=== PATIENT | male | born 1965 | race Caucasian/White ===

== ENCOUNTER 2016-06-04 05:45 | Inpatient (IN) | payer OTHER ==
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
--- NOTE | ~2016-06-04 | CR151 ---
[facility] A Service of [facility] RADIOLOGY TEXT RESULTS PATIENT: MIRA BRAXTON LOCATION: [facility] 204- : [birth year] UNIT #: [id number] AGE: [address]: Neena Crisostomo MD SEX: M ORDER DR: [id number] [facility] [address] [place], [place] [address] [id number] I MR#: [id number] Acc #: [id number] NAME: MIRA BRAXTON : 1965 SEX: M STUDY DATE/TIME: 06/04/2016 6:39 UNIT: CEDOF ROOM: 08219 STUDY DESCRIPTION: CR Hip Min 2 Views Rt Attending Physician: Neena Crisostomo M.D. Ordering Physician: Colt Hazel Aprn Primary Care Physician: Colton Mcdowell M.D. MEDICAL IMAGING REPORT This report is preliminary unless electronic signature is present EXAM AP pelvis and frog view right hip DATE: 06/04/16 HISTORY Bilateral hip pain for three days. No known injury FINDINGS There is perhaps some mild degenerative change with slight joint space narrowing but no fracture or dislocation. Dictated by... Poncho Hendrix M.D. THIS IS AN ELECTRONICALLY VERIFIED REPORT Poncho Hendrix M.D. at 06/07/2016 7:06 PM FERDINAND/quan TD: 06/04/2016 10:30 JOB #: [id number] MEDICAL IMAGING REPORT COPY
--- NOTE | ~2016-06-04 | CR72 ---
[facility] A Service of [facility] RADIOLOGY TEXT RESULTS PATIENT: MIRA BRAXTON LOCATION: [place] [address] : [birth year] UNIT #: [id number] AGE: [address]: Neena Crisostomo MD SEX: M ORDER DR: [id number] [facility] [address] [facility]. [place], [place] [address] [id number] I MR#: [id number] Acc #: [id number] NAME: MIRA BRAXTON : 1965 SEX: M STUDY DATE/TIME: 06/04/2016 6:36 [facility] [address] STUDY DESCRIPTION: CR Chest Single View Portable Attending Physician: Neena Crisostomo M.D. Ordering Physician: Colt Hazel Aprn Primary Care Physician: Colton Mcdowell M.D. MEDICAL IMAGING REPORT This report is preliminary unless electronic signature is present EXAM Portable chest one view 06/04/2016 COMPARISON 04/10/2016 HISTORY Short of air. Symptoms for three days. FINDINGS Low lung volumes. Mild interstitial prominence and/or vascular congestion may be primarily result of submaximal inspiration as made slight exaggeration of the cardiac silhouette. There is no consolidation or effusion or pneumothorax. Dictated by... Poncho Hendrix M.D. THIS IS AN ELECTRONICALLY VERIFIED REPORT Poncho Hendrix M.D. at 06/05/2016 3:55 PM FERDINAND/barbara TD: 06/04/2016 10:42 JOB #: [id number] MEDICAL IMAGING REPORT COPY
--- NOTE | ~2016-06-04 | CO ---
Unit #: [id number] #: [id number] Patient: MIRA DANIELSON [id number] [address] [place], [place] [address] [id number] I MR#: [id number] NAME: MIRA DANIELSON ROOM: 201 Age: 51 Sex: M Admission Date: 06/04/2016 : 1965 Attending Physician: Neena Crisostomo M.D. Primary Care Physician: Colton Mcdowell M.D. Consultation Date: 06/04/2016 CONSULTATION REPORT REASON FOR CONSULT Renal failure. Thank you very much for asking us to see this patient in consultation. HISTORY OF PRESENT ILLNESS Mr. Mira Danielson is a 51-year-old male, who has a history of acute renal failure in the past, requiring dialysis. Subsequently, he was weaned off dialysis. He apparently was felt to have hepatorenal at that time versus ATN and improved, although he does have a functioning fistula in his left arm, although it has yet been used. The patient was noted in April of this year to have a creatinine of 1.4. He underwent a 7.9 L large-volume paracentesis on 05/25/2016. He has an underlying history of EtOH cirrhosis, portal hypertension, who presented back to the hospital with increased swelling and noted to have black tarry stools with a creatinine of 4.9 now and a hemoglobin of 6.9. The patient is alert, although seems a little inappropriate. He states he is back drinking as well as smoking. He denies any shortness of breath. No chest pain. No significant nausea or vomiting. PAST MEDICAL HISTORY History of EtOH cirrhosis, portal hypertension, awaiting TIPS procedure, history of multiple paracenteses, history of COPD, history of SVT, history of acute renal failure in the past. He is status post AV fistula in the left arm, history of suicide in the past, history of anemia with GI bleed in the past. ALLERGIES No known drug allergies. SOCIAL HISTORY Positive alcohol again. Positive smoking cigarettes. He denies any other drugs. FAMILY HISTORY Noncontributory. MEDICATIONS His medications at home include sodium bicarbonate 650 daily, lactulose daily, Ambien 5 mg at night, multivitamin a day, tramadol p.r.n., folic acid 1 mg a day, B12 daily. REVIEW OF SYSTEMS As mentioned in the HPI. Denies any fevers, chills, visual problems, or Unit #: [id number] #: [id number] Patient: MIRA DANIELSON sinus problems. No cough or hemoptysis. No neck pain or neck stiffness. No chest pain, chest tightness, or palpitations. He has had the increased abdominal swelling. He also states he has had decreased urine output, although no burning. He states he has had some intermittent occasional swelling. He denies any recent seizures or strokes or skin rashes. PHYSICAL EXAMINATION VITAL SIGNS: Temperature is 97.8, pulse 122, blood pressure 118/80. HEENT: Normocephalic and atraumatic. Pupils are equal, round, and reactive to light. Extraocular muscles are intact. Hearing appears to be normal. Mouth clear. No erythema. No exudate. NECK: Supple. No adenopathy. CARDIAC: He is tachycardic without a rub. No S3 or S4. LUNGS: Sound fairly clear bilaterally. No wheezes, rhonchi, or rales. ABDOMEN: Very distended. Bowel sounds positive. Nontender. Positive for some body edema. EXTREMITIES: He has no significant lower extremity edema. His pulses are intact in upper and lower extremities. JOINTS: No joint pain or joint swelling. SKIN: No acute rashes. NEUROLOGIC: Grossly intact. : Deferred. DIAGNOSTIC STUDIES LABORATORY RESULTS: Shows a sodium of 134, potassium 5.2, chloride 100, bicarb is 14, BUN of 47, creatinine of 4.9, glucose of 111, calcium is 8.0, albumin is 2.1, AST is 100, ALT is 37. Lactic acid is 3. INR is 1.3. Hemoglobin 6.9 with a white count of 9100, platelets 110,000. IMAGING STUDIES: Chest x-ray showed questionable mild vascular congestion, otherwise negative. ASSESSMENT AND PLAN 1. Acute kidney injury again on top of some chronic kidney disease, stage 3/4. BUN and creatinine worsened again. Questionable, it is from volume depletion from gastrointestinal bleed versus hepatorenal again versus other. We will hold off on dialysis. We will check a bladder scan for postvoid residual. We will agree with blood as well as put him on low dose IV fluids with bicarb, half-normal saline with 1.5 amps of bicarb at 75 mL/h. He is supposed to get blood as well. Certainly, if renal function worsens or becomes more hyperkalemic, then we will need to consider putting him on dialysis, but again we will try to hold off, he does have a fistula, if needed. 2. Hyperkalemia secondary to acidosis and renal insufficiency. Recheck later today. Treat as clinically indicated. 3. Cirrhosis with ascites. Positive alcohol abuse again. 4. History of gastrointestinal bleed. Dictated by.Bi Chaney/dorota TD: 06/05/2016 03:29 JOB #: [id number] Unit #: [id number] #: [id number] Patient: MIRA DANIELSON CONSULTATION REPORT X Damian Vicente MD X CONSULTATION REPORT
--- NOTE | ~2016-06-04 | XA170 ---
[facility] A Service of [facility] RADIOLOGY TEXT RESULTS PATIENT: MIRA BRAXTON LOCATION: [facility] : [birth year] UNIT #: [id number] AGE: [address]: Neena Crisostomo MD SEX: M ORDER DR: [id number] [facility] [address] [facility]. [place], [place] [address] [id number] I MR#: [id number] Acc #: [id number] NAME: MIRA BRAXTON : 1965 SEX: M STUDY DATE/TIME: 06/05/2016 9:11 UNIT: [facility] ROOM: [facility] STUDY DESCRIPTION: XA Paracentesis W Image Attending Physician: Neena Crisostomo M.D. Ordering Physician: Akshat Umana M.D. Primary Care Physician: Colton Mcdowell M.D. MEDICAL IMAGING REPORT This report is preliminary unless electronic signature is present EXAM Ultrasound guided paracentesis HISTORY Recurrent ascites. Abdominal distension. TECHNIQUE The procedure was explained to the patient including risks, benefits and complications. Informed consent was obtained and a formal "time-out" procedure was utilized. FINDINGS Using sterile technique and following local anesthesia with 1% Xylocaine, a sheathed needle was placed into the acidic fluid collection under ultrasound guidance with permanent ultrasound images recorded. A total of 9.6 L of fluid was withdrawn. Some of the fluid was sent for laboratory analysis. The patient tolerated the procedure well. He will be kept on bedrest for one hour following the procedure with close monitoring of vital signs. IMPRESSION Technically successful ultrasound guided paracentesis with 9.6 L of fluid obtained. Dictated by... Osvaldo Pickett M.D. THIS IS AN ELECTRONICALLY VERIFIED REPORT Osvaldo Pickett M.D. at 06/05/2016 4:31 PM Digna TD: 06/05/2016 15:44 [facility] A Service [facility] RADIOLOGY TEXT RESULTS PATIENT: MIRA BRAXTON LOCATION: [place] [id number] : [birth year] UNIT #: [id number] AGE: [address]: Neena Crisostomo MD SEX: M ORDER DR: JOB #: [id number] MEDICAL IMAGING REPORT COPY
--- NOTE | ~2016-06-04 | CT71 ---
[facility] A Service of [facility] RADIOLOGY TEXT RESULTS PATIENT: MIRA BRAXTON LOCATION: [facility] : [birth year] UNIT #: [id number] AGE: [address]: Neena Crisostomo MD SEX: M ORDER DR: [id number] [facility] [address]. [place], [place] [address] [id number] I MR#: [id number] Acc #: [id number] NAME: MIRA BRAXTON. : 1965 SEX: M STUDY DATE/TIME: 06/04/2016 7:30 UNIT: [facility] ROOM: [facility] STUDY DESCRIPTION: CT Head Wo Contrast Attending Physician: Neena Crisostomo M.D. Ordering Physician: Colt Hazel Aprn Primary Care Physician: Colton Mcdowell M.D. MEDICAL IMAGING REPORT This report is preliminary unless electronic signature is present EXAM CT head without contrast dated 06/04/2016. COMPARISON CT head without contrast dated 01/13/2016. HISTORY Weakness, confusion for [address] exam was performed with one or more of the following radiation dose reduction techniques: automatic exposure control, adjustment of mA and/or kV according to patient size, and iterative reconstruction. FINDINGS CT of the head was obtained without contrast in the axial plane as per the protocol. Motion artifact limits evaluation. No acute intracranial hemorrhage, space-occupying mass, mass effect, midline shift or hydrocephalus is seen, after giving allowances to motion artifact. Age-appropriate parenchymal volume is seen. No acute fracture. Mild paranasal sinus mucosal thickening is seen with septal deviation to the right. Imaged orbits with the ocular structures and mastoids are unremarkable. IMPRESSION 1. Motion artifact limits evaluation. 2. No obvious acute intracranial abnormality. MRI is more sensitive and specific in evaluation of small acute stroke. Dictated by... Judson Amezcua M.D. [facility] A Service of [facility] RADIOLOGY TEXT RESULTS PATIENT: MIRA BRAXTON LOCATION: [facility] : [birth year] UNIT #: [id number] AGE: [address]: Neena Crisostomo MD SEX: M ORDER DR: THIS IS AN ELECTRONICALLY VERIFIED REPORT Judson Amezcua M.D. at 06/06/2016 10:47 AM CPR/cmm TD: 06/04/2016 10:50 JOB #: [id number] MEDICAL IMAGING REPORT COPY
--- NOTE | ~2016-06-04 | XA170 ---
[facility] A Service of [facility] RADIOLOGY TEXT RESULTS PATIENT: MIRA DANIELSON LOCATION: [place] [address] : [birth year] UNIT #: [id number] AGE: [address]: Neena Crisostomo MD SEX: M ORDER DR: [id number] [facility] [address]. [place], [place] [address] [id number] I MR#: [id number] Acc #: [id number] NAME: MIRA DANIELSON. : 1965 SEX: M STUDY DATE/TIME: 06/08/2016 15:28 UNIT: [facility] ROOM: [facility] STUDY DESCRIPTION: XA Paracentesis W Image Attending Physician: Neena Crisostomo M.D. Ordering Physician: Akshat Umana M.D. Primary Care Physician: Colton Mcdowell M.D. MEDICAL IMAGING REPORT This report is preliminary unless electronic signature is present EXAM Ultrasound of the abdomen Mr. Danielson is a 51-year-old gentleman with ascites. He has refractory ascites requiring large volume paracenteses frequently. He is referred for paracentesis today. Preliminary ultrasound of the abdomen was performed which demonstrated only small pockets of fluid, with mobile, bowel identified within it. The procedure was subsequently terminated. IMPRESSION Insufficient volume of fluid for safe paracentesis at this time. Dictated by... Brandie Maya M.D. THIS IS AN ELECTRONICALLY VERIFIED REPORT Brandie Maya M.D. at 06/12/2016 4:43 PM JAEL/quan TD: 06/12/2016 11:49 JOB #: [id number] MEDICAL IMAGING REPORT COPY
--- NOTE | ~2016-06-04 | CR150 ---
[facility] A Service of [facility] RADIOLOGY TEXT RESULTS PATIENT: MIRA BRAXTON LOCATION: [place] [address]- : [birth year] UNIT #: [id number] AGE: [address]: Neena Crisostomo MD SEX: M ORDER DR: [id number] [facility] [address] [facility]. [place], [place] [address] [id number] I MR#: [id number] Acc #: [id number] NAME: MIRA BRAXTON : 1965 SEX: M STUDY DATE/TIME: 06/04/2016 6:40 UNIT: [facility] ROOM: [address] STUDY DESCRIPTION: CR Hip Min 2 Views Lt Attending Physician: Neena Crisostomo M.D. Ordering Physician: Colt Hazel Aprn Primary Care Physician: Colton Mcdowell M.D. MEDICAL IMAGING REPORT This report is preliminary unless electronic signature is present EXAM AP pelvis and frog view left hip. HISTORY Bilateral hip pain for 3 days. No known injury. FINDINGS Question some very slight degenerative change with tiny marginal osteophytes, but no fracture or dislocation or acute-appearing abnormality. Dictated by... Poncho Hendrix M.D. THIS IS AN ELECTRONICALLY VERIFIED REPORT Poncho Hendrix M.D. at 06/07/2016 7:06 PM FERDINAND/mayco TD: 06/04/2016 10:19 JOB #: [id number] MEDICAL IMAGING REPORT COPY
--- NOTE | ~2016-06-04 | EKG ---
PATIENT: MIRA BRAXTON UNIT #: [id number] Ventricular Rate: 119 BPM Atrial Rate: 119 BPM P-R Interval: 156 ms QRS Duration: 84 ms Q-T Interval: 312 ms QTC Calculation(Bezet): 438 ms P Welch: 52 degrees Calculated R Welch: 9 degrees Calculated T Welch: 32 degrees Diagnosis Line: Sinus tachycardia Diagnosis Line: Low voltage QRS Diagnosis Line: Poor R wave progression questionable lead position Diagnosis Line: or body habitus Diagnosis Line: Abnormal ECG Diagnosis Line: When compared with ECG of 25-AUG-2015 06:18, Diagnosis Line: Vent. rate has increased BY 49 BPM Diagnosis Line: Confirmed by FRANCY TARIQ MD ([id number]) on Diagnosis Line: 06/05/2016 11:45:21 AM INTERPRETING : KENZIE
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
--- NOTE | ~2016-06-04 | OR ---
Unit #: [id number] #: [id number] Patient: MIRA BRAXTON [id number] [facility]. [place], [place] [address] [id number] I MR#: [id number] NAME: MIRA BRAXTON ROOM: 201 Date of Procedure: 06/04/2016 Admission Date: 06/04/2016 Surgeon: Akshat Umana M.D. : 1965 Attending Physician: Neena Crisostomo M.D. Primary Care Physician: Colton Mcdowell M.D. OPERATIVE REPORT PRIMARY CARE PHYSICIAN Colton Mcdowell M.D. PREOPERATIVE DIAGNOSES Significant drop in hemoglobin and the patient with alcoholic cirrhosis with portal hypertension, large ascites, and hepatic encephalopathy. There is no history of overt GI bleed. PROCEDURES PERFORMED Upper gastrointestinal endoscopy. POSTOPERATIVE DIAGNOSES The patient had severe diffuse portal hypertensive gastropathy changes throughout the entire stomach with multiple areas of oozing of blood in the fundus as well as body of the stomach. No esophageal or gastric varices were present. Rest of the examination up to third part of duodenum was normal. RECOMMENDATIONS No specific endotherapy is possible because of diffuse nature of the condition other than supportive management. The patient needs packed cell transfusions along with continuation of lactulose, also albumin infusions, large volume paracentesis, Xifaxan 550 mg p.o. b.i.d., also 2 g sodium, 70 g protein, 1800 calorie diet. Lastly, a Renal consult, which has already been done by Dr. Vicente to look into the issue of possible hemodialysis and HRS. SEDATION USED MAC. DESCRIPTION OF PROCEDURE Following detailed explanation of potential risks and complications of an upper endoscopy, namely perforation, bleeding, and complications related to sedation, the patient was brought to GI lab and laid in the left lateral decubitus position. Lubricated tip of the Olympus video upper endoscope was passed through bite block into the proximal esophagus under direct vision. The entire esophageal mucosa was examined and appeared normal. There being no esophageal varices. The scope was then advanced into the gastric cavity and classic changes of portal hypertensive gastropathy were observed with diffuse mucosal changes of reticulated appearance of the mucosa along with multiple areas of fresh oozing of the blood. These were too numerous to be treated endoscopically by Unit #: [id number] #: [id number] Patient: MIRA BRAXTON coagulation therapy. The pylorus was intubated with visualization of the normal duodenal bulb and second and third part of the duodenum. Upon withdrawal and retroflexion, incisura, cardia, and greater curve examined and no additional findings noted. The scope was then withdrawn in the distal esophagus. The entire esophageal mucosa was examined all the way up to pharynx. No additional findings noted. The patient tolerated the procedure without any postprocedure complications. Dictated by... Bi Barry/dorota TD: 06/05/2016 02:01 JOB #: [id number] Viral Vicente M.D. OPERATIVE REPORT X Akshat Umana MD X PROCEDURE OPERATIVE NOTE
--- NOTE | ~2016-06-04 | CO ---
Unit #: [id number] #: [id number] Patient: MIRA DANIELSON [id number] [address] [id number] I MR#: [id number] NAME: MIRA DANIELSON. ROOM: 55 Age: 51 Sex: M Admission Date: 06/04/2016 : 1965 Attending Physician: Neena Crisostomo M.D. Primary Care Physician: Colton Mcdowell M.D. CONSULTATION REPORT REASON FOR CONSULTATION Urinary retention. HISTORY OF PRESENT ILLNESS Mr. Danielson is a pleasant 51-year-old man with a history of acute on chronic renal insufficiency requiring hemodialysis, as well as cirrhosis. He had a catheter placed earlier in this admission, and after the catheter was removed, he was found to be in urinary retention. A bladder scan checked yesterday was in the 250 range per his nurse. Urology consultation was requested. The patient reports having weak urinary stream prior to admission. He also noted urinary hesitancy, although no straining or sensation of incomplete emptying. Denies gross hematuria. He reports that he did have a urinary tract infection several months ago but has never undergone urinary tract surgery in the past. He does not take medication for an enlarged prostate. PAST MEDICAL HISTORY 1. Endstage renal disease, on hemodialysis Saturday, , Saturday. 2. History of anemia. 3. History of hyperkalemia. 4. COPD. 5. Hepatic encephalopathy. MEDICATIONS 1. Tramadol. 2. Folic acid. 3. Vitamin B12. 4. Ambien. 5. Pepcid. 6. Sodium bicarb. 7. Lactulose. HOSPITAL MEDICATIONS 1. Darbepoetin. 2. Ativan. 3. Bentyl. 4. Phenergan. 5. Thiamine. 6. Folic acid. 7. Levaquin. 8. Tramadol. 9. Multivitamin. Unit #: [id number] #: [id number] Patient: MIRA DANIELSON ALLERGIES No known drug allergies. FAMILY HISTORY Noncontributory. PHYSICAL EXAMINATION VITAL SIGNS: Afebrile, occasionally tachycardic but otherwise vital signs stable. Saturating well on room air. GENERAL: Awake and alert. No apparent distress. HEENT: Atraumatic. Poor dentition. NECK: Supple. CHEST: Normal respiratory effort. ABDOMEN: Soft, protuberant, nondistended. No tenderness. No suprapubic distention. : Normal phallus. Scrotum nonedematous. PSYCHIATRIC: Normal mood and affect. SKIN: Warm and dry. DIAGNOSTIC STUDIES LABS: Creatinine 4.2. White count 7.6, hemoglobin 7, platelets 56,000. ASSESSMENT This is a 51-year-old male with a history of endstage renal disease, found to have elevated postvoid residual and has lower urinary tract signs and symptoms. PLAN 1. Repeat PVR via bladder scan. 2. Flomax 0.4 mg p.o. daily. 3. Followup in urology clinic for additional PVR and discussion of BPH management. Dictated by... Bi Clifton/veronique TD: 06/10/2016 14:49 JOB #: [id number] CONSULTATION REPORT X X CONSULTATION REPORT
--- NOTE | ~2016-06-04 | US77 ---
[facility] A Service of [facility] RADIOLOGY TEXT RESULTS PATIENT: MIRA BRAXTON LOCATION: [facility] : [birth year] UNIT #: [id number] AGE: [address]: Neena Crisostomo MD SEX: M ORDER DR: [id number] [place], [place] [address] [id number] I MR#: [id number] Acc #: [id number] NAME: MIRA BRAXTON : 1965 SEX: M STUDY DATE/TIME: 06/04/2016 16:55 UNIT: A ROOM: 201 STUDY DESCRIPTION: US Kidney Bilateral Complete Attending Physician: Neena Crisostomo M.D. Ordering Physician: Neena Crisostomo M.D. Primary Care Physician: Colton Mcdowell M.D. MEDICAL IMAGING REPORT This report is preliminary unless electronic signature is present EXAM Renal ultrasound INDICATIONS Renal insufficiency, BUN 47, creatinine 4.9, GFR 13.5 PROCEDURE Roy-scale and Doppler imaging kidneys and bladder. COMPARISON None. FINDINGS Right kidney measures 11.9 cm, no hydronephrosis. Left kidney measures 10.7 cm, no hydronephrosis. There is ascites seen in the abdomen. The bladder is not well seen on this study. IMPRESSION 1. No hydronephrosis. 2. Bladder decompressed by a catheter. 3. Abdominal ascites. Dictated by... Piyush Coleman M.D. THIS IS AN ELECTRONICALLY VERIFIED REPORT Piyush Coleman M.D. at 06/05/2016 7:18 AM EED/psc TD: 06/04/2016 23:19 JOB #: [id number] [facility] A Service of [facility] RADIOLOGY TEXT RESULTS PATIENT: MIRA BRAXTON LOCATION: [facility] : 69 UNIT #: [id number] AGE: [address]: Neena Crisostomo MD SEX: M ORDER DR: MEDICAL IMAGING REPORT COPY
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
[~2016-06-04 05:45] MED LIST: ACETAMINOPHEN325 MG PO; ALDACTONE25 MG PO; AMBIEN PO; ANTACID650 MG PO; ANTI-DIARRHEAL2 M1 PO; B COMPLEX1 CA1 PO; B-121000 MC1 PO; B-COMPLEX1 TAB PO; BENADRYL25 M1 PO; CALCIUM + D 6001 TA1 PO; CALCIUM ACETAT667 M2 PO; CHRONULAC10 GM/15 M PO; COMBIVENT U/D3 M1 INH; EPOGEN20000 U/ML INJ; FLAGYL250 M1 PO; FLOMAX0.4 M1 PO; FOLIC ACID1 MG PO; FUROSEMIDE40 MG PO; HYDROCODON-ACE1 EAC7 PO; KEFLEX500 M1 PO; LACTULOSE10 G/15 M1 PO; LASIX PO; LASIX20 MG PO; LEVAQUIN PO; LIBRIUM PO; LOPERAMIDE1 MG/7.5 M; MACROBID100 MG PO; MIDODRINE HCL2.5 MG PO; MULTI VITAMIN1 EACH PO; MULTI-VITAMIN1 EAC1 PO; MULTIVITAMIN TABLET PO; OMEPRAZOLE40 M1 PO; ONDANSETRON HCL4 MG PO; PEPCID AC20 MG PO; PEPCID40 MG PO; PHENERGAN25 M1 PO; PREDNISONE10 MG PO; PRILOSEC40 MG PO; PROAMATINE10 MG PO; SODIUM BICARBO650 MG PO; SPIRONOLACTONE100 MG PO; THIAMINE HCL100 M1 PO; THIAMINE HCL50 MG PO; TOPROL XL50 MG PO; TRAMADOL HCL50 M1 PO; ULTRAM PO; VITAMIN B-1100 M1 PO; VITAMIN B1 PO; VITAMIN B12 PO; VITAMIN D PO; VITAMIN D2 PO; VITAMIN D22000 UNIT PO; XIFAXAN550 MG PO; ZOLPIDEM TARTRA10 M1 PO
[2016-06-04 06:32] LABS: POC - CKMB 3.6 ng/mL (0.0-7.9); POC - TROPONIN <0.05 ng/mL (<=0.05)
[2016-06-04 06:45] LABS: BASOPHIL# 0.1 X10e3 (0-0.3); BASOPHIL% 1.4 % (0-2.5); EOSINOPHIL# 0.1 X10e3 (0-0.7); EOSINOPHIL% 1.3 % (0.0-7.0); HEMATOCRIT 21.1 % (38.0-50.0); LYMPHOCYTE# 1.2 X10e3 (1.0-3.5); MEAN CELL VOLUME 111.3 FL (83-96); MEAN CORPUSCULAR HEMOGLOBIN 36.5 PG (28-34); MEAN CORPUSCULAR HGB CONC 32.8 g/dL (30-36); MEAN PLATELET VOLUME 7.8 FL (6.5-11.5); MONOCYTE# 0.7 X10e3 (0-1.0); MONOCYTE% 7.4 % (3.0-12.0); NEUTROPHIL% 76.9 % (40-75); PLATELET COUNT 110 X10e3 (140-420); RED BLOOD COUNT 1.89 X10e (3.90-5.60); RED CELL DISTRIBUTION WIDTH 18.2 % (11.0-15.5); WHITE BLOOD COUNT 9.1 X10e3 (4.0-10.5)
[2016-06-04 06:48] LABS: DIFF IND YES; HEMOGLOBIN 6.9 gm/dL (13.0-16.0)
[2016-06-04 06:58] LABS: INR 1.3; PARTIAL THROMBOPLASTIN TIME 28.5 SECONDS (23.5-31.3); PROTHROMBIN TIME (PATIENT) 14.1 SECONDS (9.6-11.5)
[2016-06-04 07:17] LABS: ALBUMIN SERUM 2.1 g/dL (3.5-5.0); BILIRUBIN, DIRECT 1.6 mg/dL (0.0-0.2); BILIRUBIN,INDIRECT 2.6 mg/dL (0.0-0.9); BILIRUBIN,TOTAL 4.2 mg/dL (0.2-2.0); BUN/CREATININE RATIO 9.59; CREATININE SERUM 4.9 mg/dL (0.6-1.4); GLOM FILT RATE Estimated 13.5 mL/min (>60); POTASSIUM 5.2 mmol/L (3.5-5.1)
[2016-06-04 07:21] LABS: PLATELET ESTIMATE DECREASED (NORMAL)
[2016-06-04 07:22] LABS: ANISOCYTOSIS SL; HYPOCHROMIA MOD
[2016-06-04 07:23] LABS: TEAR DROP CELLS PRESENT
[2016-06-04 13:11] LABS: HEMATOCRIT 19.8 % (38.0-50.0); MEAN CELL VOLUME 111.3 FL (83-96); MEAN CORPUSCULAR HEMOGLOBIN 36.7 PG (28-34); MEAN PLATELET VOLUME 9.5 FL (6.5-11.5); RED BLOOD COUNT 1.78 X10e (3.90-5.60); WHITE BLOOD COUNT 10.4 X10e3 (4.0-10.5)
[2016-06-04 13:28] LABS: HEMOGLOBIN 6.5 gm/dL (13.0-16.0)
[2016-06-04 16:40] LABS: URINE APPEARANCE CLEAR; URINE BLOOD NEG (NEG); URINE COLOR DK YELLOW; URINE GLUCOSE NEG (NEG); URINE KETONE TRACE (NEG); URINE LEUKOCYTE ESTERASE NEG (NEG); URINE NITRATE NEG (NEG); URINE PROTEIN NEG (NEG); URINE SPECIFIC GRAVITY 1.017 (1.003-1.035); URINE UROBILINOGEN 0.2 MG/DL (NEG)
[2016-06-04 16:53] LABS: URINE BILIRUBIN NEG (NEG)
[2016-06-04 17:00] LABS: CULTURE INDICATED? NO
[2016-06-05 10:41] LABS: BF TOTAL NUCLEATED CELL COUNT 55 CMM (0-100); BODY FLUID APPEARANCE CLEAR; BODY FLUID RBC <10000 CMM; BODY FLUID SOURCE PARACENTESIS
[2016-06-05 10:43] LABS: BASOPHIL# 0.1 X10e3 (0-0.3); BASOPHIL% 0.7 % (0-2.5); EOSINOPHIL# 0.3 X10e3 (0-0.7); EOSINOPHIL% 3.4 % (0.0-7.0); HEMATOCRIT 20.8 % (38.0-50.0); LYMPHOCYTE# 0.8 X10e3 (1.0-3.5); LYMPHOCYTE% 9.7 % (17.0-45.0); MEAN CORPUSCULAR HEMOGLOBIN 34.7 PG (28-34); MEAN CORPUSCULAR HGB CONC 33.8 g/dL (30-36); MEAN PLATELET VOLUME 8.2 FL (6.5-11.5); MONOCYTE# 0.6 X10e3 (0-1.0); MONOCYTE% 6.7 % (3.0-12.0); NEUTROPHIL# 6.8 X10e3 (1.5-7.1); NEUTROPHIL% 79.5 % (40-75); RED BLOOD COUNT 2.03 X10e (3.90-5.60); RED CELL DISTRIBUTION WIDTH 22.2 % (11.0-15.5); WHITE BLOOD COUNT 8.6 X10e3 (4.0-10.5)
[2016-06-05 10:48] LABS: MEAN CELL VOLUME 102.8 FL (83-96); PLATELET COUNT 58 X10e3 (140-420)
[2016-06-05 10:49] LABS: DIFF IND NO
[2016-06-05 11:29] LABS: BILIRUBIN,TOTAL 4.3 mg/dL (0.2-2.0); BUN/CREATININE RATIO 9.05; CALCIUM SERUM 7.9 mg/dL (8.4-10.2); CREATININE SERUM 5.3 mg/dL (0.6-1.4); GLOM FILT RATE Estimated 12.3 mL/min (>60); MAGNESIUM 1.9 mg/dL (1.6-3.0); PHOSPHOROUS 4.9 mg/dL (2.5-4.6); POTASSIUM 4.8 mmol/L (3.5-5.1); PROTEIN TOTAL SERUM 5.4 g/dL (6.0-8.3)
[2016-06-06 08:46] LABS: HEMATOCRIT 23.7 % (38.0-50.0); MEAN CELL VOLUME 101.5 FL (83-96); MEAN CORPUSCULAR HEMOGLOBIN 34.3 PG (28-34); MEAN CORPUSCULAR HGB CONC 33.8 g/dL (30-36); MEAN PLATELET VOLUME 8.2 FL (6.5-11.5); RED BLOOD COUNT 2.34 X10e (3.90-5.60); WHITE BLOOD COUNT 8.8 X10e3 (4.0-10.5)
[2016-06-06 09:50] LABS: ALBUMIN SERUM 2.2 g/dL (3.5-5.0); BILIRUBIN,TOTAL 3.9 mg/dL (0.2-2.0); BUN/CREATININE RATIO 8.59; CALCIUM SERUM 7.9 mg/dL (8.4-10.2); CREATININE SERUM 5.7 mg/dL (0.6-1.4); GLOM FILT RATE Estimated 11.3 mL/min (>60); POTASSIUM 4.1 mmol/L (3.5-5.1); PROTEIN TOTAL SERUM 5.5 g/dL (6.0-8.3)
[2016-06-07 05:38] LABS: BASOPHIL# 0.1 X10e3 (0-0.3); BASOPHIL% 0.6 % (0-2.5); EOSINOPHIL# 0.5 X10e3 (0-0.7); EOSINOPHIL% 5.8 % (0.0-7.0); HEMATOCRIT 23.6 % (38.0-50.0); HEMOGLOBIN 7.9 gm/dL (13.0-16.0); LYMPHOCYTE% 11.4 % (17.0-45.0); MEAN CELL VOLUME 102.7 FL (83-96); MEAN CORPUSCULAR HEMOGLOBIN 34.5 PG (28-34); MEAN CORPUSCULAR HGB CONC 33.6 g/dL (30-36); MEAN PLATELET VOLUME 9.2 FL (6.5-11.5); MONOCYTE# 0.8 X10e3 (0-1.0); NEUTROPHIL# 6.5 X10e3 (1.5-7.1); NEUTROPHIL% 73.2 % (40-75); RED CELL DISTRIBUTION WIDTH 22.1 % (11.0-15.5); RETICULOCYTE 1.8 % (0.5-2.8); WHITE BLOOD COUNT 8.9 X10e3 (4.0-10.5)
[2016-06-07 05:45] LABS: DIFF IND YES; PLATELET COUNT 48 X10e3 (140-420)
[2016-06-07 06:14] LABS: PLATELET ESTIMATE DECREASED (NORMAL); RBC NORMAL YES
[2016-06-07 06:15] LABS: ALBUMIN SERUM 2.2 g/dL (3.5-5.0); BILIRUBIN,TOTAL 2.7 mg/dL (0.2-2.0); BUN/CREATININE RATIO 8.38; CREATININE SERUM 6.2 mg/dL (0.6-1.4); GLOM FILT RATE Estimated 10.3 mL/min (>60); POTASSIUM 4.1 mmol/L (3.5-5.1); PROTEIN TOTAL SERUM 5.6 g/dL (6.0-8.3)
[2016-06-07 06:17] LABS: ANISOCYTOSIS MOD; MICROCYTOSIS MOD; OVALOCYTES PRESENT
[2016-06-07 06:22] LABS: ACANTHOCYTES PRESENT
[2016-06-07 06:23] LABS: POIKILOCYTOSIS SL
[2016-06-08 08:25] LABS: HEMATOCRIT 22.6 % (38.0-50.0); HEMOGLOBIN 7.7 gm/dL (13.0-16.0); MEAN CELL VOLUME 103.4 FL (83-96); MEAN CORPUSCULAR HEMOGLOBIN 35.3 PG (28-34); MEAN CORPUSCULAR HGB CONC 34.1 g/dL (30-36); RED BLOOD COUNT 2.19 X10e (3.90-5.60); RED CELL DISTRIBUTION WIDTH 23.2 % (11.0-15.5); WHITE BLOOD COUNT 8.4 X10e3 (4.0-10.5)
[2016-06-08 15:15] LABS: BUN/CREATININE RATIO 5.67; CALCIUM SERUM 7.8 mg/dL (8.4-10.2); CREATININE SERUM 3.7 mg/dL (0.6-1.4); GLOM FILT RATE Estimated 18.7 mL/min (>60)
[2016-06-09 07:25] LABS: HEMATOCRIT 21.8 % (38.0-50.0); HEMOGLOBIN 7.5 gm/dL (13.0-16.0); MEAN CELL VOLUME 103.4 FL (83-96); MEAN CORPUSCULAR HEMOGLOBIN 35.7 PG (28-34); MEAN CORPUSCULAR HGB CONC 34.5 g/dL (30-36); MEAN PLATELET VOLUME 9.2 FL (6.5-11.5); RED BLOOD COUNT 2.11 X10e (3.90-5.60); RED CELL DISTRIBUTION WIDTH 22.3 % (11.0-15.5); WHITE BLOOD COUNT 8.4 X10e3 (4.0-10.5)
[2016-06-09 07:52] LABS: BUN/CREATININE RATIO 5.86; CALCIUM SERUM 7.8 mg/dL (8.4-10.2); CREATININE SERUM 4.6 mg/dL (0.6-1.4); GLOM FILT RATE Estimated 14.5 mL/min (>60); POTASSIUM 4.3 mmol/L (3.5-5.1)
[2016-06-10 05:45] LABS: HEMATOCRIT 21.5 % (38.0-50.0); MEAN CELL VOLUME 106.3 FL (83-96); MEAN CORPUSCULAR HEMOGLOBIN 34.4 PG (28-34); MEAN CORPUSCULAR HGB CONC 32.4 g/dL (30-36); MEAN PLATELET VOLUME 10.4 FL (6.5-11.5); RED BLOOD COUNT 2.03 X10e (3.90-5.60); RED CELL DISTRIBUTION WIDTH 25.2 % (11.0-15.5); WHITE BLOOD COUNT 7.6 X10e3 (4.0-10.5)
[2016-06-10 09:40] LABS: BUN/CREATININE RATIO 5.23; CALCIUM SERUM 7.6 mg/dL (8.4-10.2); CREATININE SERUM 4.2 mg/dL (0.6-1.4); GLOM FILT RATE Estimated 16.1 mL/min (>60); POTASSIUM 4.3 mmol/L (3.5-5.1)
[2016-06-11 05:54] LABS: HEMATOCRIT 26.2 % (38.0-50.0); MEAN CELL VOLUME 103.4 FL (83-96); MEAN CORPUSCULAR HEMOGLOBIN 35.4 PG (28-34); MEAN CORPUSCULAR HGB CONC 34.2 g/dL (30-36); MEAN PLATELET VOLUME 8.5 FL (6.5-11.5); RED BLOOD COUNT 2.53 X10e (3.90-5.60); RED CELL DISTRIBUTION WIDTH 23.8 % (11.0-15.5); WHITE BLOOD COUNT 8.3 X10e3 (4.0-10.5)
[2016-06-11 06:28] LABS: BUN/CREATININE RATIO 5.57; CALCIUM SERUM 8.2 mg/dL (8.4-10.2); CREATININE SERUM 5.2 mg/dL (0.6-1.4); GLOM FILT RATE Estimated 12.6 mL/min (>60); POTASSIUM 4.8 mmol/L (3.5-5.1)
[2016-06-11] MEDS ORDERED: XIFAXAN550 MG PO (18:20)
[2016-06-11] MEDS ORDERED: THIAMINE HCL100 M2 PO (18:21)
[2016-06-11] MEDS ORDERED: FLOMAX0.4 M1 DOB (18:21)
== END 2016-06-11 23:23 | disposition home or self-care (01) | DRG 432 ==
LOC: CED 05:45 → CEDOF 07:15 → C2A 10:46 → C5B 06-08 19:30
PROVIDERS: Internal Medicine Nephrology; Nurse Practitioner; Nurse Practitioner Family; Physician Assistant Medical
PROC: 30243N1 Transfusion of Nonautologous Red Blood Cells into Central Vein, Percutaneous Approach (ICD-10-PCS; 2016-06-04)
PROC: 0DJ08ZZ Inspection of Upper Intestinal Tract, Via Natural or Artificial Opening Endoscopic (ICD-10-PCS; 2016-06-04)
PROC: 05HD33Z Insertion of Infusion Device into Right Cephalic Vein, Percutaneous Approach (ICD-10-PCS; 2016-06-04)
PROC: B54MZZA Ultrasonography of Right Upper Extremity Veins, Guidance (ICD-10-PCS; 2016-06-04)
PROC: 0W9G3ZZ Drainage of Peritoneal Cavity, Percutaneous Approach (ICD-10-PCS; principal; 2016-06-05)
PROC: 5A1D60Z (ICD-10-PCS; 2016-06-07)
DX: K70.40 Alcoholic hepatic failure without coma (principal); N18.6 End stage renal disease; K70.31 Alcoholic cirrhosis of liver with ascites; N17.9 Acute kidney failure, unspecified; D61.818 Other pancytopenia; K76.6 Portal hypertension; E46 Unspecified protein-calorie malnutrition; D62 Acute posthemorrhagic anemia; K92.2 Gastrointestinal hemorrhage, unspecified; D69.59 Other secondary thrombocytopenia; Z99.2 Dependence on renal dialysis; K31.89 Other diseases of stomach and duodenum; R00.0 Tachycardia, unspecified; E87.5 Hyperkalemia; F10.10 Alcohol abuse, uncomplicated; F17.210 Nicotine dependence, cigarettes, uncomplicated; R33.9 Retention of urine, unspecified; D53.9 Nutritional anemia, unspecified; R41.82 Altered mental status, unspecified
CPT/HCPCS: 36415; 70450; 71010; 73502; 76770; 80048; 80053; 80076; 81003; 82042; 82140; 82274; 82550; 82553; 82947; 83605; 83615; 83735; 84100; 84300; 84484; 85025; 85027; 85044; 85610; 85730; 86850; 86900; 86901; 86923; 87040; 87086; 87340; 88108; 88305; 89051; 93005; 97116; 97161; 97163; 97166; 99285; J1956; J2405; P9016; P9045; Q4081

== ENCOUNTER 2016-06-19 12:59 | Inpatient (IN) | payer OTHER ==
--- NOTE | ~2016-06-19 | XA170 ---
[facility] A Service of [facility] RADIOLOGY TEXT RESULTS PATIENT: MIRA BRAXTON LOCATION: [facility] 579-01 : [birth year] UNIT #: [id number] AGE: [address]: Neena Crisostomo MD SEX: M ORDER DR: [id number] [facility] [address] [facility]. [place], [place] [address] [id number] I MR#: [id number] Acc #: [id number] NAME: MIRA BRAXTON. : 1965 SEX: M STUDY DATE/TIME: 06/25/2016 13:45 UNIT: [facility] ROOM: [facility] STUDY DESCRIPTION: XA Paracentesis W Image Attending Physician: Neena Crisostomo M.D. Ordering Physician: Akshat Umana M.D. Primary Care Physician: Colton Mcdowell M.D. MEDICAL IMAGING REPORT This report is preliminary unless electronic signature is present EXAM Ultrasound-guided paracentesis INDICATIONS Ascites. PROCEDURE The risks, benefits, and alternatives to the procedure were explained to the patient, and signed, informed consent was obtained he was placed supine on the stretcher preliminary ultrasound of the abdomen was performed which demonstrated moderate volume of ascites. This image was permanently saved overlying skin was marked. Patient was prepped and draped in the usual sterile fashion. Time-out was performed as per protocol. Skin and subcutaneous tissues were anesthetized with buffered lidocaine and a Yueh catheter was advanced into the fluid with aspiration of serous material. Catheter was hooked to suction tubing and there was evacuation of a total of 4.9 L of serous material catheter was then removed and manual pressure was applied until hemostasis was obtained. IMPRESSION Technically successful ultrasound guided paracentesis with evacuation 4.9 L of serous material. Ultrasound was used during the procedure and permanent images were saved. Dictated by... Brandie Maya M.D. THIS IS AN ELECTRONICALLY VERIFIED REPORT Brandie Maya M.D. at 06/26/2016 5:55 PM AFF/rnr TD: 06/26/2016 13:55 JOB #: [id number] [facility] A Service of [facility] & [facility] RADIOLOGY TEXT RESULTS PATIENT: MIRA BRAXTON LOCATION: [facility] 579-01 : [birth year] UNIT #: [id number] AGE: [address]: Neena Crisostomo MD SEX: M ORDER DR: MEDICAL IMAGING REPORT Page 1 of 1 COPY
--- NOTE | ~2016-06-19 | A ---
[facility] Nutrition Therapy DATE: 06/28/16 Patient: MIRA BRAXTON Physician: GARCIA [address] Room[address], Zip: [place] [address] Admit Date: 06/19/16 Date of : [birth year] Height: 6 0 Weight: 230 104.5 NUTRITIONAL ASSESSMENT: REASON: NPO IN ICU ASSESSMENT PT IS 51 Y.O. MALE ADMITTED FOR ANEMIA PMH: ESRD ON HD, ALCOHOLIC LIVER DISEASE, CIRRHOSIS W/ASCITES, HTN, COPD, ETOH ABUSE, HEPATIC ENCEPHALOPATHY Anthropometrics: 6'0", WT: 240# (BEDSIDE) (109 KG), BMI: 32.5, 135%IBW Labs: GLU: 117, BUN: 26, CREAT: 3.1, ALB: 2.3, AST: 64, GFR: 22.9 Meds: LACTULOSE, ZOFRAN, MANNITOL, PROTONIX, VITAMIN B12, THIAMINE, FOLIC ACID I/O & Bowel function: 150/2 Skin Integrity: EDEMA NOTED: RLE 2+ EDEMA; LLE 1+ EDEMA; BUE 1+ EDEMA; TRUNK 2+ EDEMA Estimated Nutrition Needs: [id number] KCAL (20-25 KCAL/KG BW) 130-160 G PRO (1.2-1.5 G PRO/KG BW) FLUIDS CONSISTENT W/KCAL NEEDS OR PER MD Assessment: CHART REVIEWED AND EVENTS NOTED. PT SEEN FOR NPO IN ICU ASSESSMENT. PT TRANSFERRED TO ICU ON 06/27 D/T COUGHING UP BLOOD. PT CURRENTLY SLEEPY/LETHARGIC. FAMILY IN ROOM ASLEEP AT TIME OF VISIT. PER RN AND CHART, PT WAS RECEIVING REGULAR DIET PRIOR TO ICU ADMIT. PT ADMITTED ON 06/19/16. PLANS IN PLACE FOR DHT PLACEMENT AND RECOMMENDATIONS FOR ENTERAL NUTRITION SUPPORT NEEDED. PT NOT APPROPRIATE FOR DIET INTERVIEW AT THIS TIME. RD TO FOLLOW. SEE RECOMMENDATIONS BELOW. Dx: INADEQUATE ORAL INTAKE R/T CURRENT CONDITION AEB NPO STATUS, NEED FOR ALTERNATIVE NUTRITION SUPPORT, ALTERED LAB VALUES. Intervention: 1. NPO Monitoring, Evaluation and Goals: 1. ENTERAL NUTRITION; PROVIDE ~80-100% ESTIMATED NUTRIENT NEEDS W/NO SIGNS OF INTOLERANCE 2. PO INTAKE; CONSUME/TOLERATE DIET W/NO C/O N/V/D (PO>50%) 3. LABS; WNL 4. GI; PROMOTE REGULAR GI FUNCTION MONITOR: [facility] Nutrition Therapy DATE: 06/28/16 Patient: MIRA Ledbetter FOX Physician: GARCIA Address: [address] Room/Bed: [address], Zip: [place] [address] Admit Date: 06/19/16 Date of : [birth year] Height: 6 0 Weight: 230 104.5 -WEIGHTS -PLANS FOR SUPPORT -LABS Recommendations: 1. ONCE MEDICALLY FEASIBLE AND PT ABLE TO TOLERATE PO INTAKE, BEGIN WITH CLEARS AND ADVANCE DIET TOLERATED TO 2 GM NA 2' PMH 2. IF PT UNABLE TO TOLERATE PO INTAKE, RECOMMEND TO BEGIN ALTERNATIVE NUTRITION SUPPORT OF NEPRO @ 20 ML/HR, ADVANCE 10 ML q 4 HOURS TO GOAL RATE OF 55 ML/HR + SUGAR-FREE PROSTAT BID -PROVIDES 2576 KCAL, 137 G PRO, 964 ML FREE H20 ADD FREE H20 FLUSHES PER MD RD WILL F/U PER PROTOCOL PT IS MOD/SEVERELY COMPROMISED Respectfully, MEETA BACK MS, RD, LD [employer] cc: client file
--- NOTE | ~2016-06-19 | OR ---
Unit #: [id number] #: [id number] Patient: MIRA BRAXTON [id number] [address] [address] [id number] MR#: [id number] NAME: MIRA BRAXTON. ROOM: [facility] Date of Procedure: 06/27/2016 Admission Date: 06/19/2016 Surgeon: Akshat Umana M.D. : 1965 Attending Physician: Neena Crisostomo M.D. Primary Care Physician: Colton Mcdowell M.D. OPERATIVE REPORT PRIMARY CARE PHYSICIAN Colton Mcdowell M.D. PREOPERATIVE DIAGNOSES Upper gastrointestinal bleed. The patient has severe hepatic encephalopathy with the ammonia of more than 250 on a background of alcoholic liver disease; cirrhosis; end-stage renal disease, on hemodialysis. PROCEDURES PERFORMED Upper gastrointestinal endoscopy and ablation. POSTOPERATIVE DIAGNOSES 1. The patient had changes of portal hypertensive gastropathy. In addition, there were active oozing of blood from angiodysplasias in the antrum. These were ablated using argon plasma coagulation therapy. 2. Early esophageal varices were also seen in the mid and distal esophagus. These were straight varices with no stigmata of recent bleed. These are a new findings were not present in the previous examination. 3. Rest of the examination up to third part of duodenum was normal. RECOMMENDATIONS 1. The patient is being transferred to the intensive care unit as he had somewhat labored breathing during fairly prolonged procedure that required MAC sedation. There was also concern about coagulopathy and oropharyngeal bleeding and risk of possible aspiration during the procedure. 2. Long discussion was held with the patient's after completion of procedure regarding his code status and the fact that he has end-stage renal disease, on hemodialysis; and the overall prognosis is poor. The patient's mentioned that she will take her time to decide about the code status in the next day or two. The above findings also communicated with Dr. Dl Vicente and Dr. Neena Crisostomo. SEDATION USED MAC. DESCRIPTION OF PROCEDURE Following detailed explanation of potential risks and complications of an upper endoscopy, namely perforation, bleeding, and complications related to sedation, the patient was brought to GI lab and laid in the left lateral decubitus position. A bite block was placed. Sedation using MAC was given. Lubricated tip of the Olympus video upper endoscope was passed Unit #: [id number] #: [id number] Patient: MIRA BRAXTON through the bite block into the proximal esophagus under direct vision. The entire esophageal mucosa was examined. The patient was noted to have early esophageal varices in the mid and distal esophagus. These were relatively new finding. No stigmata of recent bleed were seen. There being no paez red spots. The scope was then advanced into the gastric cavity and the latter was insufflated. Mucosa of the fundus, body, and antrum examined. Mucosal changes suggestive of portal hypertensive gastropathy evident in the fundus and proximal body of the stomach. In the prepyloric antral area, multiple areas of oozing of fresh blood were seen. These were most likely angiodysplasias. It could also be changes from portal hypertensive gastropathy. Pylorus was intubated with visualization of the normal duodenal and second and third part of the duodenum. Upon withdrawal and retroflexion, incisura, cardia, and greater curve examined and no additional findings noted. The attention was then focused on the angiodysplasias. These were ablated using argon plasma coagulation therapy at appropriate settings. Excellent hemostasis was achieved. The scope was then withdrawn in the distal esophagus. The entire esophageal mucosa was examined all the way up to pharynx. No additional findings noted. The patient tolerated the procedure without any postprocedure complications. Dictated by... Bi Barry/dorota TD: 06/28/2016 07:11 JOB #: [id number] OPERATIVE REPORT Page 1 of 1 X Akshat Umana MD X PROCEDURE OPERATIVE NOTE
--- NOTE | ~2016-06-19 | CR7 ---
[facility] A Service of [facility] & [facility] RADIOLOGY TEXT RESULTS PATIENT: MIRA BRAXTON LOCATION: [place] [id number] : [birth year] UNIT #: [id number] AGE: [address]: Neena Crisostomo MD SEX: M ORDER DR: [id number] [facility] [address] [facility] [place], [place] [address] [id number] MR#: [id number] Acc #: [id number] NAME: MIRA BRAXTON : 1965 SEX: M STUDY DATE/TIME: 06/27/2016 13:15 UNIT: [facility] ROOM: [facility] STUDY DESCRIPTION: CR Abdomen Single AP View Attending Physician: Neena Crisostomo M.D. Ordering Physician: Neena Crisostomo M.D. Primary Care Physician: Colton Mcdowell M.D. MEDICAL IMAGING REPORT This report is preliminary unless electronic signature is present EXAM Abdomen single view, 06/27/2016 13:15 hours HISTORY Dobbhoff tube placement today COMPARISON 04/10/2016 FINDINGS Limited view including the left abdomen only is submitted. There is a Dobbhoff tube present with tip in the left upper quadrant directed leftward in the proximal stomach. The visualized bowel gas is unremarkable. IMPRESSION Technically limited film confirms presence of a Dobbhoff tube in the left upper quadrant of the abdomen in the proximal stomach. Dictated by... Katy Zuniga M.D. THIS IS AN ELECTRONICALLY VERIFIED REPORT Katy Zuniga M.D. at 06/28/2016 9:22 AM Yuval TD: 06/27/2016 17:25 JOB #: [id number] MEDICAL IMAGING REPORT Page 1 of 1 COPY
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
--- NOTE | ~2016-06-19 | CR7 ---
[facility] A Service of [facility] & [facility] RADIOLOGY TEXT RESULTS PATIENT: MIRA BRAXTON LOCATION: [address] : [birth year] UNIT #: [id number] AGE: [address]: Neena Crisostomo MD SEX: M ORDER DR: [id number] [facility] [address] [facility]. [place], [place] [address] [id number] I MR#: [id number] Acc #: [id number] NAME: MIRA BRAXTON : 1965 SEX: M STUDY DATE/TIME: 06/27/2016 20:38 UNIT: [facility] ROOM: [facility] STUDY DESCRIPTION: CR Abdomen Single AP View Attending Physician: Neena Crisostomo M.D. Ordering Physician: Neena Crisostomo M.D. Primary Care Physician: Colton Mcdowell M.D. MEDICAL IMAGING REPORT This report is preliminary unless electronic signature is present EXAM Portable abdomen. HISTORY Dobbhoff tube placement today. FINDINGS Portable radiograph of the abdomen for Dobbhoff tube placement demonstrates the feeding tube tip is in the medial right midabdomen at the level of the proximal descending duodenum approximately 36 cm beyond the EG junction. The visualized bowel gas pattern is normal. The exam does not include the right lateral abdomen or the lower pelvis. Dictated by... Eren Bird M.D. THIS IS AN ELECTRONICALLY VERIFIED REPORT Eren Bird M.D. at 06/28/2016 7:58 PM DFL/evelyne TD: 06/28/2016 05:56 JOB #: [id number] MEDICAL IMAGING REPORT Page 1 of 1 COPY
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
--- NOTE | ~2016-06-19 | EKG ---
PATIENT: MIRA BRAXTON UNIT #: [id number] Ventricular Rate: 70 BPM Atrial Rate: 70 BPM P-R Interval: 154 ms QRS Duration: 94 ms Q-T Interval: 434 ms QTC Calculation(Bezet): 468 ms P [place]: -14 degrees Calculated R [place]: -2 degrees Calculated T [place]: 3 degrees Diagnosis Line: Normal sinus rhythm Diagnosis Line: Cannot rule out Anterior infarct (cited on or Diagnosis Line: before 19-JUN-2016) Diagnosis Line: Abnormal ECG Diagnosis Line: When compared with ECG of 04-JUN-2016 06:32, Diagnosis Line: Vent. rate has decreased BY 49 BPM Diagnosis Line: Confirmed by MIRA MUNIZ MD ([id number]) on Diagnosis Line: 06/20/2016 11:24:01 AM INTERPRETING MD: FLAVIO MCMAHON
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
--- NOTE | ~2016-06-19 | CR72 ---
[facility] A Service of [facility] RADIOLOGY TEXT RESULTS PATIENT: MIRA BRAXTON LOCATION: [facility] [address] : [birth year] UNIT #: [id number] AGE: [address]: Neena Crisostomo MD SEX: M ORDER DR: [id number] [place] [id number] [facility]. [place], [place] [address] [id number] I MR#: [id number] Acc #: [id number] NAME: MIRA BRAXTON. : 1965 SEX: M STUDY DATE/TIME: 06/19/2016 12:42 UNIT: [facility] ROOM: [facility] STUDY DESCRIPTION: CR Chest Single View Portable Attending Physician: Neena Crisostomo M.D. Ordering Physician: Tom Lagos M.D. Primary Care Physician: Colton Mcdowell M.D. MEDICAL IMAGING REPORT This report is preliminary unless electronic signature is present EXAM Portable chest, 06/19/2016, 1242 hours. CLINICAL HISTORY 51-year-old man with shortness of air, chest pain, and hypotension today. History of renal failure. Patient sent to ER for evaluation from dialysis center. COMPARISON 06/15/2016 FINDINGS Portable upright chest demonstrates stable right central venous catheter with tip in mid SVC. There is mild cardiomegaly. There is mild pulmonary venous distension without definite edema, pneumonia, or effusion. IMPRESSION 1. Stable right central venous catheter with tip in mid SVC. 2. There is pulmonary venous distension without definite edema, pneumonia, effusion, or pneumothorax. Dictated by... Katy Zuniga M.D. THIS IS AN ELECTRONICALLY VERIFIED REPORT Katy Zuniga M.D. at 06/20/2016 9:29 AM LIBRADO/mayco TD: 06/19/2016 16:30 JOB #: [id number] [facility] A Service [facility] RADIOLOGY TEXT RESULTS PATIENT: MIRA BRAXTON LOCATION: [facility] 579 : [birth year] UNIT #: [id number] AGE: [address]: Neena Crisostomo MD SEX: M ORDER DR: MEDICAL IMAGING REPORT COPY
--- NOTE | ~2016-06-19 | FU ---
[facility] Nutrition Therapy DATE: 07/02/16 Patient: MIRA BRAXTON Physician: GARCIA Address: [address] [facility] Room/Bed: [address] [place] [address], Zip: [place] [address] Admit Date: 06/19/16 Date of : [birth year] Height: 6 0 Weight: 224 102 NUTRITION MONITORING/FOLLOW-UP: Reason: PT SEEN FOR FOLLOW-UP DX: ANEMIA Anthropometrics: 6'0", WT: 230# (CURRENT) (105 KG), BMI: 31.2 -ADMIT WEIGHT: 240# Labs: BUN: 29, CREAT: 5.1, CA+:7.9, ALB: 2.1, AST: 82, GFR: 12.3, NA+:131 Meds: PROTONIX, LACTULOSE, ZOFRAN, MANNITOL, VITAMIN B12, THIAMINE, FOLIC ACID I&O's: 2820/154, 2 BMs NOTED Skin: BLE 2+ EDEMA Estimated Nutrition Needs: INCREASED NUTRIENT NEEDS 2' PT ON HD Assessment: CHART REVIEWED AND EVENTS NOTED. PT SEEN FOR FOLLOW-UP. PT REPORTS GOOD PO INTAKE AND APPETITE, NO C/O N/V/D. PT HAD BREAKFAST TRAY AT BEDSIDE-NOTED PT ATE ~80%. THIS RD ENCOURAGED ADEQUATE KCAL AND PROTEIN INTAKE FOR INCREASED HD NEEDS, PT AGREED BUT REFUSED SUPPLEMENTS. RD ALSO PROVIDED WRITTEN AND VERBAL RENAL HD DIET EDUCATION. PT VERBALIZED UNDERSTANDING OF THE TOPIC. PT REPORTED NO DIET QUESTIONS AT THIS TIME. RD TO REMAIN AVAILABLE. Dx: INADEQUATE ORAL INTAKE R/T CURRENT CONDITION AEB NPO STATUS.-RESOLVED -INCREASED NUTRIENT NEEDS R/T PMH AEB PT ON HD. Intervention: 1. REGULAR DIET 2. RD PROVIDED DIET EDUCATION Monitoring, Evaluation and Goals: GOALS MET 1. PO INTAKE; CONSUME >50% OF MEALS W/NO C/O N/V/D (PO>50%) 2. LABS; WNL MONITOR: -PO INTAKE/APPETITE -WEIGHTS -LABS Recommendations: 1. RECOMMEND TO OBTAIN CURRENT PHOS LEVEL [facility] Nutrition Therapy DATE: 07/02/16 Patient: MIRA BRAXTON Physician: GARCIA Address: [address] [facility] Room/Bed: [address] [place] [address], Zip: [place] [address] Admit Date: 06/19/16 Date of : [birth year] Height: 6 0 Weight: 224 102 2. RECOMMEND TO CHANGE CURRENT DIET ORDER TO 2 GM NA/HH 2' PMH 3. CONSULT RD IF FURTHER DIET EDUCATION REQUESTED/NEEDED RD WILL F/U PER PROTOCOL PT IS MILDLY COMPROMISED Respectfully, MEETA BACK MS, RD, LD [employer] [facility] cc: client file
--- NOTE | ~2016-06-19 | XA81 ---
[facility] A Service of [facility] & [facility] RADIOLOGY TEXT RESULTS PATIENT: MIRA BRAXTON LOCATION: [facility] 465 : [birth year] UNIT #: [id number] AGE: [address]: Neena Crisostomo MD SEX: M ORDER DR: [id number] [place] [id number] [facility]. [place], [place] [address] [id number] MR#: [id number] Acc #: [id number] NAME: MIRA BRAXTON. : 1965 SEX: M STUDY DATE/TIME: 07/02/2016 8:15 UNIT: [facility] ROOM: [facility] STUDY DESCRIPTION: XA CVC Remove Tunneled Cath WO Attending Physician: Neena Crisostomo M.D. Ordering Physician: Neena Crisostomo M.D. Primary Care Physician: Colton Mcdowell M.D. MEDICAL IMAGING REPORT This report is preliminary unless electronic signature is present EXAM Tunneled catheter removal. INDICATIONS End stage renal disease. Patient had a recently created arteriovenous fistula and no longer requires his tunneled dialysis catheter. PROCEDURE The risks, benefits, and alternatives to the procedure were explained to the patient and signed, informed consent was obtained. He was placed supine on the stretcher. Skin and subcutaneous tissues were anesthetized with buffered lidocaine and the catheter was removed in its entirety with gentle traction. A final fluoroscopic image was obtained which showed no residual catheter fragment. A total of 2 fluoroscopic images were obtained. AK was 1 mGy. Total fluoroscopy time was 0.1 minutes. IMPRESSION Successful removal of the patient's tunneled dialysis catheter in its entirety. Fluoroscopy was used during the procedure and permanent images were saved. Dictated by... Brandie Maya M.D. THIS IS AN ELECTRONICALLY VERIFIED REPORT Brandie Maya M.D. at 07/03/2016 3:40 PM AFF/pc TD: 07/03/2016 12:01 JOB #: [id number] MEDICAL IMAGING REPORT [facility] A Service of [facility] & [facility] RADIOLOGY TEXT RESULTS PATIENT: MIRA BRAXTON LOCATION: [facility] 465-01 : [birth year] UNIT #: [id number] AGE: [address]: Neena Crisostomo MD SEX: M ORDER DR: Page 1 of 1 COPY
--- NOTE | ~2016-06-19 | CR7 ---
[facility] A Service of [facility] & [facility] RADIOLOGY TEXT RESULTS PATIENT: MIRA BRAXTON LOCATION: [place] [id number] : 67 UNIT #: [id number] AGE: [address]: Neena Criosstomo MD SEX: M ORDER DR: [id number] [facility] [address] [facility]. [place], [place] [address] [id number] I MR#: [id number] Acc #: [id number] NAME: MIRA BRAXTON : 1965 SEX: M STUDY DATE/TIME: 06/27/2016 18:49 UNIT: [facility] ROOM: [facility] STUDY DESCRIPTION: CR Abdomen Single AP View Attending Physician: Neena Crisostomo M.D. Ordering Physician: Neena Crisostomo M.D. Primary Care Physician: Colton Mcdowell M.D. MEDICAL IMAGING REPORT This report is preliminary unless electronic signature is present EXAM Portable abdomen, 06/27/2016 HISTORY Dobbhoff tube placement. FINDINGS The tip of the flexible feeding tube lies within the gastric fundus. Dictated by... Apollo Sweet M.D. THIS IS AN ELECTRONICALLY VERIFIED REPORT Apollo Sweet M.D. at 06/28/2016 10:35 AM Cecelia TD: 06/28/2016 03:40 JOB #: [id number] MEDICAL IMAGING REPORT Page 1 of 1 COPY
--- NOTE | ~2016-06-19 | CR72 ---
[facility] A Service of [facility] RADIOLOGY TEXT RESULTS PATIENT: MIRA BRAXTON LOCATION: [facility] [address] : [birth year] UNIT #: [id number] AGE: [address]: Neena Crisostomo MD SEX: M ORDER DR: [id number] [place] [id number] [facility]. [place], [place] [address] [id number] I MR#: [id number] Acc #: [id number] NAME: MIRA BRAXTON. : 1965 SEX: M STUDY DATE/TIME: 06/28/2016 21:13 UNIT: [facility] ROOM: [facility] STUDY DESCRIPTION: CR Chest Single View Portable Attending Physician: Neena Crisostomo M.D. Ordering Physician: Umer Guevara M.D. Primary Care Physician: Colton Mcdowell M.D. MEDICAL IMAGING REPORT This report is preliminary unless electronic signature is present EXAM AP portable chest 06/28/2016 HISTORY 51-year-old male dialysis patient with shortness of air, chest pain and elevated white blood cell count. TECHNIQUE AP portable chest x-ray. FINDINGS The examination suggests mild infiltrate or atelectasis in the left lung base along the diaphragm, slightly more prominent today than on the previous study of 06/19/2016. Lungs otherwise clear. No visible pleural effusion. Mild cardiomegaly is stable. Pulmonary vascularity is normal. Right IJ dialysis catheter remains in good position. Feeding tube extends below the diaphragm. IMPRESSION Mild infiltrate or atelectasis in the left base. Dictated by... Rafael Guerrier M.D. THIS IS AN ELECTRONICALLY VERIFIED REPORT Rafael Guerrier M.D. at 07/03/2016 5:00 PM TREVOR/claudia TD: 06/29/2016 06:44 JOB #: [id number] MEDICAL IMAGING REPORT [facility] A Service of [facility] RADIOLOGY TEXT RESULTS PATIENT: MIRA BRAXTON LOCATION: [facility] 465-01 : [birth year] UNIT #: [id number] AGE: [address]: Neena Crisostomo MD SEX: M ORDER DR: Page 1 of 1 COPY
--- NOTE | ~2016-06-19 | DS ---
Unit #: [id number] #: [id number] Patient: MIRA DANIELSON [id number] [address] [address] [id number] I MR#: [id number] NAME: MIRA DANIELSON. ROOM: [facility] Age: 51 Sex: M Admission Date: 06/19/2016 : 1965 Discharge Date: 07/02/2016 Attending Physician: Neena Crisostomo M.D. Primary Care Physician: Colton Mcdowell M.D. DISCHARGE SUMMARY FINAL DIAGNOSES 1. Hypotension, which is improved. 2. Acute on chronic anemia, status post esophagogastroduodenoscopy, which was done by Dr. Akshat Umana and it showed changes of portal hypertensive gastropathy and there was some active oozing of blood from angiodysplasia in the antrum, early esophageal varices were also seen in the mid and distal esophagus. There were straight varices with no stigmata of recent bleeding, these findings were not present in the previous examination. Rest of the examination up to third part of duodenum was normal. 3. Hepatic encephalopathy. 4. End-stage renal disease, on hemodialysis. 5. Thrombocytopenia. 6. Chronic liver disease/cirrhosis. 7. Chronic obstructive pulmonary disease. 8. History of alcohol abuse. DISCHARGE MEDICATIONS Cyanocobalamin (B12) 1000 mcg p.o. daily, thiamine 100 mg p.o. daily, folic acid 1 mg p.o. daily, Protonix 40 mg b.i.d., hydrocodone continue home dose, multivitamin daily, discontinue Pepcid, ProAmatine 10 mg t.i.d., Xifaxan 550 mg b.i.d., lactulose 30 g q.i.d., Flomax 0.4 mg daily, Protonix 40 mg b.i.d. CONSULTATION DURING HOSPITALIZATION Dr. Umer Guevara from Pulmonary Services; Dr. Akshat Umana from Gastroenterology Services; Dr. Vicente from Renal. HOSPITAL COURSE Mr. Mira Danielson is a 51-year-old male, who is very well known to me, was readmitted because of hypotension. His blood pressure was really low and was advised to come to ER. The patient's hemoglobin was 6.7 on admission and was admitted to telemetry unit. The patient was eventually started on ProAmatine, which has helped his blood pressure. He was doing well when on 06/27/2016, again he became very confused. Again, he went into hepatic encephalopathy. Started lactulose and Xifaxan all over again. The patient has had multiple transfusion during hospitalization. EGD was done on 06/27/2016 as he was not getting better. The patient was found to have active oozing of blood from angiodysplasias in the antrum. These were ablated using argon plasma coagulation therapy. The patient does have portal hypertensive gastropathy and also early esophageal varices. The patient's hemoglobin is stable at this time. Dr. Vicente was involved in the patient's care for ongoing hemodialysis. The Unit #: [id number] #: [id number] Patient: MIRA DANIELSON patient is stable and is being discharged home. PHYSICAL EXAMINATION VITAL SIGNS: On discharge, blood pressure is 114/57, respiratory rate 18, pulse is 81, temperature 97.8. CHEST: Decreased air entry. CVS: Regular rhythm. DISCHARGE INSTRUCTIONS 1. The patient is being discharged to home in stable condition. 2. Follow up with primary care provider in 1 week. 3. Follow up hemodialysis per Renal. 4. Follow up with Dr. Umana as scheduled. 5. Prescription for ProAmatine, Protonix, Xifaxan, and lactulose is being given. Dictated by... Neena Crisostomo M.D. JAYLA/dorota TD: 07/03/2016 06:47 JOB #: [id number] DISCHARGE SUMMARY Page 1 of 1 X Neena Crisostomo MD X DISCHARGE SUMMARY
--- NOTE | ~2016-06-19 | XA170 ---
[facility] A Service of [facility] & [facility] RADIOLOGY TEXT RESULTS PATIENT: MIRA DANIELSON LOCATION: [facility] 465-01 : [birth year] UNIT #: [id number] AGE: [address]: Neena Crisostomo MD SEX: M ORDER DR: [id number] [facility] [address] [facility]. [place], [place] [address] [id number] I MR#: [id number] Acc #: [id number] NAME: MIRA DANIELSON. : 1965 SEX: M STUDY DATE/TIME: 07/02/2016 7:53 UNIT: [facility] ROOM: [facility] STUDY DESCRIPTION: XA Paracentesis W Image Attending Physician: Neena Crisostomo M.D. Ordering Physician: Akshat Umana M.D. Primary Care Physician: Colton Mcdowell M.D. MEDICAL IMAGING REPORT This report is preliminary unless electronic signature is present EXAM Paracentesis on patient, Mira Danielson. INDICATIONS Ascites. PROCEDURE The risks, benefits, and alternatives of the procedure were explained to the patient and signed informed consent was obtained. He was placed supine on the stretcher. Preliminary ultrasound was performed, which demonstrated moderate volume ascites. This image was permanently saved. Overlying skin was marked. Patient was prepped in usual sterile fashion. Time-out was performed as per protocol. Skin and subcutaneous tissues were anesthetized with buffered lidocaine. Yueh catheter was advanced into the abdomen with aspiration of serous material noted. Catheter was hooked to suction tubing and there was evacuation of 2.9 L of serous material. Catheter was then removed and manual pressure was applied until hemostasis was obtained. IMPRESSION Technically successful ultrasound-guided paracentesis with evacuation of 2.9 L of serous material. Ultrasound was used during the procedure and permanent images were waved. Dictated by... Brandie Maya M.D. THIS IS AN ELECTRONICALLY VERIFIED REPORT Brandie Maya M.D. at 07/03/2016 3:40 PM AFF/pc TD: 07/03/2016 11:17 [facility] A Service of [facility] & [facility] RADIOLOGY TEXT RESULTS PATIENT: MIRA DANIELSON LOCATION: [place] [address] : [birth year] UNIT #: [id number] AGE: [address]: Neena Crisostomo MD SEX: M ORDER DR: JOB #: [id number] MEDICAL IMAGING REPORT Page 1 of 1 COPY
[2016-06-19 12:57] LABS: POC - CKMB <1.0 ng/mL (0.0-7.9); POC - TROPONIN <0.05 ng/mL (<=0.05)
[~2016-06-19 12:59] MED LIST changes: +FLOMAX0.4 M1 DOB; +THIAMINE HCL100 M2 PO
[2016-06-19 13:03] LABS: BASOPHIL% 0.5 % (0-2.5); EOSINOPHIL# 0.6 X10e3 (0-0.7); HEMATOCRIT 20.7 % (38.0-50.0); LYMPHOCYTE# 1.2 X10e3 (1.0-3.5); LYMPHOCYTE% 17.5 % (17.0-45.0); MEAN CELL VOLUME 106.3 FL (83-96); MEAN CORPUSCULAR HEMOGLOBIN 34.7 PG (28-34); MEAN CORPUSCULAR HGB CONC 32.6 g/dL (30-36); MEAN PLATELET VOLUME 8.4 FL (6.5-11.5); MONOCYTE# 0.7 X10e3 (0-1.0); MONOCYTE% 10.1 % (3.0-12.0); NEUTROPHIL# 4.5 X10e3 (1.5-7.1); NEUTROPHIL% 63.9 % (40-75); PLATELET COUNT 73 X10e3 (140-420); RED BLOOD COUNT 1.95 X10e (3.90-5.60); RED CELL DISTRIBUTION WIDTH 22.8 % (11.0-15.5)
[2016-06-19 13:10] LABS: DIFF IND YES; HEMOGLOBIN 6.7 gm/dL (13.0-16.0)
[2016-06-19 13:27] LABS: BUN/CREATININE RATIO 5.82; CALCIUM SERUM 8.2 mg/dL (8.4-10.2); CREATININE SERUM 6.7 mg/dL (0.6-1.4); GLOM FILT RATE Estimated 9.4 mL/min (>60); POTASSIUM 4.1 mmol/L (3.5-5.1); PROTEIN TOTAL SERUM 5.3 g/dL (6.0-8.3)
[2016-06-19 13:38] LABS: ANISOCYTOSIS MOD; OVALOCYTES PRESENT; PLATELET ESTIMATE DECREASED (NORMAL); POIKILOCYTOSIS SL; RBC NORMAL YES
[2016-06-19 13:39] LABS: MICROCYTOSIS SL
[2016-06-19] MEDS ORDERED: ANTACID650 MG PO (14:07)
[2016-06-19] MEDS ORDERED: FLOMAX0.4 M1 PO (14:09)
[2016-06-19] MEDS ORDERED: LACTULOSE20 GM/30 M PO (14:11)
[2016-06-19] MEDS ORDERED: XIFAXAN550 MG PO (14:11)
[2016-06-19] MEDS ORDERED: FAMOTIDINE PO (14:16)
[2016-06-19] MEDS ORDERED: MULTI VITAMIN1 EACH PO (14:17)
[2016-06-19] MEDS ORDERED: TRAMADOL HCL50 M2 PO (14:17)
[2016-06-19] MEDS ORDERED: FOLIC ACID1 MG PO (14:17)
[2016-06-19] MEDS ORDERED: THIAMINE HCL100 M2 PO (14:18)
[2016-06-19] MEDS ORDERED: CYANOCOBALAM1000 MCG PO (14:19)
[2016-06-19] MEDS ORDERED: HYDROCODON-ACE1 EAC7 PO (14:20)
[2016-06-19 23:44] LABS: URINE SOURCE CLEAN CATCH
[2016-06-19 23:48] LABS: URINE BLOOD NEG (NEG); URINE GLUCOSE NORM (NORM); URINE KETONE NEG (NEG); URINE LEUKOCYTE ESTERASE NEG (NEG); URINE NITRATE NEG (NEG); URINE PROTEIN NEG (NEG); URINE SPECIFIC GRAVITY 1.025 (1.003-1.035); URINE UROBILINOGEN NORM (NORM)
[2016-06-19 23:53] LABS: URINE COLOR DK YELLOW
[2016-06-19 23:54] LABS: URINE APPEARANCE CLOUDY
[2016-06-19 23:55] LABS: URINE BILIRUBIN POS (NEG)
[2016-06-19 23:57] LABS: CULTURE INDICATED? NO
[2016-06-20 08:26] LABS: INR 1.2; PROTHROMBIN TIME (PATIENT) 12.7 SECONDS (9.6-11.5)
[2016-06-20 08:28] LABS: HEMATOCRIT 25.7 % (38.0-50.0); HEMOGLOBIN 8.6 gm/dL (13.0-16.0); MEAN CORPUSCULAR HEMOGLOBIN 33.6 PG (28-34); MEAN CORPUSCULAR HGB CONC 33.4 g/dL (30-36); RED BLOOD COUNT 2.55 X10e (3.90-5.60); RED CELL DISTRIBUTION WIDTH 23.8 % (11.0-15.5); WHITE BLOOD COUNT 7.9 X10e3 (4.0-10.5)
[2016-06-20 08:34] LABS: MEAN CELL VOLUME 100.7 FL (83-96)
[2016-06-20 08:39] LABS: ALBUMIN SERUM 1.9 g/dL (3.5-5.0); BILIRUBIN,TOTAL 2.8 mg/dL (0.2-2.0); BUN/CREATININE RATIO 5.69; CALCIUM SERUM 8.2 mg/dL (8.4-10.2); CREATININE SERUM 7.2 mg/dL (0.6-1.4); GLOM FILT RATE Estimated 8.6 mL/min (>60); POTASSIUM 4.3 mmol/L (3.5-5.1)
[2016-06-21 06:30] LABS: HEMOGLOBIN 7.9 gm/dL (13.0-16.0); MEAN CELL VOLUME 102.3 FL (83-96); MEAN CORPUSCULAR HEMOGLOBIN 33.8 PG (28-34); MEAN PLATELET VOLUME 7.8 FL (6.5-11.5); RED BLOOD COUNT 2.34 X10e (3.90-5.60); RED CELL DISTRIBUTION WIDTH 24.1 % (11.0-15.5); WHITE BLOOD COUNT 7.6 X10e3 (4.0-10.5)
[2016-06-21 07:06] LABS: BUN/CREATININE RATIO 5.16; CALCIUM SERUM 8.3 mg/dL (8.4-10.2); GLOM FILT RATE Estimated 10.7 mL/min (>60); POTASSIUM 4.2 mmol/L (3.5-5.1)
[2016-06-22 05:30] LABS: HEMATOCRIT 22.8 % (38.0-50.0); HEMOGLOBIN 7.5 gm/dL (13.0-16.0); MEAN CELL VOLUME 101.7 FL (83-96); MEAN CORPUSCULAR HEMOGLOBIN 33.7 PG (28-34); MEAN CORPUSCULAR HGB CONC 33.1 g/dL (30-36); MEAN PLATELET VOLUME 7.6 FL (6.5-11.5); RED BLOOD COUNT 2.24 X10e (3.90-5.60); RED CELL DISTRIBUTION WIDTH 23.4 % (11.0-15.5); WHITE BLOOD COUNT 7.9 X10e3 (4.0-10.5)
[2016-06-22 06:02] LABS: ALBUMIN SERUM 1.8 g/dL (3.5-5.0); GLOM FILT RATE Estimated 13.2 mL/min (>60); POTASSIUM 4.5 mmol/L (3.5-5.1); PROTEIN TOTAL SERUM 5.2 g/dL (6.0-8.3)
[2016-06-23 14:06] LABS: HEMATOCRIT 24.6 % (38.0-50.0); HEMOGLOBIN 8.2 gm/dL (13.0-16.0); MEAN CELL VOLUME 100.2 FL (83-96); MEAN CORPUSCULAR HEMOGLOBIN 33.5 PG (28-34); MEAN CORPUSCULAR HGB CONC 33.4 g/dL (30-36); MEAN PLATELET VOLUME 8.2 FL (6.5-11.5); RED BLOOD COUNT 2.46 X10e (3.90-5.60); RED CELL DISTRIBUTION WIDTH 22.6 % (11.0-15.5); WHITE BLOOD COUNT 8.9 X10e3 (4.0-10.5)
[2016-06-23 14:20] LABS: ALBUMIN SERUM 1.9 g/dL (3.5-5.0); BILIRUBIN,TOTAL 3.2 mg/dL (0.2-2.0); BUN/CREATININE RATIO 7.14; CALCIUM SERUM 7.8 mg/dL (8.4-10.2); CREATININE SERUM 2.8 mg/dL (0.6-1.4); GLOM FILT RATE Estimated 25.7 mL/min (>60); POTASSIUM 3.9 mmol/L (3.5-5.1); PROTEIN TOTAL SERUM 5.4 g/dL (6.0-8.3)
[2016-06-24 13:50] LABS: HEMATOCRIT 22.2 % (38.0-50.0); HEMOGLOBIN 7.3 gm/dL (13.0-16.0); MEAN CELL VOLUME 100.8 FL (83-96); MEAN CORPUSCULAR HGB CONC 32.7 g/dL (30-36); MEAN PLATELET VOLUME 7.9 FL (6.5-11.5); RED BLOOD COUNT 2.2 X10e (3.90-5.60); RED CELL DISTRIBUTION WIDTH 22.9 % (11.0-15.5); WHITE BLOOD COUNT 7.5 X10e3 (4.0-10.5)
[2016-06-24 14:12] LABS: BUN/CREATININE RATIO 7.67; CALCIUM SERUM 7.8 mg/dL (8.4-10.2); CREATININE SERUM 4.3 mg/dL (0.6-1.4); GLOM FILT RATE Estimated 15.7 mL/min (>60)
[2016-06-25 05:36] LABS: BASOPHIL# 0.1 X10e3 (0-0.3); BASOPHIL% 1.3 % (0-2.5); EOSINOPHIL# 0.4 X10e3 (0-0.7); EOSINOPHIL% 6.7 % (0.0-7.0); HEMATOCRIT 21.1 % (38.0-50.0); HEMOGLOBIN 7.1 gm/dL (13.0-16.0); LYMPHOCYTE# 1.2 X10e3 (1.0-3.5); LYMPHOCYTE% 18.5 % (17.0-45.0); MEAN CELL VOLUME 100.4 FL (83-96); MEAN CORPUSCULAR HEMOGLOBIN 33.5 PG (28-34); MEAN CORPUSCULAR HGB CONC 33.3 g/dL (30-36); MEAN PLATELET VOLUME 10.3 FL (6.5-11.5); MONOCYTE# 0.8 X10e3 (0-1.0); NEUTROPHIL% 61.5 % (40-75); RED BLOOD COUNT 2.11 X10e (3.90-5.60); RED CELL DISTRIBUTION WIDTH 23.7 % (11.0-15.5); WHITE BLOOD COUNT 6.5 X10e3 (4.0-10.5)
[2016-06-25 05:58] LABS: PLATELET COUNT 108 X10e3 (140-420)
[2016-06-25 05:59] LABS: DIFF IND YES
[2016-06-25 06:28] LABS: ANISOCYTOSIS MOD; PLATELET ESTIMATE DECREASED (NORMAL); POLYCHROMASIA SL; SCHISTOCYTES PRESENT
[2016-06-25 09:44] LABS: ALBUMIN SERUM 1.7 g/dL (3.5-5.0); BILIRUBIN,TOTAL 1.9 mg/dL (0.2-2.0); BUN/CREATININE RATIO 7.69; CALCIUM SERUM 7.7 mg/dL (8.4-10.2); CREATININE SERUM 3.9 mg/dL (0.6-1.4); GLOM FILT RATE Estimated 17.6 mL/min (>60); PROTEIN TOTAL SERUM 4.7 g/dL (6.0-8.3)
[2016-06-25 10:27] LABS: INR 1.2; PARTIAL THROMBOPLASTIN TIME 26.1 SECONDS (23.5-31.3); PROTHROMBIN TIME (PATIENT) 12.6 SECONDS (9.6-11.5)
[2016-06-26 06:25] LABS: HEMATOCRIT 23.7 % (38.0-50.0); HEMOGLOBIN 7.8 gm/dL (13.0-16.0); MEAN CELL VOLUME 99.1 FL (83-96); MEAN CORPUSCULAR HEMOGLOBIN 32.7 PG (28-34); MEAN PLATELET VOLUME 10.8 FL (6.5-11.5); RED BLOOD COUNT 2.39 X10e (3.90-5.60); RED CELL DISTRIBUTION WIDTH 21.7 % (11.0-15.5); WHITE BLOOD COUNT 6.6 X10e3 (4.0-10.5)
[2016-06-26 10:08] LABS: BUN/CREATININE RATIO 6.9; CALCIUM SERUM 8.2 mg/dL (8.4-10.2); CREATININE SERUM 4.2 mg/dL (0.6-1.4); GLOM FILT RATE Estimated 16.1 mL/min (>60); POTASSIUM 4.2 mmol/L (3.5-5.1)
[2016-06-27 05:36] LABS: HEMATOCRIT 31.7 % (38.0-50.0); MEAN CELL VOLUME 97.2 FL (83-96); MEAN CORPUSCULAR HEMOGLOBIN 31.9 PG (28-34); MEAN CORPUSCULAR HGB CONC 32.8 g/dL (30-36); MEAN PLATELET VOLUME 9.3 FL (6.5-11.5); RED BLOOD COUNT 3.26 X10e (3.90-5.60); RED CELL DISTRIBUTION WIDTH 22.1 % (11.0-15.5)
[2016-06-27 05:41] LABS: HEMOGLOBIN 10.4 gm/dL (13.0-16.0); WHITE BLOOD COUNT 10.4 X10e3 (4.0-10.5)
[2016-06-27 06:09] LABS: BUN/CREATININE RATIO 8.61; CALCIUM SERUM 8.4 mg/dL (8.4-10.2); CREATININE SERUM 3.6 mg/dL (0.6-1.4); GLOM FILT RATE Estimated 19.2 mL/min (>60); POTASSIUM 5.3 mmol/L (3.5-5.1)
[2016-06-27 17:14] LABS: BUN/CREATININE RATIO 10.76; CALCIUM SERUM 8.6 mg/dL (8.4-10.2); CREATININE SERUM 3.9 mg/dL (0.6-1.4); GLOM FILT RATE Estimated 17.6 mL/min (>60)
[2016-06-27 17:15] LABS: POTASSIUM 5.5 mmol/L (3.5-5.1)
[2016-06-28 05:38] LABS: BASOPHIL# 0.2 X10e3 (0-0.3); BASOPHIL% 1.1 % (0-2.5); EOSINOPHIL# 0.1 X10e3 (0-0.7); EOSINOPHIL% 0.5 % (0.0-7.0); HEMATOCRIT 28.1 % (38.0-50.0); HEMOGLOBIN 9.5 gm/dL (13.0-16.0); LYMPHOCYTE# 1.2 X10e3 (1.0-3.5); LYMPHOCYTE% 7.2 % (17.0-45.0); MEAN CELL VOLUME 96.2 FL (83-96); MEAN CORPUSCULAR HEMOGLOBIN 32.4 PG (28-34); MEAN CORPUSCULAR HGB CONC 33.7 g/dL (30-36); MEAN PLATELET VOLUME 8.6 FL (6.5-11.5); MONOCYTE# 1.6 X10e3 (0-1.0); MONOCYTE% 9.9 % (3.0-12.0); NEUTROPHIL# 13.5 X10e3 (1.5-7.1); NEUTROPHIL% 81.3 % (40-75); PLATELET COUNT 59 X10e3 (140-420); RED BLOOD COUNT 2.92 X10e (3.90-5.60); RED CELL DISTRIBUTION WIDTH 21.6 % (11.0-15.5)
[2016-06-28 05:40] LABS: WHITE BLOOD COUNT 16.7 X10e3 (4.0-10.5)
[2016-06-28 05:41] LABS: DIFF IND YES
[2016-06-28 06:06] LABS: PLATELET ESTIMATE DECREASED (NORMAL)
[2016-06-28 06:07] LABS: HYPOCHROMIA SL; MICROCYTOSIS SL
[2016-06-28 06:08] LABS: POLYCHROMASIA SL
[2016-06-28 06:19] LABS: ALBUMIN SERUM 2.3 g/dL (3.5-5.0); BILIRUBIN,TOTAL 4.1 mg/dL (0.2-2.0); BUN/CREATININE RATIO 8.38; CALCIUM SERUM 8.6 mg/dL (8.4-10.2); CREATININE SERUM 3.1 mg/dL (0.6-1.4); GLOM FILT RATE Estimated 22.9 mL/min (>60); POTASSIUM 4.3 mmol/L (3.5-5.1); PROTEIN TOTAL SERUM 5.5 g/dL (6.0-8.3)
[2016-06-29 05:41] LABS: BASOPHIL# 0.1 X10e3 (0-0.3); BASOPHIL% 0.5 % (0-2.5); EOSINOPHIL# 0.9 X10e3 (0-0.7); EOSINOPHIL% 6.9 % (0.0-7.0); HEMATOCRIT 25.6 % (38.0-50.0); HEMOGLOBIN 8.3 gm/dL (13.0-16.0); LYMPHOCYTE% 15.4 % (17.0-45.0); MEAN CORPUSCULAR HEMOGLOBIN 32.5 PG (28-34); MEAN CORPUSCULAR HGB CONC 32.6 g/dL (30-36); MEAN PLATELET VOLUME 9.4 FL (6.5-11.5); MONOCYTE# 1.7 X10e3 (0-1.0); MONOCYTE% 13.4 % (3.0-12.0); NEUTROPHIL# 8.3 X10e3 (1.5-7.1); NEUTROPHIL% 63.8 % (40-75); PLATELET COUNT 59 X10e3 (140-420); RED BLOOD COUNT 2.57 X10e (3.90-5.60); RED CELL DISTRIBUTION WIDTH 23.9 % (11.0-15.5)
[2016-06-29 05:58] LABS: DIFF IND NO; MEAN CELL VOLUME 99.7 FL (83-96)
[2016-06-29 06:22] LABS: BUN/CREATININE RATIO 7.23; CREATININE SERUM 4.7 mg/dL (0.6-1.4); GLOM FILT RATE Estimated 13.5 mL/min (>60); POTASSIUM 3.3 mmol/L (3.5-5.1); PROTEIN TOTAL SERUM 4.9 g/dL (6.0-8.3)
[2016-06-29 06:27] LABS: BILIRUBIN,TOTAL 1.9 mg/dL (0.2-2.0)
[2016-06-30 03:16] LABS: BASOPHIL# 0.1 X10e3 (0-0.3); BASOPHIL% 0.9 % (0-2.5); EOSINOPHIL# 1.3 X10e3 (0-0.7); EOSINOPHIL% 10.2 % (0.0-7.0); HEMATOCRIT 25.4 % (38.0-50.0); HEMOGLOBIN 8.3 gm/dL (13.0-16.0); LYMPHOCYTE% 8.1 % (17.0-45.0); MEAN CELL VOLUME 99.5 FL (83-96); MEAN CORPUSCULAR HEMOGLOBIN 32.5 PG (28-34); MEAN CORPUSCULAR HGB CONC 32.7 g/dL (30-36); MEAN PLATELET VOLUME 8.7 FL (6.5-11.5); MONOCYTE# 1.5 X10e3 (0-1.0); MONOCYTE% 12.3 % (3.0-12.0); NEUTROPHIL# 8.4 X10e3 (1.5-7.1); NEUTROPHIL% 68.5 % (40-75); PLATELET COUNT 65 X10e3 (140-420); RED BLOOD COUNT 2.55 X10e (3.90-5.60); RED CELL DISTRIBUTION WIDTH 24.2 % (11.0-15.5); WHITE BLOOD COUNT 12.3 X10e3 (4.0-10.5)
[2016-06-30 03:18] LABS: DIFF IND YES
[2016-06-30 03:45] LABS: BURR CELLS PRESENT; PLATELET ESTIMATE DECREASED (NORMAL); TEAR DROP CELLS PRESENT
[2016-06-30 03:46] LABS: ANISOCYTOSIS MOD
[2016-06-30 03:57] LABS: ALBUMIN SERUM 2.2 g/dL (3.5-5.0); BILIRUBIN,TOTAL 1.7 mg/dL (0.2-2.0); BUN/CREATININE RATIO 7.63; CALCIUM SERUM 8.3 mg/dL (8.4-10.2); CREATININE SERUM 5.5 mg/dL (0.6-1.4); GLOM FILT RATE Estimated 11.2 mL/min (>60); POTASSIUM 3.9 mmol/L (3.5-5.1); PROTEIN TOTAL SERUM 5.3 g/dL (6.0-8.3)
[2016-07-01 02:35] LABS: HEMATOCRIT 25.3 % (38.0-50.0); HEMOGLOBIN 8.4 gm/dL (13.0-16.0); MEAN CELL VOLUME 99.3 FL (83-96); MEAN CORPUSCULAR HGB CONC 33.3 g/dL (30-36); MEAN PLATELET VOLUME 8.5 FL (6.5-11.5); RED BLOOD COUNT 2.55 X10e (3.90-5.60); WHITE BLOOD COUNT 10.5 X10e3 (4.0-10.5)
[2016-07-01 02:55] LABS: ALBUMIN SERUM 2.2 g/dL (3.5-5.0); BUN/CREATININE RATIO 6.19; CALCIUM SERUM 7.8 mg/dL (8.4-10.2); CREATININE SERUM 4.2 mg/dL (0.6-1.4); GLOM FILT RATE Estimated 15.5 mL/min (>60); POTASSIUM 3.5 mmol/L (3.5-5.1); PROTEIN TOTAL SERUM 5.3 g/dL (6.0-8.3)
[2016-07-01 09:15] LABS: HEP B SURFACE AG Nonreactive (Nonreactive); HEPATITIS B SURFACE ANTIBODY <5 mIU/mL (>=10)
[2016-07-02 03:47] LABS: BASOPHIL# 0.1 X10e3 (0-0.3); BASOPHIL% 0.9 % (0-2.5); EOSINOPHIL# 1.3 X10e3 (0-0.7); HEMATOCRIT 28.4 % (38.0-50.0); HEMOGLOBIN 9.2 gm/dL (13.0-16.0); LYMPHOCYTE# 1.9 X10e3 (1.0-3.5); LYMPHOCYTE% 17.2 % (17.0-45.0); MEAN CELL VOLUME 100.8 FL (83-96); MEAN CORPUSCULAR HEMOGLOBIN 32.6 PG (28-34); MEAN CORPUSCULAR HGB CONC 32.3 g/dL (30-36); MEAN PLATELET VOLUME 9.2 FL (6.5-11.5); MONOCYTE# 1.7 X10e3 (0-1.0); MONOCYTE% 15.2 % (3.0-12.0); NEUTROPHIL# 6.1 X10e3 (1.5-7.1); NEUTROPHIL% 54.7 % (40-75); RED BLOOD COUNT 2.81 X10e (3.90-5.60); RED CELL DISTRIBUTION WIDTH 25.5 % (11.0-15.5); WHITE BLOOD COUNT 11.2 X10e3 (4.0-10.5)
[2016-07-02 03:48] LABS: DIFF IND NO; PLATELET COUNT 79 X10e3 (140-420)
[2016-07-02 06:23] LABS: ALBUMIN SERUM 2.1 g/dL (3.5-5.0); BILIRUBIN,TOTAL 1.6 mg/dL (0.2-2.0); BUN/CREATININE RATIO 5.68; CALCIUM SERUM 7.9 mg/dL (8.4-10.2); CREATININE SERUM 5.1 mg/dL (0.6-1.4); GLOM FILT RATE Estimated 12.3 mL/min (>60); MAGNESIUM 2.2 mg/dL (1.6-3.0); POTASSIUM 4.4 mmol/L (3.5-5.1); PROTEIN TOTAL SERUM 5.5 g/dL (6.0-8.3)
[2016-07-02] MEDS ORDERED: PROTONIX PO (16:08)
[2016-07-02] MEDS ORDERED: PRO-AMATINE5 M1 PO (16:08)
== END 2016-07-02 19:28 | disposition home or self-care (01) | DRG 441 ==
LOC: CED 12:59 → CEDOF 13:52 → C5C 16:13 → CICCU2 06-27 16:30 → C4C 06-29 23:48
PROVIDERS: Emergency Medicine; Hospitalist; Internal Medicine; Internal Medicine Gastroenterology; Internal Medicine Nephrology; Physician Assistant Medical
PROC: 30243N1 Transfusion of Nonautologous Red Blood Cells into Central Vein, Percutaneous Approach (ICD-10-PCS; 2016-06-19)
PROC: 5A1D60Z (ICD-10-PCS; 2016-06-20)
PROC: 05HD33Z Insertion of Infusion Device into Right Cephalic Vein, Percutaneous Approach (ICD-10-PCS; 2016-06-22)
PROC: B54MZZA Ultrasonography of Right Upper Extremity Veins, Guidance (ICD-10-PCS; 2016-06-22)
PROC: 30243J1 Transfusion of Nonautologous Serum Albumin into Central Vein, Percutaneous Approach (ICD-10-PCS; 2016-06-25)
PROC: 0W9G3ZZ Drainage of Peritoneal Cavity, Percutaneous Approach (ICD-10-PCS; 2016-06-25)
PROC: 0W3P8ZZ Control Bleeding in Gastrointestinal Tract, Via Natural or Artificial Opening Endoscopic (ICD-10-PCS; principal; 2016-06-27 16:10)
PROC: 0DH67UZ Insertion of Feeding Device into Stomach, Via Natural or Artificial Opening (ICD-10-PCS; 2016-06-27 16:10)
PROC: 0W9G3ZZ Drainage of Peritoneal Cavity, Percutaneous Approach (ICD-10-PCS; 2016-07-02)
DX: K72.90 Hepatic failure, unspecified without coma (principal); N18.6 End stage renal disease; R57.9 Shock, unspecified; I12.0 Hypertensive chronic kidney disease with stage 5 chronic kidney disease or end stage renal disease; K31.811 Angiodysplasia of stomach and duodenum with bleeding; K76.6 Portal hypertension; I85.10 Secondary esophageal varices without bleeding; D69.59 Other secondary thrombocytopenia; E87.1 Hypo-osmolality and hyponatremia; F17.210 Nicotine dependence, cigarettes, uncomplicated; Z99.2 Dependence on renal dialysis; D50.0 Iron deficiency anemia secondary to blood loss (chronic); D64.89 Other specified anemias; K31.89 Other diseases of stomach and duodenum; K70.31 Alcoholic cirrhosis of liver with ascites; F10.21 Alcohol dependence, in remission; J44.9 Chronic obstructive pulmonary disease, unspecified; D72.829 Elevated white blood cell count, unspecified
CPT/HCPCS: 36415; 71010; 74000; 77001; 80048; 80053; 81003; 82140; 82150; 82553; 82947; 83605; 83690; 83735; 84484; 85025; 85027; 85610; 85730; 86705; 86706; 86850; 86900; 86901; 86923; 87040; 87340; 93005; 94640; 94760; 99285; C9113; J0696; J0885; J1642; J1644; J1940; J2150; J2405; P9016; P9045; Q4081

== ENCOUNTER 2016-07-10 14:51 | Inpatient (IN) | payer OTHER ==
--- NOTE | ~2016-07-10 | EKG ---
PATIENT: MIRA BRAXTON UNIT #: [id number] Ventricular Rate: 107 BPM Atrial Rate: 107 BPM P-R Interval: 140 ms QRS Duration: 86 ms Q-T Interval: 354 ms QTC Calculation(Bezet): 472 ms P Mccloud: -14 degrees Calculated R Mccloud: 6 degrees Calculated T Mccloud: 7 degrees Diagnosis Line: Sinus tachycardia Diagnosis Line: Otherwise normal ECG Diagnosis Line: No previous ECGs available Diagnosis Line: Confirmed by YUVAL CIFUENTES MD ([id number]) on 07/10/2016 Diagnosis Line: 11:40:24 PM INTERPRETING MD: VANE MCMAHON
--- NOTE | ~2016-07-10 | DS ---
Unit #: [id number] #: [id number] Patient: MIRA DANIELSON [id number] [address] [address] [id number] MR#: [id number] NAME: MIRA DANIELSON. ROOM: 574 Age: 51 Sex: M Admission Date: 07/10/2016 : 1965 Discharge Date: 07/13/2016 Attending Physician: Neena Crisostomo M.D. Primary Care Physician: Colton Mcdowell M.D. DISCHARGE SUMMARY FINAL DIAGNOSES 1. Severe anemia, status post multiple unit transfusion. 2. Status post esophagogastroduodenoscopy by Dr. Akshat Umana which shows diffuse oozing of fresh blood from the entire stomach, mostly in the antrum because of severe portal hypertensive gastropathy. 3. Severe portal hypertensive gastropathy. 4. Gastrointestinal bleed secondary to above. 5. End stage renal disease, on hemodialysis. 6. Chronic thrombocytopenia. 7. History of alcohol abuse. 8. Chronic obstructive pulmonary disease. DISCHARGE MEDICATIONS 1. Vitamin B12 1000 mcg daily. 2. Thiamine 100 mg daily. 3. Folic acid 1 mg q. 4. Protonix 40 mg daily. 5. Hydrocodone - continue home dose. 6. Multivitamin daily. 7. ProAmatine 10 mg three times a day. 8. Xifaxan 550 mg twice a day. 9. Lactulose 10 grams q.6 hourly. 10. Flomax 0.4 mg daily. 11. Sodium bicarb 650 mg daily. CONSULTATION DURING HOSPITALIZATION 1. Dr. Vicente - Renal Services. 2. Dr. Akshat Umana - GI Services. ADMITTING PHYSICIAN Dr. Umer Guevara for Internal Medicine services. DISCHARGING PHYSICIAN Dr. Neena Crisostomo LAB WORKUP ON DISCHARGE Sodium 135, potassium 4.0, chloride 102, BUN 39, creatinine 4.2, calcium 7.9, WBC 10.4, hemoglobin 9.4, hematocrit 28.1 and platelet count of 44. PROCEDURE PERFORMED DURING HOSPITALIZATION 1. Ultrasound-guided paracentesis and removal of 8600 mL of clear yellow fluid. 2. Status post esophagogastroduodenoscopy and findings are as above which shows diffuse oozing of fresh blood from the entire stomach, Unit #: [id number] #: [id number] Patient: MIRA DANIELSON mostly in the antrum because of severe portal hypertensive gastropathy. HOSPITAL COURSE Mr. Mira Danielson is very well known to us from multiple admissions, was admitted to the hospital with shortness of breath, low blood pressure and low hemoglobin of 5.9. The patient was admitted to telemetry unit. Dr. Akshat Umana was consulted. Multiple transfusions of packed RBC was done and EGD was performed. EGD findings are as above. As per Dr. Akshat Umana, any kind of ablation is not very effective in this setting and, in fact, there is no good treatment for this condition. The patient may continue to bleed in the future and may require multiple blood transfusions. I have discussed with patient and patient's and he is Full Code at this time. He and his are aware of patient's poor prognosis. Dr. Vicente was consulted for ongoing hemodialysis. The patient's hemoglobin is stable at this time, is being discharged home to continue to follow up with Dr. Vicente and Dr. Akshat Umana. The patient will need, on weekly basis, CBC done. On discharge, examination - blood pressure 105/64, respiratory rate 16, pulse is 68, temperature 89.5. CHEST is fair, decreased at the bases. CVS - S1, S2 positive. Regular rhythm. ABDOMEN is soft. DISCHARGE INSTRUCTIONS 1. Continue hemodialysis as per Dr. Vicente. 2. Follow up with Dr. Umana in two weeks. 3. CBC to be done q. weekly. 4. Patient may need packed RBC transfusion as outpatient. Discussed with patient and patient's at length. Dictated by... Bi Marie TD: 07/13/2016 11:26 JOB #: [id number] DISCHARGE SUMMARY Page 1 of 1 X Neena Crisostomo MD X DISCHARGE SUMMARY
--- NOTE | ~2016-07-10 | CO ---
Unit #: [id number] #: [id number] Patient: MIRA DANIELSON [id number] [address] [address] [id number] I MR#: [id number] NAME: MIRA DANIELSON. ROOM: 574 Age: 51 Sex: M Admission Date: 07/10/2016 : 1965 Attending Physician: Neena Crisostomo M.D. Primary Care Physician: Colton Mcdowell M.D. Consultation Date: 07/10/2016 CONSULTATION REPORT REASON FOR CONSULT Renal failure. HISTORY Thank you very much for asking us to see this patient in consultation. Mr. Mira Danielson is a 51-year-old male with a history of ETOH abuse and cirrhosis who has had complications including portal hypertension, angiodysplasia, mild esophageal varices with recurrent bleeding who was recently here in the hospital where he underwent several procedures but continued to become anemic. He is now in renal failure and requiring outpatient dialysis every Saturday, and Saturday. However, the patient, apparently about an hour into his dialysis today, became very hypotensive and was unable to complete his dialysis. He presented to the emergency room, noted to have a hemoglobin of 5.9. He was ordered transfusions. I was consulted this afternoon. He states he has been tired and weak. He is not having any chest pain, has some mild shortness of breath, no nausea or vomiting. He has some intermittent swelling still. PAST MEDICAL HISTORY 1. History of cirrhosis with complications as mentioned in the HPI. 2. History of ESRD. 3. History of COPD. 4. History of thrombocytopenia. SOCIAL HISTORY Positive alcohol use in the past. He says he has not used any alcohol in the last couple months. No smoking. He is . ALLERGIES No known drug allergies. REVIEW OF SYSTEMS As mentioned in the HPI. Otherwise, negative. MEDICATIONS His medicines include folic acid. He is on midodrine 10 mg t.i.d. FAMILY HISTORY Noncontributory. PHYSICAL EXAMINATION GENERAL: He is alert. Unit #: [id number] #: [id number] Patient: MIRA DANIELSON VITAL SIGNS: Temperature is 98, pulse 107, blood pressure 103/62. HEENT: Normocephalic, atraumatic. Pupils are equal, round and reactive to light. Extraocular muscles are intact. Hearing appears to be normal. Mouth is clear. No erythema, no exudate. NECK: Supple. No adenopathy. CARDIAC: He has a regular rate and rhythm without a rub. No S3 or S4. LUNGS: Lungs are clear bilaterally with no wheezes, rhonchi or rales. ABDOMEN: Distended. Bowel sounds positive. Nontender. Positive for some body edema. Appears to have ascites again. EXTREMITIES: He has positive lower extremity edema. His pulses are intact in lower extremities. MUSCULOSKELETAL: No joint pain, joint swelling. SKIN: No rashes. NEUROLOGIC: He is alert and oriented. : Deferred. DIAGNOSTIC STUDIES LABORATORY DATA: Sodium 132, potassium 3.8, chloride 101, bicarb 25, BUN 47, creatinine 5.4, glucose 133, calcium 7.8, albumin 2, ammonia 35. Hemoglobin 5.9, platelets 59,000, white count 6,700. ASSESSMENT AND PLAN 1. Endstage renal disease. Again, the patient is still requiring dialysis. Did not receive his full dialysis today. He does have increased volume. Will hold off and dialyze him again tomorrow and probably , get him back on his regular schedule. Will continue to follow electrolytes, volume status. Certainly will start his medicine to keep his blood pressure up, midodrine, and hopefully we will be able to get some fluid off. He may also need to have a paracentesis while he is here. 2. Severe anemia. Hemoglobin is low again, as expected. Will give Epogen 20,000 units with dialysis and transfuse as needed. As an outpatient, we may need to check hemoglobin each Saturday, and if his hemoglobin drops low, maybe transfuse him as an outpatient on Fridays. Thank you very much. Dictated by... Viral Vicente M.D. GALINDO/veronique TD: 07/11/2016 10:05 JOB #: [id number] CONSULTATION REPORT Page 1 of 1 X Damian Vicente MD CONSULTATION REPORT
--- NOTE | ~2016-07-10 | OR ---
Unit #: [id number] #: [id number] Patient: MIRA BRAXTON [id number] [address] [place], [place] [address] [id number] MR#: [id number] NAME: MIRA BRAXTON. ROOM: 574 Date of Procedure: 07/12/2016 Admission Date: 07/10/2016 Surgeon: Akshat Umana M.D. : 1965 Attending Physician: Neena Crisostomo M.D. Primary Care Physician: Colton Mcdowell M.D. OPERATIVE REPORT PREOPERATIVE DIAGNOSIS Upper gastrointestinal bleed. PROCEDURES PERFORMED Upper gastrointestinal endoscopy and argon plasma coagulation ablation. POSTOPERATIVE DIAGNOSES The patient had diffuse ooze of fresh blood from the entire stomach, mostly in the antrum because of severe portal hypertensive gastropathy. Unfortunately, any kind of ablation is not very effective in this setting and in fact, there is no good treatment for this condition. The patient will continue to bleed over the future and will require either frequent blood transfusions and alternative approach is to consider end of life care. SEDATION USED MAC. DESCRIPTION OF PROCEDURE Following detailed explanation of the potential risks and complications of an upper endoscopy, namely perforation, bleeding, and complications related to sedation, the patient was brought to GI lab and laid in the left lateral decubitus position. Lubricated tip of the Olympus video upper endoscope was passed through the bite block into the proximal esophagus under direct vision. The entire esophageal mucosa was examined and appeared normal. Z-line was nicely demarcated, there being no esophagitis or hiatus hernia. The patient did not have any esophageal varices. The scope was then advanced into the gastric cavity and the latter was insufflated. Mucosa of the fundus, body, and antrum was examined. The patient was found to have fresh blood and clot in the stomach as well as fresh oozing of blood from the entire antrum and distal body of the stomach. Pylorus was intubated with visualization of the normal duodenal bulb and second and third part of the duodenum. Upon withdrawal and retroflexion, incisura, cardia, and greater curve examined and no additional findings noted. Attention was focused on the bleeding areas in the antrum and extensive coagulation was done using argon plasma coagulation therapy. The residual argon gas was then suctioned. The scope was then withdrawn. The patient returned to recovery area. Only partial hemostasis was possible in this setting. The patient tolerated the procedure without any postprocedure complications. Unit #: [id number] #: [id number] Patient: MIRA BRAXTON Dictated by.Bi Ames/dorota TD: 07/12/2016 08:10 JOB #: [id number] Damian. Dl Vicente M.D. OPERATIVE REPORT Page 1 of 1 X Akshat Umana MD X PROCEDURE OPERATIVE NOTE
--- NOTE | ~2016-07-10 | HP ---
Unit #: [id number] #: [id number] Patient: MIRA BRAXTON [id number] [address] [address] [id number] I MR#: [id number] NAME: MIRA BRAXTON. ROOM: 574 Age: 51 Sex: M Admission Date: 07/10/2016 : 1965 Attending Physician: Neena Crisostomo M.D. Primary Care Physician: Colton Mcdowell M.D. HISTORY AND PHYSICAL CHIEF COMPLAINT Shortness of breath and low blood pressure. HISTORY OF PRESENT ILLNESS Patient presented to the emergency room with the complaint of hypotension during dialysis and was found to have a hemoglobin of 5.9 and platelets of 54,000. He has a known history of alcoholic liver cirrhosis and was found to be hypotensive during hemodialysis. He has a history of end-stage renal disease. He presented to the emergency room and is currently admitted for hypotension. I am seeing the patient at the bedside. He denies any headache or blurry vision and no chest pain. REVIEW OF SYSTEMS Positive for pallor. Positive for ascites. No cyanosis, no jaundice. The rest is per History of Present Illness. PAST MEDICAL HISTORY 1. Cirrhosis. 2. End-stage renal disease, on hemodialysis. 3. Chronic obstructive pulmonary disease. 4. Thrombocytopenia. 5. History of alcohol abuse. SOCIAL HISTORY Positive for alcohol use in the past. Ex-smoker. No drug abuse. ALLERGIES No known drug allergies. PHYSICAL EXAMINATION VITAL SIGNS: Currently, patient's temperature is 98, pulse 96, respirations 16, and blood pressure 105/58. NEUROLOGICAL: Awake, alert, and oriented, with no neurological deficits. HEENT: Pupils equal, round, and reactive to light and accommodation. Extraocular movements are intact. NECK: Supple. No JVD. CHEST: Bilateral air entry, bilateral mild rhonchi. GASTROINTESTINAL: Nontender and soft. Bowel sounds positive. Positive ascites. EXTREMITIES: Positive edema. DIAGNOSTIC STUDIES LABORATORY: Creatinine is 5.8 and potassium is 4.4. INR is 1.1. Hemoglobin is 7.1 now post transfusion and platelets are 63,000. Unit #: [id number] #: [id number] Patient: MIRA BRAXTON ASSESSMENT 1. Gastrointestinal bleed. 2. Hypotension. 3. Ascites. 4. Chronic obstructive pulmonary disease. 5. End-stage renal disease. 6. Alcoholic cirrhosis. 7. Thrombocytopenia. PLAN Admit the patient. Continue blood transfusion as per GI. Continue PPI. GI and DVT prophylaxis with SCDs. Resume home medication. Hold any anticoagulants. Patient will be closely monitored. Please see orders for detailed plans. Dictated by Bi Martinez TD: 07/11/2016 18:12 JOB #: [id number] HISTORY AND PHYSICAL Page 1 of 1 X Umer Guevara MD X HISTORY AND PHYSICAL
--- NOTE | ~2016-07-10 | CO ---
Unit #: [id number] #: [id number] Patient: MIRA DANIELSON [id number] [address] [address] [id number] I MR#: [id number] NAME: MIRA DANIELSON. ROOM: 574 Age: 51 Sex: M Admission Date: 07/10/2016 : 1965 Attending Physician: Neena Crisostomo M.D. Primary Care Physician: Colton Mcdowell M.D. Consultation Date: 07/10/2016 CONSULTATION REPORT REASON FOR CONSULTATION GI bleed. HISTORY Mr. Danielson had a drastic gross drop in hemoglobin. He has advanced alcoholic liver disease and cirrhosis, portal hypertension, and portal hypertensive gastropathy. Patient has had multiple large volume paracenteses and has hepatic encephalopathy. He presented with worsening of his renal function and has end stage renal disease on hemodialysis. Patient has noticed increasing abdominal distention and anasarca over the past few days. He is, at best, partially compliant with lactulose therapy. MEDICATIONS His home medications were reviewed and include: 1. Antacid tablets. 2. Flomax. 3. Lactulose. 4. Effexor. 5. Multivitamins daily. 6. Folic acid. 7. Cyanocobalamin. 8. Hydrocodone/acetaminophen. 9. ProAmatine. 10. Protonix. ALLERGIES Patient has no known drug allergies. SOCIAL HISTORY He is a heavy drinker and has drunk most of his adult life with varying periods of sobriety. Patient has not had any alcohol for the past three weeks. PAST MEDICAL HISTORY End stage renal disease on hemodialysis, alcoholic cirrhosis, portal hypertension, dysphagia without esophageal varices, but with severe portal hypertensive gastropathy, pancytopenia, hepatic encephalopathy, ascites, thrombocytopenia, and COPD. REVIEW OF SYSTEMS Detailed review of organ systems does not reveal any recent weight loss. No history of fever, chills, or rigors. No history of headache, seizures, chest pain, or syncope. No history of cough, expectoration, or Unit #: [id number] #: [id number] Patient: MIRA DANIELSON hemoptysis. There is no history of dysuria, hematuria, or pyuria. No history of focal seizures or extremity weakness. PHYSICAL EXAMINATION GENERAL APPEARANCE: He is awake and alert and does have generalized anasarca with ascites. VITAL SIGNS: His vital signs indicate hypotension. The admission blood pressure is 87/58. Pulse is 103 per minute and regular, respiratory rate is 18, and temperature is 98.3. He weighs 251 pounds. Baseline weight has been about 240 pounds. Baseline ideal weight is about 240 pounds. HEENT: He has moderately severe pallor with there being no icterus, lymphadenopathy. EXTREMITIES: Grade 2-3 pitting, peripheral edema. CARDIOVASCULAR: Normal heart sounds. No murmurs on auscultation. LUNGS: Reveal normal breath sounds with good air entry. ABDOMEN: Obese and distended due to ascites. Liver and spleen are not palpable. Bowel sounds normal. DIAGNOSTIC STUDIES LABORATORY: Evaluation shows an INR of 1.1. Serum chemistry showed BUN and creatinine of 55 and 5.8. Serum sodium is 132, potassium is 4.4, albumin is 2, transaminase did show an AST of 58, ALT 23, and normal alkaline phosphatase. Admission hemoglobin is 5.8, baseline hemoglobin is 9.5-10 with white count of 6.7 and platelet count is 50,000. Patient's ammonia level is 35. CLINICAL IMPRESSION 1. Patient with advanced chronic liver disease, cirrhosis, portal hypertension, and portal hypertensive gastropathy with upper GI bleed and upper endoscopy is needed; however, as in the recent past, we have seen patient has diffuse oozing from portal hypertensive gastropathy and there is no effective treatment for the latter. He does not have any esophageal varices. 2. There is thrombocytopenia. 3. Recurrent ascites. 4. End stage renal disease on hemodialysis. 5. COPD. MANAGEMENT PLAN Patient is about to undergo hemodialysis later today. Following hemodialysis, he will be given packed cell transfusion and, also, undergo upper endoscopy either later today or tomorrow. Pros and cons of the procedure and potential risks and complications were discussed with patient and he was reassured. Thank you for asking me to see this pleasant gentleman. I appreciate the consult. Dictated by... Bi Barry TD: 07/12/2016 08:25 JOB #: [id number] CC: Viral Vicente M.D. Unit #: [id number] #: [id number] Patient: MIRA DANIELSON CONSULTATION REPORT Page 1 of 1 X Akshat Umana MD CONSULTATION REPORT
--- NOTE | ~2016-07-10 | XA170 ---
[facility] A Service of [facility] RADIOLOGY TEXT RESULTS PATIENT: MIRA BRAXTON LOCATION: [facility] [address] : [birth year] UNIT #: [id number] AGE: [address]: Neena Crisostomo MD SEX: M ORDER DR: [id number] [place] [id number] [facility]. [place], [place] [address] [id number] I MR#: [id number] Acc #: [id number] NAME: MIRA BRAXTON. : 1965 SEX: M STUDY DATE/TIME: 07/11/2016 11:47 UNIT: [facility] ROOM: [facility] STUDY DESCRIPTION: XA Paracentesis W Image Attending Physician: Neena Crisostomo M.D. Ordering Physician: Neena Crisostomo M.D. Primary Care Physician: Colton Mcdowell M.D. MEDICAL IMAGING REPORT This report is preliminary unless electronic signature is present EXAM Ultrasound-guided paracentesis. HISTORY 51-year-old male with ascites. TECHNIQUE Risks, benefits and alternatives to the procedure were discussed with the patient, and informed consent was obtained. In the procedure room, a time-out was performed confirming correct patient and procedure. All elements of maximum sterile barrier technique utilized according to guidelines appropriate for the procedure. Ultrasound of the right lower quadrant was performed. There is a large amount of ascites. The overlying skin was prepped and draped in the usual sterile fashion. 1% lidocaine utilized to anesthetize the skin and underlying subcutaneous tissues. Next, under ultrasound guidance, a 5 Chinese Yueh catheter was inserted into the peritoneal space, and 8,600 mL of clear yellow fluid were removed. The needle was removed, and a sterile dressing was applied. No immediate complications. IMPRESSION Technically successful ultrasound-guided paracentesis. Dictated by... Nixon Madera M.D. [facility] A Service [facility] RADIOLOGY TEXT RESULTS PATIENT: MIRA BRAXTON LOCATION: [facility] 574 : [birth year] UNIT #: [id number] AGE: [address]: Neena Crisostomo MD SEX: M ORDER DR: THIS IS AN ELECTRONICALLY VERIFIED REPORT Nixon Madera M.D. at 07/12/2016 8:58 AM Roxane TD: 07/11/2016 17:28 JOB #: [id number] MEDICAL IMAGING REPORT Page 1 of 1 COPY
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
[~2016-07-10 14:51] MED LIST changes: +CYANOCOBALAM1000 MCG PO; +FAMOTIDINE PO; +LACTULOSE20 GM/30 M PO; +PRO-AMATINE5 M1 PO; +PROTONIX PO; +TRAMADOL HCL50 M2 PO
[2016-07-10 15:21] LABS: BASOPHIL# 0.1 X10e3 (0-0.3); EOSINOPHIL# 0.4 X10e3 (0-0.7); EOSINOPHIL% 5.8 % (0.0-7.0); HEMATOCRIT 17.8 % (38.0-50.0); LYMPHOCYTE% 14.9 % (17.0-45.0); MEAN CELL VOLUME 102.3 FL (83-96); MEAN CORPUSCULAR HGB CONC 33.2 g/dL (30-36); MEAN PLATELET VOLUME 7.8 FL (6.5-11.5); MONOCYTE# 0.8 X10e3 (0-1.0); MONOCYTE% 12.2 % (3.0-12.0); NEUTROPHIL# 4.4 X10e3 (1.5-7.1); NEUTROPHIL% 66.1 % (40-75); PLATELET COUNT 54 X10e3 (140-420); RED BLOOD COUNT 1.74 X10e (3.90-5.60); RED CELL DISTRIBUTION WIDTH 24.6 % (11.0-15.5); WHITE BLOOD COUNT 6.7 X10e3 (4.0-10.5)
[2016-07-10 15:23] LABS: DIFF IND YES; HEMOGLOBIN 5.9 gm/dL (13.0-16.0)
[2016-07-10 15:33] LABS: INR 1.1; PARTIAL THROMBOPLASTIN TIME 25.7 SECONDS (23.5-31.3); PROTHROMBIN TIME (PATIENT) 12.1 SECONDS (9.6-11.5)
[2016-07-10 15:41] LABS: BILIRUBIN, DIRECT 0.5 mg/dL (0.0-0.2); BILIRUBIN,INDIRECT 0.8 mg/dL (0.0-0.9); BILIRUBIN,TOTAL 1.3 mg/dL (0.2-2.0); BUN/CREATININE RATIO 8.7; CALCIUM SERUM 7.8 mg/dL (8.4-10.2); CREATININE SERUM 5.4 mg/dL (0.6-1.4); GLOM FILT RATE Estimated 11.5 mL/min (>60); POTASSIUM 3.8 mmol/L (3.5-5.1); PROTEIN TOTAL SERUM 4.9 g/dL (6.0-8.3)
[2016-07-10 15:47] LABS: PLATELET ESTIMATE DECREASED (NORMAL)
[2016-07-10 15:48] LABS: HYPOCHROMIA MOD; POIKILOCYTOSIS SL; POLYCHROMASIA SL
[2016-07-11 07:02] LABS: HEMATOCRIT 21.2 % (38.0-50.0); HEMOGLOBIN 7.1 gm/dL (13.0-16.0); MEAN CORPUSCULAR HEMOGLOBIN 32.4 PG (28-34); MEAN CORPUSCULAR HGB CONC 33.6 g/dL (30-36); MEAN PLATELET VOLUME 8.2 FL (6.5-11.5); RED BLOOD COUNT 2.2 X10e (3.90-5.60); RED CELL DISTRIBUTION WIDTH 24.4 % (11.0-15.5); WHITE BLOOD COUNT 7.8 X10e3 (4.0-10.5)
[2016-07-11 07:07] LABS: BUN/CREATININE RATIO 9.48; CALCIUM SERUM 7.9 mg/dL (8.4-10.2); CREATININE SERUM 5.8 mg/dL (0.6-1.4); GLOM FILT RATE Estimated 10.5 mL/min (>60); POTASSIUM 4.4 mmol/L (3.5-5.1)
[2016-07-11 07:23] LABS: MEAN CELL VOLUME 96.4 FL (83-96)
[2016-07-12 06:41] LABS: ALBUMIN SERUM 1.6 g/dL (3.5-5.0); BILIRUBIN,TOTAL 2.7 mg/dL (0.2-2.0); BUN/CREATININE RATIO 9.54; CALCIUM SERUM 7.6 mg/dL (8.4-10.2); CREATININE SERUM 4.4 mg/dL (0.6-1.4); GLOM FILT RATE Estimated 14.7 mL/min (>60); POTASSIUM 4.2 mmol/L (3.5-5.1); PROTEIN TOTAL SERUM 3.9 g/dL (6.0-8.3)
[2016-07-12 06:54] LABS: HEMATOCRIT 21.7 % (38.0-50.0); HEMOGLOBIN 7.2 gm/dL (13.0-16.0); MEAN CELL VOLUME 93.9 FL (83-96); MEAN CORPUSCULAR HEMOGLOBIN 31.2 PG (28-34); MEAN CORPUSCULAR HGB CONC 33.2 g/dL (30-36); MEAN PLATELET VOLUME 7.9 FL (6.5-11.5); RED BLOOD COUNT 2.31 X10e (3.90-5.60); WHITE BLOOD COUNT 7.8 X10e3 (4.0-10.5)
[2016-07-13 08:04] LABS: HEMATOCRIT 28.1 % (38.0-50.0); MEAN CELL VOLUME 93.8 FL (83-96); MEAN CORPUSCULAR HEMOGLOBIN 31.4 PG (28-34); MEAN CORPUSCULAR HGB CONC 33.4 g/dL (30-36); MEAN PLATELET VOLUME 8.1 FL (6.5-11.5); RED BLOOD COUNT 2.99 X10e (3.90-5.60); RED CELL DISTRIBUTION WIDTH 22.9 % (11.0-15.5); WHITE BLOOD COUNT 10.4 X10e3 (4.0-10.5)
[2016-07-13 08:07] LABS: HEMOGLOBIN 9.4 gm/dL (13.0-16.0)
[2016-07-13 08:30] LABS: BUN/CREATININE RATIO 9.28; CALCIUM SERUM 7.9 mg/dL (8.4-10.2); CREATININE SERUM 4.2 mg/dL (0.6-1.4); GLOM FILT RATE Estimated 15.5 mL/min (>60)
== END 2016-07-13 14:49 | disposition home health service (06) | DRG 314 ==
LOC: CED 14:51 → CEDOF 16:00 → C5C 22:57
PROVIDERS: Emergency Medicine; Internal Medicine; Internal Medicine Gastroenterology; Internal Medicine Nephrology; Physician Assistant Medical
PROC: 30233N1 Transfusion of Nonautologous Red Blood Cells into Peripheral Vein, Percutaneous Approach (ICD-10-PCS; 2016-07-10)
PROC: 5A1D60Z (ICD-10-PCS; 2016-07-11)
PROC: 0W9G30Z Drainage of Peritoneal Cavity with Drainage Device, Percutaneous Approach (ICD-10-PCS; 2016-07-11)
PROC: 0D568ZZ Destruction of Stomach, Via Natural or Artificial Opening Endoscopic (ICD-10-PCS; principal; 2016-07-12 07:30)
DX: I95.9 Hypotension, unspecified (principal); N18.6 End stage renal disease; K76.6 Portal hypertension; D69.6 Thrombocytopenia, unspecified; K92.2 Gastrointestinal hemorrhage, unspecified; K70.31 Alcoholic cirrhosis of liver with ascites; Z99.2 Dependence on renal dialysis; J44.9 Chronic obstructive pulmonary disease, unspecified; Z87.891 Personal history of nicotine dependence; K31.89 Other diseases of stomach and duodenum; D64.9 Anemia, unspecified; F10.10 Alcohol abuse, uncomplicated
CPT/HCPCS: 36415; 71010; 80048; 80053; 80076; 82140; 85025; 85027; 85610; 85730; 86850; 86900; 86901; 86923; 93005; 99285; J2250; J2405; P9016; Q4081

== ENCOUNTER → 2016-07-17 | Outpatient (CLI) | payer OTHER ==
[~2016-07-17] MED LIST changes: +ACETAMINOPHEN PO; +ACETAMINOPHEN650 M3 PO; +ALBUTEROL17 GM INH; +AMBIEN10 MG PO; +AUGM PO; +AUGMENTIN PO; +CALCIUM ACETAT667 M1 PO; +CALCIUM CARBON500 M2 PO; +CALCIUM500 M1; +CARAFATE1 GM PO; +CORTEF10 MG PO; +DAZIDOX10 MG PO; +HYDROCORTISONE10 M1 PO; +KEPPRA750 M1 PO; +KRISTALOSE10 GM PO; +LACTULOSE10 GM/15 M PO; +LACTULOSE10 GM/151 PO; +LACTULOSE20 GM/30 M; +LORTAB 5-325 M1 EACH PO; +MAXIMUM DAILY1 EACH PO; +MULTIVITAMINS1 EAC3 PO; +PANTOPRAZOLE SO40 MG PO; +PATIENT'S PHARMACY; +PRO-AMATINE5 M2 PO; +PRO-AMATINE5 MG PO; +PROBIOTIC250 MG PO; +SEROQUEL50 M1 PO; +TAMSULOSIN HCL0.4 MG PO; +TIZANIDINE HCL4 M1 PO; +TUMS500 MG PO; +TYL325 PO; +VITAMIN D250000 UNIT PO; +ZANAFLEX PO
--- NOTE | ~2016-07-17 | XA170 ---
[facility] A Service of [facility] RADIOLOGY TEXT RESULTS PATIENT: MIRA DANIELSON LOCATION: [facility] : [birth year] UNIT #: [id number] AGE: [address]: Akshat Umana MD SEX: M ORDER DR: [id number] [facility] [address] [facility] [place], [place] [address] [id number] O MR#: [id number] Acc #: [id number] NAME: MIRA DANIELSON. : 1965 SEX: M STUDY DATE/TIME: 07/17/2016 10:07 UNIT: [facility] ROOM: STUDY DESCRIPTION: XA Paracentesis W Image Attending Physician: Akshat Umana M.D. Ordering Physician: Akshat Umana M.D. Primary Care Physician: Colton Mcdowell M.D. MEDICAL IMAGING REPORT This report is preliminary unless electronic signature is present EXAM Ultrasound-guided paracentesis 07/17/2016 COMPARISON comparison study dated 07/11/2016 HISTORY Refractory ascites. Chronic liver disease. PROCEDURE Attendant risks and options were discussed with Mr. Danielson; he understands and wishes to proceed. Ultrasound examination was performed of the right flank. An appropriate site was chosen. Skin was marked prepped and draped. Maximal sterile barrier technique was utilized including sterile gloves and sterile drape. A 5-Bulgarian catheter was inserted but did not drain well and an 0.35 wire was inserted and a 6-Bulgarian pigtail placed. A total of 6.7 liters was subsequently removed without difficulty. The catheter was removed, hemostasis achieved and the patient subsequently discharged. Permanent ultrasound image was recorded. IMPRESSION Successful ultrasound guided paracentesis with removal of 6.7 liters of fluid. Dictated by... Apollo Sweet M.D. THIS IS AN ELECTRONICALLY VERIFIED REPORT Apollo Sweet M.D. at 07/19/2016 4:01 PM AMELIA/claudia TD: 07/19/2016 15:22 JOB #: [id number] [facility] A Service of [facility] RADIOLOGY TEXT RESULTS PATIENT: MIRA DANIELSON LOCATION: [facility] #: [id number] : [birth year] UNIT #: [id number] AGE: [address]: Akshat Umana MD SEX: M ORDER DR: MEDICAL IMAGING REPORT Page 1 of 1 COPY
== END | disposition home or self-care (01) ==
LOC: CIVR 09:55
PROC: 0W9G3ZX Drainage of Peritoneal Cavity, Percutaneous Approach, Diagnostic (ICD-10-PCS; principal; 2016-07-17)
DX: K76.9 Liver disease, unspecified (principal); R18.8 Other ascites
CPT/HCPCS: C1729

== ENCOUNTER 2016-07-24 05:40 | Inpatient (IN) | payer OTHER ==
--- NOTE | ~2016-07-24 | DS ---
Unit #: [id number] #: [id number] Patient: MIRA BRAXTON [id number] [address] [address] [id number] I MR#: [id number] NAME: MIRA BRAXTON. ROOM: 318 Age: 51 Sex: M Admission Date: 07/24/2016 : 1965 Discharge Date: 07/28/2016 Attending Physician: Neena Crisostomo M.D. Primary Care Physician: Colton Mcdowell M.D. DISCHARGE SUMMARY FINAL DIAGNOSES 1. Upper gastrointestinal bleed status post esophagogastroduodenoscopy done by Dr. Akshat Umana. It showed no esophageal varies. There is severe portal hypertensive gastropathy involving the fundic mucosa, multiple angiodysplasia with arteriovenous malformation in the antrum, status post ablation done using Argon plasma coagulation therapy. 2. Severe anemia secondary to above status post multiple packed RBC transfusions. 3. Hepatic encephalopathy which is improved. 4. Pneumonia has been ruled out. There was a question of right apex density in the lung. 5. Hyperkalemia secondary to renal failure, improved. 6. End-stage renal disease on hemodialysis. 7. Thrombocytopenia. 8. Alcohol abuse history. 9. Chronic liver disease/cirrhosis. 10. Portal hypertension. 11. Chronic obstructive pulmonary disease. DISCHARGE MEDICATIONS 1. Protonix 40 mg daily. 2. Folic acid 2 mg daily. 3. Thiamine 100 mg daily. 4. Cyanocobalamin 1,000 mcg p.o. daily. 5. Antacid 650 mg daily. 6. Flomax 0.4 mg daily. 7. Lactulose 20 g every six hourly. 8. Xifaxan 550 mg twice a day. 9. ProAmatine 10 mg three times a day. 10. Multivitamin daily. 11. Hydrocodone. Continue home dose. CONSULTATION DURING HOSPITALIZATION 1. Dr. Umer Guevara from Pulmonary Services. 2. Dr. Akshat Umana from [facility]. 3. Dr. Vicente from [facility]. LAB WORKUP ON DISCHARGE Serum culture is no growth. Sodium 134, potassium 3.9, chloride 102, BUN 32, creatinine 6.1. The patient is getting hemodialysis today. Ammonia 34 on discharge. WBC 8.0, hemoglobin 9.7, hematocrit 29.6, platelet count 68. HOSPITAL COURSE Unit #: [id number] #: [id number] Patient: MIRA BRAXTON is a 51-year-old male who was very well known to us from multiple admissions, last discharge from hospital was July 13, 2016. The patient was admitted again with confusion and was diagnosed with hepatic encephalopathy. The patient was started on increased dose of lactulose and Xifaxan. There was a question of pneumonia. That has been ruled out. Dr. Umana was consulted. The patient had an EGD done and ablation has been done. His hemoglobin seems to be stable at this time. Dr. Pace and Dr. Vicente were also consulted for ongoing hemodialysis. The patient is stable, is being discharged home after hemodialysis completed. EXAMINATION ON DISCHARGE VITAL SIGNS: Blood pressure 104/62. Respiratory rate 18. Pulse 95. Temperature 97.7. CHEST: Fair air entry, decreased at the bases. CARDIOVASCULAR: S1, S2 positive. Regular rhythm. ABDOMEN: Obese. Ascites is present. Bowel sounds are positive. EXTREMITIES: Edema is present. DISCHARGE INSTRUCTION 1. The patient is being discharged home in stable condition. 2. The patient and patient's is aware of patient's chronic condition and poor prognosis. 3. Follow up with primary care provider in one week. 4. Follow up with Dr. Akshat Umana in 7 to 10 days. 5. Continue hemodialysis as per Renal. Dictated by... Neena Crisostomo M.D. JAYLA/[place] TD: 07/29/2016 18:49 JOB #: [id number] DISCHARGE SUMMARY Page 1 of 1 X Neena Crisostomo MD X DISCHARGE SUMMARY
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
--- NOTE | ~2016-07-24 | CR72 ---
[facility] A Service of [facility] RADIOLOGY TEXT RESULTS PATIENT: MIRA BRAXTON LOCATION: [place] [id number] : [birth year] UNIT #: [id number] AGE: [address]: Neena Crisostomo MD SEX: M ORDER DR: [id number] [facility] [address] [facility]. [place], [place] [address] [id number] E MR#: [id number] Acc #: [id number] NAME: MIRA BRAXTON : 1965 SEX: M STUDY DATE/TIME: 07/24/2016 5:23 UNIT: [facility] ROOM: STUDY DESCRIPTION: CR Chest Single View Portable Attending Physician: Tom Lagos M.D. Ordering Physician: Tom Lagos M.D. Primary Care Physician: Colton Mcdowell M.D. MEDICAL IMAGING REPORT This report is preliminary unless electronic signature is present EXAM Portable chest. HISTORY Shortness of air, confusion, agitation starting tonight. COMPARISON 07/10/2016. FINDINGS A portable view of the chest is obtained. The heart size and vascularity are normal. There is some minimal right upper lobe density that is new from 07/10/2016 and probably represents small infiltrate. IMPRESSION There is a faint roughly 2-3 cm density suggested in the right apex, this is superimposed upon on the right first rib. I do not clearly see it on the prior studies from earlier this month and from last month and therefore it is likely an infiltrate. I would recommend follow up chest x-ray to insure clearance and to insure this is not a mass. Densities in this region can frequently be obscured by the overlying bony structures. Dictated by... Seymour Silverman M.D. THIS IS AN ELECTRONICALLY VERIFIED REPORT Seymour Silverman M.D. at 07/24/2016 1:13 PM JUANITA/barbara TD: 07/24/2016 07:19 JOB #: [id number] [facility] A Service of [facility] RADIOLOGY TEXT RESULTS PATIENT: MIRA BRAXTON LOCATION: [facility] [id number] : [birth year] UNIT #: [id number] AGE: [address]: Neean Crisostomo MD SEX: M ORDER DR: MEDICAL IMAGING REPORT Page 1 of 1 COPY
--- NOTE | ~2016-07-24 | CR63 ---
[facility] A Service of [facility] & [facility] RADIOLOGY TEXT RESULTS PATIENT: MIRA BRAXTON LOCATION: [facility] 318-01 : [birth year] UNIT #: [id number] AGE: [address]: Neena Crisostomo MD SEX: M ORDER DR: [id number] [facility] [address]. [place], [place] [address] [id number] MR#: [id number] Acc #: [id number] NAME: MIRA BRAXTON : 1965 SEX: M STUDY DATE/TIME: 07/24/2016 8:22 UNIT: [facility] ROOM: STUDY DESCRIPTION: CR Chest 2 View Attending Physician: Tom Lagos M.D. Ordering Physician: Tom Lagos M.D. Primary Care Physician: Colton Mcdowell M.D. MEDICAL IMAGING REPORT This report is preliminary unless electronic signature is present EXAM PA and lateral chest in 3 views, 07/24/2016 at 0822. COMPARISON STUDIES 07/24/2016 at 0523 CLINICAL HISTORY Short of air and confusion. FINDINGS Submaximal inspiration, interstitial prominence which may simply be related to inspiratory effort. No dense consolidation, effusion, or pneumothorax. Dictated by... Poncho Hendrix M.D. THIS IS AN ELECTRONICALLY VERIFIED REPORT Poncho Hendrix M.D. at 07/24/2016 3:51 PM TEV/mayco TD: 07/24/2016 09:57 JOB #: [id number] MEDICAL IMAGING REPORT Page 1 of 1 COPY
--- NOTE | ~2016-07-24 | CT57 ---
[facility] A Service of [facility] RADIOLOGY TEXT RESULTS PATIENT: MIRA BRAXTON LOCATION: [facility] 318 : [birth year] UNIT #: [id number] AGE: [address]: Neena Crisostomo MD SEX: M ORDER DR: [id number] [facility] [address]. [place], [place] [address] [id number] I MR#: [id number] Acc #: [id number] NAME: MIRA BRAXTON : 1965 SEX: M STUDY DATE/TIME: 07/25/2016 9:38 UNIT: A PCU ROOM: [facility] STUDY DESCRIPTION: CT Chest Wo Cont Attending Physician: Neena Crisostomo M.D. Ordering Physician: Umer Guevara M.D. Primary Care Physician: Colton Mcdowell M.D. MEDICAL IMAGING REPORT This report is preliminary unless electronic signature is present EXAM CT chest INDICATIONS Shortness of air for [address] of the thorax without contrast. Coronal and sagittal reconstructions were obtained. This CT exam was performed with one or more of the following radiation dose reduction techniques: automatic exposure control, adjustment of mA and/or kV according to patient size, and iterative reconstruction. COMPARISON Chest radiograph dated 01/13/[address] chest dated 08/08/2015. FINDINGS There is no focal consolidation. There is mild prominence of the peripheral interstitium which could indicate a component of mild interstitial edema. Correlation with laboratory assessment and clinical presentation is recommended. Central airways are patent. No pathologically enlarged mediastinal or hilar lymph nodes. Thoracic aorta is normal in caliber. No pericardial or pleural effusion. Decreased attenuation of the cardiac blood pool in relation the myocardium suggests background anemia. There is mild bilateral gynecomastia. The liver is morphologically cirrhotic. There is a moderate volume of ascites. No acute osseous abnormalities. [facility] A Service of [facility] RADIOLOGY TEXT RESULTS PATIENT: MIRA BRAXTON LOCATION: [facility] 318 : [birth year] UNIT #: [id number] AGE: [address]: Neena Crisostomo MD SEX: M ORDER DR: IMPRESSION 1. Slight prominence of the pulmonary interstitium. Please correlate for any evidence of mild interstitial edema. 2. No focal consolidation. 3. Cirrhotic liver with moderate volume of ascites. Dictated by... Abhijeet Whitaker M.D. THIS IS AN ELECTRONICALLY VERIFIED REPORT Abhijeet Whitaker M.D. at 07/25/2016 12:37 PM ASUNCION/barbara TD: 07/25/2016 12:32 JOB #: [id number] MEDICAL IMAGING REPORT Page 1 of 1 COPY
--- NOTE | ~2016-07-24 | OR ---
Unit #: [id number] #: [id number] Patient: MIRA BRAXTON [id number] [address] [place], [place] [address] [id number] MR#: [id number] NAME: MIRA BRAXTON. ROOM: 318 Date of Procedure: 07/27/2016 Admission Date: 07/24/2016 Surgeon: Akshat Umana M.D. : 1965 Attending Physician: Neena Crisostomo M.D. Primary Care Physician: Colton Mcdowell M.D. OPERATIVE REPORT PRIMARY CARE PHYSICIAN Colton Mcdowell M.D. PREOPERATIVE DIAGNOSES Upper gastrointestinal bleed in the patient with cirrhosis of liver from alcohol along with ascites, hepatic encephalopathy, renal failure, end-stage renal disease, on hemodialysis. The patient has had a precipitous drop in hemoglobin multiple times. PROCEDURES PERFORMED Upper gastrointestinal endoscopy and ablation of the antral vascular malformations. POSTOPERATIVE DIAGNOSES 1. The patient had no esophageal varices. 2. There were changes of severe portal hypertensive gastropathy involving the fundic mucosa. 3. Multiple angiodysplasias with arteriovenous malformations in the antrum. These could also be a reflection of the portal hypertensive gastropathy. These were ablated using argon plasma coagulation therapy. 4. Rest of the examination up to third part of the duodenum was normal. 5. No active bleeding was noted at the time of examination. RECOMMENDATIONS We will monitor hemoglobin and hematocrit. The patient can be started on a regular diet, can be discharged home. His hemoglobin is stable for 24 hours. SEDATION USED MAC. DESCRIPTION OF PROCEDURE Following detailed explanation of potential risks and complications of an upper endoscopy namely perforation, bleeding, and complication related to sedation, the patient was brought to GI lab and laid in the left lateral decubitus position. Lubricated tip of the Olympus video upper endoscope was passed through the bite block into the proximal esophagus under direct vision. The entire esophageal mucosa was examined and appeared normal. The patient did not have any evidence of esophageal varices. The scope was then advanced into the gastric cavity and the latter was insufflated. Mucosa of the fundus, body, and antrum examined and changes of severe portal hypertensive gastropathy were noted. In the prepyloric antral area, diffuse multiple angiodysplasias were seen. These were not actively Unit #: [id number] #: [id number] Patient: MIRA BRAXTON bleeding. Pylorus was intubated with visualization of the normal duodenal bulb and second and third part of the duodenum. Upon withdrawal and retroflexion, incisura, cardia and greater curve were examined and no additional findings noted. We then ablated the angiodysplasia in the antral area using argon plasma coagulation therapy. Extensive coagulum was formed and excellent hemostasis was achieved. Photodocumentation was obtained. The scope and the accessories were then withdrawn. The patient returned to recovery area. The scope was then withdrawn in the distal esophagus. Entire esophageal mucosa was examined all the way up to pharynx. No additional findings noted. The patient tolerated the procedure without any postprocedure complications. Dictated by... Bi Barry/dorota TD: 07/28/2016 05:34 JOB #: [id number] OPERATIVE REPORT Page 1 of 1 X Akshat Umana MD X PROCEDURE OPERATIVE NOTE
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
--- NOTE | ~2016-07-24 | CO ---
Unit #: [id number] #: [id number] Patient: MIRA DANIELSON [id number] [address] [place], [place] [address] [id number] I MR#: [id number] NAME: MIRA DANIELSON. ROOM: 328 Age: 51 Sex: M Admission Date: 07/24/2016 : 1965 Attending Physician: Neena Crisostomo M.D. Primary Care Physician: Colton Mcdowell M.D. Consultation Date: 07/24/2016 CONSULTATION REPORT REASON FOR CONSULT Endstage renal disease. HISTORY OF PRESENT ILLNESS Mr. Mira Danielson is a 51-year-old male with history of endstage renal disease on hemodialysis every Saturday, and Saturday, history of alcohol abuse/cirrhosis in the past with recurrent GI bleeding. He has a history of esophageal varices, angiodysplasias, etc., in the past. He presented to the hospital apparently with increased confusion again. He was noted, according to the ER note, to have a right upper lobe infiltrate on chest x-ray and was admitted for probable hospital-acquired pneumonia, although I have not seen the official report on this yet. The patient was noted to have a hemoglobin that is decreasing, as well. He also has had some mild increased potassium here today, and we were asked for continuing his dialysis. Again, he is on dialysis every Saturday, and Saturday using an AV fistula at this point in time. PAST MEDICAL HISTORY 1. History of severe anemia, again, multiple transfusions with multiple procedures by Dr. Umana. 2. History of severe portal hypertension. 3. History of endstage renal disease. Again, dialysis every Saturday, and Saturday. 4. History of chronic thrombocytopenia. 5. History of cirrhosis. 6. History of ETOH abuse in the past. 7. History of COPD. MEDICATIONS His medicines at home include vitamin B12 daily, thiamine 100 mg a day, folic acid 1 mg a day, Protonix 40 mg a day, hydrocodone p.r.n. pain, multivitamin daily, ProAmatine 10 mg t.i.d., Xifaxan 550 mg b.i.d., lactulose 10 grams q.6, Flomax 0.4 mg a day, sodium bicarb 650 two b.i.d. ALLERGIES No known drug allergies. SOCIAL HISTORY Previous alcohol in the past. Unsure currently if he is drinking or not. No smoking. He is . REVIEW OF SYSTEMS Very difficult to assess. He will not really talk to me much. He denies any chest pain or shortness of breath the best I can tell, but again, he Unit #: [id number] #: [id number] Patient: MIRA DANIELSON is very difficult to answer any questions. FAMILY HISTORY Noncontributory. PHYSICAL EXAMINATION GENERAL: He is alert but, again, confused and will not answer a lot of questions. VITAL SIGNS: Temperature is 97.9, pulse 97, blood pressure initially 98/72; last was 118/63. HEENT: Normocephalic, atraumatic. Pupils are equal, round and reactive to light. His extraocular muscles are intact. Hearing appears to be normal. Mouth is clear, no erythema, no exudate. NECK: Supple. No adenopathy. CARDIAC: He has a regular rhythm without a rub. No S3 or S4. LUNGS: His lungs are fairly clear bilaterally. ABDOMEN: Bowel sounds are positive. Distended. Nontender. Positive body edema. EXTREMITIES: He has positive lower extremity swelling. He has a fistula in his left arm with a good thrill. No erythema. NEUROLOGIC: He is alert but really will not answer any questions. DIAGNOSTIC STUDIES LABORATORY DATA: Glucose 94, BUN 69, creatinine 8.6, potassium 5.3, bicarb 24, calcium 8.1, albumin 1.8, AST 55, ALT 26. His ammonia level is 139. INR is 1.1. Hemoglobin is down to 6.3, white count of 8,100, platelets 89,000. ASSESSMENT AND PLAN 1. Endstage renal disease. Today is his regular dialysis day, and he does have some increased third space fluid. Will try to dialyze him today. Will also give him blood with dialysis, as well, today due to his drop in hemoglobin. Will not use any heparin. Put him on a 2 potassium bath today. Will follow electrolytes, volume status while he is here. Use his fistular. 2. Anemia. Again, the patient is ordered blood. Will also give a couple units with dialysis today. Also, high-dose epo with dialysis today. 3. Possible right upper lobe pneumonia. 4. Cirrhosis with hepatic encephalopathy. 5. GI bleed. Thank you very much. Dictated by.Dariela Vicente M.D. GALINDO/veronique TD: 07/24/2016 13:07 JOB #: [id number] Unit #: [id number] #: [id number] Patient: ALIYAH DANIELSONJORDI Ledbetter CONSULTATION REPORT Page 1 of 1 X Damian Vicente MD X CONSULTATION REPORT
--- NOTE | ~2016-07-24 | XA75 ---
[facility] A Service of [facility] RADIOLOGY TEXT RESULTS PATIENT: MIRA DANIELSON LOCATION: [facility] 318- : [birth year] UNIT #: [id number] AGE: [address]: Neena Crisostomo MD SEX: M ORDER DR: [id number] [facility] [address]. [place], [place] [address] [id number] I MR#: [id number] #: [id number] NAME: MIRA DANIELSON. : 1965 SEX: M STUDY DATE/TIME: 07/24/2016 15:18 UNIT: [facility] PCU ROOM: 318 STUDY DESCRIPTION: XA CVC Non-Tunnel Attending Physician: Neena Crisostomo M.D. Ordering Physician: Neena Crisostomo M.D. Primary Care Physician: Colton Mcdowell M.D. MEDICAL IMAGING REPORT This report is preliminary unless electronic signature is present EXAM Shiley catheter placement under ultrasound and fluoroscopy HISTORY History supplied is malfunction dialysis shunt. PROCEDURE Mr. Danielson was explained the procedure and has had the procedure in the past. He has a nonfunctioning shunt in his left upper extremity. Right neck was prepped and draped. Chlorhexidine solution was utilized. Sterile towels were placed. Maximal sterile barrier technique including caps, gloves, gowns, masks, shoe covers were utilized. A micropuncture was performed of the right internal jugular vein under direct ultrasound visualization and guidance. After confirming patency, an 0.018 wire was inserted followed by placement of a 0.035 wire with subsequent dilatation and placement of a 12-Moroccan dialysis catheter. This was placed with the tip in the right atrium. The catheter was sutured to the skin utilizing 2-0 Nylon. Catheter was flushed with heparinized saline. Procedure very well tolerated. A permanent spot radiograph was obtained documenting placement. Total fluoroscopy time for the procedure was 0.3 minutes. CONCLUSION Successful placement of a right-sided Shiley catheter, tip in the right atrium. Dictated by... Apollo Sweet M.D. THIS IS AN ELECTRONICALLY VERIFIED REPORT [facility] A Service of [facility] & [facility] RADIOLOGY TEXT RESULTS PATIENT: MIRA DANIELSON LOCATION: [facility] 318-01 : [birth year] UNIT #: [id number] AGE: [address]: Neena Criosstomo MD SEX: M ORDER DR: Apollo Sweet M.D. at 07/25/2016 9:31 AM AMELIA/sheri TD: 07/24/2016 21:19 JOB #: [id number] MEDICAL IMAGING REPORT Page 1 of 1 COPY
--- NOTE | ~2016-07-24 | EKG ---
PATIENT: MIRA BRAXTON UNIT #: [id number] Ventricular Rate: 95 BPM Atrial Rate: 95 BPM P-R Interval: 144 ms QRS Duration: 82 ms Q-T Interval: 356 ms QTC Calculation(Bezet): 447 ms P [place]: -24 degrees Calculated R [place]: 6 degrees Calculated T [place]: 15 degrees Diagnosis Line: Normal sinus rhythm Diagnosis Line: Low voltage QRS Diagnosis Line: Borderline ECG Diagnosis Line: No previous ECGs available Diagnosis Line: Confirmed by YUVAL CIFUENTES MD ([id number]) on 07/25/2016 Diagnosis Line: 7:04:26 PM INTERPRETING MD: VANE MCMAHON
--- NOTE | ~2016-07-24 | CO ---
Unit #: [id number] #: [id number] Patient: MIRA BRAXTON [id number] [address] [address] [id number] I MR#: [id number] NAME: MIRA BRAXTON. ROOM: 318 Age: 51 Sex: M Admission Date: 07/24/2016 : 1965 Attending Physician: Neena Crisostomo M.D. Primary Care Physician: Colton Mcdowell M.D. CONSULTATION REPORT REASON FOR CONSULTATION Possible pneumonia. CHIEF COMPLAINT Generalized weakness and shortness of breath. HISTORY OF PRESENT ILLNESS The patient presented complaining of confusion. He has a history of end-stage cirrhosis. Hepatic encephalopathy and hyperkalemia was the admitting impression. Chest x-ray done on admission today has shown possibility of the pneumonia. I am seeing the patient at bedside. He appears to be awake, alert, not confused at baseline. PHYSICAL EXAMINATION VITAL SIGNS: Temperature 98. Pulse 87. Respiration 12. Blood pressure 130/70. NEUROLOGICAL: Awake, alert and oriented. No neuro deficit. HEENT: PERRLA. EOMI. NECK: Supple. No JVD. CHEST: Bilateral air entry. Bilateral mild rhonchi. GASTROINTESTINAL: Nontender, soft. Bowel sounds positive. Positive ascites. EXTREMITIES: Positive edema. SKIN: No rashes. No ulcer. PAST MEDICAL HISTORY 1. Cirrhosis. 2. Hypertensive gastropathy. 3. End-stage renal disease. 4. GI bleed. 5. Anemia. SOCIAL HISTORY Ex-smoker, no history of alcohol abuse. ASSESSMENT 1. Altered mental status. 2. Hepatic encephalopathy. 3. Anemia. 4. Chest x-ray has been reviewed, questionable pneumonia. 5. End-stage renal disease. Unit #: [id number] #: [id number] Patient: MIRA BRAXTON 6. Portal hypertension. 7. Chronic obstructive pulmonary disease. PLAN Plan is to hold antibiotics for now, order procalcitonin, monitor hemoglobin and hematocrit and transfuse as needed, GI and DVT prophylaxis and will order only antibiotics for SBP prophylaxis to reduce his risk of having C. diff infection and will order noncontrast CT of the chest. I doubt patient has pneumonia. Please see orders for detailed plan. Thank you very much for this consultation. Dictated by... Bi Martinez TD: 07/24/2016 19:25 JOB #: [id number] CONSULTATION REPORT Page 1 of 1 X Umer Guevara MD CONSULTATION REPORT
[2016-07-24 04:44] LABS: BASOPHIL# 0.1 X10e3 (0-0.3); BASOPHIL% 1.7 % (0-2.5); EOSINOPHIL# 0.4 X10e3 (0-0.7); EOSINOPHIL% 5.7 % (0.0-7.0); HEMATOCRIT 21.6 % (38.0-50.0); HEMOGLOBIN 7.1 gm/dL (13.0-16.0); LYMPHOCYTE# 1.7 X10e3 (1.0-3.5); LYMPHOCYTE% 22.7 % (17.0-45.0); MEAN CELL VOLUME 98.9 FL (83-96); MEAN CORPUSCULAR HEMOGLOBIN 32.3 PG (28-34); MEAN CORPUSCULAR HGB CONC 32.7 g/dL (30-36); MEAN PLATELET VOLUME 8.2 FL (6.5-11.5); MONOCYTE# 0.9 X10e3 (0-1.0); MONOCYTE% 12.6 % (3.0-12.0); NEUTROPHIL# 4.3 X10e3 (1.5-7.1); NEUTROPHIL% 57.3 % (40-75); RED BLOOD COUNT 2.19 X10e (3.90-5.60); RED CELL DISTRIBUTION WIDTH 24.4 % (11.0-15.5); WHITE BLOOD COUNT 7.5 X10e3 (4.0-10.5)
[2016-07-24 04:52] LABS: INR 1.1; PARTIAL THROMBOPLASTIN TIME 27.3 SECONDS (23.5-31.3)
[2016-07-24 04:56] LABS: DIFF IND YES; PLATELET COUNT 92 X10e3 (140-420)
[2016-07-24 04:58] LABS: PLATELET ESTIMATE DECREASED (NORMAL)
[2016-07-24 04:59] LABS: HYPOCHROMIA MOD; POLYCHROMASIA SL; ROULEAUX SLIGHT
[2016-07-24 05:02] LABS: ALBUMIN SERUM 1.9 g/dL (3.5-5.0); BILIRUBIN, DIRECT 0.7 mg/dL (0.0-0.2); BILIRUBIN,INDIRECT 1.8 mg/dL (0.0-0.9); BILIRUBIN,TOTAL 2.5 mg/dL (0.2-2.0); BUN/CREATININE RATIO 7.88; CALCIUM SERUM 8.4 mg/dL (8.4-10.2); CREATININE SERUM 8.5 mg/dL (0.6-1.4); GLOM FILT RATE Estimated 6.6 mL/min (>60); POTASSIUM 5.4 mmol/L (3.5-5.1); PROTEIN TOTAL SERUM 5.1 g/dL (6.0-8.3)
[~2016-07-24 05:40] MED LIST changes: -ACETAMINOPHEN PO; -ACETAMINOPHEN650 M3 PO; -ALBUTEROL17 GM INH; -AMBIEN10 MG PO; -AUGM PO; -AUGMENTIN PO; -CALCIUM ACETAT667 M1 PO; -CALCIUM CARBON500 M2 PO; -CALCIUM500 M1; -CARAFATE1 GM PO; -CORTEF10 MG PO; -DAZIDOX10 MG PO; -HYDROCORTISONE10 M1 PO; -KEPPRA750 M1 PO; -KRISTALOSE10 GM PO; -LACTULOSE10 GM/15 M PO; -LACTULOSE10 GM/151 PO; -LACTULOSE20 GM/30 M; -LORTAB 5-325 M1 EACH PO; -MAXIMUM DAILY1 EACH PO; -MULTIVITAMINS1 EAC3 PO; -PANTOPRAZOLE SO40 MG PO; -PATIENT'S PHARMACY; -PRO-AMATINE5 M2 PO; -PRO-AMATINE5 MG PO; -PROBIOTIC250 MG PO; -SEROQUEL50 M1 PO; -TAMSULOSIN HCL0.4 MG PO; -TIZANIDINE HCL4 M1 PO; -TUMS500 MG PO; -TYL325 PO; -VITAMIN D250000 UNIT PO; -ZANAFLEX PO
[2016-07-24 07:59] LABS: BASOPHIL# 0.1 X10e3 (0-0.3); EOSINOPHIL# 0.3 X10e3 (0-0.7); EOSINOPHIL% 3.6 % (0.0-7.0); HEMATOCRIT 19.4 % (38.0-50.0); LYMPHOCYTE# 1.5 X10e3 (1.0-3.5); MEAN CELL VOLUME 98.9 FL (83-96); MEAN CORPUSCULAR HEMOGLOBIN 31.9 PG (28-34); MEAN CORPUSCULAR HGB CONC 32.2 g/dL (30-36); MEAN PLATELET VOLUME 8.6 FL (6.5-11.5); MONOCYTE# 1.1 X10e3 (0-1.0); MONOCYTE% 13.1 % (3.0-12.0); NEUTROPHIL# 5.2 X10e3 (1.5-7.1); NEUTROPHIL% 64.3 % (40-75); PLATELET COUNT 89 X10e3 (140-420); RED BLOOD COUNT 1.96 X10e (3.90-5.60); RED CELL DISTRIBUTION WIDTH 24.2 % (11.0-15.5); WHITE BLOOD COUNT 8.1 X10e3 (4.0-10.5)
[2016-07-24 08:03] LABS: HEMOGLOBIN 6.3 gm/dL (13.0-16.0)
[2016-07-24 08:04] LABS: DIFF IND NO
[2016-07-24 08:19] LABS: ALBUMIN SERUM 1.8 g/dL (3.5-5.0); BILIRUBIN,TOTAL 2.4 mg/dL (0.2-2.0); BUN/CREATININE RATIO 8.02; CALCIUM SERUM 8.1 mg/dL (8.4-10.2); CREATININE SERUM 8.6 mg/dL (0.6-1.4); GLOM FILT RATE Estimated 6.5 mL/min (>60); POTASSIUM 5.3 mmol/L (3.5-5.1); PROTEIN TOTAL SERUM 4.7 g/dL (6.0-8.3)
[2016-07-25 08:48] LABS: HEMATOCRIT 26.3 % (38.0-50.0); MEAN CORPUSCULAR HEMOGLOBIN 31.8 PG (28-34); MEAN CORPUSCULAR HGB CONC 33.4 g/dL (30-36); MEAN PLATELET VOLUME 9.1 FL (6.5-11.5); RED BLOOD COUNT 2.76 X10e (3.90-5.60); WHITE BLOOD COUNT 9.4 X10e3 (4.0-10.5)
[2016-07-25 08:50] LABS: HEMOGLOBIN 8.8 gm/dL (13.0-16.0)
[2016-07-25 08:51] LABS: MEAN CELL VOLUME 95.3 FL (83-96)
[2016-07-25 09:36] LABS: ALBUMIN SERUM 1.9 g/dL (3.5-5.0); BILIRUBIN,TOTAL 5.1 mg/dL (0.2-2.0); BUN/CREATININE RATIO 7.16; GLOM FILT RATE Estimated 10.1 mL/min (>60); POTASSIUM 4.8 mmol/L (3.5-5.1); PROTEIN TOTAL SERUM 4.7 g/dL (6.0-8.3)
[2016-07-26 05:56] LABS: BASOPHIL# 0.1 X10e3 (0-0.3); BASOPHIL% 0.9 % (0-2.5); EOSINOPHIL# 0.4 X10e3 (0-0.7); EOSINOPHIL% 5.7 % (0.0-7.0); HEMATOCRIT 20.8 % (38.0-50.0); LYMPHOCYTE# 1.3 X10e3 (1.0-3.5); LYMPHOCYTE% 17.1 % (17.0-45.0); MEAN CELL VOLUME 95.5 FL (83-96); MEAN CORPUSCULAR HEMOGLOBIN 31.6 PG (28-34); MEAN CORPUSCULAR HGB CONC 33.1 g/dL (30-36); MEAN PLATELET VOLUME 8.3 FL (6.5-11.5); MONOCYTE# 1.3 X10e3 (0-1.0); MONOCYTE% 16.9 % (3.0-12.0); NEUTROPHIL# 4.6 X10e3 (1.5-7.1); NEUTROPHIL% 59.4 % (40-75); PLATELET COUNT 60 X10e3 (140-420); RED BLOOD COUNT 2.18 X10e (3.90-5.60); RED CELL DISTRIBUTION WIDTH 21.4 % (11.0-15.5); WHITE BLOOD COUNT 7.7 X10e3 (4.0-10.5)
[2016-07-26 06:01] LABS: INR 1.3; PARTIAL THROMBOPLASTIN TIME 29.5 SECONDS (23.5-31.3); PROTHROMBIN TIME (PATIENT) 13.4 SECONDS (9.6-11.5)
[2016-07-26 06:04] LABS: HEMOGLOBIN 6.9 gm/dL (13.0-16.0)
[2016-07-26 06:06] LABS: DIFF IND NO
[2016-07-26 06:30] LABS: BUN/CREATININE RATIO 6.8; CALCIUM SERUM 7.8 mg/dL (8.4-10.2); CREATININE SERUM 7.2 mg/dL (0.6-1.4); GLOM FILT RATE Estimated 8.1 mL/min (>60); PHOSPHOROUS 5.5 mg/dL (2.5-4.6); POTASSIUM 4.1 mmol/L (3.5-5.1)
[2016-07-26 11:10] LABS: BODY FLUID SOURCE ASCITES
[2016-07-26 11:11] LABS: BF TOTAL NUCLEATED CELL COUNT 76 CMM (0-100); BODY FLUID APPEARANCE HAZY
[2016-07-26 12:01] LABS: PROTEIN, BODY FLUID 0.3 gm/dL
[2016-07-26 12:52] LABS: ALBUMIN SERUM 1.7 g/dL (3.5-5.0); BILIRUBIN,TOTAL 2.1 mg/dL (0.2-2.0); BUN/CREATININE RATIO 6.53; CALCIUM SERUM 7.9 mg/dL (8.4-10.2); CREATININE SERUM 4.9 mg/dL (0.6-1.4); GLOM FILT RATE Estimated 12.9 mL/min (>60); POTASSIUM 3.8 mmol/L (3.5-5.1); PROTEIN TOTAL SERUM 4.7 g/dL (6.0-8.3)
[2016-07-27 06:54] LABS: BUN/CREATININE RATIO 5.28; CALCIUM SERUM 7.9 mg/dL (8.4-10.2); CREATININE SERUM 5.3 mg/dL (0.6-1.4); GLOM FILT RATE Estimated 11.7 mL/min (>60); POTASSIUM 3.9 mmol/L (3.5-5.1)
[2016-07-27 07:38] LABS: HEMATOCRIT 28.6 % (38.0-50.0); MEAN CELL VOLUME 96.3 FL (83-96); MEAN CORPUSCULAR HEMOGLOBIN 31.6 PG (28-34); MEAN CORPUSCULAR HGB CONC 32.8 g/dL (30-36); MEAN PLATELET VOLUME 9.3 FL (6.5-11.5); RED BLOOD COUNT 2.97 X10e (3.90-5.60); RED CELL DISTRIBUTION WIDTH 20.2 % (11.0-15.5); RETICULOCYTE 3.7 % (0.5-2.8); WHITE BLOOD COUNT 8.7 X10e3 (4.0-10.5)
[2016-07-27 07:40] LABS: HEMOGLOBIN 9.4 gm/dL (13.0-16.0)
[2016-07-28 06:03] LABS: HEMATOCRIT 29.6 % (38.0-50.0); HEMOGLOBIN 9.7 gm/dL (13.0-16.0); MEAN CELL VOLUME 97.3 FL (83-96); MEAN CORPUSCULAR HGB CONC 32.9 g/dL (30-36); MEAN PLATELET VOLUME 8.5 FL (6.5-11.5); RED BLOOD COUNT 3.05 X10e (3.90-5.60); RED CELL DISTRIBUTION WIDTH 20.9 % (11.0-15.5)
[2016-07-28 07:08] LABS: BUN/CREATININE RATIO 5.24; CALCIUM SERUM 8.2 mg/dL (8.4-10.2); CREATININE SERUM 6.1 mg/dL (0.6-1.4); GLOM FILT RATE Estimated 9.9 mL/min (>60); POTASSIUM 3.9 mmol/L (3.5-5.1)
[2016-07-28 08:41] LABS: LEGIONELLA AG URINE NEG (NEG)
[2016-07-29 02:59] LABS: HEP B SURFACE AG Nonreactive (Nonreactive)
== END 2016-07-28 20:36 | disposition home health service (06) | DRG 432 ==
LOC: CED 05:40 → CEDOF 06:30 → C3A PCU 12:40
PROVIDERS: Emergency Medicine; Hospitalist; Internal Medicine Nephrology; Physician Assistant Medical; Radiology Diagnostic Radiology
PROC: 0D568ZZ Destruction of Stomach, Via Natural or Artificial Opening Endoscopic (ICD-10-PCS; principal; 2016-07-24)
PROC: 30233N1 Transfusion of Nonautologous Red Blood Cells into Peripheral Vein, Percutaneous Approach (ICD-10-PCS; 2016-07-24)
DX: K70.31 Alcoholic cirrhosis of liver with ascites (principal); K31.811 Angiodysplasia of stomach and duodenum with bleeding; K70.10 Alcoholic hepatitis without ascites; K72.90 Hepatic failure, unspecified without coma; N18.6 End stage renal disease; K76.6 Portal hypertension; E87.5 Hyperkalemia; D64.9 Anemia, unspecified; J44.9 Chronic obstructive pulmonary disease, unspecified; K31.89 Other diseases of stomach and duodenum; N40.0 Benign prostatic hyperplasia without lower urinary tract symptoms; F10.21 Alcohol dependence, in remission
CPT/HCPCS: 36415; 71010; 71020; 71250; 76937; 77001; 80048; 80053; 80076; 80202; 82042; 82140; 82945; 82947; 83615; 84075; 84100; 84157; 85025; 85027; 85044; 85610; 85730; 86850; 86900; 86901; 86923; 87040; 87070; 87205; 87340; 87449; 87899; 88108; 88305; 89051; 93005; 94760; 99291; C1729; C1894; J0456; J1644; J1650; J2250; J2543; J3010; J3260; J3370; P9016; Q4081; Q9967

== ENCOUNTER → 2016-07-31 | Outpatient (CLI) | payer OTHER ==
[~2016-07-31] MED LIST changes: +ACETAMINOPHEN PO; +ACETAMINOPHEN650 M3 PO; +ALBUTEROL17 GM INH; +AMBIEN10 MG PO; +AUGM PO; +AUGMENTIN PO; +CALCIUM ACETAT667 M1 PO; +CALCIUM CARBON500 M2 PO; +CALCIUM500 M1; +CARAFATE1 GM PO; +CORTEF10 MG PO; +DAZIDOX10 MG PO; +HYDROCORTISONE10 M1 PO; +KEPPRA750 M1 PO; +KRISTALOSE10 GM PO; +LACTULOSE10 GM/15 M PO; +LACTULOSE10 GM/151 PO; +LACTULOSE20 GM/30 M; +LORTAB 5-325 M1 EACH PO; +MAXIMUM DAILY1 EACH PO; +MULTIVITAMINS1 EAC3 PO; +PANTOPRAZOLE SO40 MG PO; +PATIENT'S PHARMACY; +PRO-AMATINE5 M2 PO; +PRO-AMATINE5 MG PO; +PROBIOTIC250 MG PO; +SEROQUEL50 M1 PO; +TAMSULOSIN HCL0.4 MG PO; +TIZANIDINE HCL4 M1 PO; +TUMS500 MG PO; +TYL325 PO; +VITAMIN D250000 UNIT PO; +ZANAFLEX PO
--- NOTE | ~2016-07-31 | XA170 ---
[facility] A Service [facility] RADIOLOGY TEXT RESULTS PATIENT: MIRA BRAXTON LOCATION: [facility] : [birth year] UNIT #: [id number] AGE: [address]: Akshat Umana MD SEX: M ORDER DR: [id number] [place] [id number] [facility]. [place], [place] [address] [id number] MR#: [id number] Acc #: [id number] NAME: MIRA BRAXTON : 1965 SEX: M STUDY DATE/TIME: 07/31/2016 9:00 UNIT: [facility] ROOM: STUDY DESCRIPTION: XA Paracentesis W Image Attending Physician: Akshat Umana M.D. Ordering Physician: Akshat Umana M.D. Primary Care Physician: Colton Mcdowell M.D. MEDICAL IMAGING REPORT This report is preliminary unless electronic signature is present EXAM Ultrasound-guided paracentesis. HISTORY Recurrent ascites. TECHNIQUE The procedure was explained to the patient including risks, benefits and complications. Informed consent was obtained and a formal time-out procedure utilized. Using sterile technique, following local anesthesia with 1% Xylocaine, a sheath needle was placed into the largest pocket of fluid on the right. This resulted in incomplete evacuation of the fluid and following this, a 6-Ghanaian pigtail catheter was utilized which resulted in better fluid evacuation. Between the two, a total of 5.2 L of fluid was aspirated. The patient tolerated the procedure well. IMPRESSION Successful ultrasound-guided paracentesis with 5.2 L of fluid obtained. Dictated by... Osvaldo Pickett M.D. THIS IS AN ELECTRONICALLY VERIFIED REPORT Osvaldo Pickett M.D. at 07/31/2016 5:02 PM MONIQUE/roberto TD: 07/31/2016 16:24 JOB #: [id number] MEDICAL IMAGING REPORT [facility] A Service [facility] RADIOLOGY TEXT RESULTS PATIENT: MIRA BRAXTON LOCATION: [facility] : [birth year] UNIT #: [id number] AGE: [address]: Akshat Umana MD SEX: M ORDER DR: Page 1 of 1 COPY
== END | disposition home or self-care (01) ==
LOC: CIVR 08:21
PROC: 0W9G3ZX Drainage of Peritoneal Cavity, Percutaneous Approach, Diagnostic (ICD-10-PCS; principal; 2016-07-31)
DX: K76.9 Liver disease, unspecified (principal); R18.8 Other ascites
CPT/HCPCS: C1729

== ENCOUNTER → 2016-08-03 | Outpatient (CLI) | payer OTHER ==
--- NOTE | ~2016-08-03 | XA170 ---
[facility] A Service of [facility] RADIOLOGY TEXT RESULTS PATIENT: MIRA BRAXTON LOCATION: [facility] : [birth year] UNIT #: [id number] AGE: [address]: Akshat Umana MD SEX: M ORDER DR: [id number] [place] [id number] [facility]. [place], [place] [address] [id number] O MR#: [id number] Acc #: [id number] NAME: MIRA BRAXTON : 1965 SEX: M STUDY DATE/TIME: 08/03/2016 8:46 UNIT: [facility] ROOM: STUDY DESCRIPTION: XA Paracentesis W Image Attending Physician: Akshat Umana M.D. Referring Physician: Akshat Umana M.D. Ordering Physician: Akshat Umana M.D. Primary Care Physician: Colton Mcdowell M.D. MEDICAL IMAGING REPORT This report is preliminary unless electronic signature is present EXAM Ultrasound-guided paracentesis INDICATION Ascites. TECHNIQUE Risks, benefits and alternatives of the procedure were discussed with the patient. Informed consent was obtained. In the procedure room, a time-out was performed confirming correct patient and procedure. All elements of maximum sterile-barrier technique utilized according to guidelines appropriate for the procedure. FINDINGS Ultrasound of the right lower quadrant was performed. This demonstrated a large amount of ascites. The overlying skin was prepped and draped in the usual sterile fashion. 1% lidocaine was utilized to anesthetize the skin and underlying subcutaneous tissues. Next under ultrasound guidance a 5-Ugandan Yueh catheter was advanced into the peritoneal space of the right lower quadrant and 5500 mL of clear yellow fluid was removed. Needle was removed and a sterile dressing was applied. No immediate complications. IMPRESSION Technically successful ultrasound-guided paracentesis. Dictated by... Nixon Madera M.D. THIS IS AN ELECTRONICALLY VERIFIED REPORT Nixon Madera M.D. at 08/03/2016 4:05 PM ARS/aruns [facility] A Service of [facility] RADIOLOGY TEXT RESULTS PATIENT: MIRA BRAXTON LOCATION: [facility] #: [id number] : [birth year] UNIT #: [id number] AGE: [address]: Akshat Umana MD SEX: M ORDER DR: TD: 08/03/2016 10:49 JOB #: [id number] MEDICAL IMAGING REPORT Page 1 of 1 COPY
== END | disposition home or self-care (01) ==
LOC: CIVR 08:27
PROC: 0W9G3ZX Drainage of Peritoneal Cavity, Percutaneous Approach, Diagnostic (ICD-10-PCS; principal; 2016-08-03)
DX: K76.9 Liver disease, unspecified (principal); R18.8 Other ascites

== ENCOUNTER → 2016-08-07 | Outpatient (CLI) | payer OTHER ==
--- NOTE | ~2016-08-07 | XA170 ---
[facility] A Service of [facility] RADIOLOGY TEXT RESULTS PATIENT: MIRA DANIELSON LOCATION: [facility] : 69 UNIT #: [id number] AGE: [address]: Akshat Umana MD SEX: M ORDER DR: [id number] [facility] [address] [facility]. [place], [place] [address] [id number] O MR#: [id number] Acc #: [id number] NAME: MIRA DANIELSON. : 1965 SEX: M STUDY DATE/TIME: 08/07/2016 9:37 UNIT: [facility] ROOM: STUDY DESCRIPTION: XA Paracentesis W Image Attending Physician: Akshat Umana M.D. Ordering Physician: Akshat Umana M.D. Primary Care Physician: Colton Mcdowell M.D. MEDICAL IMAGING REPORT This report is preliminary unless electronic signature is present EXAM Ultrasound-guided paracentesis. HISTORY Mr. Danielson is a 51-year-old man with history of cirrhosis and ascites. Most recent paracentesis was August 03, 2016 PROCEDURE The risks, benefits, and alternatives to the procedure were explained to the patient and signed informed consent was obtained. Patient was placed supine on the stretcher. Preliminary ultrasound of the abdomen was performed. Patient was noted to have a pocket within the left lower quadrant. While he probably has more volume on the right, he complains of persistent right-sided pain due to multiple paracenteses on the right so we initially attempted to access the fluid on the left. Overlying skin was marked. Patient was prepped and draped in usual sterile fashion. Time-out was performed as per protocol. Skin and subcutaneous tissues were anesthetized with buffered lidocaine. [employer] catheter was advanced into the fluid with aspiration of serosanguineous material. Catheter was hooked to suction tubing. We were able to evacuate several liters of fluid before the catheter stopped draining. At this point, at the patient's request, we reevaluate the right side. I suspect the patient probably does have a hematoma within the right lateral abdominal wall, but there did appear to be a significant residual pocket of fluid. Again, overlying skin was marked. Patient was prepped and draped in usual sterile fashion. Time-out was performed as per protocol. Skin and subcutaneous tissues were anesthetized with buffered lidocaine. Yueh catheter was advanced into the fluid with aspiration of serosanguineous material. Catheter was hooked to suction tubing and additional fluid was removed. The total amount was 8.4 L on both sides. IMPRESSION Technically successful shunt guided paracentesis with evacuation of 8.[address] L [address] [facility] A Service of [facility] RADIOLOGY TEXT RESULTS PATIENT: MIRA DANIELSON LOCATION: [facility] : 69 UNIT #: [id number] AGE: [address]: Akshat Umana MD SEX: M ORDER DR: of serosanguineous material. Ultrasound was used during the procedure and permanent images were saved. Of note, I suspect the patient probably does have a hematoma within the right lateral abdominal wall. Certainly this appears to be chronic. The wall itself appears somewhat hardened when it is accessed. Patient does report significant pain along the right lateral abdominal wall and, given his history, we will plan on accessing him for future paracentesis on the left until his right side can heal. Dictated by... Brandie Maya M.D. THIS IS AN ELECTRONICALLY VERIFIED REPORT Brandie Maya M.D. at 08/10/2016 8:19 AM AFF/pc TD: 08/08/2016 11:07 JOB #: [id number] MEDICAL IMAGING REPORT Page 1 of 1 COPY
== END | disposition home or self-care (01) ==
LOC: CIVR 09:21
DX: R18.8 Other ascites (principal); K76.9 Liver disease, unspecified

== ENCOUNTER 2016-08-09 12:41 | Inpatient (IN) | payer OTHER ==
--- NOTE | ~2016-08-09 | DS ---
Unit #: [id number] #: [id number] Patient: MIRA DANIELSON [id number] [address] [address] [id number] I MR#: [id number] NAME: MIRA DANIELSON. ROOM: 325 Age: 51 Sex: M Admission Date: 08/09/2016 : 1965 Discharge Date: 08/13/2016 Attending Physician: Helder Linda M.D. Primary Care Physician: Colton Mcdowell M.D. DISCHARGE SUMMARY FINAL DIAGNOSES 1. Severe anemia, status post packed red blood cell transfusion, status post esophagogastroduodenoscopy by Dr. Grady which shows hemorrhagic gastropathy with moderate to severe gastritis and 2+ ulcerative distal esophagitis. No evidence of any gastric ulcer. Biopsy has been taken. 2. Alcoholic cirrhosis. 3. End stage renal disease, on hemodialysis. 4. Alcohol abuse. 5. Chronic obstructive pulmonary disease. 6. Benign prostatic hypertrophy. 7. Portal hypertensive gastropathy. 8. Chronic thrombocytopenia. DISCHARGE MEDICATIONS 1. Sodium bicarb 650 mg daily. 2. ProAmatine 10 mg t.i.d. 3. Flomax 0.4 mg daily. 4. Lactulose 10 g q.6. 5. Xifaxan one tablet b.i.d. 6. Midodrine. 7. Multivitamin daily. 8. Hydrocodone - continue home dose. 9. Protonix 40 mg daily. 10. Folic acid 1 mg daily. 11. Thiamine 100 mg daily. 12. Cyanocobalamin 1000 mcg daily. 13. Sucralfate 1 g four times a day. CONSULTATION DURING HOSPITALIZATION 1. Dr. Dl Vicente - [facility]. 2. Dr. Billy Mauro - [facility]. PROCEDURE PERFORMED 1. EGD finding as above. 2. Paracentesis which was done on 08/08/2016. Total amount 8.4 L removed. LAB WORKUP ON DISCHARGE Hemoglobin and hematocrit is 9.5 and 28.4, sodium 126, potassium 4.4, BUN 40, creatinine 6.1. This was on yesterday. HOSPITAL COURSE Mr. Mira Danielson is a 51-year-old male who was admitted by my colleague, Unit #: [id number] #: [id number] Patient: MIRA DANIELSON Dr. Linda, because of abnormal lab work. His hemoglobin was below 7. The patient had black, tarry stool. It was heme positive in the ER. The patient was admitted to ICU, received packed RBC transfusion. EGD was done. Findings are as above. The patient is stable, hemoglobin is stable. The patient is being discharged home to continue checking CBC as outpatient. Ascites: Patient does have chronic liver disease and ascites. Paracentesis was done and removal of 8 L was done. The patient does get almost q. weekly paracentesis done as an outpatient which has been arranged in the past. The patient also has end stage renal disease, on hemodialysis. Renal was consulted. Patient continued with hemodialysis. The patient is stable, is being discharged home. EXAMINATION ON DISCHARGE Blood pressure is 124/70, respiratory rate 18, pulse is 82, temperature 97.6, oxygen saturation is 100%. CHEST has fair air entry, decreased at the bases. CVS - S1, S2 positive. Regular rhythm. ABDOMEN is soft. Bowel sounds positive. DISCHARGE INSTRUCTIONS 1. The patient is being discharged home in stable condition. 2. Follow up with primary care provider in one week. 3. Follow up with Dr. Akshat Umana in two weeks. 4. CBC to be done in one week. 5. Continue paracentesis as scheduled previously. 6. Again, alcohol cessation counseling done. According to patient, he has not had any alcohol for the last month or so. Dictated by... Bi Marie TD: 08/13/2016 08:00 JOB #: [id number] DISCHARGE SUMMARY Page 1 of 1 X Neena Crisostomo MD X DISCHARGE SUMMARY
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
--- NOTE | ~2016-08-09 | OR ---
Unit #: [id number] #: [id number] Patient: MIRA BRAXTON [id number] [address] [place], [place] [address] [id number] I MR#: [id number] NAME: MIRA BRAXTON ROOM: [facility] Date of Procedure: 08/10/2016 Admission Date: 08/09/2016 Surgeon: Santi Grady Jr., M.D. : 1965 Attending Physician: Helder Linda M.D. Primary Care Physician: Colton Mcdowell M.D. OPERATIVE REPORT INDICATIONS FOR PROCEDURE The patient is a 51-year-old chronic alcoholic with liver disease who presented complaining of GI bleeding. He was noted to have significant anemia with a hemoglobin down in the range of 7 and has had a known past history for similar problems with multiple endoscopies in the past. It was felt that he needs upper endoscopy at this time. He is in the intensive care unit for this. PREOPERATIVE DIAGNOSIS Upper gastrointestinal bleed with anemia. POSTOPERATIVE DIAGNOSIS Upper gastrointestinal bleed with anemia, noting hemorrhagic gastropathy with moderate to severe gastritis and 2+ ulcerative distal esophagitis. ANESTHESIA MAC anesthesia. PROCEDURE PERFORMED Flexible fiberoptic esophagogastroduodenoscopy with antral biopsy for Helicobacter pylori and pathology. DESCRIPTION OF PROCEDURE The patient was positioned in Kaur position with left side down. After being given MAC anesthesia, the Olympus XQ scope was passed in the esophagus. The entire esophagus was examined. Proximal two-thirds appeared normal. In the area of the GE junction, there was 2+ ulcerative distal esophagitis without stenosis. The scope was advanced through the GE junction, the cardia, down the fundic and antral region of the stomach, retroflexed back up to the area of the cardia. There was no obvious hiatal hernia present. The stomach distended well without evidence of rigidity. There was diffuse gastritis with gastropathy and some mild bleeding. There was no evidence of any gastric ulcers. A biopsy was taken from the antrum for Helicobacter pylori without significant bleeding and several biopsies were taken for pathology as well without bleeding. The scope was advanced down the prepyloric region through the pylorus and the duodenal bulb and down to the second portion of the duodenum. The entire duodenal portion examination was within normal limits. The scope was slowly removed. The patient tolerated the procedure well. Dictated by... Unit #: [id number] #: [id number] Patient: MIRA BRAXTON Jr., M.D. JMB/dorota TD: 08/10/2016 11:10 JOB #: [id number] OPERATIVE REPORT Page 1 of 1 X Santi Grady MD X PROCEDURE OPERATIVE NOTE
--- NOTE | ~2016-08-09 | CO ---
Unit #: [id number] #: [id number] Patient: MIRA DANIELSON [id number] [address] [address] [id number] I MR#: [id number] NAME: MIRA DANIELSON. ROOM: [facility] Age: 51 Sex: M Admission Date: 08/09/2016 : 1965 Attending Physician: Helder Linda M.D. Primary Care Physician: Colton Mcdowell M.D. Consultation Date: 08/09/2016 CONSULTATION REPORT REASON FOR CONSULT End-stage renal disease. Thank you very much for asking me to see this patient in consultation again. HISTORY OF PRESENT ILLNESS Mr. Mira Danielson is a 51-year-old male with a history of end-stage renal disease on dialysis every Saturday, , Saturday, a history of alcohol abuse and cirrhosis in the past, who comes into the hospital again with recurrent GI bleeding, who presented with a hemoglobin in the sixes. We were called to provide his dialysis which is today. He said he is a little bit short of breath and some mild weakness. He is not having any chest pain. He is still having some intermittent epigastric discomfort. He denies any urinary symptoms. PAST MEDICAL HISTORY History of end-stage renal disease getting dialysis every Saturday, , Saturday, history of alcohol abuse/cirrhosis in the past, history of GI bleeding with a history of esophageal varices, angiodysplasias, history of portal hypertension, history of chronic thrombocytopenia, history of COPD. SOCIAL HISTORY Alcohol in the past. He states he is not drinking currently. No smoking. He is . FAMILY HISTORY Noncontributory. ALLERGIES No known drug allergies. MEDICATIONS AT HOME 1. Thiamine 100 mg a day. 2. Cyanocabalamin 1,000 mcg a day. 3. Protonix 40 mg a day. 4. ProAmatine 10 mg t.i.d. secondary to hypotension. 5. Lortab p.r.n. 6. Lactulose 10 g q.6 hours. REVIEW OF SYSTEMS As mentioned in the HPI, otherwise, negative. Unit #: [id number] #: [id number] Patient: MIRA DANIELSON PHYSICAL EXAMINATION GENERAL APPEARANCE: He is alert and oriented currently. VITAL SIGNS: Temperature 98.4. Pulse 108. Blood pressure 119/63 initially. HEENT: Normocephalic, atraumatic. Pupils are equal, round and reactive to light. Extraocular movements are intact. Hearing appears to be normal. Mouth is clear. No erythema. No exudate. NECK: Supple. No JVD. CARDIAC: He is without a rub. No S3 or S4. LUNGS: Clear bilaterally. No wheezes, rhonchi, rales. ABDOMEN: Distended. Bowel sounds positive. Nontender. Soft. GENITOURINARY: Deferred. EXTREMITIES: He has mild lower extremity swelling. His pulses are intact. Upper extremities: He has a fistula in his left upper arm. SKIN: No acute rashes. NEUROLOGIC: Alert and oriented. DIAGNOSTIC STUDIES LABORATORY: BUN 53, creatinine 7.2, potassium 4.0, sodium 134, calcium 7.9, albumin 1.7, AST 70. Alcohol level is pending. INR 1.1. Hemoglobin 6.5, white count 7,500, platelets 95,000. ASSESSMENT AND PLAN 1. End-stage renal disease. We will plan on dialyzing later today and transfuse two units packed RBCs with dialysis today unless he gets them prior to. We will follow his volume status and electrolytes while he is here. 2. Anemia, recurrent GI bleeding. Again, patient, I believe, is supposed to get an endoscopy questionable later today. Again, we will give a couple of units with dialysis and then further studies per primary. 3. Cirrhosis. 4. History of ETOH abuse in the past. Dictated by.iB Chaney/[place] TD: 08/10/2016 08:20 JOB #: [id number] CONSULTATION REPORT Page 1 of 1 X Damian Vicente MD X CONSULTATION REPORT
--- NOTE | ~2016-08-09 | CO ---
Unit #: [id number] #: [id number] Patient: MIRA DANIELSON [id number] [address] [address] [id number] I MR#: [id number] NAME: MIRA DANIELSON. ROOM: [facility] Age: 51 Sex: M Admission Date: 08/09/2016 : 1965 Attending Physician: Helder Linda M.D. Primary Care Physician: Colton Mcdowell M.D. Consultation Date: 08/09/2016 CONSULTATION REPORT REASON FOR CONSULTATION Severe anemia. CONSULTING PHYSICIAN Dr. Linda. HISTORY OF PRESENT ILLNESS Thank you very much for asking us to see Mr. Danielson. We are currently covering for Dr. Umana of GI Medicine. He is a 51-year-old white male who has severe alcoholic cirrhosis. He has ascites drained by paracentesis once or twice a week. He has renal failure requiring dialysis three days a week. He presents at this time with significant anemia. His hemoglobin is 6.5. This has decreased from 9 a week or so ago. 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 He states he has not had surgical resection of this. He had a CT scan of the abdomen and pelvis performed in April 2016 which revealed gallstones and cirrhosis and ascites. No other abnormalities seen. He presents at this time for further evaluation and treatment. PAST MEDICAL HISTORY 1. Severe anemia. 2. Chronic liver disease. 3. Cirrhosis. 4. End-stage renal disease. 5. Chronic thrombocytopenia. 6. COPD. 7. BPH. PAST SURGICAL HISTORY 1. Tonsillectomy. 2. Hand surgery. 3. Left upper extremity hemodialysis shunt. SOCIAL HISTORY No tobacco or alcohol use. FAMILY HISTORY Noncontributory. ALLERGIES No known medical allergies. Unit #: [id number] #: [id number] Patient: MIRA DANIELSON MEDICATIONS Please see med rec sheet. REVIEW OF SYSTEMS Negative except for above. IMMUNIZATIONS Immunization status is unknown. PHYSICAL EXAMINATION GENERAL: White male in no apparent distress. VITAL SIGNS: Afebrile. Vital signs stable. NECK: Supple. No thyromegaly or adenopathy. BACK: No CVA or spinous tenderness. ABDOMEN: Distended but soft. There may be ascites present. EXTREMITIES: No calf tenderness. No erythema. DIAGNOSTIC STUDIES LABORATORY: Reveal the patient to have a PT/PTT of 11.5 and 25.5. The patient's CMP shows a glucose of 134, BUN 53, creatinine 7.2. His total bilirubin is 1.3. His AST is 70. Amylase and lipase are normal. The patient's white count is 7.4 with hemoglobin of 6.5. His last hemoglobin was 9.7 on July 28, 2016. The patient had reported from the ER doctor on rectal examination no obvious blood, no melena but Hemoccult positive stools. IMPRESSION A 51-year-old white male with cirrhosis, portal hypertension, portal hypertensive gastropathy, who had a large tubulovillous cecal neoplasm in February 2015. We feel he needs upper and lower endoscopy for further evaluation. All the risks and benefits have been fully explained to the patient in detail including the risk of bleeding, perforation, emergency surgery, transfer, , and other risks. He understands completely and request we proceed. If he does indeed need surgical resection, it may be best performed by Dr. Tom Danielson of the liver transplant team of [facility]. All was discussed with Dr. Dl Vicente as well. Dictated by... Bi Cosby/raciel TD: 08/10/2016 11:32 JOB #: [id number] Unit #: [id number] #: [id number] Patient: MIRA DANIELSON CONSULTATION REPORT Page 1 of 1 X Billy Mauro MD CONSULTATION REPORT
[~2016-08-09 12:41] MED LIST changes: -ACETAMINOPHEN PO; -ACETAMINOPHEN650 M3 PO; -ALBUTEROL17 GM INH; -AMBIEN10 MG PO; -AUGM PO; -AUGMENTIN PO; -CALCIUM ACETAT667 M1 PO; -CALCIUM CARBON500 M2 PO; -CALCIUM500 M1; -CARAFATE1 GM PO; -CORTEF10 MG PO; -DAZIDOX10 MG PO; -HYDROCORTISONE10 M1 PO; -KEPPRA750 M1 PO; -KRISTALOSE10 GM PO; -LACTULOSE10 GM/15 M PO; -LACTULOSE10 GM/151 PO; -LACTULOSE20 GM/30 M; -LORTAB 5-325 M1 EACH PO; -MAXIMUM DAILY1 EACH PO; -MULTIVITAMINS1 EAC3 PO; -PANTOPRAZOLE SO40 MG PO; -PATIENT'S PHARMACY; -PRO-AMATINE5 M2 PO; -PRO-AMATINE5 MG PO; -PROBIOTIC250 MG PO; -SEROQUEL50 M1 PO; -TAMSULOSIN HCL0.4 MG PO; -TIZANIDINE HCL4 M1 PO; -TUMS500 MG PO; -TYL325 PO; -VITAMIN D250000 UNIT PO; -ZANAFLEX PO
[2016-08-09 13:18] LABS: BASOPHIL# 0.1 X10e3 (0-0.3); BASOPHIL% 0.9 % (0-2.5); EOSINOPHIL# 0.4 X10e3 (0-0.7); EOSINOPHIL% 5.1 % (0.0-7.0); HEMATOCRIT 19.9 % (38.0-50.0); LYMPHOCYTE# 1.2 X10e3 (1.0-3.5); LYMPHOCYTE% 16.9 % (17.0-45.0); MEAN CELL VOLUME 100.5 FL (83-96); MEAN CORPUSCULAR HEMOGLOBIN 32.6 PG (28-34); MEAN CORPUSCULAR HGB CONC 32.5 g/dL (30-36); MONOCYTE# 0.6 X10e3 (0-1.0); MONOCYTE% 8.1 % (3.0-12.0); NEUTROPHIL# 5.1 X10e3 (1.5-7.1); RED BLOOD COUNT 1.98 X10e (3.90-5.60); RED CELL DISTRIBUTION WIDTH 22.8 % (11.0-15.5); WHITE BLOOD COUNT 7.4 X10e3 (4.0-10.5)
[2016-08-09 13:29] LABS: INR 1.1; PARTIAL THROMBOPLASTIN TIME 25.5 SECONDS (23.5-31.3); PROTHROMBIN TIME (PATIENT) 11.5 SECONDS (9.6-11.5)
[2016-08-09 14:03] LABS: DIFF IND YES; HEMOGLOBIN 6.5 gm/dL (13.0-16.0); PLATELET COUNT 95 X10e3 (140-420)
[2016-08-09 14:12] LABS: ALBUMIN SERUM 1.7 g/dL (3.5-5.0); BILIRUBIN, DIRECT 0.4 mg/dL (0.0-0.2); BILIRUBIN,INDIRECT 0.9 mg/dL (0.0-0.9); BILIRUBIN,TOTAL 1.3 mg/dL (0.2-2.0); BUN/CREATININE RATIO 7.36; CALCIUM SERUM 7.9 mg/dL (8.4-10.2); CREATININE SERUM 7.2 mg/dL (0.6-1.4); GLOM FILT RATE Estimated 8.1 mL/min (>60); HYPOCHROMIA SL; PLATELET ESTIMATE DECREASED (NORMAL)
[2016-08-09] MEDS ORDERED: PROAMATINE10 MG PO (14:40)
[2016-08-09] MEDS ORDERED: LORTAB 5-325 M1 EACH PO (14:41)
[2016-08-09] MEDS ORDERED: LACTULOSE10 GM/15 M PO (14:51)
[2016-08-10 02:18] LABS: HEMATOCRIT 21.4 % (38.0-50.0); HEMOGLOBIN 7.1 gm/dL (13.0-16.0)
[2016-08-10 06:14] LABS: BASOPHIL# 0.2 X10e3 (0-0.3); BASOPHIL% 1.8 % (0-2.5); EOSINOPHIL# 0.5 X10e3 (0-0.7); EOSINOPHIL% 5.8 % (0.0-7.0); HEMATOCRIT 22.7 % (38.0-50.0); HEMOGLOBIN 7.5 gm/dL (13.0-16.0); LYMPHOCYTE# 1.6 X10e3 (1.0-3.5); LYMPHOCYTE% 17.8 % (17.0-45.0); MEAN CORPUSCULAR HEMOGLOBIN 31.8 PG (28-34); MEAN CORPUSCULAR HGB CONC 33.2 g/dL (30-36); MEAN PLATELET VOLUME 8.1 FL (6.5-11.5); MONOCYTE# 0.8 X10e3 (0-1.0); MONOCYTE% 9.4 % (3.0-12.0); NEUTROPHIL# 5.8 X10e3 (1.5-7.1); NEUTROPHIL% 65.2 % (40-75); PLATELET COUNT 86 X10e3 (140-420); RED BLOOD COUNT 2.37 X10e (3.90-5.60); RED CELL DISTRIBUTION WIDTH 21.9 % (11.0-15.5); WHITE BLOOD COUNT 8.9 X10e3 (4.0-10.5)
[2016-08-10 06:21] LABS: MEAN CELL VOLUME 95.7 FL (83-96)
[2016-08-10 06:22] LABS: DIFF IND NO
[2016-08-10 06:53] LABS: BUN/CREATININE RATIO 7.14; CALCIUM SERUM 7.8 mg/dL (8.4-10.2); CREATININE SERUM 5.6 mg/dL (0.6-1.4); MAGNESIUM 2.4 mg/dL (1.6-3.0); PHOSPHOROUS 4.3 mg/dL (2.5-4.6)
[2016-08-10 12:33] LABS: HEMATOCRIT 27.6 % (38.0-50.0); HEMOGLOBIN 9.3 gm/dL (13.0-16.0)
[2016-08-10 18:55] LABS: HEMATOCRIT 24.8 % (38.0-50.0); HEMOGLOBIN 8.3 gm/dL (13.0-16.0)
[2016-08-11 02:46] LABS: BASOPHIL# 0.1 X10e3 (0-0.3); BASOPHIL% 0.5 % (0-2.5); EOSINOPHIL# 0.4 X10e3 (0-0.7); EOSINOPHIL% 4.5 % (0.0-7.0); HEMOGLOBIN 8.6 gm/dL (13.0-16.0); LYMPHOCYTE# 1.1 X10e3 (1.0-3.5); LYMPHOCYTE% 11.1 % (17.0-45.0); MEAN CELL VOLUME 94.8 FL (83-96); MEAN CORPUSCULAR HEMOGLOBIN 31.3 PG (28-34); MEAN PLATELET VOLUME 8.1 FL (6.5-11.5); MONOCYTE# 1.2 X10e3 (0-1.0); MONOCYTE% 11.4 % (3.0-12.0); NEUTROPHIL# 7.3 X10e3 (1.5-7.1); NEUTROPHIL% 72.5 % (40-75); RED BLOOD COUNT 2.75 X10e (3.90-5.60); WHITE BLOOD COUNT 10.1 X10e3 (4.0-10.5)
[2016-08-11 02:49] LABS: DIFF IND NO; PLATELET COUNT 31 X10e3 (140-420)
[2016-08-11 03:17] LABS: BUN/CREATININE RATIO 6.55; CALCIUM SERUM 7.8 mg/dL (8.4-10.2); CREATININE SERUM 6.1 mg/dL (0.6-1.4); GLOM FILT RATE Estimated 9.9 mL/min (>60); POTASSIUM 4.4 mmol/L (3.5-5.1)
[2016-08-11 18:05] LABS: HEMATOCRIT 28.4 % (38.0-50.0); HEMOGLOBIN 9.5 gm/dL (13.0-16.0)
[2016-08-12] MEDS ORDERED: CARAFATE1 GM PO (16:46)
[2016-08-12] MEDS ORDERED: PRO-AMATINE5 M2 PO (16:49)
[2016-08-12 20:12] LABS: BASOPHIL# 0.1 X10e3 (0-0.3); BASOPHIL% 1.5 % (0-2.5); EOSINOPHIL# 0.4 X10e3 (0-0.7); EOSINOPHIL% 5.2 % (0.0-7.0); HEMATOCRIT 26.1 % (38.0-50.0); HEMOGLOBIN 8.5 gm/dL (13.0-16.0); LYMPHOCYTE# 1.6 X10e3 (1.0-3.5); LYMPHOCYTE% 19.1 % (17.0-45.0); MEAN CELL VOLUME 96.5 FL (83-96); MEAN CORPUSCULAR HEMOGLOBIN 31.5 PG (28-34); MEAN CORPUSCULAR HGB CONC 32.7 g/dL (30-36); MEAN PLATELET VOLUME 8.2 FL (6.5-11.5); MONOCYTE# 1.2 X10e3 (0-1.0); MONOCYTE% 14.9 % (3.0-12.0); NEUTROPHIL# 4.9 X10e3 (1.5-7.1); NEUTROPHIL% 59.3 % (40-75); PLATELET COUNT 91 X10e3 (140-420); RED CELL DISTRIBUTION WIDTH 21.8 % (11.0-15.5); WHITE BLOOD COUNT 8.3 X10e3 (4.0-10.5)
[2016-08-12 20:13] LABS: DIFF IND NO
[2016-08-12 20:23] LABS: BUN/CREATININE RATIO 5.08; CALCIUM SERUM 7.7 mg/dL (8.4-10.2); CREATININE SERUM 6.1 mg/dL (0.6-1.4); GLOM FILT RATE Estimated 9.9 mL/min (>60); MAGNESIUM 2.4 mg/dL (1.6-3.0); PHOSPHOROUS 4.2 mg/dL (2.5-4.6); POTASSIUM 4.2 mmol/L (3.5-5.1)
== END 2016-08-13 00:40 | disposition home or self-care (01) | DRG 377 ==
LOC: CED 12:41 → CEDOF 14:45 → CICCU3 18:13 → C3A PCU 08-10 18:45
PROVIDERS: Emergency Medicine; Hospitalist; Internal Medicine Nephrology; Physician Assistant Medical; Surgery
PROC: 30233N1 Transfusion of Nonautologous Red Blood Cells into Peripheral Vein, Percutaneous Approach (ICD-10-PCS; 2016-08-09)
PROC: 0DB68ZX Excision of Stomach, Via Natural or Artificial Opening Endoscopic, Diagnostic (ICD-10-PCS; principal; 2016-08-10 09:30)
PROC: 5A1D60Z (ICD-10-PCS; 2016-08-10 09:30)
DX: K29.71 Gastritis, unspecified, with bleeding (principal); N18.6 End stage renal disease; K70.30 Alcoholic cirrhosis of liver without ascites; K76.6 Portal hypertension; D69.6 Thrombocytopenia, unspecified; K22.10 Ulcer of esophagus without bleeding; D64.9 Anemia, unspecified; F10.10 Alcohol abuse, uncomplicated; Z99.2 Dependence on renal dialysis; J44.9 Chronic obstructive pulmonary disease, unspecified; N40.0 Benign prostatic hyperplasia without lower urinary tract symptoms; K31.89 Other diseases of stomach and duodenum; K70.10 Alcoholic hepatitis without ascites
CPT/HCPCS: 36415; 80048; 80076; 82140; 82947; 83735; 84100; 85014; 85018; 85025; 85610; 85730; 86850; 86900; 86901; 86923; 87077; 88305; 88312; 99285; C9113; G0480; J1756; J2250; J2370; J2550; P9016; Q4081

== ENCOUNTER → 2016-08-14 | Outpatient (CLI) | payer OTHER ==
[~2016-08-14] MED LIST changes: +ACETAMINOPHEN PO; +ACETAMINOPHEN650 M3 PO; +ALBUTEROL17 GM INH; +AMBIEN10 MG PO; +AUGM PO; +AUGMENTIN PO; +CALCIUM ACETAT667 M1 PO; +CALCIUM CARBON500 M2 PO; +CALCIUM500 M1; +CARAFATE1 GM PO; +CORTEF10 MG PO; +DAZIDOX10 MG PO; +HYDROCORTISONE10 M1 PO; +KEPPRA750 M1 PO; +KRISTALOSE10 GM PO; +LACTULOSE10 GM/15 M PO; +LACTULOSE10 GM/151 PO; +LACTULOSE20 GM/30 M; +LORTAB 5-325 M1 EACH PO; +MAXIMUM DAILY1 EACH PO; +MULTIVITAMINS1 EAC3 PO; +PANTOPRAZOLE SO40 MG PO; +PATIENT'S PHARMACY; +PRO-AMATINE5 M2 PO; +PRO-AMATINE5 MG PO; +PROBIOTIC250 MG PO; +SEROQUEL50 M1 PO; +TAMSULOSIN HCL0.4 MG PO; +TIZANIDINE HCL4 M1 PO; +TUMS500 MG PO; +TYL325 PO; +VITAMIN D250000 UNIT PO; +ZANAFLEX PO
--- NOTE | ~2016-08-14 | XA170 ---
[facility] A Service of [facility] RADIOLOGY TEXT RESULTS PATIENT: MIRA BRAXTON LOCATION: [facility] : [birth year] UNIT #: [id number] AGE: [address]: Akshat Umana MD SEX: M ORDER DR: [id number] [facility] [address] [place], [place] [address] [id number] MR#: [id number] Acc #: [id number] NAME: MIRA BRAXTON : 1965 SEX: M STUDY DATE/TIME: 08/14/2016 8:59 UNIT: [facility] ROOM: STUDY DESCRIPTION: XA Paracentesis W Image Attending Physician: Akshat Umana M.D. Ordering Physician: Akshat Umana M.D. Primary Care Physician: Colton Mcdowell M.D. MEDICAL IMAGING REPORT This report is preliminary unless electronic signature is present EXAM Ultrasound guided paracentesis INDICTION Cirrhosis and ascites. PROCEDURE The risks, benefits, and alternatives to the procedure were explained to the patient, signed informed consent was obtained. The patient was placed supine on the stretcher: Preliminary ultrasound of the abdomen was performed which demonstrated a large volume of ascites. This image was permanently saved. Overlying skin was marked. There patient was prepped and draped in the usual sterile fashion. Time-out was performed as per protocol. Skin and subcutaneous tissues were anesthetized with buffered lidocaine. Yueh catheter was advanced into the fluid with aspiration of serous material. Catheter was hooked to suction tubing. There is evacuation of a total of 5.7 L of serous material. The catheter was then removed and manual pressure was applied until hemostasis was obtained. Patient tolerated the procedure well and there were no immediate complications. IMPRESSION Technically successful ultrasound guided paracentesis with evacuation of 5.7 L of serous material. Ultrasound was used during the procedure and permanent images were saved. Dictated by... Brandie Maya M.D. THIS IS AN ELECTRONICALLY VERIFIED REPORT Brandie Maya M.D. at 08/15/2016 5:21 PM AFF/quan [facility] A Service of [facility] / [facility] RADIOLOGY TEXT RESULTS PATIENT: MIRA BRAXTON LOCATION: [facility] : [birth year] UNIT #: [id number] AGE: [address]: Akshat Umana MD SEX: M ORDER DR: TD: 08/15/2016 09:03 JOB #: [id number] MEDICAL IMAGING REPORT Page 1 of 1 COPY
== END | disposition home or self-care (01) ==
LOC: CIVR 08:47
PROC: 0W9G3ZX Drainage of Peritoneal Cavity, Percutaneous Approach, Diagnostic (ICD-10-PCS; principal; 2016-08-14)
DX: K76.9 Liver disease, unspecified (principal); R18.8 Other ascites

== ENCOUNTER 2016-08-18 13:06 | Inpatient (IN) | payer OTHER ==
--- NOTE | ~2016-08-18 | CT57 ---
[facility] A Service of [facility] RADIOLOGY TEXT RESULTS PATIENT: MIRA BRAXTON LOCATION: [address] : [birth year] UNIT #: [id number] AGE: [address]: Helder Linda MD SEX: M ORDER DR: [id number] [facility] [address] [place], [place] [address] [id number] I MR#: [id number] Acc #: [id number] NAME: MIRA BRAXTON. : 1965 SEX: M STUDY DATE/TIME: 08/18/2016 18:23 UNIT: [facility] ROOM: [facility] STUDY DESCRIPTION: CT Chest Wo Cont Attending Physician: Helder Linda M.D. Ordering Physician: Umer Guevara M.D. Primary Care Physician: Colton Mcdowell M.D. MEDICAL IMAGING REPORT This report is preliminary unless electronic signature is present EXAM Chest CT without contrast. HISTORY Sepsis, pneumonia, unknown onset, asthma, on dialysis. History of cirrhosis. Patient went to dialysis today but was hypotensive and confused. Ammonia levels are very high. COMMENT CT of the chest performed in the axial plane without contrast followed by sagittal and coronal reconstructed images. COMPARISON There is a chest x-ray from earlier today. TECHNIQUE This CT exam was performed with one or more of the following radiation dose reduction techniques: automatic exposure control, adjustment of mA and/or kV according to patient size, and iterative reconstruction. FINDINGS Redemonstrated is the right IJ approach central venous catheter terminating distal SVC. No pneumothorax. Small amount of atelectasis lung bases, linear. Nothing to suggest aspiration or pneumonia. There is no pleural effusion. A large amount of ascites is seen in the upper abdomen and the liver is small and irregular consistent with cirrhosis. It is not entirely in the field of view. Suspect some splenic enlargement indicating portal hypertension, again, not entirely in the field of view. There is a small hiatal hernia present. There is minimal pericardial thickening or fluid. Cardiac silhouette size is borderline. Allowing for the lack of contrast media, no obvious adenopathy. Small component of gynecomastia present. Mild thoracic degenerative changes. STS. [facility] A Service of [facility] RADIOLOGY TEXT RESULTS PATIENT: MIRA BRAXTON LOCATION: [facility] : [birth year] UNIT #: [id number] AGE: [address]: Helder Linda MD SEX: M ORDER DR: IMPRESSION 1. Some linear airspace disease at the lung bases consistent with atelectasis or scarring. There is no pleural effusion or pneumothorax. 2. Partly seen in the upper abdomen is a large amount of ascites and cirrhotic changes to the liver, as well as likely splenic enlargement due to portal hypertension. The patient has a small hiatal hernia. 3. The study is limited by the lack of IV contrast media. There is minimal pericardial fluid or thickening. STAT * RESULT Dictated by... Alis Lipscomb M.D. THIS IS AN ELECTRONICALLY VERIFIED REPORT Alis Lipscomb M.D. at 08/19/2016 1:42 PM VALERIE/roberto TD: 08/18/2016 19:07 JOB #: [id number] CC: Sophia/renee Please Delete MEDICAL IMAGING REPORT Page 1 of 1 COPY
--- NOTE | ~2016-08-18 | CO ---
Unit #: [id number] #: [id number] Patient: MIRA BRAXTON [id number] [address] [place], [place] [address] [id number] I MR#: [id number] NAME: MIRA BRAXTON ROOM: [facility] Age: 51 Sex: M Admission Date: 08/18/2016 : 1965 Attending Physician: Helder Linda M.D. Primary Care Physician: Colton Mcdowell M.D. CONSULTATION REPORT REASON FOR CONSULTATION Critical care management. CHIEF COMPLAINT Low blood pressure, confusion. HISTORY OF PRESENT ILLNESS The patient basically is a 51-year-old male who has a past medical history of GI bleed and COPD and cirrhosis who presented with a complaint of shortness of breath, low blood pressure and was found to be anemic. I am seeing the patient at bedside. Currently awake, alert, slightly confused. Denies any headache, blurry vision, mild shortness of breath. REVIEW OF SYSTEMS Positive for pallor. No edema, no cyanosis, no jaundice. The rest as per History of Present Illness. The rest of the twelve point review of systems has been reviewed. PHYSICAL EXAMINATION VITAL SIGNS: Temperature is currently 98, pulse is 100, respirations 16, blood pressure 97/61. NEUROLOGICAL: He is awake, alert. CVS: S1+ S2. RESPIRATION: Bilateral air entry, bilateral mild rhonchi. GI: Nontender, soft. Bowel sounds positive. EXTREMITIES: Positive edema. DIAGNOSTIC STUDIES Labs and imaging have been reviewed. LABORATORY: Hemoglobin 7, hematocrit is 21, platelet count is 50. IMAGING: His chest x-ray showed questionable right upper lobe infiltrate. ASSESSMENT AND PLAN 1. Altered mental status. 2. Hypotension. 3. Sepsis versus possible pneumonia. Plan is to continue patient on empiric antibiotics, continue oxygen, bronchodilator, dialysis. Hemoglobin, hematocrit will be checked. Continue broad spectrum antibiotics, CT chest, procalcitonin level. Nephrology and GI consultation. GI and DVT prophylaxis. Monitor Unit #: [id number] #: [id number] Patient: MIRA BRAXTON platelets. Patient will be closely monitored. Please see orders for detailed plan. Thank you very much for this consultation. Dictated by... Umer Guevara M.D. JAX/vito TD: 08/19/2016 08:46 JOB #: [id number] CONSULTATION REPORT Page 1 of 1 X Umer Guevara MD CONSULTATION REPORT
--- NOTE | ~2016-08-18 | EKG ---
PATIENT: MIRA BRAXTON UNIT #: [id number] Ventricular Rate: 104 BPM Atrial Rate: 104 BPM P-R Interval: 140 ms QRS Duration: 86 ms Q-T Interval: 366 ms QTC Calculation(Bezet): 481 ms P [place]: -6 degrees Calculated R [place]: 9 degrees Calculated T [place]: 12 degrees Diagnosis Line: Sinus tachycardia Diagnosis Line: Otherwise normal ECG Diagnosis Line: When compared with ECG of 24-JUL-2016 05:16, Diagnosis Line: No significant change was found Diagnosis Line: Confirmed by YUVAL CIFUENTES MD ([id number]) on 08/20/2016 Diagnosis Line: 5:39:55 AM INTERPRETING MD: VANE MCMAHON
--- NOTE | ~2016-08-18 | OR ---
Unit #: [id number] #: [id number] Patient: MIRA BRAXTON [id number] [address] [address] [id number] I MR#: [id number] NAME: MIRA BRAXTON. ROOM: 548 Date of Procedure: 08/20/2016 Admission Date: 08/18/2016 Surgeon: Akshat Umana M.D. : 1965 Attending Physician: Helder Linda M.D. Primary Care Physician: Colton Mcdowell M.D. OPERATIVE REPORT PRIMARY CARE PHYSICIAN Colton Mcdowell M.D. PREOPERATIVE DIAGNOSIS Upper gastrointestinal bleed. PROCEDURES PERFORMED Upper gastrointestinal endoscopy and argon plasma coagulation ablation. POSTOPERATIVE DIAGNOSES 1. The patient had multiple areas of fresh oozing of blood in the antrum from portal hypertensive gastropathy. Hemostasis was achieved by extensive argon plasma coagulation therapy. 2. The patient did not have any esophageal varices. RECOMMENDATIONS The patient can resume his renal diet and the sequential hemoglobin and hematocrit will be followed up. SEDATION USED MAC. DESCRIPTION OF PROCEDURE Following detailed explanation of the potential risks and complications of an upper endoscopy, namely perforation, bleeding, and complications related to sedation, the patient was brought to GI lab and laid in the left lateral decubitus position. Lubricated tip of the Olympus video upper endoscope was passed through the bite block into the proximal esophagus under direct vision. The entire esophageal mucosa was examined and appeared normal. Z-line was nicely demarcated, there being no esophagitis or hiatus hernia. The patient did not have any esophageal varices. The scope was then advanced into the gastric cavity and the latter was insufflated. Mucosa of the fundus, body, and antrum examined. Extensive changes of portal hypertensive gastropathy were noted in the fundus and body of the stomach. In addition, multiple areas of oozing of blood were seen in the antrum from angiodysplasias. These were probably similar to portal hypertensive gastropathy changes and/or indistinguishable from angiodysplasias. Pylorus was intubated with visualization of the normal duodenal bulb and second and third part of duodenum. Upon withdrawal and retroflexion, incisura, cardia, and greater curve examined and no additional findings noted. The attention was focused on multiple areas of oozing. These were coagulated with argon Unit #: [id number] #: [id number] Patient: MIRA BRAXTON plasma coagulation therapy. Excellent hemostasis was achieved after extensive coagulation of most of the antrum. Photodocumentation was obtained. The gas was desufflated. The scope was then withdrawn in the distal esophagus. Entire esophageal mucosa was examined all the way up to pharynx. No additional findings noted. The patient tolerated the procedure without any postprocedure complications. Dictated by... Bi Barry/dorota TD: 08/21/2016 04:03 JOB #: [id number] OPERATIVE REPORT Page 1 of 1 X Akshat Umana MD X PROCEDURE OPERATIVE NOTE
--- NOTE | ~2016-08-18 | CR72 ---
[facility] A Service of [facility] RADIOLOGY TEXT RESULTS PATIENT: MIRA BRAXTON LOCATION: [place] [address] : [birth year] UNIT #: [id number] AGE: [address]: Helder Linda MD SEX: M ORDER DR: [id number] [facility] [address] [place], [place] [address] [id number] I MR#: [id number] Acc #: [id number] NAME: MIRA BRAXTON. : 1965 SEX: M STUDY DATE/TIME: 08/18/2016 16:41 UNIT: [facility] ROOM: [facility] STUDY DESCRIPTION: CR Chest Single View Portable Attending Physician: Helder Linda M.D. Ordering Physician: Aniket Cotton M.D. Primary Care Physician: Colton Mcdowell M.D. MEDICAL IMAGING REPORT This report is preliminary unless electronic signature is present EXAM Chest x-ray portable HISTORY Central line placement. COMMENT Single frontal portable view of the chest timed 16:41 08/18/2016 compared to a film from earlier today. Interval placement of a right IJ approach central venous catheter terminating about distal SVC level. No pneumothorax. Heart size normal. No pleural effusion or acute-appearing parenchymal infiltrate. IMPRESSION Right IJ approach central venous catheter terminates distal SVC level. No pneumothorax. Dictated by... Alis Lipscomb M.D. THIS IS AN ELECTRONICALLY VERIFIED REPORT Alis Lipscomb M.D. at 08/19/2016 1:43 PM VALERIE/claudia TD: 08/19/2016 07:18 JOB #: [id number] MEDICAL IMAGING REPORT Page 1 of 1 COPY
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
--- NOTE | ~2016-08-18 | DS ---
Unit #: [id number] #: [id number] Patient: MIRA BRAXTON [id number] [address] [address] [id number] I MR#: [id number] NAME: IMRA BRAXTON. ROOM: 548 Age: 51 Sex: M Admission Date: 08/18/2016 : 1965 Discharge Date: 08/23/2016 Attending Physician: Helder Linda M.D. Primary Care Physician: Colton Mcdowell M.D. DISCHARGE SUMMARY DISCHARGE DIAGNOSES 1. Hepatic encephalopathy, resolved. 2. Acute gastrointestinal bleed, status post gastrointestinal evaluation, status post transfusion, status post esophagogastroduodenoscopy. 3. History of alcoholic cirrhosis. 4. Portal hypertensive gastropathy. 5. Benign prostatic hypertrophy. 6. End-stage renal disease, on hemodialysis. 7. Chronic obstructive pulmonary disease. CONSULTANTS DONE THIS HOSPITAL STAY 1. Dr. Akhsat Umana, GI. 2. Dr. Guevara, pulmonary. LABS AND DIAGNOSTICS AND PROCEDURES DONE THIS HOSPITAL STAY 1. EGD with the extensive argon plasma coagulation therapy of multiple portal hypertensive gastropathy lesions in the antrum. 2. Abdominal paracentesis done and removed 9 L of fluid. 3. CT of the chest: Atelectasis scarring, large amount of ascites. 4. Chest x-ray unremarkable. HISTORY OF PRESENT HOSPITAL STAY Please refer to H and P done by me for initial presentation on this gentleman. ACTIVE PROBLEMS AND DIAGNOSES Hepatic encephalopathy which has resolved. Discharge date ammonia level at 46. Continue lactulose. Script is written. Acute GI bleed, status post EGD, status post transfusion. Stable from GI standpoint. Discharge hemoglobin and hematocrit 8.6 and 26.5. End-stage renal disease, continue hemodialysis. Alcoholic cirrhosis. COPD at the baseline. DISCHARGE MEDICATIONS 1. Ventolin two puff inhaler q.6 h. 2. Antacid sodium bicarbonate 650 mg p.o. q.6 h. 3. Lactulose 20 g p.o. daily for three to four loose stools. Unit #: [id number] #: [id number] Patient: MIRA BRAXTON 4. Midodrine 15 mg t.i.d. with meals. 5. Multivitamin daily. 6. Folic acid 1 mg daily. 7. Vitamin D 50,000 units p.o. weekly. FOLLOWUP 1. The patient is to follow up with the primary care physician in two to three days. 2. Outpatient followup with: a. The GI. b. Renal for hemodialysis. Dictated by... Helder Linda M.D. OC/cf TD: 08/23/2016 20:38 JOB #: [id number] DISCHARGE SUMMARY Page 1 of 1 X Helder Linda MD X DISCHARGE SUMMARY
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
--- NOTE | ~2016-08-18 | CR72 ---
[facility] A Service [facility] RADIOLOGY TEXT RESULTS PATIENT: MIRA BRAXTON LOCATION: [address] : [birth year] UNIT #: [id number] AGE: [address]: Helder Linda MD SEX: M ORDER DR: [id number] [place] [id number] [facility]. [place], [place] [address] [id number] I MR#: [id number] Acc #: [id number] NAME: MIRA BRAXTON : 1965 SEX: M STUDY DATE/TIME: 08/18/2016 13:47 UNIT: [facility] ROOM: [facility] STUDY DESCRIPTION: CR Chest Single View Portable Attending Physician: Helder Linda M.D. Ordering Physician: Aniket Cotton M.D. Primary Care Physician: Colton Mcdowell M.D. MEDICAL IMAGING REPORT This report is preliminary unless electronic signature is present EXAM Portable chest. INDICATION Hypotension and shortness of breath today. COMPARISON Comparison with 07/24/2016. FINDINGS There are vague airspace opacities in the right upper zone concerning for developing infiltrate. Heart size stable. Visualized osseous structures unremarkable. IMPRESSION Vague opacities in the right upper zone, suspicious for developing infiltrate. This may also represent edema. Correlate clinically. Dictated by... Nixon Madera M.D. THIS IS AN ELECTRONICALLY VERIFIED REPORT Nixon Madera M.D. at 08/19/2016 3:49 PM ARS/roberto TD: 08/19/2016 00:21 JOB #: [id number] MEDICAL IMAGING REPORT [facility] A [facility] RADIOLOGY TEXT RESULTS PATIENT: MIRA BRAXTON LOCATION: [address] : [birth year] UNIT #: [id number] AGE: [address]: Helder Linda MD SEX: M ORDER DR: Page 1 of 1 COPY
--- NOTE | ~2016-08-18 | XA170 ---
[facility] A Service of [facility] RADIOLOGY TEXT RESULTS PATIENT: MIRA DANIELSON LOCATION: [facility] : [birth year] UNIT #: [id number] AGE: [address]: Helder Linda MD SEX: M ORDER DR: [id number] [facility] [address] [facility]. [place], [place] [address] [id number] I MR#: [id number] Acc #: [id number] NAME: MIRA DANIELSON : 1965 SEX: M STUDY DATE/TIME: 08/21/2016 14:35 UNIT: [facility] ROOM: [facility] STUDY DESCRIPTION: XA Paracentesis W Image Attending Physician: Helder Linda M.D. Ordering Physician: Helder Linda M.D. Primary Care Physician: Colton Mcdowell M.D. MEDICAL IMAGING REPORT This report is preliminary unless electronic signature is present EXAM Ultrasound-guided paracentesis. HISTORY Refractory ascites, chronic kidney and liver disease. PROCEDURE Procedure, attendant risks, and options were discussed with Mr. Danielson. He understands and wished to proceed. Ultrasound examination was performed and a site in the left flank was chosen. Skin was marked and subsequently marked with chlorhexidine and draped. Utilizing maximal sterile barrier technique appropriate for the procedure guidelines, initially a 5-Indian Yueh needle was inserted. Only about 2 L could be removed. An 0.035 wire was inserted and a 6-Indian pigtail catheter placed. All together a total of 9 L was fluid was removed and discarded. Procedure was very well tolerated. The patient was returned to the vera in stable condition. IMPRESSION Successful ultrasound-guided paracentesis with removal of 9 L of fluid. Dictated by... Apollo Sweet M.D. THIS IS AN ELECTRONICALLY VERIFIED REPORT Apollo Sweet M.D. at 08/22/2016 7:21 AM AMELIA/mayco TD: 08/21/2016 17:12 JOB #: [id number] [facility] A Service of [facility] RADIOLOGY TEXT RESULTS PATIENT: MIRA DANIELSON LOCATION: [facility] 548-01 : [birth year] UNIT #: [id number] AGE: [address]: Helder Linda MD SEX: M ORDER DR: MEDICAL IMAGING REPORT Page 1 of 1 COPY
[~2016-08-18 13:06] MED LIST changes: -ACETAMINOPHEN PO; -ACETAMINOPHEN650 M3 PO; -ALBUTEROL17 GM INH; -AMBIEN10 MG PO; -AUGM PO; -AUGMENTIN PO; -CALCIUM ACETAT667 M1 PO; -CALCIUM CARBON500 M2 PO; -CALCIUM500 M1; -CORTEF10 MG PO; -DAZIDOX10 MG PO; -HYDROCORTISONE10 M1 PO; -KEPPRA750 M1 PO; -KRISTALOSE10 GM PO; -LACTULOSE10 GM/151 PO; -LACTULOSE20 GM/30 M; -MAXIMUM DAILY1 EACH PO; -MULTIVITAMINS1 EAC3 PO; -PANTOPRAZOLE SO40 MG PO; -PATIENT'S PHARMACY; -PRO-AMATINE5 MG PO; -PROBIOTIC250 MG PO; -SEROQUEL50 M1 PO; -TAMSULOSIN HCL0.4 MG PO; -TIZANIDINE HCL4 M1 PO; -TUMS500 MG PO; -TYL325 PO; -VITAMIN D250000 UNIT PO; -ZANAFLEX PO
[2016-08-18 14:03] LABS: POC - CKMB 1.1 ng/mL (0.0-7.9); POC - TROPONIN <0.05 ng/mL (<=0.05)
[2016-08-18 14:10] LABS: BASOPHIL# 0.1 X10e3 (0-0.3); BASOPHIL% 1.2 % (0-2.5); EOSINOPHIL# 0.3 X10e3 (0-0.7); EOSINOPHIL% 4.6 % (0.0-7.0); HEMATOCRIT 21.9 % (38.0-50.0); LYMPHOCYTE# 1.1 X10e3 (1.0-3.5); LYMPHOCYTE% 17.8 % (17.0-45.0); MEAN CELL VOLUME 102.9 FL (83-96); MEAN CORPUSCULAR HEMOGLOBIN 32.8 PG (28-34); MEAN CORPUSCULAR HGB CONC 31.8 g/dL (30-36); MEAN PLATELET VOLUME 8.7 FL (6.5-11.5); MONOCYTE# 0.9 X10e3 (0-1.0); NEUTROPHIL# 3.8 X10e3 (1.5-7.1); NEUTROPHIL% 61.4 % (40-75); RED BLOOD COUNT 2.13 X10e (3.90-5.60); RED CELL DISTRIBUTION WIDTH 26.7 % (11.0-15.5); WHITE BLOOD COUNT 6.3 X10e3 (4.0-10.5)
[2016-08-18 14:18] LABS: INR 1.2; PARTIAL THROMBOPLASTIN TIME 24.8 SECONDS (23.5-31.3); PROTHROMBIN TIME (PATIENT) 12.6 SECONDS (9.6-11.5)
[2016-08-18 14:42] LABS: ALBUMIN SERUM 1.6 g/dL (3.5-5.0); ALKALINE PHOSPHATASE 79 U/L (32-92); ALT (SGPT) 30 U/L (10-40); AMYLASE 41 U/L (0-46); AST (SGOT) 63 U/L (10-42); BILIRUBIN, DIRECT 0.3 mg/dL (0.0-0.2); BILIRUBIN,INDIRECT 0.8 mg/dL (0.0-0.9); BILIRUBIN,TOTAL 1.1 mg/dL (0.2-2.0); BLOOD UREA NITROGEN 38 mg/dL (9-23); BUN/CREATININE RATIO 5.75; CALCIUM SERUM 7.9 mg/dL (8.4-10.2); CARBON DIOXIDE 27 mmol/L (22-31); CHLORIDE 100 mmol/L (100-111); CREATININE SERUM 6.6 mg/dL (0.6-1.4); GLUCOSE FASTING 111 mg/dL (70-110); LIPASE 32 U/L (22-51); MAGNESIUM 2.3 mg/dL (1.6-3.0); PHOSPHOROUS 3.2 mg/dL (2.5-4.6); POTASSIUM 4.5 mmol/L (3.5-5.1); PROTEIN TOTAL SERUM 4.4 g/dL (6.0-8.3); SODIUM 134 mmol/L (135-145)
[2016-08-18] MEDS ORDERED: FOLIC ACID1 MG PO (14:42)
[2016-08-18] MEDS ORDERED: MULTIVITAMINS1 EAC3 PO (14:43)
[2016-08-18] MEDS ORDERED: ANTACID650 MG PO (14:44)
[2016-08-18 14:46] LABS: ALCOHOL BLOOD <5 mg/dL (0)
[2016-08-18 14:48] LABS: DIFF IND YES; PLATELET COUNT 50 X10e3 (140-420)
[2016-08-18] MEDS ORDERED: ALBUTEROL17 GM INH (14:48)
[2016-08-18] MEDS ORDERED: PRO-AMATINE5 M2 PO (14:48)
[2016-08-18] MEDS ORDERED: TRAMADOL HCL50 M1 PO (14:48)
[2016-08-18] MEDS ORDERED: VITAMIN D250000 UNIT PO (14:49)
[2016-08-18 14:50] LABS: PLATELET ESTIMATE DECREASED (NORMAL)
[2016-08-18 14:52] LABS: ACANTHOCYTES PRESENT; POIKILOCYTOSIS SL; POLYCHROMASIA SL
[2016-08-19 06:00] LABS: BASOPHIL# 0.1 X10e3 (0-0.3); BASOPHIL% 1.3 % (0-2.5); EOSINOPHIL# 0.4 X10e3 (0-0.7); EOSINOPHIL% 6.5 % (0.0-7.0); HEMATOCRIT 20.3 % (38.0-50.0); LYMPHOCYTE# 1.1 X10e3 (1.0-3.5); LYMPHOCYTE% 19.1 % (17.0-45.0); MEAN CORPUSCULAR HEMOGLOBIN 32.5 PG (28-34); MEAN CORPUSCULAR HGB CONC 32.7 g/dL (30-36); MEAN PLATELET VOLUME 8.5 FL (6.5-11.5); MONOCYTE# 0.9 X10e3 (0-1.0); MONOCYTE% 15.8 % (3.0-12.0); NEUTROPHIL# 3.4 X10e3 (1.5-7.1); NEUTROPHIL% 57.3 % (40-75); RED BLOOD COUNT 2.04 X10e (3.90-5.60); RED CELL DISTRIBUTION WIDTH 26.6 % (11.0-15.5)
[2016-08-19 06:02] LABS: HEMOGLOBIN 6.6 gm/dL (13.0-16.0); MEAN CELL VOLUME 99.5 FL (83-96); PLATELET COUNT 49 X10e3 (140-420)
[2016-08-19 06:03] LABS: DIFF IND NO
[2016-08-19 06:36] LABS: ALBUMIN SERUM 1.5 g/dL (3.5-5.0); BILIRUBIN,TOTAL 1.8 mg/dL (0.2-2.0); BUN/CREATININE RATIO 6.51; CALCIUM SERUM 7.4 mg/dL (8.4-10.2); CREATININE SERUM 6.6 mg/dL (0.6-1.4); POTASSIUM 4.5 mmol/L (3.5-5.1)
[2016-08-20 04:47] LABS: BASOPHIL# 0.1 X10e3 (0-0.3); BASOPHIL% 0.9 % (0-2.5); EOSINOPHIL# 0.5 X10e3 (0-0.7); EOSINOPHIL% 5.6 % (0.0-7.0); HEMATOCRIT 23.9 % (38.0-50.0); HEMOGLOBIN 7.9 gm/dL (13.0-16.0); LYMPHOCYTE# 1.2 X10e3 (1.0-3.5); LYMPHOCYTE% 13.7 % (17.0-45.0); MEAN CORPUSCULAR HEMOGLOBIN 31.3 PG (28-34); MEAN PLATELET VOLUME 8.4 FL (6.5-11.5); MONOCYTE# 1.6 X10e3 (0-1.0); MONOCYTE% 18.6 % (3.0-12.0); NEUTROPHIL# 5.3 X10e3 (1.5-7.1); NEUTROPHIL% 61.2 % (40-75); RED BLOOD COUNT 2.52 X10e (3.90-5.60); RED CELL DISTRIBUTION WIDTH 25.6 % (11.0-15.5); WHITE BLOOD COUNT 8.7 X10e3 (4.0-10.5)
[2016-08-20 04:50] LABS: DIFF IND NO; PLATELET COUNT 42 X10e3 (140-420)
[2016-08-20 05:04] LABS: ALBUMIN SERUM 1.5 g/dL (3.5-5.0); BILIRUBIN,TOTAL 1.7 mg/dL (0.2-2.0); BUN/CREATININE RATIO 6.66; CALCIUM SERUM 7.5 mg/dL (8.4-10.2); CREATININE SERUM 5.7 mg/dL (0.6-1.4); GLOM FILT RATE Estimated 10.7 mL/min (>60); POTASSIUM 4.1 mmol/L (3.5-5.1); PROTEIN TOTAL SERUM 4.1 g/dL (6.0-8.3)
[2016-08-21 03:37] LABS: BASOPHIL% 0.6 % (0-2.5); EOSINOPHIL# 0.5 X10e3 (0-0.7); EOSINOPHIL% 5.8 % (0.0-7.0); HEMATOCRIT 21.7 % (38.0-50.0); HEMOGLOBIN 7.2 gm/dL (13.0-16.0); LYMPHOCYTE% 12.9 % (17.0-45.0); MEAN CELL VOLUME 95.9 FL (83-96); MEAN CORPUSCULAR HEMOGLOBIN 31.9 PG (28-34); MEAN CORPUSCULAR HGB CONC 33.2 g/dL (30-36); MEAN PLATELET VOLUME 8.7 FL (6.5-11.5); MONOCYTE# 1.1 X10e3 (0-1.0); MONOCYTE% 14.4 % (3.0-12.0); NEUTROPHIL# 5.2 X10e3 (1.5-7.1); NEUTROPHIL% 66.3 % (40-75); RED BLOOD COUNT 2.26 X10e (3.90-5.60); RED CELL DISTRIBUTION WIDTH 24.3 % (11.0-15.5); WHITE BLOOD COUNT 7.9 X10e3 (4.0-10.5)
[2016-08-21 03:40] LABS: PLATELET COUNT 45 X10e3 (140-420)
[2016-08-21 03:41] LABS: DIFF IND NO
[2016-08-21 03:58] LABS: ALBUMIN SERUM 1.4 g/dL (3.5-5.0); BUN/CREATININE RATIO 6.25; CALCIUM SERUM 7.4 mg/dL (8.4-10.2); CREATININE SERUM 4.8 mg/dL (0.6-1.4); GLOM FILT RATE Estimated 13.2 mL/min (>60); POTASSIUM 3.3 mmol/L (3.5-5.1); PROTEIN TOTAL SERUM 3.8 g/dL (6.0-8.3)
[2016-08-22 06:04] LABS: HEMATOCRIT 29.6 % (38.0-50.0); HEMOGLOBIN 9.8 gm/dL (13.0-16.0); MEAN CELL VOLUME 96.2 FL (83-96); MEAN CORPUSCULAR HEMOGLOBIN 31.7 PG (28-34); MEAN PLATELET VOLUME 8.4 FL (6.5-11.5); RED BLOOD COUNT 3.08 X10e (3.90-5.60); RED CELL DISTRIBUTION WIDTH 23.1 % (11.0-15.5); WHITE BLOOD COUNT 8.6 X10e3 (4.0-10.5)
[2016-08-22 07:24] LABS: BUN/CREATININE RATIO 5.09; CALCIUM SERUM 7.6 mg/dL (8.4-10.2); CREATININE SERUM 5.3 mg/dL (0.6-1.4); GLOM FILT RATE Estimated 11.7 mL/min (>60); POTASSIUM 3.5 mmol/L (3.5-5.1)
[2016-08-23 06:15] LABS: HEMATOCRIT 26.5 % (38.0-50.0); HEMOGLOBIN 8.6 gm/dL (13.0-16.0); MEAN CORPUSCULAR HEMOGLOBIN 31.5 PG (28-34); MEAN CORPUSCULAR HGB CONC 32.5 g/dL (30-36); MEAN PLATELET VOLUME 8.5 FL (6.5-11.5); RED BLOOD COUNT 2.73 X10e (3.90-5.60); RED CELL DISTRIBUTION WIDTH 23.4 % (11.0-15.5); WHITE BLOOD COUNT 7.1 X10e3 (4.0-10.5)
[2016-08-23 08:12] LABS: BUN/CREATININE RATIO 5.48; CALCIUM SERUM 7.8 mg/dL (8.4-10.2); CREATININE SERUM 6.2 mg/dL (0.6-1.4); GLOM FILT RATE Estimated 9.7 mL/min (>60); POTASSIUM 3.8 mmol/L (3.5-5.1)
[2016-08-23] MEDS ORDERED: LACTULOSE20 GM/30 M PO (18:46)
== END 2016-08-23 20:30 | disposition home or self-care (01) | DRG 432 ==
LOC: CED 13:06 → C5B 15:40 → CICCU2 15:40 → CEDOF 15:40 → CED 16:06 → CEDOF 16:06 → CICCU2 18:45 → CEDOF 18:45 → C5B 08-20 17:56
PROVIDERS: Emergency Medicine; Hospitalist; Internal Medicine; Internal Medicine Nephrology
PROC: 0D578ZZ Destruction of Stomach, Pylorus, Via Natural or Artificial Opening Endoscopic (ICD-10-PCS; 2016-08-18)
PROC: 30233N1 Transfusion of Nonautologous Red Blood Cells into Peripheral Vein, Percutaneous Approach (ICD-10-PCS; 2016-08-18)
PROC: 05HM33Z Insertion of Infusion Device into Right Internal Jugular Vein, Percutaneous Approach (ICD-10-PCS; 2016-08-18)
PROC: 5A1D60Z (ICD-10-PCS; principal; 2016-08-19)
PROC: 0W9G3ZZ Drainage of Peritoneal Cavity, Percutaneous Approach (ICD-10-PCS; 2016-08-21)
DX: K70.31 Alcoholic cirrhosis of liver with ascites (principal); R57.1 Hypovolemic shock; J96.00 Acute respiratory failure, unspecified whether with hypoxia or hypercapnia; N18.6 End stage renal disease; K76.6 Portal hypertension; K31.811 Angiodysplasia of stomach and duodenum with bleeding; K72.90 Hepatic failure, unspecified without coma; D62 Acute posthemorrhagic anemia; D69.59 Other secondary thrombocytopenia; I47.1 Supraventricular tachycardia; Z99.2 Dependence on renal dialysis; J44.9 Chronic obstructive pulmonary disease, unspecified; J45.909 Unspecified asthma, uncomplicated; N40.0 Benign prostatic hyperplasia without lower urinary tract symptoms; K31.89 Other diseases of stomach and duodenum; F17.210 Nicotine dependence, cigarettes, uncomplicated
CPT/HCPCS: 36415; 71010; 71250; 80048; 80053; 80076; 80202; 82140; 82150; 82274; 82308; 82553; 83036; 83605; 83690; 83735; 84100; 84484; 85025; 85027; 85610; 85730; 86850; 86900; 86901; 86923; 87040; 93005; 94640; 94760; 94761; 96361; 96365; 99285; C1729; C9113; G0480; J0456; J0696; J0885; J1200; J1610; J2370; J2543; J3260; J3370; P9016; Q4081

== ENCOUNTER → 2016-08-29 | Outpatient (CLI) | payer OTHER ==
[~2016-08-29] MED LIST changes: +ACETAMINOPHEN PO; +ACETAMINOPHEN650 M3 PO; +ALBUTEROL17 GM INH; +AMBIEN10 MG PO; +AUGM PO; +AUGMENTIN PO; +CALCIUM ACETAT667 M1 PO; +CALCIUM CARBON500 M2 PO; +CALCIUM500 M1; +CORTEF10 MG PO; +DAZIDOX10 MG PO; +HYDROCORTISONE10 M1 PO; +KEPPRA750 M1 PO; +KRISTALOSE10 GM PO; +LACTULOSE10 GM/151 PO; +LACTULOSE20 GM/30 M; +MAXIMUM DAILY1 EACH PO; +MULTIVITAMINS1 EAC3 PO; +PANTOPRAZOLE SO40 MG PO; +PATIENT'S PHARMACY; +PRO-AMATINE5 MG PO; +PROBIOTIC250 MG PO; +SEROQUEL50 M1 PO; +TAMSULOSIN HCL0.4 MG PO; +TIZANIDINE HCL4 M1 PO; +TUMS500 MG PO; +TYL325 PO; +VITAMIN D250000 UNIT PO; +ZANAFLEX PO
--- NOTE | ~2016-08-29 | XA170 ---
[facility] A Service of [facility] RADIOLOGY TEXT RESULTS PATIENT: MIRA BRAXTON LOCATION: [facility] : [birth year] UNIT #: [id number] AGE: [address]: Akshat Umana MD SEX: M ORDER DR: [id number] [facility] [address] [facility]. [place], [place] [address] [id number] O MR#: [id number] Acc #: [id number] NAME: MIRA BRAXTON : 1965 SEX: M STUDY DATE/TIME: 08/29/2016 8:53 UNIT: [facility] ROOM: STUDY DESCRIPTION: XA Paracentesis W Image Attending Physician: Akshat Umana M.D. Referring Physician: Akshat Umana M.D. Ordering Physician: Akshat Umana M.D. Primary Care Physician: Colton Mcdowell M.D. MEDICAL IMAGING REPORT This report is preliminary unless electronic signature is present EXAM Ultrasound-guided paracentesis INDICATION Ascites. PROCEDURE The risks, benefits, and alternatives to the procedure were explained to the patient, and signed, informed consent was obtained. Patient was placed supine on the stretcher. Preliminary ultrasound of the abdomen was performed which demonstrated a large volume ascites. This image was permanently saved. Overlying skin was marked. Patient was prepped and draped in the usual sterile fashion. Time-out was performed as per protocol. Skin and subcutaneous tissues were anesthetized with buffered lidocaine. Yueh catheter was advanced into the fluid with aspiration of serous material. Catheter was hooked to suction tubing. There was evacuation of about 2.5 L of serous material. At this point, there is no further drainage. Repeat ultrasound showed multiple loops of bowel within the area of concern although the patient has a second pocket located more inferiorly. At this point, the skin and subcutaneous tissues in this area were anesthetized with buffered lidocaine and this pocket was also accessed using a Yueh catheter. Catheter was then hooked to suction tubing and then an additional 2600 mL of fluid was removed. Catheter was removed and manual pressure was applied until hemostasis was obtained. Patient tolerated the procedure well and there were no immediate complications. IMPRESSION Technically successful ultrasound-guided paracentesis with evacuation of 5.1 L of serous material. Ultrasound was used during the procedure and permanent images were saved. Of note this patient has multiple pockets of ascitic fluid with mobile loops of bowel. Ultimately, he may require pigtail drainage catheter placement in order to fully evacuate the fluid. [facility] A Service of [facility] RADIOLOGY TEXT RESULTS PATIENT: MIRA BRAXTON [id number] [birth year] UNIT #: [id number] AGE: [address]: Akshat Umana MD SEX: M ORDER DR: Dictated by... Brandie Maya M.D. THIS IS AN ELECTRONICALLY VERIFIED REPORT Brandie Maya M.D. at 08/30/2016 4:20 PM AFF/claudia TD: 08/30/2016 08:23 JOB #: [id number] MEDICAL IMAGING REPORT Page 1 of 1 COPY
== END | disposition home or self-care (01) ==
LOC: CIVR 08-28 09:00
PROC: 0W9G3ZX Drainage of Peritoneal Cavity, Percutaneous Approach, Diagnostic (ICD-10-PCS; principal; 2016-08-29)
DX: R18.8 Other ascites (principal)

== ENCOUNTER 2016-09-05 09:21 | Emergency (ER) | payer OTHER ==
[~2016-09-05 09:21] MED LIST changes: -ACETAMINOPHEN PO; -ACETAMINOPHEN650 M3 PO; -AMBIEN10 MG PO; -AUGM PO; -AUGMENTIN PO; -CALCIUM ACETAT667 M1 PO; -CALCIUM CARBON500 M2 PO; -CALCIUM500 M1; -CORTEF10 MG PO; -DAZIDOX10 MG PO; -HYDROCORTISONE10 M1 PO; -KEPPRA750 M1 PO; -KRISTALOSE10 GM PO; -LACTULOSE10 GM/151 PO; -LACTULOSE20 GM/30 M; -MAXIMUM DAILY1 EACH PO; -PANTOPRAZOLE SO40 MG PO; -PATIENT'S PHARMACY; -PRO-AMATINE5 MG PO; -PROBIOTIC250 MG PO; -SEROQUEL50 M1 PO; -TAMSULOSIN HCL0.4 MG PO; -TIZANIDINE HCL4 M1 PO; -TUMS500 MG PO; -TYL325 PO; -ZANAFLEX PO
[2016-09-05] MEDS ORDERED: ANTACID650 MG PO (09:44)
[2016-09-05] MEDS ORDERED: TAMSULOSIN HCL0.4 MG PO (09:44)
[2016-09-05] MEDS ORDERED: KRISTALOSE10 GM PO (09:45)
[2016-09-05] MEDS ORDERED: PROAMATINE10 MG PO (09:46)
[2016-09-05] MEDS ORDERED: XIFAXAN550 MG PO (09:46)
[2016-09-05] MEDS ORDERED: CARAFATE1 GM PO (09:47)
[2016-09-05] MEDS ORDERED: MULTIVITAMINS1 EAC3 PO (09:47)
[2016-09-05] MEDS ORDERED: HYDROCODON-ACE1 EAC7 PO (09:48)
[2016-09-05] MEDS ORDERED: PANTOPRAZOLE SO40 MG PO (09:48)
[2016-09-05] MEDS ORDERED: B-121000 MC1 PO (09:49)
[2016-09-05] MEDS ORDERED: THIAMINE HCL100 M1 PO (09:49)
[2016-09-05] MEDS ORDERED: FOLIC ACID1 MG PO (09:49)
== END 2016-09-05 10:20 | disposition left against medical advice (07) ==
LOC: CED 09:21
DX: I95.9 Hypotension, unspecified (principal); K72.90 Hepatic failure, unspecified without coma; N19 Unspecified kidney failure; Z79.899 Other long term (current) drug therapy
CPT/HCPCS: 99283

== ENCOUNTER 2016-09-05 20:22 | Inpatient (IN) | payer OTHER ==
--- NOTE | ~2016-09-05 | XA170 ---
[facility] A Service of [facility] RADIOLOGY TEXT RESULTS PATIENT: MIRA BRAXTON LOCATION: [facility] 301- : [birth year] UNIT #: [id number] AGE: [address]: Neena Crisostomo MD SEX: M ORDER DR: [id number] [facility] [address] [facility]. [place], [place] [address] [id number] I MR#: [id number] Acc #: [id number] NAME: MIRA BRAXTON. : 1965 SEX: M STUDY DATE/TIME: 09/12/2016 7:16 UNIT: A [facility] ROOM: [facility] STUDY DESCRIPTION: XA Paracentesis W Image Attending Physician: Neena Crisostomo M.D. Ordering Physician: Akshat Umana M.D. Primary Care Physician: Colton Mcdowell M.D. MEDICAL IMAGING REPORT This report is preliminary unless electronic signature is present EXAM Ultrasound-guided paracentesis HISTORY Recurrent ascites. PROCEDURE Informed consent was obtained. A skin site was selected with ultrasound guidance and marked, sterilely prepped and draped and locally anesthetized. Paracentesis was performed with a [employer] needle catheter and 5 L of fluid was removed. There were no complications and the patient tolerated the procedure well. IMPRESSION Successful ultrasound-guided right lower quadrant paracentesis with removal of 5 L of fluid without complication. Dictated by... Poncho Hendrix M.D. THIS IS AN ELECTRONICALLY VERIFIED REPORT Poncho Hendrix M.D. at 09/14/2016 2:12 PM FERDINAND/claudia TD: 09/14/2016 07:08 JOB #: [id number] MEDICAL IMAGING REPORT Page 1 of 1 COPY
--- NOTE | ~2016-09-05 | CR72 ---
[facility] A Service of [facility] RADIOLOGY TEXT RESULTS PATIENT: MIRA BRAXTON LOCATION: [facility] 301-01 : [birth year] UNIT #: [id number] AGE: [address]: Neena Crisostomo MD SEX: M ORDER DR: [id number] [facility] [address] [facility]. [place], [place] [address] [id number] I MR#: [id number] Acc #: [id number] NAME: MIRA BRAXTON : 1965 SEX: M STUDY DATE/TIME: 09/06/2016 1:58 UNIT: [facility] ROOM: [facility] STUDY DESCRIPTION: CR Chest Single View Portable Attending Physician: Neena Crisostomo M.D. Ordering Physician: Milagros Hawley M.D. Primary Care Physician: Colton Mcdowell M.D. MEDICAL IMAGING REPORT This report is preliminary unless electronic signature is present EXAM Portable chest INDICATION PICC line placement. PROCEDURE Frontal view chest. COMPARISON 09/05/2016. FINDINGS Right approach PICC line in the distal SVC. No pneumothorax. Persistent low lung volumes. IMPRESSION Right-sided PICC line in the distal SVC. No pneumothorax. Dictated by... Piyush Coleman M.D. THIS IS AN ELECTRONICALLY VERIFIED REPORT Piyush Coleman M.D. at 09/10/2016 7:22 AM LIZBETH/claudia TD: 09/06/2016 10:21 JOB #: [id number] MEDICAL IMAGING REPORT Page 1 of 1 COPY
--- NOTE | ~2016-09-05 | XA170 ---
[facility] A Service of [facility] RADIOLOGY TEXT RESULTS PATIENT: MIRA BRAXTON LOCATION: [address] : [birth year] UNIT #: [id number] AGE: [address]: Neena Crisostomo MD SEX: M ORDER DR: [id number] [place] [address] [place], [place] [address] [id number] I MR#: [id number] Acc #: [id number] NAME: MIRA BRAXTON : 1965 SEX: M STUDY DATE/TIME: 09/07/2016 8:43 UNIT: [facility] ROOM: [facility] STUDY DESCRIPTION: XA Paracentesis W Image Attending Physician: Neena Crisostomo M.D. Ordering Physician: Akshat Umana M.D. Primary Care Physician: Colton Mcdowell M.D. MEDICAL IMAGING REPORT This report is preliminary unless electronic signature is present EXAM Ultrasound-guided paracentesis INDICATIONS Recurrent ascites. The risks, benefits, and alternatives of the procedure were discussed with the patient and informed consent was obtained. In the procedure room, a time out was performed confirming correct patient and procedure. All elements of maximum sterile-barrier technique utilized according to guidelines appropriate for the procedure. TECHNIQUE/FINDINGS Ultrasound right lower quadrant was performed and demonstrated a large amount of ascites. The overlying skin was prepped and draped usual sterile fashion. 1% lidocaine utilized to anesthetize the skin and underlying subcutaneous tissues. Next under ultrasound guidance, a 5-Thai Yueh catheter inserted into the peritoneal space and 5800 mL of fluid removed. Needle was removed and a sterile dressing was applied. No immediate complications. IMPRESSION Technically successful ultrasound-guided paracentesis. Dictated by... Nixon Madera M.D. THIS IS AN ELECTRONICALLY VERIFIED REPORT Nixon Madera M.D. at 09/08/2016 5:14 PM ARS/pcl [facility] A Service [facility] RADIOLOGY TEXT RESULTS PATIENT: MIRA BRAXTON LOCATION: [address] : [birth year] UNIT #: [id number] AGE: [address]: Neena Crisostomo MD SEX: M ORDER DR: TD: 09/07/2016 17:59 JOB #: [id number] MEDICAL IMAGING REPORT Page 1 of 1 COPY
--- NOTE | ~2016-09-05 | OR ---
Unit #: [id number] #: [id number] Patient: MIRA BRAXTON [id number] [address] [address] [id number] I MR#: [id number] NAME: MIRA BRAXTON. ROOM: 301 Date of Procedure: 09/06/2016 Admission Date: 09/05/2016 Surgeon: Akshat Umana M.D. : 1965 Attending Physician: Neena Crisostomo M.D. Primary Care Physician: Colton Mcdowell M.D. OPERATIVE REPORT PRIMARY CARE PHYSICIAN Colton Mcdowell M.D. PREOPERATIVE DIAGNOSES Upper gastrointestinal bleed as a result of melena and anemia of acute gastrointestinal blood loss. The patient has background history of alcoholic cirrhosis, portal hypertension, and portal hypertensive gastropathy. PROCEDURES PERFORMED Upper gastrointestinal endoscopy and ablation. POSTOPERATIVE DIAGNOSES 1. The patient had actively oozing angiodysplasias, extensively proliferation angiodysplasias in the prepyloric antral area with active hemorrhage. These were ablated using argon plasma coagulation therapy. These changes are consequence of portal hypertensive gastropathy. 2. The patient also had early esophageal varices. 3. Rest of the examination up to third part of duodenum was normal. RECOMMENDATIONS 1. We will monitor the hemoglobin and hematocrit and transfuse packed cells. 2. In view of the fact the patient has needed blood transfusions so frequently and has been admitted almost every week with upper gastrointestinal hemorrhage requiring transfusions. A transjugular intrahepatic portosystemic shunt (TIP shunt) will be valuable, even though there is a high risk of encephalopathy in this patient. It will help his ascites and bleeding. SEDATION USED MAC. DESCRIPTION OF PROCEDURE Following detailed explanation of the potential risks and complications of an upper endoscopy, namely perforation, bleeding, and complication related to sedation, the patient was brought to GI lab and laid in the left lateral decubitus position. The procedure was done in intensive care unit at the patient bedside. Lubricated tip of the Olympus video upper endoscope was passed through the bite block into the proximal esophagus under direct vision. The entire esophageal mucosa was examined. The patient noted to have early esophageal varices in the mid and distal Unit #: [id number] #: [id number] Patient: FOX,MIRA L esophagus. There being no stigmata of recent bleed. The scope was then advanced into the gastric cavity and the latter was insufflated. Mucosa of the fundus, body, and antrum was examined and the patient was noted to have active oozing of fresh blood in the antral area, diffuse angiodysplasia scattered throughout this area. Multiple areas of bleeding were noted. Pylorus was intubated with visualization of the normal duodenal bulb and second and third part of the duodenum. Upon withdrawal and retroflexion, incisura, cardia, and greater curve was examined and no additional findings were noted. The attention was focused on the bleeding angiodysplasias and these were ablated using argon plasma coagulation therapy at appropriate settings. Extensive coagulum was formed. The residual gas was then suctioned. Excellent hemostasis was achieved. The scope was then withdrawn in the distal esophagus. The entire esophageal mucosa was examined all the way up to pharynx. No additional findings were noted. The patient tolerated the procedure without any postprocedure complications. Dictated by... Bi Barry/dorota TD: 09/09/2016 17:57 JOB #: [id number] OPERATIVE REPORT Page 1 of 1 X Akshat Umana MD X PROCEDURE OPERATIVE NOTE
--- NOTE | ~2016-09-05 | DS ---
Unit #: [id number] #: [id number] Patient: MIRA DANIELSON [id number] [address] [address] [id number] I MR#: [id number] NAME: MIRA DANIELSON. ROOM: 301 Age: 51 Sex: M Admission Date: 09/05/2016 : 1965 Discharge Date: 09/12/2016 Attending Physician: Neena Crisostomo M.D. Primary Care Physician: Colton Mcdowell M.D. DISCHARGE SUMMARY FINAL DIAGNOSES 1. Acute gastrointestinal bleed. 2. Status post esophagogastroduodenoscopy per Dr. Akshat Umana which showed extensive vascular malformation in the prepyloric antral area secondary to portal hypertensive gastropathy with oozing of blood throughout. Extensive coagulation was achieved using argon plasma coagulation therapy. The patient also has early esophageal varices. The rest of the duodenum was normal. 3. Anemia secondary to above. 4. History of alcoholic hepatitis. 5. Ascites status post paracentesis. 6. End-stage renal disease on hemodialysis. 7. Hypocalcemia. 8. Chronic hypotension. 9. Anemia. 10. Thrombocytopenia secondary to chronic liver disease. 11. History of depression. 12. Chronic obstructive pulmonary disease. 13. Benign prostatic hypertrophy. DISCHARGE MEDICATIONS 1. Cyanocobalamin 1,000 mcg p.o. daily. 2. Thiamine 100 mg p.o. daily. 3. Folic acid 1 mg daily. 4. Tizanidine 4 mg daily. 5. Protonix 40 mg daily. 6. Hydrocodone on a p.r.n. basis. 7. Multivitamin daily. 8. Carafate one gram p.o. q.i.d. 9. ProAmatine 15 mg four times a day. 10. Xifaxan 400 mg twice a day. 11. Lactulose 20 g p.o. q.6 hourly. 12. Lactulose 15 mg q.6 p.r.n. for elevated ammonia. 13. Flomax 0.4 mg at bedtime. 14. Sodium bicarb 650 mg daily. CONSULTATION DURING HOSPITALIZATION 1. Dr. Dory Guevara from Pulmonary Services. 2. Dr. Akshat Umana from GI Services. 3. Dr. Vicente from [facility]. PROCEDURE PERFORMED DURING HOSPITALIZATION EGD. Findings are as above. Unit #: [id number] #: [id number] Patient: MIRA DANIELSON LAB WORKUP ON DISCHARGE CMP shows sodium 128, potassium 3.2, chloride 97, BUN 30, creatinine 5.9, albumin 1.2, calcium 6.5. CBC shows WBC 11.6, hemoglobin 8.6, hematocrit 25.9, platelet count 38. Blood cultures are negative. HOSPITAL COURSE Mr. Mira Danielson is a 51-year-old male who is very well known to me, was admitted by my colleague, Dr. Linda, with acute GI bleed. The patient has had multiple admissions for the same reason. The patient was admitted to ICU because of hypertension. He was started on pressors. The patient received packed RBC transfusion. Dr. Umana was consulted and the patient had EGD done. Findings are as above. He seems to be stable at this time. His hemoglobin is 8.6. The patient needs to continue lactulose and Xifaxan for hepatic encephalopathy. At the beginning of stay, he did have elevated ammonia which is improved. The patient has had paracentesis done. He does have some drain on both sides. A Wound Care consult will be done and the patient may need to have some bags placed on the site to keep it kind of clean. The patient will continue hemodialysis as outpatient and will need electrolyte checked. VITAL SIGNS ON DISCHARGE: Blood pressure 95/39. Respiratory rate 18. Pulse 68. Temperature 98.5. Oxygen saturation 100%. CHEST: Fair air entry, decreased at the bases. CARDIOVASCULAR: S1, S2 positive. ABDOMEN: Distended. Bowel sounds are positive. EXTREMITIES: Edema is present. DISCHARGE INSTRUCTIONS 1. The patient is being discharged home in stable condition. 2. Medication as per medication reconciliation. 3. Continue hemodialysis as outpatient. 4. Follow up with Dr. Umana in one week. 5. CBC, CMP in two to three weeks. 6. The patient is aware that he needs to continue paracentesis as outpatient. 7. Discussed with patient's about plan of care. They do verbalize understanding. Dictated by... Neena Crisostomo M.D. Reg TD: 09/13/2016 07:47 JOB #: [id number] Unit #: [id number] #: [id number] Patient: MIRA DANIELSON Anatoly DISCHARGE SUMMARY Page 1 of 1 X Neena Crisostomo MD X DISCHARGE SUMMARY
--- NOTE | ~2016-09-05 | EKG ---
PATIENT: MIRA BRAXTON UNIT #: [id number] Ventricular Rate: 106 BPM Atrial Rate: 106 BPM P-R Interval: 138 ms QRS Duration: 84 ms Q-T Interval: 348 ms QTC Calculation(Bezet): 462 ms P Pierce: 0 degrees Calculated R Pierce: 21 degrees Calculated T Pierce: 33 degrees Diagnosis Line: Sinus tachycardia Diagnosis Line: Low voltage QRS Diagnosis Line: Cannot rule out Anterior infarct , age Diagnosis Line: undetermined Diagnosis Line: Abnormal ECG Diagnosis Line: No previous ECGs available Diagnosis Line: Confirmed by MIRA MUNIZ MD ([id number]) on Diagnosis Line: 09/06/2016 7:10:14 PM INTERPRETING MD: FLAVIO MCMAHON
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
--- NOTE | ~2016-09-05 | CR72 ---
[facility] A Service of [facility] & [facility] RADIOLOGY TEXT RESULTS PATIENT: MIRA BRAXTON LOCATION: [facility] 301-01 : [birth year] UNIT #: [id number] AGE: [address]: Neena Crisostomo MD SEX: M ORDER DR: [id number] [facility] [address] [facility]. [place], [place] [address] [id number] I MR#: [id number] Acc #: [id number] NAME: MIRA BRAXTON. : 1965 SEX: M STUDY DATE/TIME: 09/08/2016 22:01 UNIT: [facility] ROOM: [facility] STUDY DESCRIPTION: CR Chest Single View Portable Attending Physician: Neena Crisostomo M.D. Ordering Physician: Neena Crisostomo M.D. Primary Care Physician: Colton Mcdowell M.D. MEDICAL IMAGING REPORT This report is preliminary unless electronic signature is present EXAM Portable chest x-ray 09/08/2016 HISTORY Fever. Mild congestion. GI bleed. 20-year smoker. Current symptoms began today. TECHNIQUE AP radiograph of the chest is presented COMPARISON 09/06/2016 FINDINGS Right upper extremity approach PICC unchanged. Heart lduppy-ri-pdttg limits of normal in size given lung volumes. Lung volumes are low but improved from prior study. Mild vascular prominence likely reflecting the low lung volumes. Mild vascular congestion could be considered. There is no evidence of toribio pulmonary edema. Right lung otherwise clear. Patchy and band-like densities in the left retrocardiac region concerning for components of atelectasis and/or pneumonia. Left lung otherwise clear. No pleural effusion. No pneumothorax. No suspicious nodule. Visualized bowel gas pattern, upper abdomen normal. Dictated by... Apollo Rojas M.D. THIS IS AN ELECTRONICALLY VERIFIED REPORT Apollo Rojas M.D. at 09/10/2016 11:31 AM MAICO/claudia TD: 09/09/2016 08:41 JOB #: [id number] [facility] A Service of [facility] RADIOLOGY TEXT RESULTS PATIENT: MIRA BRAXTON LOCATION: [facility] 301-01 : [birth year] UNIT #: [id number] AGE: [address]: Neena Crisostomo MD SEX: M ORDER DR: MEDICAL IMAGING REPORT Page 1 of 1 COPY
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
--- NOTE | ~2016-09-05 | CO ---
Unit #: [id number] #: [id number] Patient: MIRA BRAXTON [id number] [address] [address] [id number] I MR#: [id number] NAME: MIRA BRAXTON. ROOM: [facility] Age: 51 Sex: M Admission Date: 09/05/2016 : 1965 Attending Physician: Neena Crisostomo M.D. Primary Care Physician: Colton Mcdowell M.D. CONSULTATION REPORT REASON FOR CONSULTATION Critical care management. CHIEF COMPLAINT Generalized weakness and shortness of breath. HISTORY OF PRESENT ILLNESS Patient basically is a 51-year-old male with a past medical history of recurrent GI bleed and portal gastropathy, liver cirrhosis, COPD, obstructive sleep apnea, end stage renal disease, presents with a complaint of generalized weakness, shortness of breath, was found to be severely anemic, hemoglobin of 3. Currently being transfused. I am seeing the patient at bedside. Mild shortness of breath. Denies any nausea, vomiting, diarrhea. REVIEW OF SYSTEMS Positive for pallor. No edema, no cyanosis, no jaundice. The rest as per History of Present Illness. The rest of the twelve point review of systems has been reviewed and is negative. PHYSICAL EXAMINATION VITAL SIGNS: His temperature is 98, pulse 87, respirations 12, blood pressure 126/62. NEUROLOGICAL: Awake, alert, oriented. No neuro deficit. HEENT: PERRLA. NECK: Supple. No JVD. CHEST: Bilateral air entry, bilateral mild rhonchi. GI: Nontender, soft. Bowel sounds positive. EXTREMITIES: Positive edema. SKIN: No rashes, no ulcers. LYMPHATIC: No lymphadenopathy. DIAGNOSTIC STUDIES LABORATORY: Hemoglobin 3, hematocrit 11, platelet count is 77. ASSESSMENT AND PLAN 1. Severe anemia. 2. Gastrointestinal bleed. 3. End stage renal disease. 4. Obstructive sleep apnea. 5. Chronic obstructive pulmonary disease. 6. Critically ill patient. Unit #: [id number] #: [id number] Patient: MIRA BRAXTON Plan is to transfuse and do an EGD. Follow with gastroenterology. PPI, SCDs, bronchodilator. GI and DVT prophylaxis. Dialysis as per protocol. Nephrology to follow. Please see orders for detailed plan. Thank you very much for this consultation. Dictated by... Bi Martinez/vito TD: 09/06/2016 11:11 JOB #: [id number] CONSULTATION REPORT Page 1 of 1 X Umer Guevara MD CONSULTATION REPORT
--- NOTE | ~2016-09-05 | CR72 ---
[facility] A Service of [facility] RADIOLOGY TEXT RESULTS PATIENT: MIRA BRAXTON LOCATION: [facility] 301 : [birth year] UNIT #: [id number] AGE: [address]: Neena Crisostomo MD SEX: M ORDER DR: [id number] [facility] [address] [place], [place] [address] [id number] I MR#: [id number] Acc #: [id number] NAME: MIRA BRAXTON. : 1965 SEX: M STUDY DATE/TIME: 09/05/2016 22:17 UNIT: [facility] ROOM: [facility] STUDY DESCRIPTION: CR Chest Single View Portable Attending Physician: Neena Crisostomo M.D. Ordering Physician: Milagros Hawley M.D. Primary Care Physician: Colton Mcdowell M.D. MEDICAL IMAGING REPORT This report is preliminary unless electronic signature is present EXAM Portable chest INDICATION Shortness of air today. PROCEDURE Frontal view chest COMPARISON 08/18/2016 FINDINGS Nvin-la-aycmecns cardiomegaly is similar to the prior. Linear opacities in the medial lung bases. Otherwise lungs are clear. No pneumothorax. IMPRESSION 1. Cardiomegaly is unchanged. 2. Linear opacities in the medial lung bases may represent pulmonary vessels or atelectasis. Otherwise lungs are clear with no dense consolidation. Dictated by... Piyush Coleman M.D. THIS IS AN ELECTRONICALLY VERIFIED REPORT Piyush Coleman M.D. at 09/10/2016 7:25 AM LIZBETH/glen TD: 09/06/2016 09:21 JOB #: [id number] MEDICAL IMAGING REPORT [facility] A Service of [facility] RADIOLOGY TEXT RESULTS PATIENT: MIRA BRAXTON LOCATION: [facility] 301 : [birth year] UNIT #: [id number] AGE: [address]: Neena Crisostomo MD SEX: M ORDER DR: Page 1 of 1 COPY
--- NOTE | ~2016-09-05 | OR ---
Unit #: [id number] #: [id number] Patient: MIRA BRAXTON [id number] [address] [place], [place] [address] [id number] I MR#: [id number] NAME: MIRA BRAXTON. ROOM: 301 Date of Procedure: 09/06/2016 Admission Date: 09/05/2016 Surgeon: Akshat Umana M.D. : 1965 Attending Physician: Neena Crisostomo M.D. Primary Care Physician: Colton Mcdowell M.D. OPERATIVE REPORT PRIMARY CARE PHYSICIAN Colton Mcdowell M.D. PREOPERATIVE DIAGNOSIS Upper gastrointestinal bleed. PROCEDURES PERFORMED Upper gastrointestinal endoscopy and argon plasma coagulation ablation. POSTOPERATIVE DIAGNOSES 1. The patient had extensive vascular malformations in the prepyloric antral area as a result of portal hypertensive gastropathy with oozing of blood throughout. Extensive coagulation was achieved using argon plasma coagulation therapy. 2. There were also early esophageal varices, but these were not the cause of the patient's bleeding. 3. Rest of the examination of third part of duodenum was normal. RECOMMENDATIONS The patient has had more than 50 units of packed cell transfused over the past 6 months. He has had very frequent and recurrent admissions with upper gastrointestinal bleed with refractory ascites. It is therefore very likely that he will benefit from TIP shunt. This will be requested for Dr. Ar Jensen to place in the next few days. Lastly, the patient has had encephalopathy in the past, but I think we should be able to manage symptomatically with a combination of lactulose and Xifaxan. DESCRIPTION OF PROCEDURE The procedure was done in intensive care unit at the patient's bedside. Following detailed explanation of the potential risks and complications of an upper endoscopy, namely perforation, bleeding, and complication related to sedation, the patient was laid in left lateral decubitus position. Lubricated tip of the Olympus video upper endoscope was passed through the bite block into the proximal esophagus under direct vision. The entire esophageal mucosa was examined. The patient was noted to have early esophageal varices in mid and distal esophagus. The scope was then advanced into the gastric cavity and the latter was insufflated. Mucosa of the fundus, body, and antrum was examined. Extensive oozing of blood was seen from the angiodysplasias in the distal stomach in the antrum, and distal body of the stomach. Pylorus was intubated with visualization of the normal duodenal bulb and second and third part of the duodenum. Upon withdrawal and retroflexion, incisura, cardia, and greater curve was Unit #: [id number] #: [id number] Patient: MIRA BRAXTON examined and no additional findings were noted. Attention was focused on multiple angiodysplasias and AVMs and these were ablated using argon plasma coagulation therapy at appropriate settings. Extensive coagulum was formed throughout the entire distal stomach. The extra gas was then suctioned. The scope was withdrawn in the distal esophagus. Entire esophageal mucosa was examined all the way up to pharynx. No additional findings were noted. The patient tolerated the procedure without any postprocedure complications. Dictated by.Alexsander. Bi Barry/dorota TD: 09/06/2016 16:24 JOB #: [id number] OPERATIVE REPORT Page 1 of 1 X Akshat Umana MD X PROCEDURE OPERATIVE NOTE
[~2016-09-05 20:22] MED LIST changes: +KRISTALOSE10 GM PO; +PANTOPRAZOLE SO40 MG PO; +TAMSULOSIN HCL0.4 MG PO
[2016-09-05 21:19] LABS: BASOPHIL# 0.1 X10e3 (0-0.3); BASOPHIL% 0.9 % (0-2.5); EOSINOPHIL# 0.4 X10e3 (0-0.7); EOSINOPHIL% 3.6 % (0.0-7.0); HEMATOCRIT 11.8 % (38.0-50.0); LYMPHOCYTE# 1.2 X10e3 (1.0-3.5); LYMPHOCYTE% 11.4 % (17.0-45.0); MEAN CELL VOLUME 104.8 FL (83-96); MEAN CORPUSCULAR HEMOGLOBIN 34.5 PG (28-34); MEAN CORPUSCULAR HGB CONC 32.9 g/dL (30-36); MONOCYTE# 1.4 X10e3 (0-1.0); NEUTROPHIL# 7.1 X10e3 (1.5-7.1); NEUTROPHIL% 70.1 % (40-75); PLATELET COUNT 77 X10e3 (140-420); RED BLOOD COUNT 1.13 X10e (3.90-5.60); RED CELL DISTRIBUTION WIDTH 25.1 % (11.0-15.5); WHITE BLOOD COUNT 10.2 X10e3 (4.0-10.5)
[2016-09-05 21:22] LABS: DIFF IND YES; HEMOGLOBIN 3.9 gm/dL (13.0-16.0)
[2016-09-05 21:27] LABS: POC - CKMB 1.7 ng/mL (0.0-7.9); POC - TROPONIN <0.05 ng/mL (<=0.05)
[2016-09-05 22:28] LABS: INR 1.3; PARTIAL THROMBOPLASTIN TIME 29.9 SECONDS (23.5-31.3); PROTHROMBIN TIME (PATIENT) 13.4 SECONDS (9.6-11.5)
[2016-09-05 22:34] LABS: ALBUMIN SERUM 1.5 g/dL (3.5-5.0); ALKALINE PHOSPHATASE 75 U/L (32-92); ALT (SGPT) 24 U/L (10-40); AST (SGOT) 68 U/L (10-42); BILIRUBIN, DIRECT 0.5 mg/dL (0.0-0.2); BILIRUBIN,INDIRECT 1.1 mg/dL (0.0-0.9); BILIRUBIN,TOTAL 1.6 mg/dL (0.2-2.0); BLOOD UREA NITROGEN 59 mg/dL (9-23); BUN/CREATININE RATIO 7.76; CALCIUM SERUM 7.7 mg/dL (8.4-10.2); CARBON DIOXIDE 21 mmol/L (22-31); CHLORIDE 98 mmol/L (100-111); CREATININE SERUM 7.6 mg/dL (0.6-1.4); GLOM FILT RATE Estimated 7.6 mL/min (>60); GLUCOSE FASTING 126 mg/dL (70-110); MAGNESIUM 2.3 mg/dL (1.6-3.0); PHOSPHOROUS 7.1 mg/dL (2.5-4.6); PROTEIN TOTAL SERUM 3.8 g/dL (6.0-8.3); SODIUM 132 mmol/L (135-145)
[2016-09-05 22:36] LABS: ALCOHOL BLOOD <5 mg/dL (0); PLATELET ESTIMATE DECREASED (NORMAL)
[2016-09-05 22:37] LABS: POLYCHROMASIA SL
[2016-09-05 22:38] LABS: HYPOCHROMIA MOD
[2016-09-06 16:14] LABS: HEMATOCRIT 16.9 % (38.0-50.0)
[2016-09-06 16:22] LABS: HEMOGLOBIN 5.8 gm/dL (13.0-16.0)
[2016-09-06 22:51] LABS: HEMATOCRIT 23.7 % (38.0-50.0); HEMOGLOBIN 8.1 gm/dL (13.0-16.0)
[2016-09-07 04:25] LABS: BASOPHIL# 0.1 X10e3 (0-0.3); BASOPHIL% 1.4 % (0-2.5); EOSINOPHIL# 0.9 X10e3 (0-0.7); EOSINOPHIL% 8.9 % (0.0-7.0); HEMATOCRIT 23.6 % (38.0-50.0); HEMOGLOBIN 8.1 gm/dL (13.0-16.0); LYMPHOCYTE# 1.2 X10e3 (1.0-3.5); LYMPHOCYTE% 12.3 % (17.0-45.0); MEAN CORPUSCULAR HEMOGLOBIN 32.3 PG (28-34); MEAN CORPUSCULAR HGB CONC 34.5 g/dL (30-36); MEAN PLATELET VOLUME 8.1 FL (6.5-11.5); MONOCYTE# 1.5 X10e3 (0-1.0); MONOCYTE% 15.4 % (3.0-12.0); NEUTROPHIL# 6.1 X10e3 (1.5-7.1); PLATELET COUNT 58 X10e3 (140-420); RED BLOOD COUNT 2.52 X10e (3.90-5.60); RED CELL DISTRIBUTION WIDTH 18.8 % (11.0-15.5); WHITE BLOOD COUNT 9.8 X10e3 (4.0-10.5)
[2016-09-07 04:26] LABS: MEAN CELL VOLUME 93.4 FL (83-96)
[2016-09-07 04:29] LABS: DIFF IND NO
[2016-09-07 04:47] LABS: BILIRUBIN,TOTAL 5.7 mg/dL (0.2-2.0); BUN/CREATININE RATIO 7.38; CALCIUM SERUM 7.7 mg/dL (8.4-10.2); CREATININE SERUM 6.5 mg/dL (0.6-1.4); GLOM FILT RATE Estimated 9.2 mL/min (>60); POTASSIUM 4.2 mmol/L (3.5-5.1); PROTEIN TOTAL SERUM 4.6 g/dL (6.0-8.3)
[2016-09-07 10:51] LABS: HEMATOCRIT 24.6 % (38.0-50.0); HEMOGLOBIN 8.4 gm/dL (13.0-16.0)
[2016-09-07 16:20] LABS: HEMATOCRIT 22.4 % (38.0-50.0); HEMOGLOBIN 7.6 gm/dL (13.0-16.0)
[2016-09-07 22:22] LABS: HEMATOCRIT 22.7 % (38.0-50.0); HEMOGLOBIN 7.7 gm/dL (13.0-16.0)
[2016-09-08 04:58] LABS: BASOPHIL# 0.1 X10e3 (0-0.3); BASOPHIL% 1.2 % (0-2.5); EOSINOPHIL# 0.7 X10e3 (0-0.7); EOSINOPHIL% 9.4 % (0.0-7.0); HEMATOCRIT 21.8 % (38.0-50.0); HEMOGLOBIN 7.3 gm/dL (13.0-16.0); LYMPHOCYTE# 1.1 X10e3 (1.0-3.5); LYMPHOCYTE% 14.8 % (17.0-45.0); MEAN CELL VOLUME 96.2 FL (83-96); MEAN CORPUSCULAR HEMOGLOBIN 32.4 PG (28-34); MEAN CORPUSCULAR HGB CONC 33.6 g/dL (30-36); MEAN PLATELET VOLUME 8.3 FL (6.5-11.5); MONOCYTE# 1.1 X10e3 (0-1.0); MONOCYTE% 14.8 % (3.0-12.0); NEUTROPHIL# 4.5 X10e3 (1.5-7.1); NEUTROPHIL% 59.8 % (40-75); PLATELET COUNT 52 X10e3 (140-420); RED BLOOD COUNT 2.27 X10e (3.90-5.60); RED CELL DISTRIBUTION WIDTH 19.5 % (11.0-15.5); WHITE BLOOD COUNT 7.5 X10e3 (4.0-10.5)
[2016-09-08 04:59] LABS: DIFF IND NO
[2016-09-08 06:01] LABS: ALBUMIN SERUM 1.7 g/dL (3.5-5.0); BILIRUBIN,TOTAL 2.4 mg/dL (0.2-2.0); BUN/CREATININE RATIO 7.05; CALCIUM SERUM 7.6 mg/dL (8.4-10.2); CREATININE SERUM 7.8 mg/dL (0.6-1.4); GLOM FILT RATE Estimated 7.3 mL/min (>60); POTASSIUM 3.8 mmol/L (3.5-5.1); PROTEIN TOTAL SERUM 3.8 g/dL (6.0-8.3)
[2016-09-09 06:02] LABS: ALBUMIN SERUM 1.9 g/dL (3.5-5.0); BILIRUBIN,TOTAL 2.9 mg/dL (0.2-2.0); BUN/CREATININE RATIO 6.03; CALCIUM SERUM 7.3 mg/dL (8.4-10.2); CREATININE SERUM 5.8 mg/dL (0.6-1.4); GLOM FILT RATE Estimated 10.5 mL/min (>60); POTASSIUM 3.8 mmol/L (3.5-5.1); PROTEIN TOTAL SERUM 4.6 g/dL (6.0-8.3)
[2016-09-09 06:22] LABS: BASOPHIL# 0.1 X10e3 (0-0.3); BASOPHIL% 0.4 % (0-2.5); EOSINOPHIL# 0.4 X10e3 (0-0.7); EOSINOPHIL% 2.3 % (0.0-7.0); HEMATOCRIT 29.5 % (38.0-50.0); LYMPHOCYTE# 1.2 X10e3 (1.0-3.5); LYMPHOCYTE% 7.1 % (17.0-45.0); MEAN CELL VOLUME 96.1 FL (83-96); MEAN CORPUSCULAR HEMOGLOBIN 31.9 PG (28-34); MEAN CORPUSCULAR HGB CONC 33.2 g/dL (30-36); MEAN PLATELET VOLUME 8.9 FL (6.5-11.5); MONOCYTE% 6.4 % (3.0-12.0); NEUTROPHIL# 13.5 X10e3 (1.5-7.1); NEUTROPHIL% 83.8 % (40-75); RED BLOOD COUNT 3.07 X10e (3.90-5.60); RED CELL DISTRIBUTION WIDTH 18.1 % (11.0-15.5)
[2016-09-09 06:26] LABS: PLATELET COUNT 42 X10e3 (140-420); WHITE BLOOD COUNT 16.2 X10e3 (4.0-10.5)
[2016-09-09 06:27] LABS: DIFF IND YES; HEMOGLOBIN 9.8 gm/dL (13.0-16.0)
[2016-09-09 07:30] LABS: ANISOCYTOSIS SL; PLATELET ESTIMATE DECREASED (NORMAL)
[2016-09-09] MEDS ORDERED: TIZANIDINE HCL4 M1 PO (15:59)
[2016-09-09] MEDS ORDERED: DAZIDOX10 MG PO (16:01)
[2016-09-10 05:10] LABS: BASOPHIL% 0.3 % (0-2.5); EOSINOPHIL# 0.7 X10e3 (0-0.7); EOSINOPHIL% 6.9 % (0.0-7.0); HEMATOCRIT 24.2 % (38.0-50.0); LYMPHOCYTE# 0.7 X10e3 (1.0-3.5); LYMPHOCYTE% 6.8 % (17.0-45.0); MEAN CELL VOLUME 98.6 FL (83-96); MEAN CORPUSCULAR HEMOGLOBIN 32.5 PG (28-34); MEAN PLATELET VOLUME 9.2 FL (6.5-11.5); MONOCYTE# 0.9 X10e3 (0-1.0); MONOCYTE% 8.6 % (3.0-12.0); NEUTROPHIL% 77.4 % (40-75); RED BLOOD COUNT 2.45 X10e (3.90-5.60); RED CELL DISTRIBUTION WIDTH 18.2 % (11.0-15.5); WHITE BLOOD COUNT 10.3 X10e3 (4.0-10.5)
[2016-09-10 05:13] LABS: DIFF IND NO; PLATELET COUNT 30 X10e3 (140-420)
[2016-09-10 05:51] LABS: BUN/CREATININE RATIO 5.97; CALCIUM SERUM 6.9 mg/dL (8.4-10.2); CREATININE SERUM 7.2 mg/dL (0.6-1.4); GLOM FILT RATE Estimated 8.1 mL/min (>60); POTASSIUM 3.4 mmol/L (3.5-5.1)
[2016-09-11 00:59] LABS: HA AB IGM (HEPPAN) Nonreactive (()); HB CORE AB IGM (HEPPAN) Nonreactive (Nonreactive); HB S AG (HEPPAN) Nonreactive (Nonreactive); HEP C AB (HEPPAN) Nonreactive (Nonreactive); HEP C AB SIGNAL TO CUTOFF 0.07 ratio (<1.00)
[2016-09-11 03:13] LABS: HEMATOCRIT 24.9 % (38.0-50.0); HEMOGLOBIN 8.2 gm/dL (13.0-16.0); MEAN CORPUSCULAR HEMOGLOBIN 32.5 PG (28-34); MEAN CORPUSCULAR HGB CONC 33.1 g/dL (30-36); MEAN PLATELET VOLUME 9.9 FL (6.5-11.5); RED BLOOD COUNT 2.54 X10e (3.90-5.60); RED CELL DISTRIBUTION WIDTH 20.8 % (11.0-15.5); WHITE BLOOD COUNT 9.7 X10e3 (4.0-10.5)
[2016-09-11 04:12] LABS: BUN/CREATININE RATIO 5.66; CALCIUM SERUM 6.7 mg/dL (8.4-10.2); CREATININE SERUM 8.3 mg/dL (0.6-1.4); GLOM FILT RATE Estimated 6.8 mL/min (>60); POTASSIUM 3.6 mmol/L (3.5-5.1)
[2016-09-12 05:57] LABS: HEMATOCRIT 25.9 % (38.0-50.0); HEMOGLOBIN 8.6 gm/dL (13.0-16.0); MEAN CELL VOLUME 95.8 FL (83-96); MEAN CORPUSCULAR HEMOGLOBIN 31.7 PG (28-34); MEAN CORPUSCULAR HGB CONC 33.1 g/dL (30-36); MEAN PLATELET VOLUME 9.9 FL (6.5-11.5); RED BLOOD COUNT 2.71 X10e (3.90-5.60); RED CELL DISTRIBUTION WIDTH 20.2 % (11.0-15.5); WHITE BLOOD COUNT 11.6 X10e3 (4.0-10.5)
[2016-09-12 06:20] LABS: ALBUMIN SERUM 1.2 g/dL (3.5-5.0); BILIRUBIN,TOTAL 2.1 mg/dL (0.2-2.0); BUN/CREATININE RATIO 5.08; CALCIUM SERUM 6.5 mg/dL (8.4-10.2); CREATININE SERUM 5.9 mg/dL (0.6-1.4); GLOM FILT RATE Estimated 10.3 mL/min (>60); POTASSIUM 3.2 mmol/L (3.5-5.1); PROTEIN TOTAL SERUM 3.4 g/dL (6.0-8.3)
[2016-09-12] MEDS ORDERED: LACTULOSE20 GM/30 M (10:30)
[2016-09-12] MEDS ORDERED: ACETAMINOPHEN650 M3 PO (10:33)
[2016-09-12] MEDS ORDERED: XIFAXAN550 MG PO (10:38)
[2016-09-12] MEDS ORDERED: CALCIUM500 M1 (10:47)
[2016-09-12] MEDS ORDERED: TYL325 PO (12:27)
[2016-09-12] MEDS ORDERED: CALCIUM CARBON500 M2 PO (12:30)
== END 2016-09-12 15:58 | disposition home or self-care (01) | DRG 377 ==
LOC: CED 20:22 → CICCU2 23:30 → CEDOF 23:30 → CED 09-06 00:07 → CICCU2 09-06 09:11 → CEDOF 09-06 09:11 → C3A PCU 09-09 18:35
PROVIDERS: Emergency Medicine; Internal Medicine Gastroenterology; Internal Medicine Nephrology; Physician Assistant Medical
PROC: 30233N1 Transfusion of Nonautologous Red Blood Cells into Peripheral Vein, Percutaneous Approach (ICD-10-PCS; 2016-09-06)
PROC: 30233J1 Transfusion of Nonautologous Serum Albumin into Peripheral Vein, Percutaneous Approach (ICD-10-PCS; 2016-09-06)
PROC: 02HV33Z Insertion of Infusion Device into Superior Vena Cava, Percutaneous Approach (ICD-10-PCS; 2016-09-06)
PROC: 5A1D60Z (ICD-10-PCS; principal; 2016-09-06 14:30)
PROC: 0D578ZZ Destruction of Stomach, Pylorus, Via Natural or Artificial Opening Endoscopic (ICD-10-PCS; 2016-09-06 14:30)
PROC: 0W9G3ZZ Drainage of Peritoneal Cavity, Percutaneous Approach (ICD-10-PCS; 2016-09-07)
DX: K31.811 Angiodysplasia of stomach and duodenum with bleeding (principal); N18.6 End stage renal disease; J96.00 Acute respiratory failure, unspecified whether with hypoxia or hypercapnia; R57.1 Hypovolemic shock; R18.8 Other ascites; I12.0 Hypertensive chronic kidney disease with stage 5 chronic kidney disease or end stage renal disease; I95.89 Other hypotension; D62 Acute posthemorrhagic anemia; K76.6 Portal hypertension; Z99.2 Dependence on renal dialysis; F17.210 Nicotine dependence, cigarettes, uncomplicated; E83.51 Hypocalcemia; F32.9 Major depressive disorder, single episode, unspecified; D69.59 Other secondary thrombocytopenia; J44.9 Chronic obstructive pulmonary disease, unspecified; N40.0 Benign prostatic hyperplasia without lower urinary tract symptoms; K72.90 Hepatic failure, unspecified without coma; K31.89 Other diseases of stomach and duodenum; K70.30 Alcoholic cirrhosis of liver without ascites; K70.10 Alcoholic hepatitis without ascites; I85.00 Esophageal varices without bleeding; G47.33 Obstructive sleep apnea (adult) (pediatric)
CPT/HCPCS: 71010; 80048; 80053; 80074; 80076; 82140; 82553; 83605; 83735; 84100; 84484; 85014; 85018; 85025; 85027; 85610; 85730; 86850; 86900; 86901; 86923; 87040; 93005; 94640; 94760; 96374; 96375; 99291; C9113; G0480; J0696; J0885; J2250; J2354; J2405; J2543; J2550; P9016; P9045

== ENCOUNTER 2016-09-20 10:29 | Inpatient (IN) | payer OTHER ==
--- NOTE | ~2016-09-20 | CR72 ---
[facility] A Service of [facility] & [facility] RADIOLOGY TEXT RESULTS PATIENT: MIRA BRAXTON LOCATION: [facility] [address]-00 : [birth year] UNIT #: [id number] AGE: [address]: Helder Linda MD SEX: M ORDER DR: [id number] [facility] [address] [facility]. [place], [place] [address] [id number] MR#: [id number] Acc #: [id number] NAME: MIRA BRAXTON. : 1965 SEX: M STUDY DATE/TIME: 09/20/2016 12:05 UNIT: BRAXTON ROOM: STUDY DESCRIPTION: CR Chest Single View Portable Attending Physician: Philippe Montiel D.O. Ordering Physician: Philippe Montiel D.O. Primary Care Physician: Colton Mcdowell M.D. MEDICAL IMAGING REPORT This report is preliminary unless electronic signature is present EXAM Chest portable, 09/20/2016 12:05 hours HISTORY Central line placement today. History of shortness of air and asthma. COMPARISON 09/20/2016 FINDINGS Portable upright chest is less rotated. There is a right IJ catheter with tip terminating in the upper right atrium. If it is desired to have the tip in the SVC, I would suggest withdrawing approximately 1.0-2.0 cm. Lung volumes are low. Heart size is normal. There is perihilar and basilar vascular crowding without definite pneumonia, edema, effusion or pneumothorax. IMPRESSION New right IJ catheter tip terminates in the upper right atrium. If it is desired to have the tip in the SVC I would suggest withdrawing the catheter 1.5-2.0 cm. The lung volumes are low but there are no acute pulmonary or pleural findings. No pneumothorax. Dictated by... Katy Zuniga M.D. THIS IS AN ELECTRONICALLY VERIFIED REPORT Katy Zuniga M.D. at 09/20/2016 2:31 PM Yuval TD: 09/20/2016 13:04 JOB #: [id number] [facility] A Service of [facility] & [facility] RADIOLOGY TEXT RESULTS PATIENT: IMRA BRAXTON [facility]ATION[facility] [address] [id number] : [birth year] UNIT #: [id number] AGE: [address]: Helder Linda MD SEX: M ORDER DR: MEDICAL IMAGING REPORT Page 1 of 1 COPY
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
--- NOTE | ~2016-09-20 | CR72 ---
[facility] A Service of [facility] RADIOLOGY TEXT RESULTS PATIENT: MIRA BRAXTON [facility] [id number] : [birth year] UNIT #: [id number] AGE: [address]: Helder Linda MD SEX: M ORDER DR: [id number] [facility] [address] [place], [place] [address] [id number] MR#: [id number] Acc #: [id number] NAME: MIRA BRAXTON : 1965 SEX: M STUDY DATE/TIME: 09/20/2016 10:57 UNIT: [facility] ROOM: STUDY DESCRIPTION: CR Chest Single View Portable Attending Physician: Philippe Montiel D.O. Ordering Physician: Philippe Montiel D.O. Primary Care Physician: Colton Mcdowell M.D. MEDICAL IMAGING REPORT This report is preliminary unless electronic signature is present EXAM Chest portable, 09/20/2016 10:57 hours HISTORY 51-year-old man with weakness, altered mental status and hypotension today. COMPARISON 09/08/2016 FINDINGS Portable upright chest demonstrates the patient to be rotated to the left. Allowing for this the heart size is stable and the mediastinal contours are likely stable. Right PICC line has been removed. There is no definite acute pulmonary density or pleural effusion. IMPRESSION Film is limited by leftward rotation of the patient. No definite acute cardiopulmonary findings. Right PICC line has been removed since 09/08/2016. No pneumothorax. Dictated by... Katy Zuniga M.D. THIS IS AN ELECTRONICALLY VERIFIED REPORT Katy Zuniga M.D. at 09/20/2016 2:31 PM Yuval TD: 09/20/2016 12:14 JOB #: [id number] MEDICAL IMAGING REPORT Page 1 of 1 COPY
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
--- NOTE | ~2016-09-20 | EKG ---
PATIENT: MIRA BRAXTON UNIT #: [id number] Ventricular Rate: 111 BPM Atrial Rate: 111 BPM P-R Interval: 138 ms QRS Duration: 84 ms Q-T Interval: 334 ms QTC Calculation(Bezet): 454 ms Calculated R [place]: 12 degrees Calculated T [place]: 23 degrees Diagnosis Line: Sinus tachycardia Diagnosis Line: Low voltage QRS Diagnosis Line: Nonspecific T wave abnormality Diagnosis Line: Abnormal ECG Diagnosis Line: When compared with ECG of 05-SEP-2016 21:19, Diagnosis Line: Nonspecific T wave abnormality now evident in Diagnosis Line: Lateral leads Diagnosis Line: Confirmed by PRANAY PIERSON MD ([id number]) on Diagnosis Line: 09/21/2016 4:00:44 PM INTERPRETING MD: ALMAS
--- NOTE | ~2016-09-20 | CT71 ---
[facility] A Service of [facility] RADIOLOGY TEXT RESULTS PATIENT: MIRA BRAXTON LOCATION: [facility] : [birth year] UNIT #: [id number] AGE: [address]: Helder Linda MD SEX: M ORDER DR: [id number] [facility] [address] [place], [place] [address] [id number] I MR#: [id number] Acc #: [id number] NAME: MIRA BRAXTON. : 1965 SEX: M STUDY DATE/TIME: 09/20/2016 17:21 UNIT: [facility] ROOM: [facility] STUDY DESCRIPTION: CT Head Wo Contrast Attending Physician: Helder Linda M.D. Ordering Physician: Philippe Montiel D.O. Primary Care Physician: Colton Mcdowell M.D. MEDICAL IMAGING REPORT This report is preliminary unless electronic signature is present EXAM CT head without contrast INDICATIONS New onset confusion today. PROCEDURE Unenhanced CT head. This CT exam was performed with one or more of the following radiation dose reduction techniques: automatic exposure control, adjustment of mA and/or kV according to patient size, and iterative reconstruction. COMPARISON 06/04/2016 FINDINGS No acute hemorrhage, abnormal mass effect, extraaxial collection or hydrocephalus. No definitive evidence for acute early or subacute large territory infarct. No depressed calvarial fracture. The paranasal sinuses and mastoid air cells are clear. IMPRESSION No acute intracranial findings. Dictated by... Piyush Coleman M.D. THIS IS AN ELECTRONICALLY VERIFIED REPORT Piyush Coleman M.D. at 09/21/2016 9:29 AM LIZBETH/tiffany TD: 09/20/2016 18:52 [facility] A Service [facility] RADIOLOGY TEXT RESULTS PATIENT: MIRA BRAXTON LOCATION: [address] : [birth year] UNIT #: [id number] AGE: [address]: Helder Linda MD SEX: M ORDER DR: JOB #: [id number] MEDICAL IMAGING REPORT Page 1 of 1 COPY
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
[~2016-09-20 10:29] MED LIST changes: +ACETAMINOPHEN650 M3 PO; +CALCIUM CARBON500 M2 PO; +CALCIUM500 M1; +DAZIDOX10 MG PO; +LACTULOSE20 GM/30 M; +TIZANIDINE HCL4 M1 PO; +TYL325 PO
[2016-09-20 11:11] LABS: POC - CKMB <1.0 ng/mL (0.0-7.9); POC - TROPONIN 0.15 ng/mL (<=0.05)
[2016-09-20 11:13] LABS: BASOPHIL# 0.1 X10e3 (0-0.3); BASOPHIL% 0.7 % (0-2.5); EOSINOPHIL# 0.4 X10e3 (0-0.7); EOSINOPHIL% 2.7 % (0.0-7.0); HEMATOCRIT 17.5 % (38.0-50.0); LYMPHOCYTE# 0.9 X10e3 (1.0-3.5); LYMPHOCYTE% 5.4 % (17.0-45.0); MEAN CELL VOLUME 102.9 FL (83-96); MEAN CORPUSCULAR HEMOGLOBIN 32.3 PG (28-34); MEAN CORPUSCULAR HGB CONC 31.4 g/dL (30-36); MEAN PLATELET VOLUME 8.9 FL (6.5-11.5); MONOCYTE% 5.9 % (3.0-12.0); NEUTROPHIL# 14.1 X10e3 (1.5-7.1); NEUTROPHIL% 85.3 % (40-75); PLATELET COUNT 92 X10e3 (140-420); RED CELL DISTRIBUTION WIDTH 23.1 % (11.0-15.5); WHITE BLOOD COUNT 16.5 X10e3 (4.0-10.5)
[2016-09-20 11:17] LABS: DIFF IND YES; HEMOGLOBIN 5.5 gm/dL (13.0-16.0)
[2016-09-20 11:32] LABS: INR 1.2; PARTIAL THROMBOPLASTIN TIME 29.7 SECONDS (23.5-31.3); PROTHROMBIN TIME (PATIENT) 13.1 SECONDS (10.0-11.7)
[2016-09-20 11:38] LABS: ANISOCYTOSIS SL; POIKILOCYTOSIS SL; RBC NORMAL YES
[2016-09-20 11:39] LABS: HYPOCHROMIA SL; MICROCYTOSIS SL
[2016-09-20 11:40] LABS: PLATELET ESTIMATE DECREASED (NORMAL)
[2016-09-20 11:45] LABS: ALBUMIN SERUM 1.9 g/dL (3.5-5.0); BILIRUBIN,TOTAL 1.5 mg/dL (0.2-2.0); BUN/CREATININE RATIO 5.54; CALCIUM SERUM 7.8 mg/dL (8.4-10.2); CREATININE SERUM 7.4 mg/dL (0.6-1.4); GLOM FILT RATE Estimated 7.8 mL/min (>60); PROTEIN TOTAL SERUM 4.9 g/dL (6.0-8.3)
[2016-09-20 12:23] LABS: ARTERIAL BLD GAS O2 SATURATION 95.4 % (90.0-100.0); ARTERIAL BLOOD GAS ALLEN TEST NORMAL; ARTERIAL BLOOD GAS ART SITE RIGHT RADIAL; ARTERIAL BLOOD GAS CARBOXY HB 2.4 %sat (0.0-9.0); ARTERIAL BLOOD GAS HCO3 25.7 mmol/L; ARTERIAL BLOOD GAS MET HB 1.4 %sat (0.0-2.0); ARTERIAL BLOOD GAS PCO2 35.5 mmHg (35.0-45.0); ARTERIAL BLOOD GAS PO2 62.9 mmHg (80.0-100); ARTERIAL BLOOD GAS pH 7.468 (7.350-7.450); ARTERIAL DRAW? YES
[2016-09-20 12:57] LABS: URINE APPEARANCE CLEAR; URINE BLOOD NEG (NEG); URINE COLOR DK YELLOW; URINE GLUCOSE NEG (NEG); URINE KETONE 1+ (NEG); URINE LEUKOCYTE ESTERASE TRACE (NEG); URINE NITRATE NEG (NEG); URINE PROTEIN NEG (NEG); URINE SPECIFIC GRAVITY 1.024 (1.003-1.035)
[2016-09-20 12:59] LABS: URBCS1 AUWI 0-2 /[HPF] (0-2); URINE BACTERIA AUWI NEG (NEGATIVE); URINE SQUAMOUS EPITHELIAL CELL NONE SEEN /[HPF]; UWBCS1 AUWI 0-2 (0-5)
[2016-09-20 13:10] LABS: CULTURE INDICATED? NO
[2016-09-20 13:11] LABS: URINE BILIRUBIN NEG (NEG)
[2016-09-20 13:12] LABS: U HYALINE CASTS AUWI 25-50 /[LPF]; URINE AMORPHOUS SEDIMENT AMORP URATES; URINE GRANULAR CAST 0-2 /[HPF]
[2016-09-20 13:13] LABS: URINE SOURCE CATH
[2016-09-20 18:10] LABS: %MB 1.8 % (0.0-4.0); MB 3.4 ng/ml
[2016-09-20 22:55] LABS: HEMATOCRIT 21.1 % (38.0-50.0)
[2016-09-20 22:56] LABS: HEMOGLOBIN 6.9 gm/dL (13.0-16.0)
[2016-09-20 23:36] LABS: MB 3.6 ng/ml
[2016-09-21 04:00] LABS: HEMATOCRIT 25.2 % (38.0-50.0); HEMOGLOBIN 8.3 gm/dL (13.0-16.0)
[2016-09-21 09:28] LABS: BASOPHIL# 0.1 X10e3 (0-0.3); BASOPHIL% 0.5 % (0-2.5); EOSINOPHIL# 0.6 X10e3 (0-0.7); EOSINOPHIL% 3.1 % (0.0-7.0); HEMATOCRIT 24.8 % (38.0-50.0); HEMOGLOBIN 8.2 gm/dL (13.0-16.0); LYMPHOCYTE# 1.1 X10e3 (1.0-3.5); LYMPHOCYTE% 5.8 % (17.0-45.0); MEAN CORPUSCULAR HGB CONC 33.3 g/dL (30-36); MONOCYTE# 1.4 X10e3 (0-1.0); MONOCYTE% 7.2 % (3.0-12.0); NEUTROPHIL# 16.4 X10e3 (1.5-7.1); NEUTROPHIL% 83.4 % (40-75); PLATELET COUNT 120 X10e3 (140-420); RED BLOOD COUNT 2.66 X10e (3.90-5.60); RED CELL DISTRIBUTION WIDTH 22.6 % (11.0-15.5); WHITE BLOOD COUNT 19.6 X10e3 (4.0-10.5)
[2016-09-21 09:31] LABS: MEAN CELL VOLUME 93.1 FL (83-96)
[2016-09-21 09:33] LABS: DIFF IND NO
[2016-09-21 09:55] LABS: BUN/CREATININE RATIO 5.67; CALCIUM SERUM 7.9 mg/dL (8.4-10.2); CREATININE SERUM 8.1 mg/dL (0.6-1.4); POTASSIUM 3.6 mmol/L (3.5-5.1)
== END 2016-09-21 14:48 | disposition left against medical advice (07) | DRG 871 ==
LOC: CED 10:29 → CEDOF 12:40 → CED 12:44 → CICCU3 12:44 → CEDOF 17:41 → CICCU3 09-21 14:48
PROVIDERS: Emergency Medicine; Hospitalist
PROC: B246YZZ Ultrasonography of Right and Left Heart using Other Contrast (ICD-10-PCS; principal; 2016-09-20)
PROC: 05HM33Z Insertion of Infusion Device into Right Internal Jugular Vein, Percutaneous Approach (ICD-10-PCS; 2016-09-20)
PROC: 30233N1 Transfusion of Nonautologous Red Blood Cells into Peripheral Vein, Percutaneous Approach (ICD-10-PCS; 2016-09-20)
DX: A41.9 Sepsis, unspecified organism (principal); K65.2 Spontaneous bacterial peritonitis; E87.2 Acidosis; N18.6 End stage renal disease; D69.6 Thrombocytopenia, unspecified; E46 Unspecified protein-calorie malnutrition; K70.31 Alcoholic cirrhosis of liver with ascites; K92.2 Gastrointestinal hemorrhage, unspecified; F10.20 Alcohol dependence, uncomplicated; F32.9 Major depressive disorder, single episode, unspecified; N40.0 Benign prostatic hyperplasia without lower urinary tract symptoms; K31.9 Disease of stomach and duodenum, unspecified; K72.90 Hepatic failure, unspecified without coma
CPT/HCPCS: 36415; 36600; 70450; 71010; 80048; 80053; 80202; 81003; 82140; 82550; 82553; 82803; 82947; 83605; 84484; 85014; 85018; 85025; 85610; 85730; 86850; 86900; 86901; 86923; 87040; 93005; 93306; 94640; 99291; C9113; G0480; J0696; J2250; J2354; J2370; J3370; P9016

== ENCOUNTER → 2016-09-24 | Outpatient (CLI) | payer OTHER ==
[~2016-09-24] MED LIST changes: +ACETAMINOPHEN PO; +AMBIEN10 MG PO; +AUGM PO; +AUGMENTIN PO; +CALCIUM ACETAT667 M1 PO; +CORTEF10 MG PO; +HYDROCORTISONE10 M1 PO; +KEPPRA750 M1 PO; +LACTULOSE10 GM/151 PO; +MAXIMUM DAILY1 EACH PO; +PATIENT'S PHARMACY; +PRO-AMATINE5 MG PO; +PROBIOTIC250 MG PO; +SEROQUEL50 M1 PO; +TUMS500 MG PO; +ZANAFLEX PO
--- NOTE | ~2016-09-24 | XA170 ---
[facility] A Service of [facility] RADIOLOGY TEXT RESULTS PATIENT: MIRA BRAXTON LOCATION: [facility] : [birth year] UNIT #: [id number] AGE: [address]: Akshat Umana MD SEX: M ORDER DR: [id number] [facility] [address]. [place], [place] [address] [id number] O MR#: [id number] Acc #: [id number] NAME: MIRA BRAXTON : 1965 SEX: M STUDY DATE/TIME: 09/24/2016 10:30 UNIT: [facility] ROOM: STUDY DESCRIPTION: XA Paracentesis W Image Attending Physician: Akshat Umana M.D. Referring Physician: Akshat Umana M.D. Ordering Physician: Akshat Umana M.D. Primary Care Physician: Colton Mcdowell M.D. MEDICAL IMAGING REPORT This report is preliminary unless electronic signature is present EXAM Ultrasound-guided paracentesis INDICATIONS Recurrent ascites. The risks, benefits and alternatives of the procedure were discussed with the patient; informed consent was obtained. In the procedure room, time-out was performed confirming correct patient and procedure. All elements of maximum sterile barrier technique utilized according to guidelines appropriate for the procedure. TECHNIQUE/FINDINGS Ultrasound of the left lower quadrant was performed. There was a large amount of ascites. The overlying skin was prepped and draped in the usual sterile fashion with 1% lidocaine utilized to anesthetize the skin and underlying subcutaneous tissues. Next, under ultrasound guidance, a 5-Nepali Yueh catheter was inserted into the peritoneal space of the left lower quadrant and initially 5 L of fluid was removed. The catheter stopped draining. Further ultrasound demonstrated some persistent fluid within the right mid abdomen. The skin overlying this area was prepped and draped in the usual sterile fashion with 1% lidocaine utilized to anesthetize the skin and underlying subcutaneous tissues. Next, under ultrasound guidance, a 5-Nepali Yueh catheter was inserted into the peritoneal space in the right mid abdomen and another 3300 mL of clear yellow fluid was removed for a total of 8,300 mL. Needle was removed and a sterile dressing was applied. No immediate complications. IMPRESSION Technically successful ultrasound-guided paracentesis. Dictated by... [facility]. [facility] A Service of [facility] RADIOLOGY TEXT RESULTS PATIENT: MIRA BRAXTON LOCATION: [facility] #: [id number] : [birth year] UNIT #: [id number] AGE: [address]: Akshat Umana MD SEX: M ORDER DR: Nixon Madera M.D. THIS IS AN ELECTRONICALLY VERIFIED REPORT Nixon Madera M.D. at 09/25/2016 10:06 AM RAH/alysa TD: 09/24/2016 22:07 JOB #: [id number] MEDICAL IMAGING REPORT Page 1 of 1 COPY
== END | disposition home or self-care (01) ==
LOC: CIVR 09-21 08:00
PROC: 0W9G3ZZ Drainage of Peritoneal Cavity, Percutaneous Approach (ICD-10-PCS; principal; 2016-09-24)
DX: K76.9 Liver disease, unspecified (principal); R18.8 Other ascites

== ENCOUNTER → 2016-10-05 | Outpatient (CLI) | payer OTHER ==
--- NOTE | ~2016-10-05 | XA170 ---
[facility] A Service of [facility] & [facility] RADIOLOGY TEXT RESULTS PATIENT: MIRA BRAXTON LOCATION: [facility] : 69 UNIT #: [id number] AGE: [address]: Akshat Umana MD SEX: M ORDER DR: [id number] [facility] [address] [place], [place] [address] [id number] O MR#: [id number] Acc #: [id number] NAME: MIRA BRAXTON : 1965 SEX: M STUDY DATE/TIME: 10/05/2016 7:52 UNIT: [facility] ROOM: STUDY DESCRIPTION: XA Paracentesis W Image Attending Physician: Akshat Umana M.D. Referring Physician: Akshat mUana M.D. Ordering Physician: Akshat Umana M.D. Primary Care Physician: Colton Mcdowell M.D. MEDICAL IMAGING REPORT This report is preliminary unless electronic signature is present EXAM Ultrasound guided paracentesis INDICATIONS Ascites. PROCEDURE The risks, benefits and alternatives to the procedure were explained to the patient, and signed, informed consent was obtained, patient placed supine on the stretcher. Preliminary ultrasound of the abdomen was performed which demonstrated large volume of ascites. This image was permanently saved. Overlying skin was marked. The patient was prepped and draped in the usual sterile fashion. Time-out was performed as per protocol. Skin and subcutaneous tissues were anesthetized with buffered lidocaine and a Yueh catheter was advanced into fluid with aspiration of serous material. Catheter was hooked to suction tubing, however flow through the catheter was extremely slow, presumably due to adjacent bowel loops. Subsequently, skin and subcutaneous tissues were again anesthetized with buffered lidocaine and another Yueh catheter was advanced into the fluid. Wire was advanced through the catheter and a 6-Togolese pigtail catheter was advanced into the ascites. It was placed to suction drainage with relatively slow drainage of the fluid. Ultimately we were able to remove about 6.3 L of serous material. Catheter was then removed and manual pressure was applied until hemostasis was obtained. IMPRESSION Technically successful ultrasound-guided paracentesis with evacuation of 6.3 L of serous material. Ultrasound was used during the procedure and permanent images were saved. Dictated by... Brandie Maya M.D. [facility] A Service of [facility] RADIOLOGY TEXT RESULTS PATIENT: MIRA BRAXTON LOCATION: [facility] : 69 UNIT #: [id number] AGE: [address]: Akshat Umana MD SEX: M ORDER DR: THIS IS AN ELECTRONICALLY VERIFIED REPORT Brandie Maya M.D. at 10/08/2016 5:21 PM JAEL/tiffany TD: 10/08/2016 15:22 JOB #: [id number] MEDICAL IMAGING REPORT Page 1 of 1 COPY
--- NOTE | ~2016-10-05 | OR ---
Unit #: [id number] #: [id number] Patient: MIRA BRAXTON [id number] [address] [address] [id number] P MR#: [id number] NAME: MIRA BRAXTON ROOM: Date of Procedure: 09/21/2016 Admission Date: 10/05/2016 Surgeon: Akshat Umana M.D. : 1965 Attending Physician: Akshat Umana M.D. Referring Physician: Akshat Umana M.D. Primary Care Physician: Akshat Umana M.D. OPERATIVE REPORT PRIMARY CARE PHYSICIAN Colton Mcdowell M.D. PREOPERATIVE DIAGNOSES Upper gastrointestinal bleed, anemia of acute gastrointestinal blood loss. The patient has background history of advanced alcoholic cirrhosis as well as end-stage renal disease, on hemodialysis. PROCEDURES PERFORMED Upper gastrointestinal endoscopy. POSTOPERATIVE DIAGNOSES 1. The patient had early esophageal varices. There being no stigmata of recent bleed. 2. The gastric cavity showed changes of portal hypertensive gastropathy; however, previously seen angiodysplasias were completely resolved and this was a very positive and surprising finding. No blood or blood residue or active bleeding was noted in the entire upper gastrointestinal tract. RECOMMENDATIONS The patient's anemia is almost certainly due to underlying renal disease and it should be managed with a combination of blood transfusions and Procrit as needed. SEDATION USED MAC. DESCRIPTION OF PROCEDURE Following detailed explanation of the potential risks and complications of an upper endoscopy, namely perforation, bleeding, and complications related to sedation, the patient was brought to GI lab and laid in the left lateral decubitus position. The procedure was done in intensive care unit at the patient's bedside. Lubricated tip of the Olympus video upper endoscope was passed through bite block into the proximal esophagus under direct vision. The entire esophageal mucosa was examined and the patient was noted to have early esophageal varices. These were straight varices with no stigmata of recent bleed. The scope was then advanced into the gastric cavity and changes of portal hypertensive gastropathy were seen in the fundic mucosa. This has been noted earlier as well; however, surprising, there were no angiodysplasias in the prepyloric antral area, where there had been seen numerable times. No blood or blood residue was seen and no active bleeding was noted. Pylorus was intubated with Unit #: [id number] #: [id number] Patient: MIRA BRAXTON visualization of the normal duodenal bulb and second and third part of the duodenum. Upon withdrawal and retroflexion, incisura, cardia, and greater curve examined and no additional findings noted. The scope was then withdrawn in the distal esophagus. The entire esophageal mucosa was examined all the way up to pharynx. No additional findings noted. The patient tolerated the procedure without any postprocedure complications. Dictated by... Bi Barry/dorota TD: 10/02/2016 13:28 JOB #: [id number] CC: Bi Marie M.D. OPERATIVE REPORT Page 1 of 1 X Akshat Umana MD X PROCEDURE OPERATIVE NOTE
== END | disposition home or self-care (01) ==
LOC: CIVR 07:33
PROC: 0W9G3ZZ Drainage of Peritoneal Cavity, Percutaneous Approach (ICD-10-PCS; principal; 2016-10-05)
DX: K76.6 Portal hypertension (principal); K70.31 Alcoholic cirrhosis of liver with ascites; I85.10 Secondary esophageal varices without bleeding; K31.89 Other diseases of stomach and duodenum; N18.6 End stage renal disease; D63.1 Anemia in chronic kidney disease; Z99.2 Dependence on renal dialysis
CPT/HCPCS: 36430; 86850; 86900; 86901; 86923; C1729; P9016

== ENCOUNTER 2016-10-08 12:21 | Inpatient (IN) | payer OTHER ==
--- NOTE | ~2016-10-08 | DS ---
Unit #: [id number] #: [id number] Patient: MIRA DANIELSON [id number] [address] [address] [id number] I MR#: [id number] NAME: MIRA DANIELSON. ROOM: 313 Age: 51 Sex: M Admission Date: 10/08/2016 : 1965 Discharge Date: 10/17/2016 Attending Physician: Neena Crisostomo M.D. Primary Care Physician: Colton Mcdowell M.D. DISCHARGE SUMMARY FINAL DIAGNOSES 1. Altered mental status which is improved. 2. Hepatic encephalopathy, improved. 3. Aspiration pneumonia. 4. Adrenal insufficiency. 5. Hyponatremia. 6. Hypokalemia. 7. Anemia with history of gastrointestinal bleed. 8. Chronic orthostatic hypotension. 9. Chronic kidney disease, on hemodialysis. 10. Ascites, status post paracentesis. 11. Seizures. 12. History of alcoholic cirrhosis, chronic hepatic disease, esophageal varices, portal gastropathy. 13. History of chronic thrombocytopenia. 14. History of chronic obstructive pulmonary disease. CONSULTATIONS 1. Dr. Dl Vicente from renal services. 2. Dr. Beach from neurology services. 3. Dr. Hillman and Dr. Umer Guevara from pulmonary services. 4. Dr. Akshat Umana from GI services. DIAGNOSTIC STUDIES LABORATORY ON DISCHARGE: Blood culture is negative. Occult blood in stool is positive. Sodium 130, potassium 3.6, chloride 97, BUN 52, creatinine 7.6, AST 57, and ALT 76. WBC 15.2, hemoglobin 7.8, hematocrit 24.6, and platelet count of 41,000. Glucose 175. PROCEDURE PERFORMED Paracentesis was done on October 16, 2016, and 8400 mL of ascites was drained and discarded. HOSPITAL COURSE Mr. Mira Danielson is a 51-year-old male who is very well known to me from multiple admissions who was admitted this time with altered mental status and unresponsive. The patient was diagnosed with hepatic encephalopathy, hyperkalemia, and anemia. Patient was admitted to the ICU and started on pressors because of hypotension. Dr. Hillman was consulted. Patient was started on broad spectrum IV antibiotic for possible aspiration pneumonia also. Prior to coming to the hospital, the patient was not having bowel movement in spite of taking lactulose. I have explained to patient and patient's Unit #: [id number] #: [id number] Patient: MIRA DANIELSON that he does need to make sure that he is having bowel movements. Otherwise, he will go into hepatic encephalopathy. He does verbalize understanding. Patient did have a lengthy stay during hospitalization, but he is doing better at this time and is being discharged home. Patient does have chronic kidney disease and chronic anemia. He is going to get hemodialysis done today and get two units packed RBC transfusion today. Patient will continue hemodialysis as per Renal recommendation. Patient does have ascites. He may need outpatient paracentesis off and on. DISCHARGE MEDICATIONS 1. Augmentin 500/125 at 1 tablet b.i.d. 2. Hydrocortisone 10 mg b.i.d. 3. Thiamine 100 mg daily. 4. Folic acid 1 mg daily. 5. PhosLo 1334 mg t.i.d. 6. Protonix 40 mg daily. 7. Hydrocodone, continue home dose. 8. Multivitamin daily. 9. Carafate, continue home dose. 10. ProAmatine, continue home dose. 11. Ambien 5 mg at bedtime p.r.n. 12. Seroquel 50 mg b.i.d. 13. Keppra 750 mg twice daily. 14. Xifaxan 550 mg twice daily. 15. Tylenol 650 q.4 p.r.n. 16. Lactulose 20 g t.i.d. 17. Sodium bicarbonate 650 mg daily. PHYSICAL EXAMINATION ON DISCHARGE VITAL SIGNS: Blood pressure is 93/53, respiratory rate 18, pulse 94, temperature 97.5, and oxygen saturation is 100%. CHEST: Fair air entry, decreased at the bases. Rhonchi present. CARDIOVASCULAR: S1 and S2 positive. Regular rhythm. ABDOMEN: Soft and nontender. EXTREMITIES: Edema present. NEUROLOGIC: Speech is clear. DISCHARGE INSTRUCTIONS 1. Patient is being discharged home in stable condition. 2. Medications as per medication reconciliation. 3. Caretender to evaluate at home. 4. Hemodialysis per Renal. 5. Follow up with Dr. Akshat Umana in one week. Patient may benefit from TIPS procedure. 6. Follow up with primary care provider in one week. 7. Labs, CBC to be repeated in one week. 8. Most likely leukocytosis is secondary to steroids. 9. Please note, patient's C. difficile culture is still pending. Please follow up on that, although most likely patient does not have C. difficile infection. But again, it is still pending at this time. The plan of care has been discussed with patient at length. Dictated by... Unit #: [id number] #: [id number] Patient: MIRA DANIELSON M.D. KN/am TD: 10/18/2016 15:38 JOB #: [id number] DISCHARGE SUMMARY Page 1 of 1 X Neena Crisostomo MD X DISCHARGE SUMMARY
--- NOTE | ~2016-10-08 | FU ---
[facility] Nutrition Therapy DATE: 10/15/16 Patient: MIRA BRAXTON Physician: GARCIA Address: [address] Room/Bed: [address], Zip: [place] [address] Admit Date: 10/08/16 Date of : [birth year] Height: 6 0 Weight: 246 112 NUTRITION MONITORING/FOLLOW-UP: Reason: PT SEEN FOR FOLLOW-UP DX: HEPATIC ENCEPHALOPATHY, AMS Anthropometrics: 6'0", WT: 233# (106 KG), BMI: 31.6 -ADMIT WEIGHT: 231# Labs: GLU: 151, BUN: 43, CREAT: 7.3, CA+:7.6, ALB: 1.8, AST: 99, ALT: 70, NA+:125 Meds: LACTULOSE, PROTONIX, D5%, FOLIC ACID, THIAMINE, SOLU-MEDROL, PHOSLO, TUMS, PHENERGAN, NACL I&O's: 3638/2, 2 BMs NOTED Skin: BLE 2+ EDEMA; ABD/HIP GENERALIZED EDEMA Estimated Nutrition Needs: [id number] KCAL 105-126 G PRO Assessment: CHART REVIEWED AND EVENTS NOTED. PT SEEN FOR FOLLOW-UP. PT REPORTS DECREASED PO INTAKE 2' ABD DISTENTION AND NOTING NOT LIKING THE FOOD HERE AT [facility]. THIS RD ENCOURAGED ADEQUATE KCAL AND PROTEIN INTAKE, PT AGREED TO NEPRO SHAKE DAILY W/BREAKFAST MEAL. OF NOTE, PT WILL BE PLACED ON FLUID RESTRICTION THIS AM (1500 ML). RD PROVIDED VERBAL RENAL DIET EDUCATION, PT AGREED AND DEMONSTRATED UNDERSTANDING OF THE TOPIC. PTR REPORTED NO DIET QUESTIONS. RD TO CONTINUE TO FOLLOW. OF NOTE, PT RECEIVES HD. Dx: INADEQUATE ORAL INTAKE R/T CURRENT DIAGNOSIS, CURRENT CLINICAL CONDITION AEB NPO STATUS.-RESOLVED/IN PROGRESS NEW Dx: INADEQUATE PROTEIN-ENERGY INTAKE R/T CURRENT DIAGNOSIS, CURRENT CLINICAL CONDITION AEB PT REPORT ABOVE. Intervention: 1. RENAL DIET 2. NEPRO SHAKE DAILY Monitoring, Evaluation and Goals: 1. ORAL INTAKE; CONSUME/TOLERATE >50% OF MEALS AND SUPPLEMENTS-IN PROGRESS/NOT MET 2. ENTERAL NUTRITION; PROVIDE >80% TOTAL VOLUME X 24 HOURS-UNMEASURED 3. LABS; WNL-NOT MET/IN PROGRESS 4. WEIGHTS; PROMOTE GRADUAL WEIGHT LOSS-NOT MET/IN PROGRESS MONITOR: [facility] Nutrition Therapy DATE: 10/15/16 Patient: MIRA Ledbetter FOX Physician: GARCIA Address: [address] [place] [address] Room/Bed: [address], Zip: [place] [address] Admit Date: 10/08/16 Date of : [birth year] Height: 6 0 Weight: 246 112 -PO INTAKE/APPETITE -WEIGHTS -SUPPLEMENT INTAKE Recommendations: 1. PLEASE ORDER BUTTER PECAN NEPRO SHAKE DAILY W/BREAKFAST 2. ENCOURAGE ADEQUATE PO INTAKE, PT REQUIRE ADDITIONAL PROTEIN 2' HD RD WILL F/U PER PROTOCOL PT IS MILD/MODERATELY COMPROMISED Respectfully, MEETA BACK MS, RD, LD [facility] cc: client file
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
--- NOTE | ~2016-10-08 | EKG ---
PATIENT: MIRA BRAXTON UNIT #: [id number] Ventricular Rate: 104 BPM Atrial Rate: 104 BPM P-R Interval: 156 ms QRS Duration: 82 ms Q-T Interval: 354 ms QTC Calculation(Bezet): 465 ms P Bryant: 58 degrees Calculated R Bryant: -4 degrees Calculated T Bryant: 28 degrees Diagnosis Line: Sinus tachycardia Diagnosis Line: Otherwise normal ECG Diagnosis Line: When compared with ECG of 20-SEP-2016 11:18, Diagnosis Line: Nonspecific T wave abnormality no longer evident Diagnosis Line: in Anterolateral leads Diagnosis Line: Confirmed by THIEN TORRES MD ([id number]) on 10/09/2016 Diagnosis Line: 3:25:57 PM INTERPRETING MD: BRIAN MCMAHON
--- NOTE | ~2016-10-08 | CR72 ---
[facility] A Service of [facility] & [facility] RADIOLOGY TEXT RESULTS PATIENT: MIRA BRAXTON LOCATION: [facility] [id number] : [birth year] UNIT #: [id number] AGE: [address]: Neena Crisostomo MD SEX: M ORDER DR: [id number] [facility] [address] [place], [place] [address] [id number] MR#: [id number] Acc #: [id number] NAME: MIRA BRAXTON. : 1965 SEX: M STUDY DATE/TIME: 10/08/2016 12:41 UNIT: [facility] ROOM: [facility] STUDY DESCRIPTION: CR Chest Single View Portable Attending Physician: Neena Crisostomo M.D. Ordering Physician: Aniket Cotton M.D. Primary Care Physician: Colton Mcdowell M.D. MEDICAL IMAGING REPORT This report is preliminary unless electronic signature is present EXAM Portable chest one-view, 10/08/2016 COMPARISON 09/20/2016 CLINICAL HISTORY Unresponsive and short of air today. FINDINGS Low lung volumes with interstitial prominence, question of left mild basilar interstitial infiltrates or atelectasis. No effusion or pneumothorax. Dictated by... Poncho Hendrix M.D. THIS IS AN ELECTRONICALLY VERIFIED REPORT Poncho Hendrix M.D. at 10/17/2016 10:39 AM FERDINAND/jose TD: 10/08/2016 22:49 JOB #: [id number] MEDICAL IMAGING REPORT Page 1 of 1 COPY
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
--- NOTE | ~2016-10-08 | CO ---
Unit #: [id number] #: [id number] Patient: MIRA DANIELSON [id number] [address] [address] [id number] I MR#: [id number] NAME: MIRA DANIELSON ROOM: [facility] Age: 51 Sex: M Admission Date: 10/08/2016 : 1965 Attending Physician: Neena Crisostomo M.D. Primary Care Physician: Colton Mcdowell M.D. Consultation Date: 10/09/2016 CONSULTATION REPORT REASON FOR CONSULTATION Renal failure. Thank you very much for asking me to see this patient in consultation. HISTORY OF PRESENT ILLNESS Mr. Danielson is a 51-year-old male with history of end-stage renal disease, on hemodialysis every Saturday, , and Saturday. He is intermittently in the hospital probably once a week. It seems for severe anemia with recurrent GI bleeding. Apparently, no other options for treatment available at this time according to GI, who presented to the hospital yesterday with decreasing consciousness, increasing and worsening mental status. The patient does have a history of cirrhosis and hepatic encephalopathy. The patient's states he has been taking his lactulose, but may be decreased some due to "he felt constipated." I did discuss it with her about lactulose to treat constipation, etc., but the patient has decreased responsiveness. The patient's last dialysis was received prior to presentation was on Saturday and he gets dialysis every Saturday, , and Saturday. The patient did undergo dialysis while he was here last night per my orders due to some mild increased potassium. He currently has NG tube in and unresponsive, at bedside. PAST MEDICAL HISTORY History of end-stage renal disease, history of alcoholic cirrhosis, history of recurrent GI bleeding with esophageal varices, portal gastropathy, chronic thrombocytopenia, history of COPD, history of chronic hypotension, and a history of EtOH abuse in the past although none since May of this year. PAST SURGICAL HISTORY Status post left arm fistula, status post tonsillectomy. ALLERGIES No known drug allergies. FAMILY HISTORY Noncontributory. SOCIAL HISTORY Again previous alcohol, none since May. Currently, does not smoke. He is . Lives with his . REVIEW OF SYSTEMS Per her mainly just worsening mental status, otherwise really negative, Unit #: [id number] #: [id number] Patient: MIRA DANIELSON although again cannot get a good report from him. PHYSICAL EXAMINATION VITAL SIGNS: Again decreased responsiveness. His T-max is 98.9. His pulse is anywhere from 91 to 156, currently it is around 100. Blood pressure 80 to 147 over 40s to 90s. HEENT: Normocephalic and atraumatic. His pupils are actually equal and reactive to light. Again, he has decreased response and has NG tube in. NECK: Supple. No adenopathy. CARDIAC: He is without a rub. No S3 or S4. LUNGS: Clear bilaterally. No wheezes, rhonchi, or rales. ABDOMEN: Bowel sounds positive. Soft, appears nontender, although again decreased responsiveness. EXTREMITIES: He only has some trace lower extremity swelling which is better than it has been in the past. He has a fistula in his left arm with good thrill. NEUROLOGIC: Again decreased responsiveness. : Deferred. DIAGNOSTIC STUDIES IMAGING STUDIES: Chest x-ray upon admission yesterday showed low volumes, otherwise questionable basilar infiltrate on the left versus atelectasis, but not too impressive. LABORATORY RESULTS: His ABG this morning showed a pH of 7.575, pCO2 of 26, pO2 of 74 on room air. This morning his glucose 129, BUN of 32, creatinine 5.7, potassium 3.9, CO2 of 22, calcium 7.8, phosphorus 5.7, magnesium is 2.5, albumin is 1.8. Bilirubin total of 3.2, AST is 64, ALT is 25. His ammonia level was 213 upon admission, down to 114 now. INR is 1.2. Hemoglobin is down to 7.6 from 8.7 last night, platelets down to 45,000, white count 9100. His urinalysis shows specific gravity of 1.02, 1+ protein, 2 to 5 rbc's, 2 to 5 wbc's, negative bacteria. ASSESSMENT AND PLAN 1. End-stage renal disease. The patient with dialysis late last night, actually got 2.5 L off. Volume status appears to be pretty good for him. He does get intermittent paracentesis as well. We will follow electrolytes and dialyze him maybe on or tomorrow if his volume is worse or his potassium gets up. Continue Saturday, , and Saturday dialysis. 2. Anemia. Again, the patient is with history of severe anemia with gastrointestinal bleeding as outlined above. We will follow hemoglobins and transfusion and erythropoietin as indicated. 3. Mental status changes. Workup underway from hepatic encephalopathy versus other. 4. Cirrhosis. Dictated by..Alexsander Vicente M.D. GALINDO/dorota TD: 10/10/2016 02:33 JOB #: [id number] Unit #: [id number] #: [id number] Patient: MIRA DANIELSON Anatoly CONSULTATION REPORT Page 1 of 1 X Damian Vicente MD X CONSULTATION REPORT
--- NOTE | ~2016-10-08 | CR72 ---
[facility] A Service of [facility] & [facility] RADIOLOGY TEXT RESULTS PATIENT: MIRA BRAXTON LOCATION: [place] [address] : [birth year] UNIT #: [id number] AGE: [address]: Neena Crisostomo MD SEX: M ORDER DR: [id number] [facility] [address] [place], [place] [address] [id number] I MR#: [id number] Acc #: [id number] NAME: MIRA BRAXTON. : 1965 SEX: M STUDY DATE/TIME: 10/10/2016 4:02 UNIT: [facility] ROOM: [facility] STUDY DESCRIPTION: CR Chest Single View Portable Attending Physician: Neena Crisostomo M.D. Ordering Physician: Umer Guevara M.D. Primary Care Physician: Colton Mcdowell M.D. MEDICAL IMAGING REPORT This report is preliminary unless electronic signature is present EXAM Single view chest INDICATIONS Shortness of air. Confusion. Hepatic encephalopathy. COMPARISON Single portable AP view of the chest compared to 10/09/2016. FINDINGS Support lines and tubes remain in place. Heart and mediastinal contours are stable. Mild lower lobe predominant interstitial and airspace opacities are unchanged. No pneumothorax. IMPRESSION No interval change. Dictated by... Abhijeet Whitaker M.D. THIS IS AN ELECTRONICALLY VERIFIED REPORT Abhijeet Whitaker M.D. at 10/10/2016 11:40 PM ASUNCION/zafar TD: 10/10/2016 11:55 JOB #: [id number] MEDICAL IMAGING REPORT Page 1 of 1 COPY
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
--- NOTE | ~2016-10-08 | CT71 ---
[facility] A Service of [facility] RADIOLOGY TEXT RESULTS PATIENT: MIRA BRAXTON LOCATION: [address] : [birth year] UNIT #: [id number] AGE: [address]: Neena Crisostomo MD SEX: M ORDER DR: [id number] [facility] [address] [facility]. [place], [place] [address] [id number] I MR#: [id number] Acc #: [id number] NAME: MIRA BRAXTON : 1965 SEX: M STUDY DATE/TIME: 10/09/2016 0:12 UNIT: [id number] ROOM: [facility] STUDY DESCRIPTION: CT Head Wo Contrast Attending Physician: Neena Crisostomo M.D. Ordering Physician: Umer Guevara M.D. Primary Care Physician: Colton Mcdowell M.D. MEDICAL IMAGING REPORT This report is preliminary unless electronic signature is present EXAM CT head. INDICATIONS Seizure. Lethargy. Unresponsive. TECHNIQUE CT of the head without contrast. This CT exam was performed with one or more of the following radiation dose reduction techniques: automatic exposure control, adjustment of mA and/or kV according to patient size, and iterative reconstruction. COMPARISON CT head dated 09/20/2016. FINDINGS Exam is degraded by motion, however, there is no acute intracranial hemorrhage, mass lesion, or acute infarct. The ventricles and basilar cisterns are normal in size and configuration. No extraaxial collections. No acute osseous abnormalities. IMPRESSION 1. The exam is degraded by motion, however, no acute findings are identified. Dictated by... Abhijeet Whitaker M.D. THIS IS AN ELECTRONICALLY VERIFIED REPORT Abhijeet Whitaker M.D. at 10/09/2016 10:47 PM ASUNCION/roberto [facility] A Service of [facility] RADIOLOGY TEXT RESULTS PATIENT: MIRA BRAXTON LOCATION: [address] : [birth year] UNIT #: [id number] AGE: [address]: Neena Crisostomo MD SEX: M ORDER DR: TD: 10/09/2016 17:45 JOB #: [id number] MEDICAL IMAGING REPORT Page 1 of 1 COPY
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
--- NOTE | ~2016-10-08 | A ---
[facility] Nutrition Therapy DATE: 10/10/16 Patient: MIRA BRAXTON Physician: GARCIA [address], Zip: [place] [address] Admit Date: 10/08/16 Date of : [birth year] Height: 6 0 Weight: 233 106 NUTRITIONAL ASSESSMENT: REASON: NPO IN ICU ASSESSMENT PT IS 51 Y.O. MALE ADMITTED FOR HEPATIC ENCEPHALOPATHY, AMS PMH: ESRD ON HD, CIRRHOSIS, ALCOHOLIC HEPATITIS, GI BLEED, COPD, HTN, ASTHMA, ETOH ABUSE, HX OF HEPATIC ENCEPHALOPATHY Anthropometrics: 6'0", WT: 231# (105 KG), BMI: 31.3 Labs: GLU: 156, BUN: 49, CREAT: 7.4, ALB: 1.9, AST: 96, PHOS: 5.7, GFR: 7.8 Meds: THIAMINE, FOLIC ACID, NACL, TUMS, PHENERGAN, LACTULOSE, PROTONIX, SOLU-MEDROL I/O & Bowel function: 2565/4499 Skin Integrity: NO KNOWN SKIN ISSUES; PT HAS NG TUBE EDEMA: BLE/BUE TRACE EDEMA; ABD GENERAL EDEMA Estimated Nutrition Needs: [id number] KCAL (20-25 KCAL/KG BW) 105-126 G PRO (1.0-1.2 G PRO/KG BW) FLUIDS CONSISTENT W/KCAL NEEDS OR PER MD Assessment: CHART REVIEWED AND EVENTS NOTED. PT SEEN FOR NPO IN ICU ASSESSMENT. PT ASLEEP ON NASAL CANNULA AT TIME OF VISIT. PER RN AND CHART, PT NOTED TO BE COMBATIVE AND UNCOOPERATIVE THIS AM. FAMILY IN ROOM REPORT PT TO HAVE GOOD PO INTAKE AND APPETITE PRIOR TO ADMIT, FAMILY DENIES ANY RECENT WEIGHT LOSS FOR PT. OF NOTE, PT LEFT AMA ON 09/21/16. NO CURRENT PLANS IN PLACE FOR DIET ADVANCEMENT OR ALTERNATIVE NUTRITION SUPPORT AT THIS TIME. RD TO FOLLOW. SEE RECOMMENDATIONS BELOW. Dx: INADEQUATE ORAL INTAKE R/T CURRENT DIAGNOSIS, CURRENT CLINICAL CONDITION AEB NPO STATUS. Intervention: 1. NPO Monitoring, Evaluation and Goals: 1. ORAL INTAKE; ADVANCE DIET AND CONSUME/TOLERATE >50% OF MEALS 2. ENTERAL NUTRITION; IF INITIATED, PROVIDE >80% TOTAL VOLUME X 24 HOURS 3. WEIGHTS; PROMOTE GRADUAL WEIGHT LOSS TOWARDS HEALTHY BMI 4. LABS; WNL [facility] Nutrition Therapy DATE: 10/10/16 Patient: MIRA Anatoly BRAXTON Physician: GARCIA Address: [address] Room/Bed: [address], Zip: [place] [address] Admit Date: 10/08/16 Date of : [birth year] Height: 6 0 Weight: 233 106 MONITOR: -WEIGHTS -PLANS FOR SUPPORT -LABS Recommendations: 1. ONCE MEDICALLY FEASIBLE, ADVANCE DIET PER RECORD TABULATING CLERK EVAL + 2 GM NA/HH DIET 2. IF NPO >3 DAYS, RECOMMEND ALTERNATIVE NUTRITION SUPPORT OF NEPRO @ 20 ML/HR, ADVANCE 10 ML q 6 HOURS TO GOAL RATE OF 50 ML/HR + SUGAR-FREE PROSTAT ONCE DAILY -PROVIDES 2260 KCAL, 112 G PRO, 876 ML FREE H20 ADD FREE H20 FLUSHES PER MD RD WILL F/U PER PROTOCOL PT IS MODERATELY COMPROMISED Respectfully, MEETA BACK MS, RD, LD [facility] cc: client file
--- NOTE | ~2016-10-08 | CR6 ---
[facility] A Service of [facility] RADIOLOGY TEXT RESULTS PATIENT: MIRA BRAXTON LOCATION: [facility] 313-01 : [birth year] UNIT #: [id number] AGE: [address]: Neena Crisostomo MD SEX: M ORDER DR: [id number] [facility] [address] [place], [place] [address] [id number] I MR#: [id number] Acc #: [id number] NAME: MIRA BRAXTON : 1965 SEX: M STUDY DATE/TIME: 10/08/2016 15:01 UNIT: [facility] ROOM: [facility] STUDY DESCRIPTION: CR Abdomen Portable Sng View Attending Physician: Neena Crisostomo M.D. Ordering Physician: Neena Crisostomo M.D. Primary Care Physician: Colton Mcdowell M.D. MEDICAL IMAGING REPORT This report is preliminary unless electronic signature is present EXAM Supine abdomen 1-view 10/08/2016 HISTORY NG tube placement. FINDINGS Distal tip of the nasogastric tube is in the proximal to mid-stomach. Dictated by... Poncho Hendrix M.D. THIS IS AN ELECTRONICALLY VERIFIED REPORT Poncho Hendrix M.D. at 10/17/2016 10:40 AM TEV/pcl TD: 10/09/2016 08:09 JOB #: [id number] MEDICAL IMAGING REPORT Page 1 of 1 COPY
--- NOTE | ~2016-10-08 | XA170 ---
[facility] A Service of [facility] RADIOLOGY TEXT RESULTS PATIENT: MIRA BRAXTON LOCATION: A 313-01 : [birth year] UNIT #: [id number] AGE: [address]: Neena Crisostomo MD SEX: M ORDER DR: [id number] [place] [id number] [facility]. [place], [place] [address] [id number] I MR#: [id number] Acc #: [id number] NAME: MIRA BRAXTON. : 1965 SEX: M STUDY DATE/TIME: 10/16/2016 13:23 UNIT: [id number] PCU ROOM: [facility] STUDY DESCRIPTION: XA Paracentesis W Image Attending Physician: Neena Crisostomo M.D. Ordering Physician: Neena Crisostomo M.D. Primary Care Physician: Colton Mcdowell M.D. MEDICAL IMAGING REPORT This report is preliminary unless electronic signature is present PROCEDURE Ultrasound-guided paracentesis INDICATION 51-year-old male with recurrent ascites. TECHNIQUE Risks, benefits and alternatives of the procedure were discussed with the patient. Informed consent was obtained. In the procedure room, a time-out was performed confirming correct patient and procedure. All elements of maximum sterile-barrier technique utilized according to guidelines appropriate for the procedure. FINDINGS Ultrasound of the left side of the abdomen demonstrated a large amount of ascites. The overlying skin was prepped and draped in usual sterile fashion. 1% lidocaine utilized to anesthetize the skin and underlying subcutaneous tissues. Next under ultrasound guidance, a 5-Gabonese Yueh catheter was utilized and was advanced into the peritoneal space. There was return of clear yellow ascites. Next a superstiff guidewire was advanced through the catheter. The catheter was removed and next a 6-Gabonese pigtail catheter was advanced over the guidewire and positioned in the peritoneal space. 8,400 mL of ascites was drained and discarded. Catheter was removed and a sterile dressing was applied. No immediate complications. IMPRESSION Technically successful ultrasound-guided paracentesis. Dictated by... Nixon Madera M.D. [facility] A Service of [facility] RADIOLOGY TEXT RESULTS PATIENT: MIRA BRAXTON LOCATION: [facility] 313-01 : [birth year] UNIT #: [id number] AGE: [address]: Neena Crisostomo MD SEX: M ORDER DR: THIS IS AN ELECTRONICALLY VERIFIED REPORT Nixon Madera M.D. at 10/18/2016 12:25 PM Leia TD: 10/17/2016 09:22 JOB #: [id number] MEDICAL IMAGING REPORT Page 1 of 1 COPY
--- NOTE | ~2016-10-08 | CR72 ---
[facility] A Service of [facility] RADIOLOGY TEXT RESULTS PATIENT: MIRA BRAXTON LOCATION: [place] [address] : [birth year] UNIT #: [id number] AGE: [address]: Neena Crisostomo MD SEX: M ORDER DR: [id number] [facility] [address] [facility] [place], [place] [address] [id number] I MR#: [id number] Acc #: [id number] NAME: MIRA BRAXTON : 1965 SEX: M STUDY DATE/TIME: 10/09/2016 11:11 UNIT: [facility] ROOM: [facility] STUDY DESCRIPTION: CR Chest Single View Portable Attending Physician: Neena Crisostomo M.D. Ordering Physician: Umer Guevara M.D. Primary Care Physician: Colton Mcdowell M.D. MEDICAL IMAGING REPORT This report is preliminary unless electronic signature is present EXAM Portable chest. HISTORY Central line placement, hepatic encephalopathy. COMPARISON 10/08/2016 FINDINGS Portable view of the chest demonstrates interval placement of a nasogastric tube, distal tip and proximal port well below the GE junction. There is right neck approach central line terminating mid-SVC. Small amount of left basilar atelectasis and right midlung zone atelectasis. No effusions. Heart and mediastinum unremarkable. No pneumothorax. Dictated by... Arianna Madera M.D. THIS IS AN ELECTRONICALLY VERIFIED REPORT Arianna Madera M.D. at 10/10/2016 12:30 PM [place] TD: 10/09/2016 23:47 JOB #: [id number] MEDICAL IMAGING REPORT Page 1 of 1 COPY
[~2016-10-08 12:21] MED LIST changes: -ACETAMINOPHEN PO; -AMBIEN10 MG PO; -AUGM PO; -AUGMENTIN PO; -CALCIUM ACETAT667 M1 PO; -CORTEF10 MG PO; -HYDROCORTISONE10 M1 PO; -KEPPRA750 M1 PO; -LACTULOSE10 GM/151 PO; -MAXIMUM DAILY1 EACH PO; -PATIENT'S PHARMACY; -PRO-AMATINE5 MG PO; -PROBIOTIC250 MG PO; -SEROQUEL50 M1 PO; -TUMS500 MG PO; -ZANAFLEX PO
[2016-10-08] MEDS ORDERED: FOLIC ACID1 MG PO (12:35)
[2016-10-08] MEDS ORDERED: FLOMAX0.4 M1 PO (12:35)
[2016-10-08] MEDS ORDERED: PATIENT'S PHARMACY (12:35)
[2016-10-08] MEDS ORDERED: HYDROCODON-ACE1 EAC7 PO (12:36)
[2016-10-08] MEDS ORDERED: MULTIVITAMINS1 EAC3 PO (12:36)
[2016-10-08] MEDS ORDERED: LACTULOSE10 GM/151 PO (12:38)
[2016-10-08] MEDS ORDERED: CALCIUM CARBON500 M2 PO (12:38)
[2016-10-08] MEDS ORDERED: CARAFATE1 GM PO (12:39)
[2016-10-08] MEDS ORDERED: ZANAFLEX PO (12:39)
[2016-10-08] MEDS ORDERED: XIFAXAN550 MG PO (12:39)
[2016-10-08] MEDS ORDERED: ANTACID650 MG PO (12:41)
[2016-10-08] MEDS ORDERED: ACETAMINOPHEN PO (12:41)
[2016-10-08] MEDS ORDERED: PROTONIX PO (12:41)
[2016-10-08] MEDS ORDERED: PRO-AMATINE5 MG PO (12:42)
[2016-10-08] MEDS ORDERED: TRAMADOL HCL50 M1 PO (12:43)
[2016-10-08] MEDS ORDERED: AMBIEN10 MG PO (12:43)
[2016-10-08] MEDS ORDERED: VITAMIN B-1100 M1 PO (12:44)
[2016-10-08 12:47] LABS: BASOPHIL# 0.1 X10e3 (0-0.3); BASOPHIL% 0.8 % (0-2.5); EOSINOPHIL# 0.3 X10e3 (0-0.7); EOSINOPHIL% 3.5 % (0.0-7.0); HEMATOCRIT 26.7 % (38.0-50.0); HEMOGLOBIN 8.7 gm/dL (13.0-16.0); LYMPHOCYTE% 13.7 % (17.0-45.0); MEAN CORPUSCULAR HEMOGLOBIN 32.6 PG (28-34); MEAN CORPUSCULAR HGB CONC 32.6 g/dL (30-36); MEAN PLATELET VOLUME 8.3 FL (6.5-11.5); MONOCYTE% 14.2 % (3.0-12.0); NEUTROPHIL# 4.9 X10e3 (1.5-7.1); NEUTROPHIL% 67.8 % (40-75); RED BLOOD COUNT 2.67 X10e (3.90-5.60); RED CELL DISTRIBUTION WIDTH 27.6 % (11.0-15.5); WHITE BLOOD COUNT 7.2 X10e3 (4.0-10.5)
[2016-10-08 12:58] LABS: INR 1.2; PARTIAL THROMBOPLASTIN TIME 27.5 SECONDS (23.5-31.3); PROTHROMBIN TIME (PATIENT) 12.6 SECONDS (10.0-11.7)
[2016-10-08 13:12] LABS: PLATELET COUNT 83 X10e3 (140-420)
[2016-10-08 13:13] LABS: DIFF IND YES
[2016-10-08 13:15] LABS: URINE SOURCE CLEAN CATCH
[2016-10-08 13:17] LABS: ANISOCYTOSIS MOD; PLATELET ESTIMATE DECREASED (NORMAL)
[2016-10-08 13:18] LABS: POIKILOCYTOSIS MOD; SCHISTOCYTES PRESENT; TEAR DROP CELLS PRESENT
[2016-10-08 13:21] LABS: URINE APPEARANCE CLEAR; URINE BLOOD NEG (NEG); URINE COLOR DK YELLOW; URINE GLUCOSE NEG (NEG); URINE KETONE TRACE (NEG); URINE LEUKOCYTE ESTERASE 1+ (NEG); URINE NITRATE NEG (NEG); URINE PROTEIN 1+ (NEG)
[2016-10-08 13:23] LABS: URINE BACTERIA AUWI NEG (NEGATIVE); URINE SQUAMOUS EPITHELIAL CELL OCC /[HPF]
[2016-10-08 13:24] LABS: ALKALINE PHOSPHATASE 115 U/L (32-92); ALT (SGPT) 25 U/L (10-40); AST (SGOT) 58 U/L (10-42); BILIRUBIN, DIRECT 0.6 mg/dL (0.0-0.2); BILIRUBIN,INDIRECT 1.6 mg/dL (0.0-0.9); BILIRUBIN,TOTAL 2.2 mg/dL (0.2-2.0); BLOOD UREA NITROGEN 57 mg/dL (9-23); BUN/CREATININE RATIO 6.78; CALCIUM SERUM 8.2 mg/dL (8.4-10.2); CARBON DIOXIDE 24 mmol/L (22-31); CHLORIDE 100 mmol/L (100-111); CREATININE SERUM 8.4 mg/dL (0.6-1.4); GLOM FILT RATE Estimated 6.7 mL/min (>60); GLUCOSE FASTING 92 mg/dL (70-110); POTASSIUM 5.3 mmol/L (3.5-5.1); PROTEIN TOTAL SERUM 5.3 g/dL (6.0-8.3); SODIUM 133 mmol/L (135-145)
[2016-10-08 13:25] LABS: ALCOHOL BLOOD <5 mg/dL (0)
[2016-10-08 13:34] LABS: CULTURE INDICATED? NO; URINE BILIRUBIN NEG (NEG)
[2016-10-08 16:49] LABS: ARTERIAL BLD GAS O2 SATURATION 84.6 % (90.0-100.0); ARTERIAL BLOOD GAS CARBOXY HB 1.6 %sat (0.0-9.0); ARTERIAL BLOOD GAS HCO3 24.2 mmol/L; ARTERIAL BLOOD GAS MET HB 0.6 %sat (0.0-2.0); ARTERIAL BLOOD GAS PCO2 30.1 mmHg (35.0-45.0); ARTERIAL BLOOD GAS pH 7.515 (7.350-7.450)
[2016-10-08 16:50] LABS: ARTERIAL BLOOD GAS ALLEN TEST NORMAL; ARTERIAL BLOOD GAS ART SITE RIGHT RADIAL; ARTERIAL BLOOD GAS PO2 53.4 mmHg (80.0-100); ARTERIAL DRAW? YES
[2016-10-08 17:15] LABS: ARTERIAL BLD GAS O2 SATURATION 98.1 % (90.0-100.0); ARTERIAL BLOOD GAS CARBOXY HB 1.3 %sat (0.0-9.0); ARTERIAL BLOOD GAS HCO3 23.5 mmol/L; ARTERIAL BLOOD GAS MET HB 0.7 %sat (0.0-2.0); ARTERIAL BLOOD GAS PCO2 27.9 mmHg (35.0-45.0); ARTERIAL BLOOD GAS pH 7.534 (7.350-7.450)
[2016-10-08 17:16] LABS: ARTERIAL BLOOD GAS ALLEN TEST N; ARTERIAL BLOOD GAS ART SITE RIGHT RADIAL; ARTERIAL BLOOD GAS DELIVERY NASAL CANNULA; ARTERIAL DRAW? YES
[2016-10-08 18:24] LABS: BASOPHIL% 0.4 % (0-2.5); EOSINOPHIL# 0.1 X10e3 (0-0.7); EOSINOPHIL% 1.1 % (0.0-7.0); HEMATOCRIT 26.8 % (38.0-50.0); HEMOGLOBIN 8.8 gm/dL (13.0-16.0); LYMPHOCYTE# 0.6 X10e3 (1.0-3.5); MEAN CELL VOLUME 100.3 FL (83-96); MEAN CORPUSCULAR HEMOGLOBIN 32.9 PG (28-34); MEAN CORPUSCULAR HGB CONC 32.8 g/dL (30-36); MEAN PLATELET VOLUME 7.8 FL (6.5-11.5); MONOCYTE# 0.9 X10e3 (0-1.0); MONOCYTE% 11.4 % (3.0-12.0); NEUTROPHIL# 6.1 X10e3 (1.5-7.1); NEUTROPHIL% 79.1 % (40-75); PLATELET COUNT 91 X10e3 (140-420); RED BLOOD COUNT 2.67 X10e (3.90-5.60); RED CELL DISTRIBUTION WIDTH 28.5 % (11.0-15.5); WHITE BLOOD COUNT 7.7 X10e3 (4.0-10.5)
[2016-10-08 18:32] LABS: DIFF IND NO
[2016-10-08 18:33] LABS: INR 1.2; PROTHROMBIN TIME (PATIENT) 12.7 SECONDS (10.0-11.7)
[2016-10-08 18:37] LABS: BILIRUBIN,TOTAL 2.5 mg/dL (0.2-2.0); BUN/CREATININE RATIO 6.93; CALCIUM SERUM 8.3 mg/dL (8.4-10.2); CREATININE SERUM 8.8 mg/dL (0.6-1.4); GLOM FILT RATE Estimated 6.3 mL/min (>60); MAGNESIUM 2.5 mg/dL (1.6-3.0); PHOSPHOROUS 5.7 mg/dL (2.5-4.6); POTASSIUM 5.2 mmol/L (3.5-5.1); PROTEIN TOTAL SERUM 5.3 g/dL (6.0-8.3)
[2016-10-08 21:40] LABS: ARTERIAL BLD GAS O2 SATURATION 97.2 % (90.0-100.0); ARTERIAL BLOOD GAS CARBOXY HB 1.3 %sat (0.0-9.0); ARTERIAL BLOOD GAS HCO3 24.4 mmol/L; ARTERIAL BLOOD GAS MET HB 0.7 %sat (0.0-2.0); ARTERIAL BLOOD GAS PO2 90.9 mmHg (80.0-100)
[2016-10-08 21:42] LABS: ARTERIAL BLOOD GAS ALLEN TEST NORMAL; ARTERIAL BLOOD GAS ART SITE RIGHT RADIAL; ARTERIAL BLOOD GAS DELIVERY NASAL CANNULA; ARTERIAL BLOOD GAS pH 7.675 (7.350-7.450); ARTERIAL DRAW? YES
[2016-10-09 02:57] LABS: ARTERIAL BLD GAS O2 SATURATION 94.6 % (90.0-100.0); ARTERIAL BLOOD GAS CARBOXY HB 1.6 %sat (0.0-9.0); ARTERIAL BLOOD GAS HCO3 24.5 mmol/L; ARTERIAL BLOOD GAS PCO2 26.5 mmHg (35.0-45.0); ARTERIAL BLOOD GAS pH 7.575 (7.350-7.450)
[2016-10-09 02:58] LABS: ARTERIAL BLOOD GAS ART SITE RIGHT RADIAL; ARTERIAL BLOOD GAS DELIVERY NASAL CANNULA; ARTERIAL BLOOD GAS PO2 74.1 mmHg (80.0-100); ARTERIAL DRAW? YES
[2016-10-09 04:39] LABS: BASOPHIL# 0.1 X10e3 (0-0.3); BASOPHIL% 0.6 % (0-2.5); EOSINOPHIL# 0.1 X10e3 (0-0.7); EOSINOPHIL% 0.8 % (0.0-7.0); HEMATOCRIT 23.5 % (38.0-50.0); HEMOGLOBIN 7.6 gm/dL (13.0-16.0); LYMPHOCYTE# 0.8 X10e3 (1.0-3.5); LYMPHOCYTE% 8.5 % (17.0-45.0); MEAN CELL VOLUME 102.2 FL (83-96); MEAN CORPUSCULAR HEMOGLOBIN 33.2 PG (28-34); MEAN CORPUSCULAR HGB CONC 32.5 g/dL (30-36); MEAN PLATELET VOLUME 8.9 FL (6.5-11.5); MONOCYTE# 1.2 X10e3 (0-1.0); MONOCYTE% 12.7 % (3.0-12.0); NEUTROPHIL% 77.4 % (40-75); RED CELL DISTRIBUTION WIDTH 28.3 % (11.0-15.5); WHITE BLOOD COUNT 9.1 X10e3 (4.0-10.5)
[2016-10-09 04:44] LABS: PLATELET COUNT 45 X10e3 (140-420)
[2016-10-09 04:47] LABS: ALBUMIN SERUM 1.8 g/dL (3.5-5.0); BILIRUBIN,TOTAL 3.2 mg/dL (0.2-2.0); BUN/CREATININE RATIO 5.61; CALCIUM SERUM 7.8 mg/dL (8.4-10.2); DIFF IND NO; GLOM FILT RATE Estimated 10.7 mL/min (>60); POTASSIUM 3.9 mmol/L (3.5-5.1); PROTEIN TOTAL SERUM 4.7 g/dL (6.0-8.3)
[2016-10-09 04:50] LABS: CREATININE SERUM 5.7 mg/dL (0.6-1.4)
[2016-10-10 04:34] LABS: ARTERIAL BLOOD GAS CARBOXY HB 1.5 %sat (0.0-9.0); ARTERIAL BLOOD GAS HCO3 22.9 mmol/L; ARTERIAL BLOOD GAS MET HB 0.7 %sat (0.0-2.0); ARTERIAL BLOOD GAS PCO2 27.3 mmHg (35.0-45.0); ARTERIAL BLOOD GAS PO2 90.8 mmHg (80.0-100); ARTERIAL BLOOD GAS pH 7.533 (7.350-7.450)
[2016-10-10 04:35] LABS: ARTERIAL DRAW? YES
[2016-10-10 04:36] LABS: ARTERIAL BLOOD GAS ALLEN TEST NORMAL; ARTERIAL BLOOD GAS ART SITE RIGHT RADIAL; ARTERIAL BLOOD GAS DELIVERY NASAL CANNULA
[2016-10-10 05:22] LABS: HEMATOCRIT 24.9 % (38.0-50.0); LYMPHOCYTE# 0.4 X10e3 (1.0-3.5); LYMPHOCYTE% 4.3 % (17.0-45.0); MEAN CELL VOLUME 103.8 FL (83-96); MEAN CORPUSCULAR HEMOGLOBIN 33.3 PG (28-34); MEAN CORPUSCULAR HGB CONC 32.1 g/dL (30-36); MEAN PLATELET VOLUME 8.4 FL (6.5-11.5); MONOCYTE# 0.4 X10e3 (0-1.0); MONOCYTE% 4.9 % (3.0-12.0); NEUTROPHIL# 7.6 X10e3 (1.5-7.1); NEUTROPHIL% 90.8 % (40-75); RED CELL DISTRIBUTION WIDTH 29.5 % (11.0-15.5); WHITE BLOOD COUNT 8.3 X10e3 (4.0-10.5)
[2016-10-10 05:32] LABS: PLATELET COUNT 74 X10e3 (140-420)
[2016-10-10 05:37] LABS: DIFF IND NO
[2016-10-10 06:48] LABS: ALBUMIN SERUM 1.9 g/dL (3.5-5.0); BILIRUBIN,TOTAL 2.2 mg/dL (0.2-2.0); BUN/CREATININE RATIO 6.62; CALCIUM SERUM 8.5 mg/dL (8.4-10.2); CREATININE SERUM 7.4 mg/dL (0.6-1.4); GLOM FILT RATE Estimated 7.8 mL/min (>60); POTASSIUM 3.8 mmol/L (3.5-5.1); PROTEIN TOTAL SERUM 4.9 g/dL (6.0-8.3)
[2016-10-11 05:59] LABS: BASOPHIL% 0.1 % (0-2.5); HEMATOCRIT 23.9 % (38.0-50.0); HEMOGLOBIN 7.5 gm/dL (13.0-16.0); LYMPHOCYTE# 0.5 X10e3 (1.0-3.5); LYMPHOCYTE% 2.5 % (17.0-45.0); MEAN CORPUSCULAR HGB CONC 31.4 g/dL (30-36); MEAN PLATELET VOLUME 8.6 FL (6.5-11.5); MONOCYTE# 1.2 X10e3 (0-1.0); MONOCYTE% 6.6 % (3.0-12.0); NEUTROPHIL# 16.5 X10e3 (1.5-7.1); NEUTROPHIL% 90.8 % (40-75); PLATELET COUNT 91 X10e3 (140-420); RED BLOOD COUNT 2.28 X10e (3.90-5.60); RED CELL DISTRIBUTION WIDTH 29.2 % (11.0-15.5)
[2016-10-11 06:22] LABS: DIFF IND YES; WHITE BLOOD COUNT 18.1 X10e3 (4.0-10.5)
[2016-10-11 06:33] LABS: ALBUMIN SERUM 1.9 g/dL (3.5-5.0); BILIRUBIN,TOTAL 1.6 mg/dL (0.2-2.0); BUN/CREATININE RATIO 7.38; CALCIUM SERUM 8.2 mg/dL (8.4-10.2); CREATININE SERUM 8.4 mg/dL (0.6-1.4); GLOM FILT RATE Estimated 6.7 mL/min (>60); POTASSIUM 3.4 mmol/L (3.5-5.1); PROTEIN TOTAL SERUM 4.8 g/dL (6.0-8.3)
[2016-10-11 06:54] LABS: ANISOCYTOSIS MOD; PLATELET ESTIMATE DECREASED (NORMAL)
[2016-10-11 06:55] LABS: MICROCYTOSIS SL; POIKILOCYTOSIS SL
[2016-10-12 04:31] LABS: BASOPHIL% 0.2 % (0-2.5); HEMATOCRIT 21.3 % (38.0-50.0); LYMPHOCYTE# 0.6 X10e3 (1.0-3.5); LYMPHOCYTE% 4.4 % (17.0-45.0); MEAN CORPUSCULAR HEMOGLOBIN 33.3 PG (28-34); MEAN CORPUSCULAR HGB CONC 31.4 g/dL (30-36); MONOCYTE% 7.7 % (3.0-12.0); NEUTROPHIL# 11.2 X10e3 (1.5-7.1); NEUTROPHIL% 87.7 % (40-75); RED BLOOD COUNT 2.01 X10e (3.90-5.60); RED CELL DISTRIBUTION WIDTH 29.4 % (11.0-15.5); WHITE BLOOD COUNT 12.8 X10e3 (4.0-10.5)
[2016-10-12 04:35] LABS: HEMOGLOBIN 6.7 gm/dL (13.0-16.0); PLATELET COUNT 33 X10e3 (140-420)
[2016-10-12 04:36] LABS: DIFF IND NO
[2016-10-12 04:53] LABS: BUN/CREATININE RATIO 7.05; CALCIUM SERUM 7.9 mg/dL (8.4-10.2); CREATININE SERUM 6.8 mg/dL (0.6-1.4); GLOM FILT RATE Estimated 8.7 mL/min (>60)
[2016-10-12 14:15] LABS: HEMATOCRIT 23.1 % (38.0-50.0); HEMOGLOBIN 7.3 gm/dL (13.0-16.0)
[2016-10-13 05:33] LABS: BASOPHIL% 0.1 % (0-2.5); HEMATOCRIT 23.7 % (38.0-50.0); HEMOGLOBIN 7.6 gm/dL (13.0-16.0); LYMPHOCYTE# 0.4 X10e3 (1.0-3.5); LYMPHOCYTE% 3.3 % (17.0-45.0); MEAN CORPUSCULAR HEMOGLOBIN 32.8 PG (28-34); MEAN CORPUSCULAR HGB CONC 32.1 g/dL (30-36); MEAN PLATELET VOLUME 9.6 FL (6.5-11.5); MONOCYTE# 1.1 X10e3 (0-1.0); MONOCYTE% 8.1 % (3.0-12.0); NEUTROPHIL# 11.7 X10e3 (1.5-7.1); NEUTROPHIL% 88.5 % (40-75); RED BLOOD COUNT 2.31 X10e (3.90-5.60); WHITE BLOOD COUNT 13.2 X10e3 (4.0-10.5)
[2016-10-13 05:44] LABS: MEAN CELL VOLUME 102.3 FL (83-96)
[2016-10-13 05:45] LABS: DIFF IND NO; PLATELET COUNT 45 X10e3 (140-420)
[2016-10-13 08:42] LABS: BUN/CREATININE RATIO 7.46; CALCIUM SERUM 7.8 mg/dL (8.4-10.2); CREATININE SERUM 7.9 mg/dL (0.6-1.4); GLOM FILT RATE Estimated 7.2 mL/min (>60); POTASSIUM 3.6 mmol/L (3.5-5.1)
[2016-10-14 05:43] LABS: BASOPHIL% 0.2 % (0-2.5); EOSINOPHIL% 0.1 % (0.0-7.0); HEMATOCRIT 26.6 % (38.0-50.0); HEMOGLOBIN 8.5 gm/dL (13.0-16.0); LYMPHOCYTE# 0.4 X10e3 (1.0-3.5); LYMPHOCYTE% 2.1 % (17.0-45.0); MEAN CELL VOLUME 100.9 FL (83-96); MEAN CORPUSCULAR HEMOGLOBIN 32.4 PG (28-34); MEAN CORPUSCULAR HGB CONC 32.2 g/dL (30-36); MEAN PLATELET VOLUME 9.2 FL (6.5-11.5); MONOCYTE# 1.6 X10e3 (0-1.0); MONOCYTE% 9.2 % (3.0-12.0); NEUTROPHIL# 15.1 X10e3 (1.5-7.1); NEUTROPHIL% 88.4 % (40-75); RED BLOOD COUNT 2.64 X10e (3.90-5.60); RED CELL DISTRIBUTION WIDTH 27.4 % (11.0-15.5); WHITE BLOOD COUNT 17.1 X10e3 (4.0-10.5)
[2016-10-14 05:45] LABS: DIFF IND NO; PLATELET COUNT 41 X10e3 (140-420)
[2016-10-14 06:31] LABS: ALBUMIN SERUM 1.8 g/dL (3.5-5.0); BILIRUBIN,TOTAL 1.6 mg/dL (0.2-2.0); BUN/CREATININE RATIO 5.96; CALCIUM SERUM 7.8 mg/dL (8.4-10.2); GLOM FILT RATE Estimated 10.7 mL/min (>60); PHOSPHOROUS 3.9 mg/dL (2.5-4.6); POTASSIUM 3.2 mmol/L (3.5-5.1); PROTEIN TOTAL SERUM 4.6 g/dL (6.0-8.3)
[2016-10-14 06:41] LABS: CREATININE SERUM 5.7 mg/dL (0.6-1.4)
[2016-10-15 05:44] LABS: BASOPHIL% 0.3 % (0-2.5); HEMATOCRIT 25.4 % (38.0-50.0); HEMOGLOBIN 8.2 gm/dL (13.0-16.0); LYMPHOCYTE# 0.4 X10e3 (1.0-3.5); LYMPHOCYTE% 2.2 % (17.0-45.0); MEAN CORPUSCULAR HEMOGLOBIN 32.4 PG (28-34); MEAN CORPUSCULAR HGB CONC 32.4 g/dL (30-36); MEAN PLATELET VOLUME 8.4 FL (6.5-11.5); MONOCYTE# 1.9 X10e3 (0-1.0); MONOCYTE% 11.5 % (3.0-12.0); NEUTROPHIL# 14.4 X10e3 (1.5-7.1); PLATELET COUNT 51 X10e3 (140-420); RED BLOOD COUNT 2.54 X10e (3.90-5.60); RED CELL DISTRIBUTION WIDTH 26.5 % (11.0-15.5); WHITE BLOOD COUNT 16.7 X10e3 (4.0-10.5)
[2016-10-15 05:49] LABS: DIFF IND YES
[2016-10-15 06:31] LABS: BUN/CREATININE RATIO 5.89; CALCIUM SERUM 7.6 mg/dL (8.4-10.2); CREATININE SERUM 7.3 mg/dL (0.6-1.4); POTASSIUM 3.9 mmol/L (3.5-5.1)
[2016-10-15 07:00] LABS: PLATELET ESTIMATE DECREASED (NORMAL)
[2016-10-15 07:01] LABS: ANISOCYTOSIS MOD
[2016-10-15 07:03] LABS: BURR CELLS PRESENT
[2016-10-16 06:48] LABS: BASOPHIL% 0.1 % (0-2.5); EOSINOPHIL% 0.2 % (0.0-7.0); HEMATOCRIT 25.3 % (38.0-50.0); HEMOGLOBIN 8.1 gm/dL (13.0-16.0); LYMPHOCYTE# 0.3 X10e3 (1.0-3.5); LYMPHOCYTE% 2.1 % (17.0-45.0); MEAN CELL VOLUME 101.2 FL (83-96); MEAN CORPUSCULAR HEMOGLOBIN 32.3 PG (28-34); MEAN CORPUSCULAR HGB CONC 31.9 g/dL (30-36); MEAN PLATELET VOLUME 8.7 FL (6.5-11.5); MONOCYTE# 1.8 X10e3 (0-1.0); MONOCYTE% 12.5 % (3.0-12.0); NEUTROPHIL# 12.4 X10e3 (1.5-7.1); NEUTROPHIL% 85.1 % (40-75); WHITE BLOOD COUNT 14.6 X10e3 (4.0-10.5)
[2016-10-16 06:52] LABS: DIFF IND NO; PLATELET COUNT 43 X10e3 (140-420)
[2016-10-16 07:12] LABS: ALBUMIN SERUM 1.8 g/dL (3.5-5.0); BILIRUBIN,TOTAL 1.4 mg/dL (0.2-2.0); BUN/CREATININE RATIO 6.66; CREATININE SERUM 6.6 mg/dL (0.6-1.4); PHOSPHOROUS 4.3 mg/dL (2.5-4.6); POTASSIUM 3.4 mmol/L (3.5-5.1); PROTEIN TOTAL SERUM 4.4 g/dL (6.0-8.3)
[2016-10-17 05:55] LABS: HEMATOCRIT 24.6 % (38.0-50.0); HEMOGLOBIN 7.8 gm/dL (13.0-16.0); MEAN CELL VOLUME 101.5 FL (83-96); MEAN CORPUSCULAR HEMOGLOBIN 32.4 PG (28-34); MEAN CORPUSCULAR HGB CONC 31.9 g/dL (30-36); MEAN PLATELET VOLUME 8.9 FL (6.5-11.5); RED BLOOD COUNT 2.42 X10e (3.90-5.60); RED CELL DISTRIBUTION WIDTH 26.7 % (11.0-15.5); WHITE BLOOD COUNT 15.2 X10e3 (4.0-10.5)
[2016-10-17 06:47] LABS: ALBUMIN SERUM 1.7 g/dL (3.5-5.0); BILIRUBIN,TOTAL 1.2 mg/dL (0.2-2.0); BUN/CREATININE RATIO 6.84; CREATININE SERUM 7.6 mg/dL (0.6-1.4); GLOM FILT RATE Estimated 7.6 mL/min (>60); POTASSIUM 3.6 mmol/L (3.5-5.1); PROTEIN TOTAL SERUM 4.1 g/dL (6.0-8.3)
[2016-10-17] MEDS ORDERED: CALCIUM ACETAT667 M1 PO (12:35)
[2016-10-17] MEDS ORDERED: TUMS500 MG PO (12:36)
[2016-10-17] MEDS ORDERED: CORTEF10 MG PO (12:37)
[2016-10-17] MEDS ORDERED: AUGMENTIN PO (12:37)
[2016-10-17] MEDS ORDERED: PROBIOTIC250 MG PO (12:38)
[2016-10-17] MEDS ORDERED: MAXIMUM DAILY1 EACH PO (12:39)
[2016-10-17] MEDS ORDERED: KEPPRA750 M1 PO (12:39)
[2016-10-17] MEDS ORDERED: SEROQUEL50 M1 PO (12:40)
[2016-10-18 06:23] LABS: HEMATOCRIT 26.7 % (38.0-50.0); HEMOGLOBIN 8.5 gm/dL (13.0-16.0); MEAN CELL VOLUME 99.2 FL (83-96); MEAN CORPUSCULAR HEMOGLOBIN 31.5 PG (28-34); MEAN CORPUSCULAR HGB CONC 31.8 g/dL (30-36); MEAN PLATELET VOLUME 8.4 FL (6.5-11.5); RED BLOOD COUNT 2.69 X10e (3.90-5.60); WHITE BLOOD COUNT 17.4 X10e3 (4.0-10.5)
[2016-10-18 06:42] LABS: BUN/CREATININE RATIO 7.01; CALCIUM SERUM 8.1 mg/dL (8.4-10.2); CREATININE SERUM 8.7 mg/dL (0.6-1.4); GLOM FILT RATE Estimated 6.4 mL/min (>60); POTASSIUM 3.7 mmol/L (3.5-5.1)
[2016-10-18] MEDS ORDERED: ANTACID650 MG PO (20:00)
[2016-10-18] MEDS ORDERED: TUMS500 MG PO (20:18)
[2016-10-18] MEDS ORDERED: AUGM PO (20:20)
[2016-10-18] MEDS ORDERED: HYDROCORTISONE10 M1 PO (20:21)
== END 2016-10-18 21:17 | disposition home or self-care (01) | DRG 441 ==
LOC: CED 12:21 → CICCU2 14:05 → CEDOF 14:05 → CED 15:45 → CEDOF 16:15 → C5B 16:15 → CICCU2 16:55 → C3A PCU 10-15 22:50
PROVIDERS: Emergency Medicine; Internal Medicine; Internal Medicine Gastroenterology; Internal Medicine Nephrology; Physician Assistant Medical
PROC: 5A1D60Z (ICD-10-PCS; 2016-10-08)
PROC: 05HM33Z Insertion of Infusion Device into Right Internal Jugular Vein, Percutaneous Approach (ICD-10-PCS; principal; 2016-10-09)
PROC: B543ZZA Ultrasonography of Right Jugular Veins, Guidance (ICD-10-PCS; 2016-10-09)
PROC: 30233N1 Transfusion of Nonautologous Red Blood Cells into Peripheral Vein, Percutaneous Approach (ICD-10-PCS; 2016-10-12)
PROC: 0W9G30Z Drainage of Peritoneal Cavity with Drainage Device, Percutaneous Approach (ICD-10-PCS; 2016-10-16)
DX: K72.90 Hepatic failure, unspecified without coma (principal); N18.6 End stage renal disease; R65.21 Severe sepsis with septic shock; J69.0 Pneumonitis due to inhalation of food and vomit; G92 Toxic encephalopathy; A41.9 Sepsis, unspecified organism; E46 Unspecified protein-calorie malnutrition; K76.6 Portal hypertension; E87.1 Hypo-osmolality and hyponatremia; E27.40 Unspecified adrenocortical insufficiency; E87.5 Hyperkalemia; Z99.2 Dependence on renal dialysis; F10.10 Alcohol abuse, uncomplicated; K70.30 Alcoholic cirrhosis of liver without ascites; J44.9 Chronic obstructive pulmonary disease, unspecified; K70.11 Alcoholic hepatitis with ascites; I95.1 Orthostatic hypotension; N40.0 Benign prostatic hyperplasia without lower urinary tract symptoms; D69.6 Thrombocytopenia, unspecified; R56.9 Unspecified convulsions; K31.89 Other diseases of stomach and duodenum; D63.1 Anemia in chronic kidney disease; E16.2 Hypoglycemia, unspecified; Z68.31 Body mass index [BMI] 31.0-31.9, adult
CPT/HCPCS: 36415; 36600; 70450; 71010; 74000; 80048; 80053; 80076; 81003; 82140; 82274; 82308; 82533; 82803; 82947; 83605; 83735; 84100; 85014; 85018; 85025; 85027; 85610; 85730; 86850; 86900; 86901; 86923; 87040; 87045; 87340; 87427; 87899; 92526; 92610; 93005; 94640; 94760; 94761; 97110; 97116; 97162; 97167; 97530; 97535; 99285; C1729; G0480; G8978-GP; G8979-GP; G8987-GO; G8988-GO; G8996-GN; G8997-GN; J0696; J1265; J1720; J1815; J1953; J2060; J2370; J2543; J2920; J3411; J7042; P9016; P9045; P9047; Q4081

== ENCOUNTER 2016-10-21 11:33 | Inpatient (IN) | payer OTHER ==
[~2016-10-21] VITALS: Ht 182.9 cm; Wt 113.0 kg
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
--- NOTE | ~2016-10-21 | CO ---
Unit #: [id number] #: [id number] Patient: MIRA BRAXTON [id number] [address] [address] [id number] MR#: [id number] NAME: MIRA BRAXTON. ROOM: [facility] Age: 51 Sex: M Admission Date: 10/21/2016 : 1965 Attending Physician: Neena Crisostomo M.D. Primary Care Physician: Colton Mcdowell M.D. Consultation Date: 10/22/2016 CONSULTATION REPORT REASON FOR CONSULTATION Antibiotic management in a patient with gram-positive cocci bacteremia. HISTORY OF PRESENT ILLNESS This is a 51-year-old male who was recently admitted to the hospital and was discharged only a few days ago. Patient has multiple medical problems including alcohol-induced liver disease and was here for hepatic encephalopathy and aspiration pneumonia. Patient was discharged and was to take Augmentin at home; however, he had not filled his prescription yet and when he was at dialysis he began experiencing some headache and was told he had low blood pressure and came back to the emergency room. Patient reports to me that his head was very painful, but it has improved. He denied any fevers, abdominal pain, shortness of breath. Patient did require admission to the ICU as he is currently on a Levophed drip but he is also on room air. Patient's workup also showed elevated lactic acid and procalcitonin level with 2/2 positive blood cultures for gram-positive cocci in pairs. The patient's antibiotics were changed to Rocephin and Flagyl and infectious disease was asked to evaluate for further management. In discussion with patient, he does feel a little bit better. He feels that his swelling is stable on his legs. He reports no worsening abdominal pain or shortness of breath. PAST MEDICAL HISTORY 1. Liver cirrhosis and hepatic encephalopathy due to alcohol abuse. 2. End-stage renal disease on hemodialysis via fistula for the last two years. 3. History of GI bleed with esophageal varices. 4. Portal gastropathy. 5. COPD. 6. Chronic hypertension. PAST SURGICAL HISTORY 1. Left arm fistula. 2. Tonsillectomy. ALLERGIES No known allergies. MEDICATIONS The patient is currently on Rocephin and Flagyl. For other medications, please refer to patient's MAR. Please note, the patient is also on a Levophed drip. SOCIAL HISTORY Unit #: [id number] #: [id number] Patient: MIRA BRAXTON The patient has no alcohol for three or four months. He denies any IV drug use. He does report that he continues to use tobacco and he lives with his . REVIEW OF SYSTEMS Negative except for as previously mentioned in the history of present illness. PHYSICAL EXAMINATION VITAL SIGNS: Temperature 97.8 with no fever this admission, pulse 99, blood pressure 86/54, respiratory rate 12. GENERAL: This is a no apparent distress mildly jaundiced male, who was resting in the bed comfortably. HEENT: His pupils are equal. NECK: His neck is supple. CARDIOVASCULAR: S1, S2 with questionable mild murmur. PULMONARY: Clear to auscultation, diminished in the bases. ABDOMEN: Positive bowel sounds. Rounded but no tenderness. EXTREMITIES: Show positive pitting edema in both lower extremities and he has a fistula in the upper arm. He also has an IJ line in place without any evidence of drainage except for some mild blood seen in the dressing. DIAGNOSTIC STUDIES LABORATORY: BUN 53, creatinine 7.9, sodium 130, potassium 3.9, chloride 98, CO2 of 21, bilirubin 3. AST 49, ALT 55, alkaline phosphatase 99. Amylase and lipase were not done this admission. Ammonia 29. Lactic acid is 2.7 which has improved from 3.3 on admission and procalcitonin level was 18. INR is 1.2. White blood cell count of 37,000, platelets 52,000, hemoglobin 9.8, hematocrit 30.6. MICROBIOLOGY: Two of 2 blood cultures showing gram-positive cocci in pairs. Clostridium difficile toxin is currently pending. CARDIOVASCULAR: Echocardiogram is pending. IMPRESSION This is a 51-year-old male with multiple medical problems including alcohol-induced cirrhosis with complications with recent admission secondary to hepatic encephalitis. Patient was home for only two to three days and returned with headache and found to have low blood pressure now in the intensive care unit on a Levophed drip. The patient's workup is also showing 2/2 positive blood cultures for gram-positive cocci in pairs. At this time, will treat as gram-positive sepsis with source unclear at this time. Possibilities include questionable (1) , possible endocarditis. He recently was in the hospital and may have had a line infection. The patient's IV site is currently new this admission. Will also need to follow up on stool studies and evaluate for Clostridium difficile and rule out translocation of bacteremia. The patient does not appear to have significant pneumonia at this time. At this time, continue with Rocephin and Flagyl but would also continue vancomycin until the ID of the gram-positive cocci is known as this may also be enterococcus. Will recommend to repeat blood cultures x2 30 minutes apart. Will repeat an ultrasound of the abdomen. If it does show ascites, will need to tap an evaluate for (2) . Will also check a CBC and CMP in the a.m. Thank you for allowing us to participate in the care of this patient. Further recommendations to follow pending patient's clinical course. Unit #: [id number] #: [id number] Patient: MIRA BRAXTON Dictated by... Sree SchwabP.RAlexsanderN. for Luigi Joy M.D. Shala TD: 10/22/2016 10:45 JOB #: [id number] CONSULTATION REPORT Page 1 of 1 X X CONSULTATION REPORT
--- NOTE | ~2016-10-21 | CR72 ---
[facility] A Service of [facility] & [facility] RADIOLOGY TEXT RESULTS PATIENT: MIRA BRAXTON LOCATION: [place] [id number] : [birth year] UNIT #: [id number] AGE: [address]: Neena Crisostomo MD SEX: M ORDER DR: [id number] [facility] [address] [facility] [place], [place] [address] [id number] I MR#: [id number] Acc #: [id number] NAME: MIRA BRAXTON. : 1965 SEX: M STUDY DATE/TIME: 10/22/2016 2:46 UNIT: [facility] ROOM: [facility] STUDY DESCRIPTION: CR Chest Single View Portable Attending Physician: Neena Crisostomo M.D. Ordering Physician: Aniket Cotton M.D. Primary Care Physician: Colton Mcdowell M.D. MEDICAL IMAGING REPORT This report is preliminary unless electronic signature is present EXAM Portable chest INDICATION Shortness of air. Followup. PROCEDURE Frontal view chest. COMPARISON 10/21/2016. FINDINGS Heart size unchanged. No new dense consolidation or pneumothorax. IMPRESSION Stable. Dictated by... Piyush Coleman M.D. THIS IS AN ELECTRONICALLY VERIFIED REPORT Piyush Coleman M.D. at 10/22/2016 10:02 PM LIZBETH/claudia TD: 10/22/2016 10:20 JOB #: [id number] MEDICAL IMAGING REPORT Page 1 of 1 COPY
--- NOTE | ~2016-10-21 | CR72 ---
[facility] A Service of [facility] RADIOLOGY TEXT RESULTS PATIENT: MIRA BRAXTON LOCATION: [facility] 572-01 : [birth year] UNIT #: [id number] AGE: [address]: Neena Crisostomo MD SEX: M ORDER DR: [id number] [facility] [address] [facility]. [place], [place] [address] [id number] I MR#: [id number] Acc #: [id number] NAME: MIRA BRAXTON : 1965 SEX: M STUDY DATE/TIME: 10/31/2016 13:11 UNIT: [facility] ROOM: [facility] STUDY DESCRIPTION: CR Chest Single View Portable Attending Physician: Neena Crisostomo M.D. Ordering Physician: Hamlet Hillman M.D. Primary Care Physician: Colton Mcdowell M.D. MEDICAL IMAGING REPORT This report is preliminary unless electronic signature is present EXAM Chest portable, 10/31/2016 13:11 hours HISTORY 51-year-old man with shortness of air, pneumonia. The patient complains of shortness of air and dizziness on dialysis today. COMPARISON 10/22/2016 FINDINGS Portable upright chest demonstrates right central venous catheter with tip in the upper right atrium unchanged. Lung volumes are low with stable heart size. There is new bilateral airspace change in the upper and mid lungs with relative sparing of the lung bases. There is no definite effusion or pneumothorax. IMPRESSION There is new diffuse bilateral airspace changes in the upper and mid lungs not seen on 10/22/2016. Findings could represent overwhelming infection or edema. No pleural effusion or pneumothorax. Dictated by... Katy Zuniga M.D. THIS IS AN ELECTRONICALLY VERIFIED REPORT Katy Zuniga M.D. at 10/31/2016 7:32 PM Yuval TD: 10/31/2016 14:51 JOB #: [id number] MEDICAL IMAGING REPORT [facility] A Service of [facility] RADIOLOGY TEXT RESULTS PATIENT: MIRA BRAXTON LOCATION: [facility] 572-01 : [birth year] UNIT #: [id number] AGE: [address]: Neena Crisostomo MD SEX: M ORDER DR: Page 1 of 1 COPY
--- NOTE | ~2016-10-21 | CR72 ---
[facility] A Service of [facility] RADIOLOGY TEXT RESULTS PATIENT: MIRA BRAXTON LOCATION: [facility] 572-01 : [birth year] UNIT #: [id number] AGE: [address]: Neena Crisostomo MD SEX: M ORDER DR: [id number] [facility] [address]. [place], [place] [address] [id number] MR#: [id number] Acc #: [id number] NAME: MIRA BRAXTON : 1965 SEX: M STUDY DATE/TIME: 10/21/2016 12:13 UNIT: [facility] ROOM: STUDY DESCRIPTION: CR Chest Single View Portable Attending Physician: Aniket Cotton M.D. Ordering Physician: Aniket Cotton M.D. Primary Care Physician: Colton Mcdowell M.D. MEDICAL IMAGING REPORT This report is preliminary unless electronic signature is present EXAM Portable AP view of the chest COMPARISON October 14, 2016, October 10, 2016. INDICATION The patient is a 51-year-old male with cough, chest congestion and dyspnea which are chronic but worsening today. Hypotension today. FINDINGS There is poor inspiratory effort. There is no evidence of pneumothorax or significant pleural effusion. There is crowding of central bronchovascular structures due to low lung volumes with band-like opacities in both lung bases which appears slightly increased, favoring atelectasis. No convincing evidence of pneumonia. Cardiomediastinal silhouette is normal. IMPRESSION Low lung volumes with crowding of central bronchovascular structures. Bibasilar opacities are increasing, favoring atelectasis. Correlation to exclude signs of pneumonia recommended. Dictated by... Blaise Burgess M.D. THIS IS AN ELECTRONICALLY VERIFIED REPORT Blaise Burgess M.D. at 10/28/2016 5:01 PM MICHAEL/zelda TD: 10/21/2016 16:10 JOB #: [id number] [facility] A Service of [facility] RADIOLOGY TEXT RESULTS PATIENT: MIRA BRAXTON LOCATION: [facility] 572-01 : [birth year] UNIT #: [id number] AGE: [address]: Neena Crisostomo MD SEX: M ORDER DR: MEDICAL IMAGING REPORT Page 1 of 1 COPY
--- NOTE | ~2016-10-21 | OR ---
Unit #: [id number] #: [id number] Patient: MIRA BRAXTON [id number] [address] [address] [id number] I MR#: [id number] NAME: MIRA BRAXTON. ROOM: 572 Date of Procedure: 11/11/2016 Admission Date: 10/21/2016 Surgeon: Akshat Umana M.D. : 1965 Attending Physician: Neena Crisostomo M.D. Primary Care Physician: Colton Mcdowell M.D. OPERATIVE REPORT PRIMARY CARE PHYSICIAN Colton Mcdowell M.D. PREOPERATIVE DIAGNOSES Gastrointestinal bleed with melena. The patient has a history of portal hypertension on a background of cirrhosis of liver from alcoholic liver disease as well as end-stage renal disease, on hemodialysis. PROCEDURES PERFORMED Upper gastrointestinal endoscopy. POSTOPERATIVE DIAGNOSES The patient had changes of portal hypertensive gastropathy involving the fundic mucosa. However, previously seen angiodysplasias in the antrum are completely resolved. In fact, the mucosa appeared completely normal in the antrum. No potential source of blood loss was seen in the upper gastrointestinal tract. RECOMMENDATIONS The patient most likely has anemia of renal disease, exacerbated by GI bleed most likely in the small bowel. Suggests consider hospice care as the patient has been transfused a large number of packed cells over the past year with a very poor quality of life. This was discussed at length with the patient's family and they come back for a followup. SEDATION USED MAC. DESCRIPTION OF PROCEDURE Following detailed explanation of potential risks and complications of an upper endoscopy, namely perforation, bleeding, complication related to sedation, the patient was brought to GI lab and laid in the left lateral decubitus position. Lubricated tip of the Olympus video upper endoscope was passed through bite block into the proximal esophagus under direct vision. The entire esophageal mucosa was examined and appeared normal. Z-line was nicely demarcated, there being no esophagitis or hiatus hernia. Incidentally, the patient did not have any esophageal varices. The scope was then advanced into the gastric cavity and the latter was insufflated. Mucosa of the fundus, body, and antrum was examined. The patient was noted to have changes of portal hypertensive gastropathy involving the fundic mucosa in the form of classic reticular appearance of the mucosa. The prepyloric antral area surprisingly appeared normal. There being no Unit #: [id number] #: [id number] Patient: MIRA BRAXTON angiodysplasias nor any blood or blood residue in this area. Pylorus was intubated with visualization of normal duodenal bulb and second and third part of the duodenum. Upon withdrawal and retroflexion, incisura, cardia, and greater curve were examined and no additional findings noted. The scope was then withdrawn into the distal esophagus. The entire esophageal mucosa was examined all the way up to pharynx. No additional findings were noted. The patient tolerated the procedure without any postprocedure complications. Dictated by... Bi Barry/dorota TD: 11/12/2016 02:28 JOB #: [id number] OPERATIVE REPORT Page 1 of 1 X Akshat Umana MD X PROCEDURE OPERATIVE NOTE
--- NOTE | ~2016-10-21 | CO ---
Unit #: [id number] #: [id number] Patient: MIRA BRAXTON [id number] [address] [place], [place] [address] [id number] I MR#: [id number] NAME: MIRA BRAXTON ROOM: [facility] Age: 51 Sex: M Admission Date: 10/21/2016 : 1965 Attending Physician: Neena Crisostomo M.D. Primary Care Physician: Colton Mcdowell M.D. CONSULTATION REPORT REASON FOR CONSULTATION Critical care management. CHIEF COMPLAINT Hypertension. HISTORY OF PRESENT ILLNESS The patient was sent from the dialysis center because of low blood pressure. He is a 51-year-old male known to me from previous admission with past medical history of alcoholic liver cirrhosis, hepatic encephalopathy, GI bleed, COPD, chronic kidney disease, end stage renal disease on dialysis, ascites, anemia, BPH, thrombocytopenia, now presents with low blood pressure of systolic of 80 from the dialysis. Complaining of mild cough. Room air saturation is 99%. Denies any fever, chills or rigor. Does complain of shortness of breath. PHYSICAL EXAMINATION VITAL SIGNS: Currently, his temperature is 98, pulse 102, respirations 24, blood pressure is 90/58. NEUROLOGICAL: Awake, alert, oriented. No neuro deficit. HEENT: PERRLA. NECK: Supple. No JVD. CHEST: Bilateral air entry, bilateral mild rhonchi. GI: Distended. Bowel sounds positive. Positive ascites. EXTREMITIES: 3+ lower extremity edema. SKIN: No rashes, no ulcers. LYMPHATIC: No lymphadenopathy. DIAGNOSTIC STUDIES Labs and imaging has been reviewed. IMAGING: Chest x-ray - no appreciable infiltrate. Creatinine is 7.1, his potassium is 3.8. His white count is 32, hemoglobin 10, hematocrit 32, platelet count is 50. PAST MEDICAL HISTORY As describe above. SOCIAL HISTORY Positive for smoking, positive for alcohol abuse. ASSESSMENT AND PLAN 1. Shock: Sepsis present on admission. Rule out pneumonia. 2. Leukocytosis. Unit #: [id number] #: [id number] Patient: MIRA BRAXTON 3. History of cirrhosis. 4. Significant ascites. 5. History of gastrointestinal bleed and anemia. Plan is to admit the patient. Continue oxygen, bronchodilator, GI and DVT prophylaxis. Continue IV pressor, broad spectrum IV antibiotic, procalcitonin level. Sputum for culture and sensitivity. Stat dose steroids. The patient will be closely monitored. Please see orders for detailed plan. Thank you very much for this consultation. Dictated by... Bi Martinez TD: 10/22/2016 05:04 JOB #: [id number] CONSULTATION REPORT Page 1 of 1 X Umer Guevara MD CONSULTATION REPORT
--- NOTE | ~2016-10-21 | DS ---
Unit #: [id number] #: [id number] Patient: MIRA DANIELSON [id number] [address] [address] [id number] I MR#: [id number] NAME: MIRA DANIELSON ROOM: 572 Age: 51 Sex: M Admission Date: 10/21/2016 : 1965 Discharge Date: 11/09/2016 Attending Physician: Neena Crisostomo M.D. Primary Care Physician: Colton Mcdowell M.D. DISCHARGE SUMMARY Possible discharge to [facility] 11/09/2016. FINAL DIAGNOSES 1. Vancomycin resistant enterococcus bacteremia, source is unknown, possible infective endocarditis. 2. Acute hypoxic respiratory failure. 3. Pneumonia. 4. Cirrhosis. 5. End stage renal disease on hemodialysis. 6. Clostridium difficile infection, status post treatment. 7. Chronic anemia and history of gastrointestinal bleed. 8. Chronic thrombocytopenia secondary to alcohol abuse. 9. History of chronic obstructive pulmonary disease. 10. History of benign prostatic hypertrophy. 11. History of ascites, status post paracentesis multiple times and ongoing. 12. History of esophagogastroduodenoscopy, which shows multiple arteriovenous malformations and esophageal varices. 13. History of chronic orthostatic hypotension. 14. Tobacco abuse. DISCHARGE MEDICATIONS 1. IV Daptomycin 1100 mg q. 48 hours until 11/21/2016. 2. Hydrocodone 5/325 one tablet q.6 p.r.n. 3. Protonix 40 mg daily. 4. PhosLo 1,334 3 times a day before meals. 5. 1,000 mg Tums 3 times a day. 6. Folic acid 1 mg daily. 7. Thorazine 50 mg q.6 p.r.n. 8. Seroquel 50 mg twice a day. 9. ProAmatine 15 mg 4 time a day. 10. Carafate 1 g daily. 11. Florastor 250 mg daily. 12. Multivitamin daily. 13. Mini-Neb treatment with albuterol and Atrovent q.i.d. and p.r.n. 14. Lactulose 20 g 4 times a day. 15. Tylenol 650 q.4 p.r.n. for pain. 16. Cortef 10 mg p.o. twice a day. 17. Xifaxan 550 mg twice a day. 18. Keppra 750 mg twice a day. CONSULTANTS DURING HOSPITALIZATION 1. Dr. Childs from infectious disease. 2. Dr. Jacklyn Hillman from pulmonary services. Unit #: [id number] #: [id number] Patient: MIRA DANIELSON 3. Dr. Rondon from cardiology services. 4. Dr. Hernandez from hematology services. 5. Dr. Vicente from renal services. LAB WORKUP ON DISCHARGE Sodium 131, potassium 4.8, chloride 98, BUN 47, creatinine 4.0, calcium 7.2. WBC 9.9, hemoglobin 8.0, hematocrit 23.1 and platelet count 48. PT/INR is 13.2 and 1.2. PROCEDURE PERFORMED DURING HOSPITALIZATION Diagnostic and therapeutic paracentesis, which has been done x2 during the hospitalization. HOSPITAL COURSE Mr. Mira Danielson is a 51-year-old male who has multiple chronic conditions, has had multiple admissions, was admitted for altered mental status, hepatic encephalopathy and also hypertension. The patient was unable to complete hemodialysis secondary to profound hypertension, along with chills and headache. The patient was admitted to ICU. Pressors were started. Dr. Hillman was consulted. Patient was started on broad spectrum IV antibiotics. Patient's blood culture grew VRE and has been started on daptomycin as per infectious disease. FORTINO could not be performed secondary to chronic thrombocytopenia. Patient is being treated for possible infective endocarditis. Patient continued to have dialysis as per renal and continued to have packed rbc's transfusion during hemodialysis off and on. The patient may need continuation of this as needed basis. The patient has had paracentesis twice during the hospitalization and he may need paracentesis off and on as an outpatient. Patient's prognosis is poor. This is known to patient and patient's family. Patient has refused DNR status and Hospice. He is full code at this time. EXAMINATION ON DISCHARGE VITAL SIGNS: Blood pressure is 114/74, respiratory rate 18, pulse 104, temperature 97.7, oxygen saturation 96%. HEENT: Head is normocephalic. CHEST: Decreased air entry. CARDIOVASCULAR: Regular rhythm. ABDOMEN: Distended. EXTREMITIES: Edema is present. DISCHARGE INSTRUCTIONS 1. Patient will be discharged to [facility]. 2. Medication as per med rec. 3. Hemodialysis as per renal. 4. IV Daptomycin until 11/21/2016. Dictated by... Bi Marie Unit #: [id number] #: [id number] Patient: MIRA DANIELSON TD: 11/09/2016 11:30 JOB #: [id number] DISCHARGE SUMMARY Page 1 of 1 X Neena Crisostomo MD X DISCHARGE SUMMARY
--- NOTE | ~2016-10-21 | CO ---
Unit #: [id number] #: [id number] Patient: MIRA DANIELSON [id number] [address] [address] [id number] MR#: [id number] NAME: MIRA DANIELSON ROOM: [facility] Age: 51 Sex: M Admission Date: 10/21/2016 : 1965 Attending Physician: Neena Crisostomo M.D. Primary Care Physician: Colton Mcdowell M.D. Consultation Date: 10/21/2016 CONSULTATION REPORT REASON FOR CONSULTATION End-stage renal disease. HISTORY OF PRESENT ILLNESS Mr. Danielson is a 51-year-old white male with past medical history of end-stage renal disease on hemodialysis Saturday, , and Saturday, who was recently discharged from the hospital on 10/18/2016. The patient stated that he came in back to the hospital because of hypertension. He stated that he felt throbbing headache as well as some stomach pain. He always had some chills. He stated that they were not able to remove any fluid during his dialysis yesterday. He has long history of cirrhosis and hepatic encephalopathy in the past. The patient has been undergoing paracentesis on a weekly basis. He thinks that he is complaint with fluid restriction and low sodium diet. At the time of admission, the patient was noted to have a high creatinine of 3.3 with elevated white blood cell of 32 and blood pressure of 65/46. We were consulted to help with management of his end-stage renal disease. The patient stated that he feels better. He is able to provide history. He is eating his dinner. PAST MEDICAL HISTORY As mentioned above, 1. Long history of liver cirrhosis and hepatic encephalopathy due to alcohol abuse. 2. End-stage renal disease on hemodialysis. 3. History of GI bleed with esophageal varices. 4. Portal gastropathy. 5. History of COPD. 6. History of chronic hypertension. PAST SURGICAL HISTORY Include, 1. Left arm fistula. 2. Status post tonsillectomy. ALLERGIES No known drug allergy. FAMILY HISTORY Noncontributory. SOCIAL HISTORY Previous alcohol abuser, quit in May. No current history of drinking or illicit drug abuse. , lives with his . Unit #: [id number] #: [id number] Patient: MIRA DANIELSON REVIEW OF SYSTEMS A 12-point review of systems was conducted and they were all negative except what is per history of present illness. PHYSICAL EXAMINATION GENERAL: Alert and oriented x3, in no acute distress. VITAL SIGNS: Temperature 98, heart rate 98, respiratory rate 18, blood pressure 76/47 but currently 109/64 on Levophed. HEENT: Normocephalic and atraumatic. Pupils are equal, round, and reactive to light and accommodation. Extraocular muscle intact. NECK: No JVD. No lymphadenopathy. CHEST: Decreased breath sounds bibasilar. HEART: Regular rate and rhythm. S1 and S2 normal. ABDOMEN: Bowel sounds positive. Generalized mild tenderness. No guarding. No rebound. EXTREMITIES: No edema. No cyanosis. No clubbing. Left AV fistula. DIAGNOSTIC STUDIES LABORATORY RESULTS: Lactic acid 3.3. Sodium 132, potassium 3.8, chloride 98, bicarbonate 23, BUN of 43, creatinine 7.1. ASSESSMENT AND PLAN 1. End-stage renal disease on hemodialysis Saturday, , and Saturday. The patient received last dialysis on Saturday. No indication for dialysis today. Possibly hemodialysis on Saturday. 2. Sepsis with elevated lactic acid and white blood cells. Wonder if etiology is coming from the abdomen. The patient currently on IV antibiotic and Levophed. 3. History of liver cirrhosis due to alcohol abuse, requiring paracentesis on weekly basis. 4. Anemia of chronic kidney disease with history of gastrointestinal bleed in the past. 5. History of adrenal insufficiency. 6. History of chronic thrombocytopenia. 7. History of chronic obstructive pulmonary disease. I would like to thank, Dr. Neena Crisostomo, for allowing us to take care of this patient. Dictated by... Bi Jara/dorota TD: 10/22/2016 06:25 JOB #: [id number] CONSULTATION REPORT Page 1 of 1 X X CONSULTATION REPORT
--- NOTE | ~2016-10-21 | XA170 ---
[facility] A Service of [facility] & [facility] RADIOLOGY TEXT RESULTS PATIENT: MIRA BRAXTON LOCATION: [facility] 572-01 : [birth year] UNIT #: [id number] AGE: [address]: Neena Crisostomo MD SEX: M ORDER DR: [id number] [facility] [address]. [place], [place] [address] [id number] I MR#: [id number] Acc #: [id number] NAME: MIRA BRAXTON : 1965 SEX: M STUDY DATE/TIME: 10/30/2016 13:32 UNIT: [facility] ROOM: [facility] STUDY DESCRIPTION: XA Paracentesis W Image Attending Physician: Neena Crisostomo M.D. Ordering Physician: Viral Vicente M.D. Primary Care Physician: Colton Mcdowell M.D. MEDICAL IMAGING REPORT This report is preliminary unless electronic signature is present EXAM Ultrasound guided paracentesis HISTORY Ascites PROCEDURE The risks, benefits, and alternatives to the procedure were explained to the patient and signed, informed consent was obtained. The patient was placed supine on the stretcher. Preliminary ultrasound of the abdomen was performed which demonstrated a moderate volume of ascites. This image was permanently saved. The overlying skin was marked. The patient was prepped and draped in the usual sterile fashion. A time-out was performed as per protocol. The skin and subcutaneous tissues were anesthetized with buffered lidocaine and a Yueh catheter was advanced into the fluid with aspiration of serous material. The catheter was hooked to suction tubing and there was evacuation of 3.7 L of serous material. The catheter was then removed and manual pressure was applied until hemostasis was obtained. IMPRESSION Technically ultrasound guided paracentesis with evacuation of 3.7 L of serous material. Ultrasound was used during the procedure and permanent images were saved. Dictated by... Brandie Maya M.D. THIS IS AN ELECTRONICALLY VERIFIED REPORT Brandie Maya M.D. at 11/01/2016 5:06 PM JAEL/glen TD: 11/01/2016 12:30 [facility] A Service of [facility] & [facility] RADIOLOGY TEXT RESULTS PATIENT: MIRA BRAXTON LOCATION: [facility] 572-01 : [birth year] UNIT #: [id number] AGE: [address]: Neena Crisostomo MD SEX: M ORDER DR: JOB #: [id number] MEDICAL IMAGING REPORT Page 1 of 1 COPY
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
--- NOTE | ~2016-10-21 | XA170 ---
[facility] A Service of [facility] & [facility] RADIOLOGY TEXT RESULTS PATIENT: MIRA BRAXTON LOCATION: [facility] 572-01 : [birth year] UNIT #: [id number] AGE: [address]: Neena Crisostomo MD SEX: M ORDER DR: [id number] [facility] [address] [place], [place] [address] [id number] I MR#: [id number] Acc #: [id number] NAME: MIRA BRAXTON. : 1965 SEX: M STUDY DATE/TIME: 11/05/2016 15:18 UNIT: [facility] ROOM: 2 STUDY DESCRIPTION: XA Paracentesis W Image Attending Physician: Neena Crisostomo M.D. Ordering Physician: Neena Crisostomo M.D. Primary Care Physician: Colton Mcdowell M.D. MEDICAL IMAGING REPORT This report is preliminary unless electronic signature is present EXAM Paracentesis. INDICATIONS Ascites. PROCEDURE The risks, benefits, and alternatives to the procedure were explained to the patient, and signed informed consent was obtained. He was placed supine on the stretcher. Preliminary ultrasound guidance was performed, which demonstrated moderate volume ascites. Images were permanently saved. Overlying skin was marked. Patient prepped and draped usual sterile fashion. Time-out was performed as per protocol. Skin and subcutaneous tissues were assessed with buffered lidocaine and a Yueh catheter was advanced into fluid with aspiration of serous material. The catheter was hooked to suction tubing. There was aspiration of a total 3.4 L of serous material. Catheter was then removed and manual pressure applied until hemostasis was obtained. Of note the patient has had leakage from several additional, puncture site for paracentesis. These areas were prepped and draped in the usual sterile fashion and then I did apply Dermabond to them to see if this would help with leakage to that the patient does not have wear multiple ostomy bags to catch the leaking fluid. IMPRESSION Successful ultrasound-guided paracentesis with evacuation of 3.3 L of a serous material. There was no evidence of leakage at the of the procedure and permanent images were saved. Dictated by... Brandie Maya M.D. THIS IS AN ELECTRONICALLY VERIFIED REPORT Brandie Maya M.D. at 11/07/2016 4:53 PM [facility] A Service of [facility] & [facility] RADIOLOGY TEXT RESULTS PATIENT: MIRA BRAXTON LOCATION: [facility] : [birth year] UNIT #: [id number] AGE: [address]: Neena Crisostomo MD SEX: M ORDER DR: Deborah TD: 11/06/2016 13:08 JOB #: [id number] MEDICAL IMAGING REPORT Page 1 of 1 COPY
--- NOTE | ~2016-10-21 | DS ---
Unit #: [id number] #: [id number] Patient: MIRA BRAXTON [id number] [facility]. [place], [place] [address] [id number] I MR#: [id number] NAME: MIRA BRAXTON. ROOM: 572 Age: 51 Sex: M Admission Date: 10/21/2016 : 1965 Discharge Date: 11/12/2016 Attending Physician: Neena Crisostomo M.D. Primary Care Physician: Colton Mcdowell M.D. DISCHARGE SUMMARY ADDENDUM Discharge on 11/12/2016 to [facility]. Please note, the discharge summary dictated earlier on 11/09/2016, the patient's discharge was held because of needed precertification from insurance for discharge to rehab. Patient did have an episode of rectal bleeding. Now, Dr. Akshat Umana was consulted. Patient has a history of both hypertension on the background of cirrhosis of liver from alcoholic liver disease, as well as end stage disease on hemodialysis. Patient had an upper gastrointestinal endoscopy done on 11/11/2016 and it showed the mucosa appeared completely normal in the antrum. No potential source of blood loss was seen in the upper GI tract. 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 Patient has had multiple EGD and treatment in the past. Most likely the patient has anemia of renal disease, exacerbated by GI bleed, most likely in small bowel. Again hospital was consulted but patient has refused at this time. Patient continued to have packed rbc's transfusion during the dialysis off and on. PROGNOSIS The patient does have a poor prognosis and this is known to patient and patient's . DISCHARGE MEDICATIONS As above. Continue antibiotics, IV daptomycin until 11/21/2016. PHYSICAL EXAMINATION ON DISCHARGE VITAL SIGNS: Her blood pressure is 109/63, respiratory rate 16, pulse 92, temperature 97.9, oxygen saturation is 100%. HEENT: Head is normocephalic. CHEST: Decreased air entry in the bases. CARDIOVASCULAR: S1 and S2 positive. Regular rhythm. ABDOMEN: Distended. EXTREMITIES: Edema is present. DIAGNOSTIC STUDIES LABORATORY WORKUP: Today CPK is 56. CBC shows WBC 15.6, hemoglobin 6.8, hematocrit 20.3, platelet count of 75. BMP shows sodium 128, potassium 6.2, chloride 95, BUN 69, and creatinine 5.9. Please note, patient will have hemodialysis and packed rbc's transfusion today. Labs of CBC and BMP to be done in two days. Unit #: [id number] #: [id number] Patient: MIRA BRAXTON Dictated by... Bi Marie/anne TD: 11/12/2016 11:14 JOB #: [id number] DISCHARGE SUMMARY Page 1 of 1 X Neena Crisostomo MD X DISCHARGE SUMMARY
--- NOTE | ~2016-10-21 | EKG ---
PATIENT: MIRA BRAXTON UNIT #: [id number] Ventricular Rate: 95 BPM Atrial Rate: 95 BPM P-R Interval: 150 ms QRS Duration: 84 ms Q-T Interval: 350 ms QTC Calculation(Bezet): 439 ms P Linwood: 48 degrees Calculated R Linwood: 2 degrees Calculated T Linwood: 37 degrees Diagnosis Line: Normal sinus rhythm Diagnosis Line: Normal ECG Diagnosis Line: When compared with ECG of 21-OCT-2016 12:01, Diagnosis Line: Nonspecific T wave abnormality has replaced Diagnosis Line: inverted T waves in Inferior leads Diagnosis Line: Confirmed by FRANCY TARIQ MD ([id number]) on Diagnosis Line: 10/29/2016 8:12:37 PM INTERPRETING MD: KENZIE
--- NOTE | ~2016-10-21 | OR ---
Unit #: [id number] #: [id number] Patient: MIRA BRAXTON [id number] [address] [place], [place] [address] [id number] I MR#: [id number] NAME: MIRA BRAXTON ROOM: [facility] Date of Procedure: 10/22/2016 Admission Date: 10/21/2016 Surgeon: Rocky Hillman M.D. : 1965 Attending Physician: Neena Crisostomo M.D. Primary Care Physician: Colton Mcdowell M.D. PROCEDURE OPERATIVE NOTE PROCEDURE PERFORMED Diagnostic and therapeutic paracentesis with ultrasound guidance. INDICATION FOR PROCEDURE Rule out spontaneous bacterial peritonitis and massive ascites. COMPLICATIONS None. DESCRIPTION OF PROCEDURE An informed consent was obtained from the patient himself after explaining the benefits and risks of this procedure. Patient was prepped and positioned in a proper way. Then, with chlorhexidine prep, a needle was inserted in the right lower quadrant after identifying a pocket with ultrasound guidance. The needle was inserted until flow was obtained. A catheter was inserted over the needle, and the needle was removed. Next, 3.2 liters was drained from his abdomen, and the procedure was terminated then due to catheter malfunction. The catheter was removed and a clean dressing was applied. Patient tolerated his procedure well with no immediate complications. Dictated by... Rocky Hillman M.D. EA/nino TD: 10/23/2016 21:45 JOB #: [id number] PROCEDURE OPERATIVE NOTE Page 1 of 1 X ROCKY EMERSON MD X PROCEDURE OPERATIVE NOTE
--- NOTE | ~2016-10-21 | XA170 ---
[facility] A Service of [facility] RADIOLOGY TEXT RESULTS PATIENT: MIRA BRAXTON LOCATION: [facility] : [birth year] UNIT #: [id number] AGE: [address]: Neena Crisostomo MD SEX: M ORDER DR: [id number] [address] [place], [place] [address] [id number] I MR#: [id number] Acc #: [id number] NAME: MIRA BRAXTON. : 1965 SEX: M STUDY DATE/TIME: 10/23/2016 13:55 UNIT: [facility] ROOM: [facility] STUDY DESCRIPTION: XA Paracentesis W Image Attending Physician: Neena Crisostomo M.D. Ordering Physician: Hamlet Hillman M.D. Primary Care Physician: Colton Mcdowell M.D. MEDICAL IMAGING REPORT This report is preliminary unless electronic signature is present EXAM XA Paracentesis HISTORY Ascites FINDINGS The risks, benefits and alternatives of the procedure were explained to the patient and signed, informed consent was obtained. The patient was placed supine on the stretcher, and preliminary ultrasound of the abdomen was performed which demonstrated moderate volume of ascites. This image was permanently saved. The overlying skin was marked. The patient was prepped and draped in the usual sterile fashion. A timeout was performed as per protocol. The skin and subcutaneous tissues were anesthetized with buffered lidocaine and a Yueh catheter was advanced into the fluid with aspiration of serous material. The catheter was hooked to suction tubing. There was evacuation of a total of 3.1 liters of serous material. The catheter was removed and manual pressure was applied until hemostasis was obtained. IMPRESSION Technically successful ultrasound-guided paracentesis with evacuation of 3.1 liters of serous material. Ultrasound was used during the procedure, and permanent images were saved. Dictated by... Brandie Maya M.D. [facility] A Service [facility] RADIOLOGY TEXT RESULTS PATIENT: MIRA BRAXTON LOCATION: [facility]-23 : [birth year] UNIT #: [id number] AGE: [address]: Neena Crisostomo MD SEX: M ORDER DR: THIS IS AN ELECTRONICALLY VERIFIED REPORT Brandie Maya M.D. at 10/24/2016 4:59 PM AFF/ea TD: 10/24/2016 13:36 JOB #: [id number] MEDICAL IMAGING REPORT Page 1 of 1 COPY
--- NOTE | ~2016-10-21 | A ---
[facility] Nutrition Therapy DATE: 11/01/16 Patient: MIRA BRAXTON Physician: GARCIA Address: [facility] Room/Bed: [address] [place] [address], Zip: [place] [address] Admit Date: 10/21/16 Date of : [birth year] Height: 6 0 Weight: 246 112 NUTRITIONAL ASSESSMENT: REASON: LOS 51 y/o male admitted for ascites cirrhosis PMH: sepsis, ESRD, COPD, PNA Anthropometrics: ht: 6'0" wt: 246# (112 kg) BMI 33 Labs: Na+ 130, Cl- 99, Glu 149, BUN 48, Creat 5.4, Ca++ 7.3, Phos 6.0, Accuchecks 132-180 Meds: lactulose, novolog, seroquel, protonix I/O & Bowel function: 2330/2057. BM 11/01 Skin Integrity: scars- abd, chest; abrasion- LT forehead; paracentesis- abd, drainage bags Diet: Healthy heart Assessment: Chart reviewed, events noted. Pt seen for LOS. Pt and pt's report that the patient has had an increased appetite due to the steroid medications he is taking. RD manager internet offered to add 6 small meals to pt's diet order in order to let the patient have snacks and more frequent meals, pt was agreeable. RD will continue to follow. Dx: Increased nutrient intake r/t current medication, increased appetite AEB pt and family report of intake. Intervention: 1. Healthy heart diet 2. 6 small meals Monitoring, Evaluation and Goals: 1. Intake; consume >50% of all meals 2. Labs; WNL Recommendations: Add 6 small meals to current healthy heart diet order. RD will f/u per protocol as pt is at mild nutritional risk. Respectfully, [facility] Nutrition Therapy DATE: 11/01/16 Patient: MIRA BRAXTON Physician: GARCIA Address: [facility] Room/Bed: [address] [place] [address], Zip: [place] [address] Admit Date: 10/21/16 Date of : [birth year] Height: 6 0 Weight: 246 112 Sadie Rodarte, Insurance And Benefits Clerk Katty Madrigal RD, LD [facility] cc: client file
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
--- NOTE | ~2016-10-21 | CO ---
Unit #: [id number] #: [id number] Patient: MIRA DANIELSON [id number] [address] [address] [id number] I MR#: [id number] NAME: MIRA DANIELSON ROOM: 572 Age: 51 Sex: M Admission Date: 10/21/2016 : 1965 Attending Physician: Neena Crisostomo M.D. Primary Care Physician: Colton Mcdowell M.D. Consultation Date: 10/30/2016 CONSULTATION REPORT Consultation requested by Dr. De Murillo. REASON FOR CONSULTATION Thrombocytopenia. HISTORY OF PRESENT ILLNESS Mr. Mira Danielson is 51 years old, well known to me from previous consultation with a history of chronic thrombocytopenia related to alcoholic cirrhosis with portal hypertension. He was admitted to the hospital with weakness, hypotension, and difficulty on dialysis. Following admission, he has had C. diff colitis and Gram-positive bacteremia along with findings of a large pleural effusion which he requests thoracentesis. He has been transfused platelets and underwent thoracentesis on 10/22/2016 with removal of 3.2 L of ascitic fluid. Mr. Danielson is somewhat confused today and a little somnolent and most of the information was obtained from the record. He has end stage renal disease on thrice weekly dialysis, alcoholic cirrhosis with a history of hepatic encephalopathy. PAST HISTORY 1. End stage renal disease. 2. Alcoholic cirrhosis. Last drank alcohol in 2015. 3. Recurrent GI bleeding. 4. Esophageal varices. 5. Portal hypertensive gastropathy and portal hypertension. 6. Chronic thrombocytopenia. Other medical problems include: 7. COPD. 8. Chronic hypertension. PAST SURGICAL HISTORY 1. Left arm fistula. 2. Tonsillectomy. ALLERGIES He has no known medication allergies. FAMILY HISTORY Negative for blood disorders. SOCIAL HISTORY He has been drinking alcohol since last year. He does not smoke. He is and lives with his . Unit #: [id number] #: [id number] Patient: MIRA DANIELSON REVIEW OF SYSTEMS Limited because of his somnolence. PHYSICAL EXAMINATION GENERAL: He is a middle age man who looks significantly older than stated age. Arousable to alertness. VITAL SIGNS: Temperature is 98.3, pulse rate is 120, respiratory rate 18, blood pressure 139/59. O2 sats 97% on room air. HEENT: Pupils are equal, react well. Mucous membranes are slightly dry. He is pale and has a sallow complexion. NECK: Without adenopathy, JVD, thyromegaly. CARDIOVASCULAR SYSTEM: First and second heart sounds are heard and regular. LUNGS: Chest expansion symmetric anteriorly. ABDOMEN: Distended, soft, nontender. Ascites is noted. EXTREMITIES: 3+ pitting pedal edema. NEUROLOGICAL: He is arousable to alertness. Asterixis. No focal findings. PSYCHIATRIC: Difficult to assess secondary to drowsiness. SKIN: Scattered bruits. LYMPHATIC: No palpable lymph nodes. DIAGNOSTIC STUDIES LABORATORY: CBC with white count of 15, hemoglobin 7.6, platelet count is 48,000. After transfusion of platelets with CBC on 10/29/2016 being 29,000. Prothrombin time is 15, INR of 1.4 and a PTT is 36.9 seconds. ASSESSMENT AND PLAN Mr. Mira Danielson is 51 years old with a history of alcoholic cirrhosis, portal hypertension, chronic thrombocytopenia with a history of recurrent GI bleeding and end stage renal disease. Consultation is for chronic thrombocytopenia; however, at this point he does not have any history of active bleeding and has been transfused with platelets. Discussed the situation with patient and . RECOMMENDATIONS 1. Fibrinogen level to assess liver hepatic function. 2. Monitor CBC with platelet transfusion and (1) procedures. 3. Assess iron storers. He is currently on Procrit as part of his dialysis but may require additional iron infusion. Thank you for allowing me to participate in his care. Dictated by... Bi Clements/vito TD: 11/01/2016 08:12 JOB #: [id number] Unit #: [id number] #: [id number] Patient: MIRA DANIELSON CONSULTATION REPORT Page 1 of 1 X Nain Hernandez MD CONSULTATION REPORT
--- NOTE | ~2016-10-21 | EKG ---
PATIENT: MIRA BRAXTON UNIT #: [id number] Ventricular Rate: 79 BPM Atrial Rate: 79 BPM P-R Interval: 152 ms QRS Duration: 84 ms Q-T Interval: 420 ms QTC Calculation(Bezet): 481 ms P Saxon: -26 degrees Calculated R Saxon: -14 degrees Calculated T Saxon: -2 degrees Diagnosis Line: Normal sinus rhythm Diagnosis Line: Prolonged QT Diagnosis Line: Abnormal ECG Diagnosis Line: When compared with ECG of 08-OCT-2016 12:36, Diagnosis Line: No significant change was found Diagnosis Line: Confirmed by SERAFIN BAPTISTE MD ([id number]) on Diagnosis Line: 10/21/2016 5:44:21 PM INTERPRETING MD: EMILE MCMAHON
--- NOTE | ~2016-10-21 | US8 ---
[facility] A Service of [facility] & [facility] RADIOLOGY TEXT RESULTS PATIENT: MIRA BRAXTON LOCATION: [address] : [birth year] UNIT #: [id number] AGE: [address]: Neena Crisostomo MD SEX: M ORDER DR: [id number] [facility] [address] [facility] [place], [place] [address] [id number] I MR#: [id number] Acc #: [id number] NAME: MIRA BRAXTON : 1965 SEX: M STUDY DATE/TIME: 10/22/2016 13:39 UNIT: [facility] ROOM: [facility] STUDY DESCRIPTION: US Abdominal Wall/Quadrant Attending Physician: Neena Crisostomo M.D. Ordering Physician: Ed Mustapha Sorensen M.D. Primary Care Physician: Colton Mcdowell M.D. MEDICAL IMAGING REPORT This report is preliminary unless electronic signature is present EXAM Abdominal ultrasound limited four-quadrant survey. HISTORY Intermittent abdomen pain for 3 weeks. Abdomen distension. Post paracentesis. FINDINGS Limited 4-quadrant ultrasound survey of the abdomen was performed to evaluate for the presence of ascites. The exam demonstrates moderate diffuse ascites in all 4 quadrants. IMPRESSION Moderate diffuse abdominal ascites throughout the abdomen. Dictated by... Eren Bird M.D. THIS IS AN ELECTRONICALLY VERIFIED REPORT Eren Bird M.D. at 10/23/2016 2:15 PM DFL/evelyne TD: 10/23/2016 09:01 JOB #: [id number] MEDICAL IMAGING REPORT Page 1 of 1 COPY
[~2016-10-21 11:33] MED LIST changes: +ACETAMINOPHEN PO; +AMBIEN10 MG PO; +AUGM PO; +AUGMENTIN PO; +CALCIUM ACETAT667 M1 PO; +CORTEF10 MG PO; +HYDROCORTISONE10 M1 PO; +KEPPRA750 M1 PO; +LACTULOSE10 GM/151 PO; +MAXIMUM DAILY1 EACH PO; +PATIENT'S PHARMACY; +PRO-AMATINE5 MG PO; +PROBIOTIC250 MG PO; +SEROQUEL50 M1 PO; +TUMS500 MG PO; +ZANAFLEX PO
[2016-10-21 12:10] LABS: POC - CKMB 1.2 ng/mL (0.0-7.9); POC - TROPONIN <0.05 ng/mL (<=0.05)
[2016-10-21 12:23] LABS: BASOPHIL# 0.2 X10e3 (0-0.3); BASOPHIL% 0.7 % (0-2.5); EOSINOPHIL# 0.2 X10e3 (0-0.7); EOSINOPHIL% 0.5 % (0.0-7.0); HEMATOCRIT 32.2 % (38.0-50.0); HEMOGLOBIN 10.2 gm/dL (13.0-16.0); LYMPHOCYTE# 0.4 X10e3 (1.0-3.5); LYMPHOCYTE% 1.1 % (17.0-45.0); MEAN CELL VOLUME 98.9 FL (83-96); MEAN CORPUSCULAR HEMOGLOBIN 31.3 PG (28-34); MEAN CORPUSCULAR HGB CONC 31.6 g/dL (30-36); MEAN PLATELET VOLUME 8.9 FL (6.5-11.5); MONOCYTE# 0.3 X10e3 (0-1.0); MONOCYTE% 0.9 % (3.0-12.0); NEUTROPHIL# 30.9 X10e3 (1.5-7.1); NEUTROPHIL% 96.8 % (40-75); RED BLOOD COUNT 3.25 X10e (3.90-5.60)
[2016-10-21 12:30] LABS: INR 1.2; PARTIAL THROMBOPLASTIN TIME 31.1 SECONDS (23.5-31.3); PROTHROMBIN TIME (PATIENT) 13.4 SECONDS (10.0-11.7)
[2016-10-21 12:41] LABS: DIFF IND YES; PLATELET COUNT 50 X10e3 (140-420)
[2016-10-21 12:43] LABS: PLATELET ESTIMATE DECREASED (NORMAL)
[2016-10-21 12:55] LABS: ALBUMIN SERUM 2.1 g/dL (3.5-5.0); BUN/CREATININE RATIO 6.05; CALCIUM SERUM 7.5 mg/dL (8.4-10.2); CREATININE SERUM 7.1 mg/dL (0.6-1.4); GLOM FILT RATE Estimated 8.2 mL/min (>60); POTASSIUM 3.8 mmol/L (3.5-5.1); PROTEIN TOTAL SERUM 4.7 g/dL (6.0-8.3)
[2016-10-22 03:17] LABS: BASOPHIL# 0.3 X10e3 (0-0.3); BASOPHIL% 0.7 % (0-2.5); EOSINOPHIL% 0.1 % (0.0-7.0); HEMATOCRIT 30.6 % (38.0-50.0); HEMOGLOBIN 9.8 gm/dL (13.0-16.0); LYMPHOCYTE# 0.2 X10e3 (1.0-3.5); LYMPHOCYTE% 0.6 % (17.0-45.0); MEAN CELL VOLUME 98.2 FL (83-96); MEAN CORPUSCULAR HEMOGLOBIN 31.3 PG (28-34); MEAN CORPUSCULAR HGB CONC 31.9 g/dL (30-36); MEAN PLATELET VOLUME 8.8 FL (6.5-11.5); MONOCYTE# 0.7 X10e3 (0-1.0); NEUTROPHIL# 35.8 X10e3 (1.5-7.1); NEUTROPHIL% 96.6 % (40-75); PLATELET COUNT 52 X10e3 (140-420); RED BLOOD COUNT 3.12 X10e (3.90-5.60); RED CELL DISTRIBUTION WIDTH 24.3 % (11.0-15.5)
[2016-10-22 03:18] LABS: DIFF IND NO
[2016-10-22 03:39] LABS: BUN/CREATININE RATIO 6.7; CALCIUM SERUM 7.6 mg/dL (8.4-10.2); CREATININE SERUM 7.9 mg/dL (0.6-1.4); GLOM FILT RATE Estimated 7.2 mL/min (>60); POTASSIUM 3.9 mmol/L (3.5-5.1)
[2016-10-22 04:15] LABS: ARTERIAL BLD GAS O2 SATURATION 93.1 % (90.0-100.0); ARTERIAL BLOOD GAS CARBOXY HB 1.5 %sat (0.0-9.0); ARTERIAL BLOOD GAS HCO3 20.4 mmol/L; ARTERIAL BLOOD GAS MET HB 1.2 %sat (0.0-2.0); ARTERIAL BLOOD GAS PCO2 31.3 mmHg (35.0-45.0); ARTERIAL BLOOD GAS pH 7.424 (7.350-7.450)
[2016-10-22 04:18] LABS: ARTERIAL BLOOD GAS ALLEN TEST NORMAL; ARTERIAL BLOOD GAS ART SITE RIGHT RADIAL; ARTERIAL BLOOD GAS DELIVERY ROOM AIR; ARTERIAL DRAW? YES
[2016-10-22 17:35] LABS: PROTEIN, BODY FLUID 0.3 gm/dL
[2016-10-23 04:32] LABS: BASOPHIL# 0.3 X10e3 (0-0.3); HEMATOCRIT 29.4 % (38.0-50.0); HEMOGLOBIN 9.5 gm/dL (13.0-16.0); LYMPHOCYTE# 0.8 X10e3 (1.0-3.5); LYMPHOCYTE% 2.3 % (17.0-45.0); MEAN CELL VOLUME 96.6 FL (83-96); MEAN CORPUSCULAR HEMOGLOBIN 31.2 PG (28-34); MEAN CORPUSCULAR HGB CONC 32.3 g/dL (30-36); MEAN PLATELET VOLUME 8.5 FL (6.5-11.5); MONOCYTE# 1.2 X10e3 (0-1.0); MONOCYTE% 3.6 % (3.0-12.0); NEUTROPHIL# 31.5 X10e3 (1.5-7.1); NEUTROPHIL% 93.1 % (40-75); PLATELET COUNT 51 X10e3 (140-420); RED BLOOD COUNT 3.05 X10e (3.90-5.60); RED CELL DISTRIBUTION WIDTH 23.8 % (11.0-15.5); WHITE BLOOD COUNT 33.8 X10e3 (4.0-10.5)
[2016-10-23 04:34] LABS: DIFF IND NO
[2016-10-23 04:53] LABS: ALBUMIN SERUM 2.1 g/dL (3.5-5.0); BILIRUBIN,TOTAL 1.8 mg/dL (0.2-2.0); BUN/CREATININE RATIO 7.52; CALCIUM SERUM 7.7 mg/dL (8.4-10.2); CREATININE SERUM 8.9 mg/dL (0.6-1.4); GLOM FILT RATE Estimated 6.3 mL/min (>60); MAGNESIUM 2.5 mg/dL (1.6-3.0); PHOSPHOROUS 6.8 mg/dL (2.5-4.6); POTASSIUM 3.9 mmol/L (3.5-5.1); PROTEIN TOTAL SERUM 4.6 g/dL (6.0-8.3)
[2016-10-23 16:30] LABS: BF TOTAL NUCLEATED CELL COUNT 39 CMM (0-100); BODY FLUID APPEARANCE CLEAR; BODY FLUID RBC <10000 CMM; BODY FLUID SOURCE PLEURAL
[2016-10-23 23:09] LABS: PROTEIN, BODY FLUID <3.0 gm/dL
[2016-10-24 05:44] LABS: BASOPHIL# 0.1 X10e3 (0-0.3); BASOPHIL% 0.3 % (0-2.5); HEMOGLOBIN 8.6 gm/dL (13.0-16.0); LYMPHOCYTE# 0.1 X10e3 (1.0-3.5); LYMPHOCYTE% 0.4 % (17.0-45.0); MEAN CELL VOLUME 98.4 FL (83-96); MEAN CORPUSCULAR HEMOGLOBIN 31.4 PG (28-34); MEAN CORPUSCULAR HGB CONC 31.9 g/dL (30-36); MEAN PLATELET VOLUME 9.4 FL (6.5-11.5); MONOCYTE# 0.8 X10e3 (0-1.0); MONOCYTE% 2.9 % (3.0-12.0); NEUTROPHIL# 25.9 X10e3 (1.5-7.1); NEUTROPHIL% 96.4 % (40-75); RED BLOOD COUNT 2.75 X10e (3.90-5.60); RED CELL DISTRIBUTION WIDTH 23.7 % (11.0-15.5); WHITE BLOOD COUNT 26.9 X10e3 (4.0-10.5)
[2016-10-24 05:53] LABS: DIFF IND NO; PLATELET COUNT 38 X10e3 (140-420)
[2016-10-25 06:05] LABS: BASOPHIL% 0.1 % (0-2.5); HEMATOCRIT 27.2 % (38.0-50.0); HEMOGLOBIN 8.7 gm/dL (13.0-16.0); LYMPHOCYTE# 0.3 X10e3 (1.0-3.5); LYMPHOCYTE% 1.5 % (17.0-45.0); MEAN CELL VOLUME 97.7 FL (83-96); MEAN CORPUSCULAR HEMOGLOBIN 31.2 PG (28-34); MEAN CORPUSCULAR HGB CONC 31.9 g/dL (30-36); MEAN PLATELET VOLUME 8.4 FL (6.5-11.5); MONOCYTE# 1.1 X10e3 (0-1.0); NEUTROPHIL# 19.7 X10e3 (1.5-7.1); NEUTROPHIL% 93.4 % (40-75); RED BLOOD COUNT 2.78 X10e (3.90-5.60); RED CELL DISTRIBUTION WIDTH 23.2 % (11.0-15.5); WHITE BLOOD COUNT 21.1 X10e3 (4.0-10.5)
[2016-10-25 06:21] LABS: DIFF IND YES; PLATELET COUNT 36 X10e3 (140-420)
[2016-10-25 06:50] LABS: ANISOCYTOSIS MOD; PLATELET ESTIMATE DECREASED (NORMAL)
[2016-10-25 07:18] LABS: ALBUMIN SERUM 1.9 g/dL (3.5-5.0); BILIRUBIN,TOTAL 1.4 mg/dL (0.2-2.0); CREATININE SERUM 7.5 mg/dL (0.6-1.4); GLOM FILT RATE Estimated 7.7 mL/min (>60); POTASSIUM 3.9 mmol/L (3.5-5.1); PROTEIN TOTAL SERUM 4.7 g/dL (6.0-8.3)
[2016-10-26 05:24] LABS: HEMATOCRIT 27.6 % (38.0-50.0); HEMOGLOBIN 8.8 gm/dL (13.0-16.0); MEAN CELL VOLUME 97.8 FL (83-96); MEAN CORPUSCULAR HEMOGLOBIN 31.3 PG (28-34); MEAN PLATELET VOLUME 8.7 FL (6.5-11.5); RED BLOOD COUNT 2.82 X10e (3.90-5.60); RED CELL DISTRIBUTION WIDTH 23.2 % (11.0-15.5); WHITE BLOOD COUNT 15.9 X10e3 (4.0-10.5)
[2016-10-26 05:37] LABS: BUN/CREATININE RATIO 7.5; CALCIUM SERUM 7.8 mg/dL (8.4-10.2); CREATININE SERUM 5.6 mg/dL (0.6-1.4); POTASSIUM 4.3 mmol/L (3.5-5.1)
[2016-10-27 05:38] LABS: HEMATOCRIT 28.5 % (38.0-50.0); HEMOGLOBIN 9.3 gm/dL (13.0-16.0); MEAN CELL VOLUME 96.4 FL (83-96); MEAN CORPUSCULAR HEMOGLOBIN 31.4 PG (28-34); MEAN CORPUSCULAR HGB CONC 32.5 g/dL (30-36); MEAN PLATELET VOLUME 8.5 FL (6.5-11.5); RED BLOOD COUNT 2.96 X10e (3.90-5.60); RED CELL DISTRIBUTION WIDTH 22.6 % (11.0-15.5); WHITE BLOOD COUNT 14.4 X10e3 (4.0-10.5)
[2016-10-27 07:24] LABS: BUN/CREATININE RATIO 8.67; CALCIUM SERUM 8.5 mg/dL (8.4-10.2); CREATININE SERUM 6.8 mg/dL (0.6-1.4); GLOM FILT RATE Estimated 8.7 mL/min (>60); POTASSIUM 4.3 mmol/L (3.5-5.1)
[2016-10-28 07:04] LABS: EOSINOPHIL# 0.1 X10e3 (0-0.7); EOSINOPHIL% 0.8 % (0.0-7.0); HEMATOCRIT 24.6 % (38.0-50.0); HEMOGLOBIN 7.9 gm/dL (13.0-16.0); LYMPHOCYTE# 0.2 X10e3 (1.0-3.5); LYMPHOCYTE% 2.3 % (17.0-45.0); MEAN CELL VOLUME 97.9 FL (83-96); MEAN CORPUSCULAR HEMOGLOBIN 31.6 PG (28-34); MEAN CORPUSCULAR HGB CONC 32.3 g/dL (30-36); MEAN PLATELET VOLUME 8.4 FL (6.5-11.5); MONOCYTE% 11.3 % (3.0-12.0); NEUTROPHIL# 7.2 X10e3 (1.5-7.1); NEUTROPHIL% 85.6 % (40-75); RED BLOOD COUNT 2.51 X10e (3.90-5.60); RED CELL DISTRIBUTION WIDTH 22.7 % (11.0-15.5); WHITE BLOOD COUNT 8.4 X10e3 (4.0-10.5)
[2016-10-28 07:20] LABS: BUN/CREATININE RATIO 8.03; CALCIUM SERUM 7.7 mg/dL (8.4-10.2); CREATININE SERUM 5.6 mg/dL (0.6-1.4); POTASSIUM 4.4 mmol/L (3.5-5.1)
[2016-10-28 08:25] LABS: DIFF IND YES; PLATELET COUNT 29 X10e3 (140-420)
[2016-10-28 08:32] LABS: PLATELET ESTIMATE DECREASED (NORMAL)
[2016-10-28 08:33] LABS: POLYCHROMASIA SL; SCHISTOCYTES PRESENT
[2016-10-29 08:39] LABS: HEMATOCRIT 24.1 % (38.0-50.0); HEMOGLOBIN 7.9 gm/dL (13.0-16.0); MEAN CELL VOLUME 98.3 FL (83-96); MEAN CORPUSCULAR HEMOGLOBIN 32.3 PG (28-34); MEAN CORPUSCULAR HGB CONC 32.9 g/dL (30-36); MEAN PLATELET VOLUME 8.6 FL (6.5-11.5); RED BLOOD COUNT 2.45 X10e (3.90-5.60); RED CELL DISTRIBUTION WIDTH 22.6 % (11.0-15.5); RETICULOCYTE 2.2 % (0.5-2.8); WHITE BLOOD COUNT 12.6 X10e3 (4.0-10.5)
[2016-10-29 08:54] LABS: CALCIUM SERUM 7.8 mg/dL (8.4-10.2); CREATININE SERUM 6.5 mg/dL (0.6-1.4); GLOM FILT RATE Estimated 9.2 mL/min (>60); POTASSIUM 3.8 mmol/L (3.5-5.1)
[2016-10-29 12:41] LABS: INR 1.4; PARTIAL THROMBOPLASTIN TIME 36.9 SECONDS (23.5-31.3)
[2016-10-30 06:08] LABS: HEMATOCRIT 22.8 % (38.0-50.0); HEMOGLOBIN 7.6 gm/dL (13.0-16.0); MEAN CELL VOLUME 98.7 FL (83-96); MEAN CORPUSCULAR HGB CONC 33.4 g/dL (30-36); RED BLOOD COUNT 2.31 X10e (3.90-5.60); RED CELL DISTRIBUTION WIDTH 22.5 % (11.0-15.5)
[2016-10-30 14:38] LABS: IRON SERUM 28 ug/dL (45-182); TOTAL IRON BINDING CAPACITY 174 ug/dL (252-460); TRANSFERRIN 124 mg/dL (180-329); TRANSFERRIN SATURATION 16 % (20-50)
[2016-10-31 06:39] LABS: HEMATOCRIT 21.2 % (38.0-50.0); MEAN CELL VOLUME 98.8 FL (83-96); MEAN CORPUSCULAR HEMOGLOBIN 32.2 PG (28-34); MEAN CORPUSCULAR HGB CONC 32.6 g/dL (30-36); MEAN PLATELET VOLUME 8.7 FL (6.5-11.5); RED BLOOD COUNT 2.14 X10e (3.90-5.60); RED CELL DISTRIBUTION WIDTH 22.8 % (11.0-15.5); WHITE BLOOD COUNT 15.4 X10e3 (4.0-10.5)
[2016-10-31 06:43] LABS: HEMOGLOBIN 6.9 gm/dL (13.0-16.0)
[2016-10-31 07:11] LABS: BUN/CREATININE RATIO 8.5; CALCIUM SERUM 7.7 mg/dL (8.4-10.2); GLOM FILT RATE Estimated 7.1 mL/min (>60); POTASSIUM 3.9 mmol/L (3.5-5.1)
[2016-11-01 05:58] LABS: HEMATOCRIT 24.9 % (38.0-50.0); HEMOGLOBIN 8.1 gm/dL (13.0-16.0); MEAN CORPUSCULAR HEMOGLOBIN 30.9 PG (28-34); MEAN CORPUSCULAR HGB CONC 32.3 g/dL (30-36); MEAN PLATELET VOLUME 8.9 FL (6.5-11.5); RED BLOOD COUNT 2.6 X10e (3.90-5.60); RED CELL DISTRIBUTION WIDTH 23.3 % (11.0-15.5); WHITE BLOOD COUNT 14.9 X10e3 (4.0-10.5)
[2016-11-01 05:59] LABS: MEAN CELL VOLUME 95.7 FL (83-96)
[2016-11-01 06:32] LABS: BUN/CREATININE RATIO 8.88; CALCIUM SERUM 7.3 mg/dL (8.4-10.2); GLOM FILT RATE Estimated 11.5 mL/min (>60); POTASSIUM 4.2 mmol/L (3.5-5.1)
[2016-11-01 06:33] LABS: CREATININE SERUM 5.4 mg/dL (0.6-1.4)
[2016-11-02 07:00] LABS: HEMATOCRIT 24.6 % (38.0-50.0); MEAN CELL VOLUME 95.9 FL (83-96); MEAN CORPUSCULAR HEMOGLOBIN 31.1 PG (28-34); MEAN CORPUSCULAR HGB CONC 32.5 g/dL (30-36); MEAN PLATELET VOLUME 9.7 FL (6.5-11.5); RED BLOOD COUNT 2.57 X10e (3.90-5.60); RED CELL DISTRIBUTION WIDTH 22.8 % (11.0-15.5); WHITE BLOOD COUNT 14.3 X10e3 (4.0-10.5)
[2016-11-02 07:26] LABS: BUN/CREATININE RATIO 8.69; CALCIUM SERUM 7.7 mg/dL (8.4-10.2); CREATININE SERUM 4.6 mg/dL (0.6-1.4); GLOM FILT RATE Estimated 13.9 mL/min (>60); POTASSIUM 4.5 mmol/L (3.5-5.1)
[2016-11-02 10:22] LABS: ARTERIAL BLOOD GAS PCO2 44.4 mmHg (35.0-45.0); ARTERIAL BLOOD GAS PO2 15.4 mmHg (80.0-100); ARTERIAL BLOOD GAS pH 7.452 (7.350-7.450)
[2016-11-02 10:23] LABS: ARTERIAL BLD GAS O2 SATURATION 18.9 % (90.0-100.0); ARTERIAL BLOOD GAS CARBOXY HB 1.5 %sat (0.0-9.0); ARTERIAL BLOOD GAS MET HB 1.1 %sat (0.0-2.0); ARTERIAL DRAW? NO
[2016-11-03 06:33] LABS: HEMATOCRIT 23.2 % (38.0-50.0); HEMOGLOBIN 7.7 gm/dL (13.0-16.0); MEAN CELL VOLUME 95.2 FL (83-96); MEAN CORPUSCULAR HEMOGLOBIN 31.7 PG (28-34); MEAN CORPUSCULAR HGB CONC 33.3 g/dL (30-36); MEAN PLATELET VOLUME 8.8 FL (6.5-11.5); RED BLOOD COUNT 2.43 X10e (3.90-5.60); RED CELL DISTRIBUTION WIDTH 22.4 % (11.0-15.5); WHITE BLOOD COUNT 12.2 X10e3 (4.0-10.5)
[2016-11-03 07:03] LABS: BUN/CREATININE RATIO 9.82; CALCIUM SERUM 7.7 mg/dL (8.4-10.2); CREATININE SERUM 5.7 mg/dL (0.6-1.4); GLOM FILT RATE Estimated 10.7 mL/min (>60); POTASSIUM 4.9 mmol/L (3.5-5.1)
[2016-11-04 05:54] LABS: HEMATOCRIT 22.9 % (38.0-50.0); HEMOGLOBIN 7.7 gm/dL (13.0-16.0); MEAN CELL VOLUME 96.3 FL (83-96); MEAN CORPUSCULAR HEMOGLOBIN 32.4 PG (28-34); MEAN CORPUSCULAR HGB CONC 33.6 g/dL (30-36); MEAN PLATELET VOLUME 9.4 FL (6.5-11.5); RED BLOOD COUNT 2.38 X10e (3.90-5.60); RED CELL DISTRIBUTION WIDTH 22.9 % (11.0-15.5)
[2016-11-05 05:59] LABS: HEMATOCRIT 22.6 % (38.0-50.0); HEMOGLOBIN 7.7 gm/dL (13.0-16.0); MEAN CELL VOLUME 95.5 FL (83-96); MEAN CORPUSCULAR HEMOGLOBIN 32.4 PG (28-34); MEAN PLATELET VOLUME 8.4 FL (6.5-11.5); RED BLOOD COUNT 2.37 X10e (3.90-5.60); WHITE BLOOD COUNT 8.8 X10e3 (4.0-10.5)
[2016-11-05 06:47] LABS: BUN/CREATININE RATIO 10.76; CALCIUM SERUM 7.5 mg/dL (8.4-10.2); CREATININE SERUM 5.2 mg/dL (0.6-1.4); POTASSIUM 4.8 mmol/L (3.5-5.1)
[2016-11-08 05:30] LABS: BASOPHIL% 0.6 % (0-2.5); EOSINOPHIL# 0.1 X10e3 (0-0.7); EOSINOPHIL% 1.5 % (0.0-7.0); HEMATOCRIT 20.4 % (38.0-50.0); LYMPHOCYTE# 0.6 X10e3 (1.0-3.5); LYMPHOCYTE% 7.1 % (17.0-45.0); MEAN CORPUSCULAR HGB CONC 33.6 g/dL (30-36); MEAN PLATELET VOLUME 8.2 FL (6.5-11.5); MONOCYTE# 1.2 X10e3 (0-1.0); MONOCYTE% 14.4 % (3.0-12.0); NEUTROPHIL# 6.4 X10e3 (1.5-7.1); NEUTROPHIL% 76.4 % (40-75); RED BLOOD COUNT 2.15 X10e (3.90-5.60); RED CELL DISTRIBUTION WIDTH 22.5 % (11.0-15.5); WHITE BLOOD COUNT 8.4 X10e3 (4.0-10.5)
[2016-11-08 05:46] LABS: HEMOGLOBIN 6.9 gm/dL (13.0-16.0)
[2016-11-08 05:47] LABS: DIFF IND YES; PLATELET COUNT 48 X10e3 (140-420)
[2016-11-08 05:50] LABS: BUN/CREATININE RATIO 12.77; CALCIUM SERUM 7.3 mg/dL (8.4-10.2); CREATININE SERUM 5.4 mg/dL (0.6-1.4); GLOM FILT RATE Estimated 11.5 mL/min (>60)
[2016-11-08 05:53] LABS: POTASSIUM 5.7 mmol/L (3.5-5.1)
[2016-11-08 06:19] LABS: BURR CELLS PRESENT; HYPOCHROMIA MOD; PLATELET ESTIMATE DECREASED (NORMAL); POIKILOCYTOSIS SL; SCHISTOCYTES PRESENT; TARGET CELLS SL
[2016-11-08 06:20] LABS: POLYCHROMASIA SL
[2016-11-08 21:44] LABS: INR 1.2; PARTIAL THROMBOPLASTIN TIME 33.6 SECONDS (23.5-31.3); PROTHROMBIN TIME (PATIENT) 13.2 SECONDS (10.0-11.7)
[2016-11-08 22:05] LABS: BASOPHIL# 0.1 X10e3 (0-0.3); BASOPHIL% 0.7 % (0-2.5); EOSINOPHIL# 0.1 X10e3 (0-0.7); EOSINOPHIL% 1.3 % (0.0-7.0); HEMATOCRIT 22.8 % (38.0-50.0); HEMOGLOBIN 7.7 gm/dL (13.0-16.0); LYMPHOCYTE# 0.8 X10e3 (1.0-3.5); LYMPHOCYTE% 8.1 % (17.0-45.0); MEAN CELL VOLUME 94.6 FL (83-96); MEAN CORPUSCULAR HEMOGLOBIN 31.7 PG (28-34); MEAN CORPUSCULAR HGB CONC 33.5 g/dL (30-36); MEAN PLATELET VOLUME 8.8 FL (6.5-11.5); MONOCYTE# 1.4 X10e3 (0-1.0); MONOCYTE% 14.5 % (3.0-12.0); NEUTROPHIL# 7.2 X10e3 (1.5-7.1); NEUTROPHIL% 75.4 % (40-75); PLATELET COUNT 52 X10e3 (140-420); RED BLOOD COUNT 2.41 X10e (3.90-5.60); RED CELL DISTRIBUTION WIDTH 20.7 % (11.0-15.5); WHITE BLOOD COUNT 9.5 X10e3 (4.0-10.5)
[2016-11-08 22:06] LABS: DIFF IND NO
[2016-11-09 07:41] LABS: HEMATOCRIT 23.1 % (38.0-50.0); MEAN CELL VOLUME 93.6 FL (83-96); MEAN CORPUSCULAR HEMOGLOBIN 32.3 PG (28-34); MEAN CORPUSCULAR HGB CONC 34.5 g/dL (30-36); RED BLOOD COUNT 2.47 X10e (3.90-5.60); RED CELL DISTRIBUTION WIDTH 19.7 % (11.0-15.5); WHITE BLOOD COUNT 9.9 X10e3 (4.0-10.5)
[2016-11-09 08:12] LABS: BUN/CREATININE RATIO 11.75; CALCIUM SERUM 7.2 mg/dL (8.4-10.2); GLOM FILT RATE Estimated 16.5 mL/min (>60); POTASSIUM 4.8 mmol/L (3.5-5.1)
[2016-11-10 06:53] LABS: HEMATOCRIT 20.3 % (38.0-50.0); MEAN CELL VOLUME 94.8 FL (83-96); MEAN CORPUSCULAR HEMOGLOBIN 31.7 PG (28-34); MEAN CORPUSCULAR HGB CONC 33.5 g/dL (30-36); MEAN PLATELET VOLUME 8.4 FL (6.5-11.5); RED BLOOD COUNT 2.14 X10e (3.90-5.60); WHITE BLOOD COUNT 11.8 X10e3 (4.0-10.5)
[2016-11-10 06:55] LABS: HEMOGLOBIN 6.8 gm/dL (13.0-16.0)
[2016-11-10 07:00] LABS: BUN/CREATININE RATIO 12.6; CALCIUM SERUM 7.3 mg/dL (8.4-10.2); GLOM FILT RATE Estimated 12.6 mL/min (>60)
[2016-11-10 07:25] LABS: POTASSIUM 5.7 mmol/L (3.5-5.1)
[2016-11-10 17:09] LABS: HEMATOCRIT 22.9 % (38.0-50.0); HEMOGLOBIN 7.7 gm/dL (13.0-16.0)
[2016-11-11 05:24] LABS: BASOPHIL# 0.1 X10e3 (0-0.3); BASOPHIL% 0.5 % (0-2.5); EOSINOPHIL# 0.2 X10e3 (0-0.7); EOSINOPHIL% 0.9 % (0.0-7.0); HEMATOCRIT 23.3 % (38.0-50.0); HEMOGLOBIN 7.9 gm/dL (13.0-16.0); LYMPHOCYTE# 0.8 X10e3 (1.0-3.5); LYMPHOCYTE% 5.2 % (17.0-45.0); MEAN CELL VOLUME 95.5 FL (83-96); MEAN CORPUSCULAR HEMOGLOBIN 32.5 PG (28-34); MEAN PLATELET VOLUME 8.3 FL (6.5-11.5); MONOCYTE# 2.1 X10e3 (0-1.0); MONOCYTE% 13.2 % (3.0-12.0); NEUTROPHIL# 12.7 X10e3 (1.5-7.1); NEUTROPHIL% 80.2 % (40-75); PLATELET COUNT 61 X10e3 (140-420); RED BLOOD COUNT 2.44 X10e (3.90-5.60); RED CELL DISTRIBUTION WIDTH 18.2 % (11.0-15.5); WHITE BLOOD COUNT 15.9 X10e3 (4.0-10.5)
[2016-11-11 05:37] LABS: DIFF IND YES
[2016-11-11 06:28] LABS: BUN/CREATININE RATIO 12.92; CALCIUM SERUM 7.6 mg/dL (8.4-10.2); CREATININE SERUM 4.1 mg/dL (0.6-1.4)
[2016-11-11 06:32] LABS: POTASSIUM 5.7 mmol/L (3.5-5.1)
[2016-11-11 06:42] LABS: PLATELET ESTIMATE DECREASED (NORMAL)
[2016-11-11 06:43] LABS: ANISOCYTOSIS MOD; HYPOCHROMIA SL; TARGET CELLS SL
[2016-11-11 06:44] LABS: MICROCYTOSIS SL
[2016-11-12 01:31] LABS: HEP B SURFACE AG Nonreactive (Nonreactive)
[2016-11-12 07:50] LABS: BUN/CREATININE RATIO 13.52; CALCIUM SERUM 7.6 mg/dL (8.4-10.2); CREATININE SERUM 5.1 mg/dL (0.6-1.4); GLOM FILT RATE Estimated 12.3 mL/min (>60)
[2016-11-12 07:52] LABS: POTASSIUM 6.2 mmol/L (3.5-5.1)
[2016-11-12 07:53] LABS: HEMATOCRIT 20.3 % (38.0-50.0); MEAN CELL VOLUME 96.8 FL (83-96); MEAN CORPUSCULAR HEMOGLOBIN 32.4 PG (28-34); MEAN CORPUSCULAR HGB CONC 33.4 g/dL (30-36); MEAN PLATELET VOLUME 7.9 FL (6.5-11.5); RED BLOOD COUNT 2.1 X10e (3.90-5.60); WHITE BLOOD COUNT 15.6 X10e3 (4.0-10.5)
[2016-11-12 08:17] LABS: HEMOGLOBIN 6.8 gm/dL (13.0-16.0)
== END 2016-11-12 16:20 | DRG 871 ==
LOC: CED 11:33 → CEDOF 14:00 → C5C 14:00 → CEDOF 14:16 → CICCU3 14:16 → CED 14:16 → CEDOF 10-22 00:33 → CICCU3 10-22 00:33 → C5C 10-24 17:58
PROVIDERS: Emergency Medicine; Hospitalist; Internal Medicine; Internal Medicine Hematology & Oncology; Internal Medicine Infectious Disease; Internal Medicine Nephrology; Nurse Practitioner Family; Physician Assistant Medical; Radiology Diagnostic Radiology
PROC: 05HM33Z Insertion of Infusion Device into Right Internal Jugular Vein, Percutaneous Approach (ICD-10-PCS; 2016-10-21)
PROC: B543ZZA Ultrasonography of Right Jugular Veins, Guidance (ICD-10-PCS; 2016-10-21)
PROC: 0W9G30Z Drainage of Peritoneal Cavity with Drainage Device, Percutaneous Approach (ICD-10-PCS; 2016-10-22)
PROC: B24BYZZ Ultrasonography of Heart with Aorta using Other Contrast (ICD-10-PCS; 2016-10-22)
PROC: 5A1D60Z (ICD-10-PCS; principal; 2016-10-23)
PROC: 0W9G30Z Drainage of Peritoneal Cavity with Drainage Device, Percutaneous Approach (ICD-10-PCS; 2016-10-23)
PROC: 6A551Z2 Pheresis of Platelets, Multiple (ICD-10-PCS; 2016-10-29)
PROC: 0W9G30Z Drainage of Peritoneal Cavity with Drainage Device, Percutaneous Approach (ICD-10-PCS; 2016-10-30)
PROC: 02HV33Z Insertion of Infusion Device into Superior Vena Cava, Percutaneous Approach (ICD-10-PCS; 2016-10-31)
PROC: 4A02X4A Measurement of Cardiac Electrical Activity, Guidance, External Approach (ICD-10-PCS; 2016-10-31)
PROC: 30233N1 Transfusion of Nonautologous Red Blood Cells into Peripheral Vein, Percutaneous Approach (ICD-10-PCS; 2016-10-31)
PROC: 0W9G30Z Drainage of Peritoneal Cavity with Drainage Device, Percutaneous Approach (ICD-10-PCS; 2016-11-05)
PROC: 0DJ08ZZ Inspection of Upper Intestinal Tract, Via Natural or Artificial Opening Endoscopic (ICD-10-PCS; 2016-11-11)
DX: A41.81 Sepsis due to Enterococcus (principal); N18.6 End stage renal disease; J96.01 Acute respiratory failure with hypoxia; R65.21 Severe sepsis with septic shock; I33.0 Acute and subacute infective endocarditis; G92 Toxic encephalopathy; I47.2 Ventricular tachycardia; D62 Acute posthemorrhagic anemia; J18.9 Pneumonia, unspecified organism; A04.7 Enterocolitis due to Clostridium difficile; K76.6 Portal hypertension; E27.40 Unspecified adrenocortical insufficiency; E87.1 Hypo-osmolality and hyponatremia; I85.00 Esophageal varices without bleeding; J44.9 Chronic obstructive pulmonary disease, unspecified; D63.1 Anemia in chronic kidney disease; D69.6 Thrombocytopenia, unspecified; Z99.2 Dependence on renal dialysis; I08.1 Rheumatic disorders of both mitral and tricuspid valves; K70.31 Alcoholic cirrhosis of liver with ascites; F17.210 Nicotine dependence, cigarettes, uncomplicated; K31.89 Other diseases of stomach and duodenum; K72.90 Hepatic failure, unspecified without coma; G47.33 Obstructive sleep apnea (adult) (pediatric); E87.5 Hyperkalemia; K55.20 Angiodysplasia of colon without hemorrhage
CPT/HCPCS: 36415; 36430; 36600; 71010; 76705; 80048; 80053; 80076; 80200; 80202; 82042; 82140; 82308; 82533; 82550; 82553; 82728; 82803; 82947; 83010; 83540; 83550; 83605; 83615; 83735; 84100; 84157; 84484; 85014; 85018; 85025; 85027; 85044; 85049; 85384; 85610; 85730; 86850; 86900; 86901; 86923; 87040; 87070; 87077; 87186; 87205; 87340; 87493; 88108; 89051; 93005; 93306; 94640; 94660; 94760; 94761; 96361; 96365; 96366; 96368; 97110; 97116; 97162; 97163; 97166; 97530; 99291; C9113; G8978-GP; G8979-GP; G8987-GO; G8988-GO; G8989-GO; J0456; J0610; J0696; J0878; J1580; J1644; J1720; J1815; J2150; J2250; J2370; J2543; J2795; J3260; J3370; P9016; P9035; Q4081

== ENCOUNTER → 2016-11-30 | Outpatient (CLI) | payer OTHER ==
--- NOTE | ~2016-11-30 | XA170 ---
[facility] A Service of [facility] & [facility] RADIOLOGY TEXT RESULTS PATIENT: MIRA BRAXTON LOCATION: [facility] : [birth year] UNIT #: [id number] AGE: [address]: Akshat Umana MD SEX: M ORDER DR: [id number] [facility] [address] [facility]. [place], [place] [address] [id number] O MR#: [id number] Acc #: [id number] NAME: MIRA BRAXTON : 1965 SEX: M STUDY DATE/TIME: 11/30/2016 14:50 UNIT: [facility] ROOM: STUDY DESCRIPTION: XA Paracentesis W Image Attending Physician: Akshat Umana M.D. Referring Physician: Akshat Umana M.D. Ordering Physician: Akshat Umana M.D. Primary Care Physician: Colton Mcdowell M.D. MEDICAL IMAGING REPORT This report is preliminary unless electronic signature is present EXAM Ultrasound-guided paracentesis, 11/30/2016. HISTORY Recurrent ascites and cirrhosis. PROCEDURE Informed consent was obtained. A skin site was selected with ultrasound guidance and marked. Sterilely prepped and draped and locally anesthetized. Paracentesis was performed with a Getbazza needle catheter. 5 L of fluid was removed and sent for testing. There were no complications and the patient tolerated the procedure well. IMPRESSION Successful ultrasound-guided right lower quadrant paracentesis with removal of 5 L without complication. Dictated by... Poncho Hendrix M.D. THIS IS AN ELECTRONICALLY VERIFIED REPORT Poncho Hendrix M.D. at 12/03/2016 9:07 AM TEV/pc TD: 12/01/2016 13:41 JOB #: [id number] MEDICAL IMAGING REPORT Page 1 of 1 COPY
== END | disposition home or self-care (01) ==
LOC: CIVR 14:30
PROC: 0W9G3ZZ Drainage of Peritoneal Cavity, Percutaneous Approach (ICD-10-PCS; principal; 2016-11-30)
DX: R18.8 Other ascites (principal)

== ENCOUNTER → 2016-12-07 | Outpatient (CLI) | payer OTHER ==
--- NOTE | ~2016-12-07 | XA170 ---
[facility] A Service of [facility] & [facility] RADIOLOGY TEXT RESULTS PATIENT: MIRA BRAXTON LOCATION: [facility] : [birth year] UNIT #: [id number] AGE: [address]: Akshat Umana MD SEX: M ORDER DR: [id number] [facility] [address] [facility]. [place], [place] [address] [id number] O MR#: [id number] Acc #: [id number] NAME: MIRA BRAXTON : 1965 SEX: M STUDY DATE/TIME: 12/07/2016 11:21 UNIT: [facility] ROOM: STUDY DESCRIPTION: XA Paracentesis W Image Attending Physician: Akshat Umana M.D. Referring Physician: Akshat Umana M.D. Ordering Physician: Akshat Umana M.D. Primary Care Physician: Colton Mcdowell M.D. MEDICAL IMAGING REPORT This report is preliminary unless electronic signature is present EXAM Ultrasound-guided paracentesis, 12/07/2016. HISTORY Recurrent ascites. PROCEDURE Informed consent was obtained, and a skin site was selected with ultrasound guidance and marked, sterilely prepped and draped, and locally anesthetized. The TopVisible needle catheter was used for paracentesis, and 6 L of fluid were removed under standard sterile technique after local anesthesia. IMPRESSION Successful ultrasound-guided right lower quadrant paracentesis with removal of 6 L of fluid without complication. Dictated by... Poncho Hendrix M.D. THIS IS AN ELECTRONICALLY VERIFIED REPORT Poncho Hendrix M.D. at 12/07/2016 4:04 PM FERDINAND/zafar TD: 12/07/2016 15:45 JOB #: [id number] MEDICAL IMAGING REPORT Page 1 of 1 COPY
== END | disposition home or self-care (01) ==
LOC: CIVR 10:35
PROC: 0W9G3ZX Drainage of Peritoneal Cavity, Percutaneous Approach, Diagnostic (ICD-10-PCS; principal; 2016-12-07)
DX: R18.8 Other ascites (principal)